=== PATIENT | male | born 1930 | race Caucasian/White ===

== ENCOUNTER 2016-12-27 21:26 | Emergency (ER) | payer OTHER, MEDICARE ==
[~2016-12-27] VITALS: Ht 165.1 cm; Wt 70.8 kg
[~2016-12-27 21:26] MED LIST: AMLODIPINE BESYL5 M1 PO; CLOPIDOGREL75 M1 PO; EXELON1 EAC1 TOP; FUROSEMIDE20 M1 PO; IBUPROFEN400 M1 PO; METOPROLOL SUC100 M2 PO; NAMENDA10 M2 PO; PRAVASTATIN SOD40 M2 PO; RIVASTIGMINE3 MG PO
[2016-12-27 21:39] VITALS: BP 150/77
--- NOTE | 2016-12-27 21:48 | ED MVC/FALL/TRAUMA COMPLAINT ---
History of Present Illness General Chief Complaint: Fall Stated Complaint: PT FELL AND HIT HIS HEAD Source: patient, family, old records Exam Limitations: no limitations Vital Signs & Intake/Output Vital Signs & Intake/Output Vital Signs Date Time Temp Pulse Resp B/P Pulse O2 O2 Flow FiO2 Ox Delivery Rate 12/27 2217 Room Air 12/27 2138 97.6 65 18 150/77 96 Room Air ED Intake and Output 12/28 0000 12/27 1200 Intake Total 0 Output Total Balance 0 Intake, Oral 0 Patient 156 lb Weight Allergies Coded Allergies: NO KNOWN ALLERGIES (03/17/16) Reconcile Medications Amlodipine Besylate 5 MG TABLET 1 TAB PO DAILY HEART (Reported) Clopidogrel Bisulfate (Clopidogrel) 75 MG TABLET 1 TAB PO DAILY BLOOD THINNER (Reported) Furosemide 20 MG TABLET 1 TAB PO DAILY WATER PILL (Reported) Ibuprofen 400 MG TABLET 1 TAB PO BID PRN PAIN Memantine HCl (Namenda) 10 MG TABLET 1 TAB PO BID DEMENTIA (Reported) Metoprolol Succinate 100 MG TAB.ER.24H 1 TAB PO DAILY HEART (Reported) Pravastatin Sodium 40 MG TABLET 1 TAB PO QPM CHOLESTEROL (Reported) Rivastigmine (Exelon) 9.5 MG/Patch PAT 1 PAT TOP DAILY DEMENTIA (Reported) Rivastigmine Tartrate (Rivastigmine) 3 MG CAPSULE 1 CAP PO BID DEMENTIA ( Reported) Triage Note: PT TO TRIAGE S/P FELL OFF HIS WHEELCHAIR AND HIT HIS HEAD ON TABLE, BUMP TO R SIDE OF HEAD NOTED. -LOS, -LAC, PT TAKES ASPIRIN 81MG. PT DENIES ANY PAIN. HX OF DEMENTIA,HTN,HIGH CHOL,PACEMAKER. Triage Nurses Notes Reviewed? yes Onset: Abrupt Duration: hour(s): (1), better, constant Timing: recent history Severity: mild Severity Numbers: 1 Injuries/Fall Location: head Method of Injury: fall Loss of Consciousness: no loss of consciousness No Modifying Factors: none Associated Symptoms: denies HPI: 86-year-old male with history of dementia coronary artery disease on Plavix aspirin presents with his family for evaluation after he had a witnessed fall when he attempted to sit back in his wheelchair which was not locked. The wheelchair went backwards causing the patient to strike his head against the table sustaining a bump to the right side of his head. The fall was witnessed by his and son there is no loss of consciousness. They state he is been acting his normal baseline mental status-strickland since the fall there is no nausea no vomiting. On arrival the patient is without any complaints he denies any nausea vomiting headache vision changes neck or back pain no extremity injury chest pain abdominal pain no numbness or tingling. He is not taken anything for his symptoms there no modifying factors or associated symptoms otherwise. (JACKSON LEARY) Past History Travel History Traveled to [place] past 21 day No Medical History Any Pertinent Medical History? see below for history Neurological: dementia Cardiovascular: hypertension, hyperlipidemia, myocardial infarction, PACEMAKER Endocrine: diabetes Surgical History Surgical History: PPM Psychosocial History What is your primary language Korean Tobacco Use: Never used Family History Hx Contributory? No (JACKSON LEARY) Review of Systems Review of Systems Constitutional: Reports: see HPI. All Other Systems: Reviewed and Negative Comments Review of systems: See HPI, All other systems negative. Constitutional, no chills no fever, no malaise HEENT: No visual changes no sore throat no congestion, Cardiovascular: No chest pain , no palpitation , Skin, no jaundice no rashes, no change in skin Respiratory: No dyspnea no cough no sputum GI: No nausea no vomiting, : No dysuria Muscle skeletal: No joint pain, no joint swelling, no back pain, no neck pain, Neurologic: No numbness no confusion, no headache Psych: No stress Heme/endocrine: No bruising no bleeding Immunology: No lymphadenopathy (JACKSON LEARY) Physical Exam Physical Exam General Appearance: well developed/nourished, no apparent distress, alert, awake Comments: Well-developed well-nourished person in no acute distress HEENT: Normal EENT exam; PERRL, EOMI, no nystagmus. HEAD is atraumatic. moist mucous membranes. No hemotympanum no raccoon eyes or yoon signs there is a small 2 cm hematoma to the right parietal scalp nontender no obvious deformity Neck: Supple, no midline or paracervical tenderness no signs of trauma, normal range of motion without pain or tenderness Back: Nontender, Full range of motion Cardiovascular: Regular rate and rhythms no murmurs rubs Respiratory: Chest nontender.There were no bony deformities, no asymmetry. No respiratory distress. Patient speaking in full complete sentences Abdomen: Soft, nontender Extremity: No edema, full range of motion of extremities, normal and equal pulses bilaterally, 5 out of 5 strength noted to bilateral upper and lower extremities Neuro: Alert oriented x3, motor sensory normal, cranial nerves II through XII grossly intact. There were no obvious focal neurologic abnormalities. Skin: No appreciable rash on exposed skin, skin is warm and dry. Psych: Mood and affect is normal, memory and judgment is normal. Core Measures ACS in differential dx? No Severe Sepsis Present: No Septic Shock Present: No (JACKSON LEARY) Progress Differential Diagnosis: ext injury, ICH, pelvis injury, spinal cord injury Plan of Care: Orders Procedure Date/time Status CT HEAD WO IV CONTRAST 12/27 2152 Active CAT scan ordered patient resting in no apparent distress denies any complaints at this time case was discussed with Dr. Long. I discussed the patient and his family his CAT scan results need for close follow up with his primary care physician supportive care Tylenol Motrin if needed they feel comfortable with plan cleared for discharge (JACKSON LEARY) Diagnostic Imaging: Viewed by Me: CT Scan. Discussed w/RAD: CT Scan. Radiology Impression: PATIENT: TYSON NOONAN PRESENT AGE: 86 PATIENT ACCOUNT NO: [id number] : 30 LOCATION: [facility] ORDERING PHYSICIAN: JACKSON LIM SERVICE DATE: 12/27/16 EXAM TYPE: CAT - CT HEAD WO IV CONTRAST EXAMINATION: CT HEAD WITHOUT CONTRAST CLINICAL INFORMATION: Fall. Dementia. COMPARISON: None TECHNIQUE: Contiguous axial imaging was performed from the skull base to vertex without intravenous administration of contrast. Coronal reformatted images performed at CT scanner. DLP: 600.71 mGy-cm FINDINGS: There is no evidence of acute intracranial hemorrhage or territorial infarction. No abnormal mass effect or midline shift is seen. Green to white matter differentiation is well preserved. No extra-axial fluid collections are identified. There is atrophy with prominence of the ventricles and the sulci and hypodensity of the periventricular white matter due to chronic small vessel ischemic disease. There is vascular calcifications of the internal carotid arteries and the vertebral arteries bilaterally. The osseous structures and soft tissues are normal. The mastoid air cells and visualized portions of the paranasal sinuses are well aerated. IMPRESSION: No acute intracranial pathology. DICTATED BY: CLAUDY SOMERS MD DATE/TIME DICTATED:12/27/162305 TOE POUNDER :MALINDA DATE/TIME TRANSCRIBED:03/19/17 / 2306 CONFIDENTIAL, DO NOT COPY WITHOUT APPROPRIATE AUTHORIZATION. <Electronically signed in Other Vendor System> SIGNED BY: CLAUDY SOMERS MD 12/27/162310 (JACKSON LEARY) Departure Departure Time of Disposition: 2318 Disposition: HOME OR SELF CARE Condition: Stable Clinical Impression Primary Impression: Minor head injury without loss of consciousness Secondary Impressions: Scalp hematoma Referrals: SASKIA PATTERSON,DEIRDRE Coronado (PCP/Family) Additional Instructions: Follow up with his primary care physician this week return to emergency room anytime sooner with any concerns Departure Forms: Customer Survey General Discharge Information (JACKSON LEARY) PA/TMD TEACHER Co-Sign Statement Statement: ED Attending supervision documentation- [] I saw and evaluated the patient. I have also reviewed all the pertinent lab results and diagnostic results. I agree with the findings and the plan of care as documented in the PA's/TMD TEACHER's documentation. x] I have reviewed the ED Record and agree with the PA's/TMD TEACHER's documentation. [] Additions or exceptions (if any) to the PAs/TMD TEACHER's note and plan are summarized below: [] (GABBIE PATTERSON,DEWAYNE Xiao)
--- NOTE | 2016-12-27 23:11 | CT SCAN REPORT ---
EXAMINATION: CT HEAD WITHOUT CONTRAST CLINICAL INFORMATION: Fall. Dementia. COMPARISON: None TECHNIQUE: Contiguous axial imaging was performed from the skull base to vertex without intravenous administration of contrast. Coronal reformatted images performed at CT scanner. DLP: 600.71 mGy-cm FINDINGS: There is no evidence of acute intracranial hemorrhage or territorial infarction. No abnormal mass effect or midline shift is seen. Green to white matter differentiation is well preserved. No extra-axial fluid collections are identified. There is atrophy with prominence of the ventricles and the sulci and hypodensity of the periventricular white matter due to chronic small vessel ischemic disease. There is vascular calcifications of the internal carotid arteries and the vertebral arteries bilaterally. The osseous structures and soft tissues are normal. The mastoid air cells and visualized portions of the paranasal sinuses are well aerated. IMPRESSION: No acute intracranial pathology.
== END 2016-12-27 23:21 ==
LOC: ERH 21:26
DX: S09.90XA Unspecified injury of head, initial encounter (principal); S00.03XA Contusion of scalp, initial encounter; W05.0XXA Fall from non-moving wheelchair, initial encounter

== ENCOUNTER 2017-03-11 15:47 | Inpatient (IN) | payer OTHER, MEDICARE ==
[~2017-03-11] VITALS: Ht 165.1 cm; Wt 68.0 kg
--- NOTE | 2017-03-11 16:08 | ED GENERAL ADULT ---
History of Present Illness General Chief Complaint: Altered Mental Status Stated Complaint: BIBA FOR AMS Source: family, old records Exam Limitations: dementia Vital Signs & Intake/Output Vital Signs & Intake/Output Vital Signs Date Time Temp Pulse Resp B/P B/P Pulse O2 O2 Flow FiO2 Mean Ox Delivery Rate 03/11 1802 78 20 185/91 98 Room Air 03/11 1550 98.0 78 20 148/80 96 Room Air Allergies Coded Allergies: NO KNOWN ALLERGIES (03/17/16) Reconcile Medications Amlodipine Besylate 5 MG TABLET 1 TAB PO DAILY HEART (Reported) Clopidogrel Bisulfate (Clopidogrel) 75 MG TABLET 1 TAB PO DAILY BLOOD THINNER (Reported) Furosemide 20 MG TABLET 1 TAB PO DAILY WATER PILL (Reported) Ibuprofen 400 MG TABLET 1 TAB PO BID PRN PAIN Memantine HCl (Namenda) 10 MG TABLET 1 TAB PO BID DEMENTIA (Reported) Metoprolol Succinate 100 MG TAB.ER.24H 1 TAB PO DAILY HEART (Reported) Pravastatin Sodium 40 MG TABLET 1 TAB PO QPM CHOLESTEROL (Reported) Rivastigmine (Exelon) 9.5 MG/Patch PAT 1 PAT TOP DAILY DEMENTIA (Reported) Rivastigmine Tartrate (Rivastigmine) 3 MG CAPSULE 1 CAP PO BID DEMENTIA ( Reported) Triage Note: BIBA FROM HOME. PT WITH ADVANCED DEMENTIA. PER EMS AND FAMILY PT WITH DECREASED MOBILITY SINCE WEDNESDAY. Triage Nurses Notes Reviewed? yes HPI: Patient brought in by his family for evaluation of worsening confusion. Patient has Alzheimer's dementia but starting on Wednesday they noticed that his confusion abruptly got worse. They've also noticed that every time the turn him onto his right side he cries out in pain. They're unsure where the pain is in his right side. They state that he usually sleeps on his right side but for the past few days he has been sitting on his back. Patient is unable to provide any history. Past History Travel History Traveled to [place] past 21 day No Medical History Any Pertinent Medical History? see below for history Neurological: dementia Cardiovascular: hypertension, hyperlipidemia, myocardial infarction, PACEMAKER Endocrine: diabetes Surgical History Surgical History: PPM Psychosocial History What is your primary language French Tobacco Use: Cognitive Impairment Family History Hx Contributory? No Review of Systems Review of Systems Constitutional: Reports: see HPI. Physical Exam Physical Exam General Appearance: well developed/nourished, awake, mild distress Head: atraumatic, normal appearance Eyes: Bilateral: PERRL, EOMI. Ears, Nose, Throat: normal pharynx, normal ENT inspection Neck: normal inspection, supple Respiratory: normal breath sounds, chest non-tender, no respiratory distress, lungs clear Cardiovascular: regular rate/rhythm, normal peripheral pulses Gastrointestinal: normal bowel sounds, soft, non-tender Back: normal inspection, normal range of motion Extremities: normal inspection, normal capillary refill, normal range of motion Neurologic/Psych: disoriented x 3 Skin: intact, normal color, warm/dry Lymphatic: no anterior cervical sary Core Measures ACS in differential dx? No CVA/TIA Diagnosis: Yes Dt/Tm Last Known Well: Yes Date Last Known Well: 03/07/17 Neurological S/S of CVA: Acute Confusion Symptom start date: 03/07/17 Reason tPA not ordered: Medical Contraindication Severe Sepsis Present: No Septic Shock Present: No Bedside Swallow Eval Done: Yes Result of Evaluation: Pass Progress Differential Diagnoses I considered the following diagnoses in my evaluation of the patient: [UTI, pneumonia, electrolyte abnormality, CVA] Plan of Care: Orders Procedure Date/time Status Regular Diet 03/12 B Active EKG 03/11 1916 Active URINALYSIS 03/11 1610 Active COMPREHENSIVE METABOLIC PANEL 03/11 1610 Complete CBC WITHOUT DIFFERENTIAL 03/11 1610 Complete Laboratory Tests 03/11/17 1620: Anion Gap 13, Estimated GFR 26 L, BUN/Creatinine Ratio 24.2, Glucose 230 H, Calcium 9.0, Total Bilirubin 0.5, AST 21, ALT 38, Alkaline Phosphatase 58, Total Protein 7.3, Albumin 3.7, Globulin 3.6, Albumin/Globulin Ratio 1.0 L, CBC w Diff NO MAN DIFF REQ, RBC 4.07 L, MCV 89.9, MCH 29.7, RDW 13.5, MPV 8.8, Gran % 73.3, Lymphocytes % 12.7 L, Monocytes % 12.6 H, Eosinophils % 1.2, Basophils % 0.2, Absolute Granulocytes 6.3, Absolute Lymphocytes 1.1 L, Absolute Monocytes 1.1 H, Absolute Eosinophils 0.1, Absolute Basophils 0, PUBS MCHC 33.0 Initial ED EKG: pacemaker rhythm Prior EKG: unchanged Departure Departure Disposition: STILL A PATIENT Condition: Stable Clinical Impression Primary Impression: CVA (cerebral vascular accident) Qualifiers: CVA mechanism: unspecified Qualified Code: I63.9 - Cerebral infarction, unspecified Referrals: SASKIA PATTERSON,DEIRDRE Coronado (PCP/Family) Departure Forms: Customer Survey General Discharge Information Admission Note Spoke With: MATTHEW JONAS MD Documentation of Exam: Documentation of any treatments & extenuating circumstances including Concerns Regarding Discharge (functional status, medication knowledge or non-compliance, living conditions, etc.) that warrant an admission rather than observation: [ Telemetry monitoring, neurology consultation, aspirin, PT evaluation] Critical Care Note Critical Care Note Critical Care Time: non-applicable
[2017-03-11 16:24] LABS: ABSOLUTE BASOPHIL COUNT 0 /CUMM (0.0-0.2); ABSOLUTE EOSINOPHIL COUNT 0.1 /CUMM (0.0-0.7); ABSOLUTE GRANULOCYTE CT 6.3 /CUMM (1.4-6.5); ABSOLUTE LYMPH COUNT 1.1 /CUMM (1.2-3.4); ABSOLUTE MONOCYTE COUNT 1.1 /CUMM (0.10-0.60); BASOPHIL % 0.2 % (0.0-2.0); EOSINOPHIL % 1.2 % (0-5); GRANULOCYTE % 73.3 % (42.2-75.2); HEMATOCRIT 36.6 % (42-52); MEAN CORPUSCULAR HGB 29.7 PG (27.0-31.0); MEAN CORPUSCULAR VOLUME 89.9 FL (80.0-94.0); MEAN PLATELET VOLUME 8.8 FL (7.4-10.4); PLATELET COUNT 168 /CUMM (130-400); RBC DISTRIBUTION WIDTH 13.5 % (11.5-14.5); RED BLOOD CELL CT 4.07 /CUMM (4.70-6.10); WHITE BLOOD CELL COUNT 8.6 /CUMM (4.8-10.8)
--- NOTE | 2017-03-11 17:20 | CT SCAN REPORT ---
EXAMINATION: CT HEAD WITHOUT CONTRAST CLINICAL INFORMATION: Change in mental status. COMPARISON: CT head dated 12/27/2016 TECHNIQUE: Contiguous axial imaging was performed from the skull base to vertex without intravenous administration of contrast. DLP: 614.88 mGy-cm FINDINGS: There is no CT evidence of acute intra-axial or extra-axial hemorrhage. No acute mass effect or midline shift. Subtle loss of cobian-white differentiation noted in the right superior frontoparietal region (series 2 image 50). Findings are suspicious for evolving cortical infarct. There is periventricular and subcortical white matter low-attenuation consistent with microvascular ischemic disease. Stable punctate bilateral basal ganglia calcifications. Atherosclerotic disease with intimal calcification of the distal internal carotid arteries and distal vertebral arteries. The mastoid air cells and visualized portions of the paranasal sinuses are well aerated. IMPRESSION: Subtle loss of cobian-white differentiation right superior frontoparietal junction suspicious for evolving cortical infarct. This represents a new finding. This can be confirmed with MRI head. Critical results discussed with Dr. Parish at 5:15 PM on 03/11/2017.
--- NOTE | 2017-03-11 18:00 | RADIOLOGY REPORT ---
EXAMINATION: XR SHOULDER, RIGHT CLINICAL INFORMATION: Pain. COMPARISON: None TECHNIQUE: Four views of the right shoulder. FINDINGS: No fracture. No dislocation. No focal bone lesion. No soft tissue calcification. The acromioclavicular joint is normal. There is narrowing of the glenohumeral joint with superior subluxation of the humerus consistent with a chronic rotator cuff tendon tear. Pacemaker leads partially visualized in the mediastinum. 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 No acute abnormality of the shoulder.
--- NOTE | 2017-03-11 18:01 | RADIOLOGY REPORT ---
EXAMINATION: XR PELVIS CLINICAL INFORMATION: Pain when patient turns on the right side. COMPARISON: None TECHNIQUE: AP view of the pelvis. FINDINGS: There is osteopenia. No fracture or focal bone lesion. There is mild joint narrowing and spurring of acetabula of the hips bilateral. There is marked degenerative disc disease of lower lumbar spine with vacuum disc phenomenon at L3-L4 and L4-L5. IMPRESSION: No acute abnormality of pelvis. 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
--- NOTE | 2017-03-11 18:03 | RADIOLOGY REPORT ---
EXAMINATION: XR CHEST CLINICAL INFORMATION: Change of mental status COMPARISON: None TECHNIQUE: 2 views of the chest were obtained. FINDINGS: Heart size enlarged. Pacemaker leads in right atrium, right ventricle and coronary sinus. This vascular calcifications of aorta. Asymmetric elevation of right diaphragm compared to left. No significant central pulmonary vascular congestion. No infiltrate. No pleural effusion or pneumothorax. Multilevel endplate degenerative spurring of dorsal spine. IMPRESSION: No acute abnormality of the chest.
[2017-03-11] MEDS ORDERED: ASPIRIN81 M4 PO (21:02)
--- NOTE | 2017-03-11 21:16 | History & Physical ---
ALICIA CLARK 03/11/176: General Information and HPI MD Statement: I have seen and personally examined TYSON ARIAS and documented this H&P. The patient is a 87 year old M who presented with a patient stated chief complaint of altred mental status. Source of Information: family, old records Exam Limitations: unable to give history, not alert/orientated, dementia History of Present Illness: Mr Arias, is an 87 yr old man who was known to be in his usual state of health 5 days ago. He has a PMH of Alzheimers dementia(dx'ed 2012), HTN, HLD, CKD stage 4 , ischemic and/or nonischemic cardiomyopathy (AICD dx'ed 2010). She was brought to [facility] with a chief concern of worsening confusion 5 days. As per the patient's family, last known to be normal was 5 days ago, when he communicated normally and was able to walk independently using a walker. The following day, he was unable to stand or walk, and had increasing confusion. No loss of consciousness, seizures, loss of bladder or bowel function. Family noted facial droop on the right side. As per the patient's family, other review of systems-palpitations, lightheadedness, chest pain, fever, dysuria were absent. Recent hospital admission- [facility] in Sep [address] Zee ( opthalmic tech) and Dr. Arredondo (electophysiologist). Allergies/Medications Allergies: Coded Allergies: NO KNOWN ALLERGIES (03/17/16) Past History Travel History Traveled to [place] past 21 day No Medical History Neurological: dementia Cardiovascular: hypertension, hyperlipidemia, myocardial infarction, PACEMAKER Endocrine: diabetes Isolation History: Standard Surgical History Surgical History: PPM Past Family/Social History Family History Relations & Conditions if any Relation not specified for: *No pertinent family history Functional Ability ADLs Needs Assist: dressing, eating, toileting, bathing. Ambulation: walker IADLs Needs Assist: food prep, transportation. Review of Systems Review of Systems Constitutional: Denies: see HPI, chills, fever. EENTM: Denies: blurred vision. Cardiovascular: Denies: chest pain. Respiratory: Denies: cough, short of breath. GI: Denies: abdominal pain, melena. Genitourinary: Denies: frequency, hematuria. Neurological/Psychological: Denies: anxiety. Hematologic/Endocrine: Denies: bruising. Exam & Diagnostic Data Last 24 Hrs of Vital Signs/I&O Vital Signs Date Time Temp Pulse Resp B/P B/P Pulse O2 O2 Flow FiO2 Mean Ox Delivery Rate 03/12 0239 170/90 03/11 2215 97.0 71 16 142/80 96 Room Air 03/11 2103 76 20 168/79 99 Room Air 03/11 2020 98.0 62 20 169/84 99 Room Air 03/11 1802 78 20 185/91 98 Room Air 03/11 1550 98.0 78 20 148/80 96 Room Air Intake & Output 03/12 0800 06 0000 03/11 1600 Intake Total Output Total Balance Patient 150 lb Weight Weight Reported by Patient Measurement Method Physical Exam General Appearance No Acute Distress, AAOx0 Skin No Rashes, No Breakdown, No Significant Lesion Skin Temp/Moisture Exam: Warm/Dry Sepsis Skin Exam (color): Normal for Ethnicity, Cyanotic, Flushed HEENT Atraumatic, PERRLA, EOMI Neck Supple, No JVD, No thryomegaly Lymphatic Axillary nl, Cervical nl Cardiovascular Regular Rate, Normal S1, Normal S2 Lungs Normal Air Movement Abdomen Normal Bowel Sounds, Soft, No Tenderness Neurological Strength 4/5 right upper and lower extremities Strength 3/5 left upper and lower extremities Babinski negative DTR 1+ Left knee, 2+ Right knee Extremities No Clubbing Vascular Pulses Symmetrical Sepsis Peripheral Pulse Location: Dorsalis Pedis Sepsis Peripheral Pulse Exam: Normal Sepsis Cap Refill Exam: >2 sec Reproductive (MALE) scrotal edema Body Front and Back (Adult) 1) scrotal edema Last 24 Hrs of Labs/Anselmo: Laboratory Tests 03/11/17 1620: Anion Gap 13, Estimated GFR 26 L, BUN/Creatinine Ratio 24.2, Glucose 230 H, Hemoglobin A1c Pending, Calcium 9.0, Total Bilirubin 0.5, AST 21, ALT 38, Alkaline Phosphatase 58, Total Protein 7.3, Albumin 3.7, Globulin 3.6, Albumin/ Globulin Ratio 1.0 L, Vitamin B12 Pending, TSH Pending, CBC w Diff NO MAN DIFF REQ, RBC 4.07 L, MCV 89.9, MCH 29.7, RDW 13.5, MPV 8.8, Gran % 73.3, Lymphocytes % 12.7 L, Monocytes % 12.6 H, Eosinophils % 1.2, Basophils % 0.2, Absolute Granulocytes 6.3, Absolute Lymphocytes 1.1 L, Absolute Monocytes 1.1 H, Absolute Eosinophils 0.1, Absolute Basophils 0, PUBS MCHC 33.0 Diagnostic Data EKG Results Heart rate 74, atrial sensed ventricular paced rhythm. No ST-T wave changes. CXR Results Normal Other Results CT head-subtle loss of cobian-white differentiation with right superior frontal parental junction. Likely evolving cortical infarct. X-ray pelvis-no acute abnormality. Degenerative changes found. X-ray right shoulder-chronic rotator cuff tear. X-ray chest-normal no acute abnormality. Assessment/Plan Assessment: He is an older man with a past history of Alzheimer's dementia, hypertension, cardiomyopathy (AICD) is being evaluated for worsening confusion, likely from CVA or worsening dementia. At the time of admission, vitals-temperature 90.8, pulse rate 78, respiration 20 , blood pressure 148/80, 96% on room air. Lab findings indicated WBC 8.6, hemoglobin 12.1, platelets 168. Normal electrolytes, potassium 5.0 (slightly elevated likely due to acid shift), HCO3 17 (likely from CK D), BUN 58, serum creatinine 2.4, (baseline 2.7), glucose 230. Urinalysis-was not done. Radiological findings-CT head revealed subtle loss of cobian-white differentiation on the right superior frontal parietal junction. As per the radiologist, it was suspicious for evolving cortical infarct. Other radiology-chest x-ray was normal, x-ray pelvis revealed no acute pathology of pelvis but degenerative changes were seen. Right shoulder x-ray revealed chronic rotator cuff tear. Last echocardiogram that was done in 2010 revealed low LVEF. EKG revealed heart rate 74 with atrial sensed ventricular paced rhythm. Differential diagnosis: #1 ischemic infarct/CVA #2 worsening dementia #3 infection Below is the problem list and plan: #1 altered mental status-likely due to ischemic CVA. Reason unclear at this time. Duration of symptoms likely outside the window. Patient was already given aspirin. Continue aspirin. Reason for dual antiplatelet therapy is unclear in this patient. Defer the decision to the opthalmic tech at this time. Continue statin therapy. May benefit from lisinopril. Neuro checks. Fall precautions. Nothing by mouth pending swallow evaluation. Permissive hypertension, likely not useful, however would not hurt in this case. Hold amlodipine, but continue metoprolol. Physical therapy/occupational therapy. Check echocardiogram and carotid Doppler. Neurological evaluation. Consultation request placed. Check lipid panel. #2 ischemic cardiomyopathy-has a history of ischemic and nonischemic cardiomyopathy status post AICD. Check echocardiogram. To be evaluated by the opthalmic tech in the a.m. Continue beta paresh for now. #3 DVT prophylaxis-subcutaneous heparin. #4 Scrotal edema- likely due to low oncotic pressure. Continue to monitor. As Ranked By This Provider Problem List: 1. CVA (cerebral vascular accident) Qualifiers CVA mechanism: unspecified Qualified Code: I63.9 - Cerebral infarction, unspecified Core Measures/Miscellaneous Acute Coronary Syndrome ACS Diagnosis: No Cerebrovascular Accident CVA/TIA Diagnosis: Yes Date Last Known Well: 03/07/17 Neurological S/S of CVA: Acute Confusion Symptom Start Date: 03/07/17 Reason tPA not ordered Medical Contraindication Bedside Swallow Eval Done: Yes Result of Evaluation: Pass Congestive Heart Failure CHF Diagnosis: No Venous Thromboembolism VTE Risk Factors: Age > 40 No [facility] VTE prophylaxis d/t: No contraindications No VTE Pharm Prophylaxis d/t: No contraindications VTE Diagnosis: No VTE Type: NONE VTE Confirmed by (Test): NONE Severe Sepsis Severe Sepsis Present: No Septic Shock Septic Shock Present: No Miscellaneous Documentation Attending Case Discussed With: MATTHEW JONAS MD Primary Care Physician: DEIRDRE KRUGER MD Patient sees these Specialists Dr. Quesada Level of Patient Care: Telemetry MÓNICA PATTERSON,HARRISON 03/11/17 1680: General Information and HPI Allergies/Medications Home Med list Amlodipine Besylate 5 MG TABLET 1 TAB PO DAILY HEART (Reported) Aspirin (Aspirin*) 81 MG TAB.CHEW 1 TAB PO DAILY CVD (Reported) Clopidogrel Bisulfate (Clopidogrel) 75 MG TABLET 1 TAB PO DAILY BLOOD THINNER (Reported) Furosemide 20 MG TABLET 1 TAB PO Q48 WATER PILL (Reported) Ibuprofen 400 MG TABLET 1 TAB PO BID PRN PAIN Memantine HCl (Namenda) 10 MG TABLET 1 TAB PO BID DEMENTIA (Reported) Metoprolol Succinate 100 MG TAB.ER.24H 1 TAB PO DAILY HEART (Reported) Pravastatin Sodium 40 MG TABLET 1 TAB PO QPM CHOLESTEROL (Reported) Rivastigmine (Exelon) 9.5 MG/Patch PAT 1 PAT TOP DAILY DEMENTIA (Reported) Rivastigmine Tartrate (Rivastigmine) 3 MG CAPSULE 1 CAP PO BID DEMENTIA ( Reported) Exam & Diagnostic Data Last 24 Hrs of Vital Signs/I&O Vital Signs Date Time Temp Pulse Resp B/P B/P Pulse O2 O2 Flow FiO2 Mean Ox Delivery Rate 03/12 0239 170/90 03/11 2215 97.0 71 16 142/80 96 Room Air 03/11 2103 76 20 168/79 99 Room Air 03/11 2020 98.0 62 20 169/84 99 Room Air 03/11 1802 78 20 185/91 98 Room Air 03/11 1550 98.0 78 20 148/80 96 Room Air Intake & Output 03/12 0800 03/12 0000 03/11 1600 Intake Total Output Total Balance Patient 140 lb Weight Weight Estimated Measurement Method Core Measures/Miscellaneous Cerebrovascular Accident NIH Stroke Scale: Total 16 Days in Hospital: 2-3 anticipated Antithrombotic: Yes (aspirin given) AFIB: No Anticoagulant: No No Anticoag d/t: Medical Contraindication Evidence of Atherosclerosis: No LDL Assessed Within 24 Hours: Yes Currently on Statin: Yes PT Consult Ordered: Yes Resident Review Statement Resident Statement: examined this patient, discussed with director internal communications, agreed with director internal communications, discussed with family, reviewed EMR data (avail) Other Findings: 87-year-old man with past medical history significant for Alzheimer's disease diagnosed 4 years ago, chronic kidney disease questionable nephrotic syndrome, history of ischemic and nonischemic cardiomyopathy status post AICD placement in 2010, hyperlipidemia, history of diabetes mellitus diet controlled was brought in the emergency department by the family members for change in mental status and unable to move around and lift himself. According to the the patient is incontinent at baseline, uses travel chair around when he goes to mosque, otherwise uses walker at home and leans towards the left side when walking and unsteady on his feet at baseline. Vitals in emergency department patient afebrile, no tachypnea, no tachycardia, systolic blood pressure 140 05/11/1985 and diastolic 80-91, oxygen saturation of 96 or 98% on room air. On examination patient was alert but not oriented to time person and place. Comfortably lying in the bed not in any acute distress. S1 and S2 audible without any murmurs overall clear lungs, benign abdominal examination, mild erythema and swelling of testes, Limited neurological examination, 3/5 strength right side, able to follow some simple commands. Labs show no leukocytosis, chronic anemia, chronic renal insufficiency, BUN 58 and creatinine of 2.4 Chest x-ray was negative for any acute findings, no fracture on pelvis x-ray, chronic rotator cuff tendon tear on shoulder x-ray and degenerative disc disease on pelvic x-ray, head CT showed Subtle loss of cobian-white differentiation right superior frontoparietal junction suspicious for evolving cortical infarct. This represents a new finding. Patient was admitted on telemetry floor for the management of following problems Ischemic CVA Likely ischemic Stroke (Subtle loss of cobian-white differentiation right superior frontoparietal junction suspicious for evolving cortical infarct ) - Admit to Telemetry - Vitals Q Shift - Monitor BP - Keep BP above or equal to 160/90 - Q6 hour Neurochecks - Fall Precautions - ASA 325 MG daily given and patient takes baby aspirin and Plavix on a regular basis - Lipitor 80mg PO daily - Bed Side Swallow Eval passed - PT/OT therapy - Neurology Consult - Consider Echo - Carotid Dopplers - MRI Brain - Check TSH, B12, Folate and Vitamin D Patient passed swallow evaluation in emergency department but will keep the patient nothing by mouth and get a formal swallow evaluation Patient is on pain management pathway Patient is full code Patient is on subcutaneous heparin for DVT prophylaxis MATTHEW JONAS 03/12/17 0210: Attending MD Review Statement Attending Statement Attending MD Statement: examined this patient, discuss w/resident/PA/MACHINE MOLDER, agreed w/resident/PA/MACHINE MOLDER, reviewed EMR data (avail), reviewed images, amended to note Attending Assessment/Plan: Cc: Confusion PMH: CKD (nephrotic syndrome), dementia, Hx SP AICD/pacer Patient was brought in ER for worsening confusion. According to family patient has dementia at baseline but they noticed sudden worsening of confusion 4 days back. Patient had some gait abnormality 5 days back but on Wednesday patient could not stand, could not walk and probably had right sided pain as he was not sleeping on the right side. Family also noticed right-sided facial droop, patient has baseline urinary incontinence. The history is limited given patient' s dementia Vitals: Afebrile, pulse 78, RR 20, blood pressure in acceptable range. Saturating well on room air On exam: Patient was sound asleep, I did not wake him up for complete neuro exam. There is no obvious facial droop. CVS: S1-S2 RRR. RS: Clear to auscultate bilaterally. Abdomen soft nontender bowel sounds present. Labs: CBC unremarkable bicarbonate 17, BUN 58, creatinine 2.4, glucose 230, LFT unremarkable X-ray shoulder, x-ray pelvis, x-ray chest: 1. Evidence of chronic rotator cuff tendon tear. No acute abnormality of the shoulder. 2. No acute abnormality of pelvis. 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 3. No acute abnormality of the chest. CT head Subtle loss of cobian-white differentiation right superior frontoparietal junction suspicious for evolving cortical infarct. This represents a new finding. This can be confirmed with MRI head. A and P 87-year-old male with his severe baseline dementia had acute change in his mental status 4 days back with confusion and inability to walk. On evaluation in ER patient has right sided weakness 3/5, cranial nerves intact. Patient was found to have suspected evolving stroke on the right frontoparietal area Patient passed bedside swallow evaluation. Patient would benefit from MRI but as he has ICD, compatibility should be evaluated. Patient also was noticed to have right- sided pain this may be secondary to chronic rotator cuff tendon tear. Patient is admitted for suspected stroke evaluation + Right frontoparietal CVA + History of CKD (uncertain etiology), dementia, HFrEF SP ICD - Admit to telemetry - Neurochecks every 6 hours - OT PT evaluation - Check compatibility of ICD for MRI and then get MRI brain if possible - Swallow evaluation - Patient received 325 aspirin continue 81 mg aspirin daily, continue Plavix - Lipid profile, carotid Doppler, 2-D echo, hemoglobin A1c , TSH, B12 - Neurologic consult in a.m. - Cardiology consult in a.m. - Hold amlodipine and Lasix for permissive hypertension - Continue metoprolol at lower dose - Continue Namenda and rivastigmine. - DVT prophylaxis with heparin - Adequate pain control.
[2017-03-11 22:15] VITALS: BP 142/80
--- NOTE | 2017-03-12 02:11 | Admission Certification ---
Admission Certification Certification Statement - As attending physician, I certify that at the time of - admission, based on clinical presentation, severity of - symptoms, need for further diagnostic testing and - therapeutic interventions, and risk of adverse outcomes - without in-hospital treatment, in my clinical assessment, - this patient requires an acute hospital stay for a minimum - of two nights or longer. I have also considered psychsocial - factors such as support system, advanced age, financial - issues, cognitive issues, and failed out-patient treatments, - past re-admission history, safety of patient, and lack of - compliance as applicable. Specific rationale supporting this admission is: CVA
[2017-03-12 02:39] VITALS: BP 170/90
--- NOTE | 2017-03-12 07:37 | PN- Housestaff ---
Subjective Follow-up For: CVA Subjective: Seen and examined at bedside. Awaken by verbal stimuli. Not oriented to person or place. No acute o/n event noted by nursing staff. Review of Systems Constitutional: Reports: no symptoms. Objective Last 24 Hrs of Vital Signs/I&O Vital Signs Date Time Temp Pulse Resp B/P B/P Pulse O2 O2 Flow FiO2 Mean Ox Delivery Rate 03/12 1727 97.6 99 16 127/54 95 Room Air 03/12 1440 Room Air 03/12 1020 148/72 03/12 0826 98.9 79 16 145/71 95 Room Air 03/12 0239 170/90 03/11 2230 142/70 03/11 2215 97.0 71 16 142/80 96 Room Air 03/11 2103 76 20 168/79 99 Room Air 03/11 2020 98.0 62 20 169/84 99 Room Air 03/11 1802 78 20 185/91 98 Room Air Intake & Output 03/12 1600 03/12 0800 03/12 0000 Intake Total 240 240 Output Total Balance 240 240 Intake, Oral 240 240 Patient 68.039 kg Weight Weight Reported by Patient Measurement Method Physical Exam General Appearance: Alert, awake and able to follow some verbal commands Neck: Supple, No JVD Lymphatic: Cervical nl Cardiovascular: Normal S1, Normal S2 Neurological: dysarthic speech. Left UE strength 4/5, right intact. Assessment/Plan Assessment: This is a 87-year-old gentleman with a past medical history significant for hypertension, hyperlipidemia, diabetes, atrial fibrillation not on anticoagulation due to high fall risks, on DAPT, presents with an approximate 5 day history of weakness, left-sided hemiparesis and questionable facial droop in the setting of CT findings a right cortical infarct. Patient was not a candidate TPA due to timing, he passed a bedside swallow eval and a formal eval. Assessment and plan #CVA Patient still exhibits left-sided hemiparesis most prominent on the upper extremity. 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 Patient's history of hypertension and hyperlipidemia diabetes with cemented increased risk for CVA events. It is noted that patient had this episode while on dual antiplatelet therapy (aspirin and clopidrogel). For now we'll continue to medically optimize patient with high-dose statin atorvastatin 80 mg, will continue the DAPT, and allow permissive hypertension. Also refrain from using sedating agents. We'll continue to follow any further neurology recommendations. #Carotid stenosis Doppler remarkable for 50-79% stenosis on both right and left ICA. Currently patient is not a candidate for endarterectomy. Will continue with statin and dual platelet therapy. #History of A. fib Confirmed by cardiology that patient does have a history of A. fib and therefore he is at increased risk of a recurrent stroke. Patient does require anticoagulation, and given his high risk of falls and ckd, the NOACs will not be ideal choice. Cardiology recommended pradaxa. However, due to his ischemic MCA stroke, there is always a risk of hemorrhagic transformation in the setting of anticoagulation use. Most data suggest an average of about 7-14 days before starting anticoagulation depending on the volume and size of infarct. Dr. Baig (neurologist) recommendation was sought, and she recommended to wait for 7 days from today before initiating anticoagulation. #History of ischemic cardiomyopathy s/p biventricular AICD Dr. Martinez (cruise staff member), was planning for elecetive generator change of the AICD. however due to this acute event plans will be held. Awaiting [employer] interrogation for any arythmias. #Dementia Patient history of dementia complicates the recovery of his stroke in trying to regain baseline functions. We'll continue reverse segment and avoid any triggers. #History of hypertension Blood pressure medicines restarted however will allow permissive hypertension during the 24-48 hours. However it is possible the patient presented past the 24-48 hours window as symptoms were reported 5 days ago. #History of hyperlipidemia Continue high-dose statin Problem List: 1. CVA (cerebral vascular accident) Pain Ratin Pain Location: none Pain Goal: Remain pain free Pain Plan: per pathway Tomorrow's Labs & Rationales: BEP
[2017-03-12 08:26] VITALS: BP 145/71
--- NOTE | 2017-03-12 09:07 | Cons- Neurology ---
General Information and HPI Consulting Request Date of Consult: 03/12/17 Requested By: ALFREDO ROMERO MD Reason for Consult: stroke Source of Information: EMR Exam Limitations: clinical condition History of Present Illness: 87-year-old right-handed man who reportedly carries a history of dementia and is on rivastigmine & memantine. At baseline he is said to be conversant and ambulatory with a walker. Family brought him in after a 4-5 day history of an inability to stand or ambulate and heightened confusion. There was a question of a right? facial droop. Allergies/Medications Allergies: Coded Allergies: NO KNOWN ALLERGIES (03/17/16) Home Med List: Amlodipine Besylate 5 MG TABLET 1 TAB PO DAILY HEART (Reported) Aspirin (Aspirin*) 81 MG TAB.CHEW 1 TAB PO DAILY CVD (Reported) Clopidogrel Bisulfate (Clopidogrel) 75 MG TABLET 1 TAB PO DAILY BLOOD THINNER (Reported) Furosemide 20 MG TABLET 1 TAB PO Q48 WATER PILL (Reported) Ibuprofen 400 MG TABLET 1 TAB PO BID PRN PAIN Memantine HCl (Namenda) 10 MG TABLET 1 TAB PO BID DEMENTIA (Reported) Metoprolol Succinate 100 MG TAB.ER.24H 1 TAB PO DAILY HEART (Reported) Pravastatin Sodium 40 MG TABLET 1 TAB PO QPM CHOLESTEROL (Reported) Rivastigmine (Exelon) 9.5 MG/Patch PAT 1 PAT TOP DAILY DEMENTIA (Reported) Rivastigmine Tartrate (Rivastigmine) 3 MG CAPSULE 1 CAP PO BID DEMENTIA ( Reported) Current Medications: Current Medications Sig/Courtney Start time Last Medication Dose Route Stop Time Status Admin Acetaminophen 650 MG Q6P PRN 03/11 2245 AC PO Aspirin 81 MG DAILY 03/12 1000 AC PO Aspirin 0 .STK-MED ONE 03/11 1814 DC PO Aspirin 325 MG ONCE ONE 03/11 1745 DC 03/11 PO 03/11 1746 1813 Atorvastatin Calcium 80 MG 1700 03/11 2200 AC 03/12 PO 0015 Clopidogrel Bisulfate 75 MG DAILY 03/12 1000 AC PO Furosemide 20 MG Q48 03/12 1000 AC PO Heparin Sodium 5,000 UNIT Q8 03/12 0600 AC 03/12 (Porcine) SC 0610 Memantine 10 MG BID 03/11 2200 AC 03/12 PO 0015 Metoprolol Succinate 100 MG DAILY 03/11 2154 AC PO Morphine Sulfate 0.5 MG Q6P PRN 03/11 2245 AC IV Oxycodone HCl 5 MG Q6P PRN 03/11 2245 AC PO Rivastigmine 9.5 MG 2200 03/12 2200 AC TOP Rivastigmine 9.5 MG DAILY 03/11 2143 DC 03/12 TOP 0015 Rivastigmine Tartrate 3 MG BID 03/11 2200 DC PO Review of Systems Review of Systems: Systems review notable for apparent arthralgias otherwise as per HPI or unobtainable Past History Travel History Traveled to [place] past 21 day No Medical History Blood Transfusion Hx: No Neurological: dementia Cardiovascular: hypertension, hyperlipidemia, myocardial infarction, PACEMAKER Renal: chronic kidney disease, urinary incontinence Endocrine: diabetes Surgical History Surgical History: PPM Family History Relations & Conditions If Any: Relation not specified for: *No pertinent family history Psychosocial History Where Do You Live? Home Services at Home: None Smoking Status: Never Smoked Functional Ability ADLs Needs Assist: dressing, eating, toileting, bathing. Ambulation: walker IADLs Needs Assist: food prep, transportation. Exam & Diagnostic Data Vital Signs and I&O Vital Signs Date Time Temp Pulse Resp B/P B/P Pulse O2 O2 Flow FiO2 Mean Ox Delivery Rate 03/12 08 98.9 79 16 145/71 95 Room Air 03/12 0239 170/90 03/11 2230 142/70 03/11 2215 97.0 71 16 142/80 96 Room Air 03/11 2103 76 20 168/79 99 Room Air 03/11 2020 98.0 62 20 169/84 99 Room Air 03/11 1802 78 20 185/91 98 Room Air 03/11 1550 98.0 78 20 148/80 96 Room Air Intake & Output 03/12 1600 03/12 0800 03/12 0000 Intake Total 240 240 Output Total Balance 240 240 Intake, Oral 240 240 Patient 150 lb Weight Weight Reported by Patient Measurement Method Physical Exam: Awake alert, smiles responsively Sitting up in bed In no apparent distress Head normocephalic and atraumatic Neck supple with no audible carotid or cranial bruits Heart regular rate and rhythm Abdomen soft Extremities Limited and guarded active range of motion of bilateral shoulder elevation. Arthritic changes with genu varus. Neurologic: Alert, oriented to person and knew he was in a hospital Disoriented to time and situation Stated his age as 30 Speech dysarthric, questionably disfluent Cranial nerves: Visual garcia full to confrontation Uncooperative for funduscopic exam Pupils equal round and reactive to light Extraocular movements full Facial movements symmetric Uvula and palate elevated symmetrically Tongue protruded to midline Shoulder shrug symmetric Grossly intact hearing Motor: Normal muscle bulk. Mildly reduced muscle tone in the left arm and leg compared to the right Moderate bilateral paratonia Not fully cooperative for manual muscle testing, but in general when arms and legs are raised off the bed with this examiner's assistance, there appears to be a left hemiparesis Sensation intact to light touch No limb ataxia Tendon reflexes symmetrically trace to absent Plantar responses flexor on the right equivocal on the left Gait not tested Last 48 Hours of Lab Results: Laboratory Tests 03/12 03/11 0635 1620 Chemistry Sodium (137 - 145 mmol/L) 144 142 Potassium (3.5 - 5.1 mmol/L) 4.8 5.0 Chloride (98 - 107 mmol/L) 114 H 111 H Carbon Dioxide (22 - 30 mmol/L) 20 L 17 L Anion Gap (5 - 16) 10 13 BUN (9 - 20 mg/dL) 58 H 58 H Creatinine (0.7 - 1.2 mg/dL) 2.4 H 2.4 H Estimated GFR (>60 ml/min) 26 L 26 L BUN/Creatinine Ratio (7 - 25 %) 24.2 24.2 Glucose (65 - 99 mg/dL) 230 H Hemoglobin A1c (4.2 - 5.8 %) 7.3 H Calcium (8.4 - 10.2 mg/dL) 9.0 Total Bilirubin (0.2 - 1.3 mg/dL) 0.5 AST (17 - 59 U/L) 21 ALT (21 - 72 U/L) 38 Alkaline Phosphatase (< 127 U/L) 58 Total Protein (6.3 - 8.2 g/dL) 7.3 Albumin (3.5 - 5.0 g/dL) 3.7 Globulin (1.9 - 4.2 gm/dL) 3.6 Albumin/Globulin Ratio (1.1 - 2.2 %) 1.0 L Triglycerides (<150 mg/dL) 205 H Cholesterol (< 200 MG/DL) 207 H LDL Cholesterol, Calc (65 - 129 mg/dL) 127 HDL Cholesterol (40 - 60 mg/dL) 39 L Cholesterol/HDL Ratio (0.00 - 4.88 %) 5 H Vitamin B12 (239 - 931 pg/mL) > 1000 H TSH (0.270 - 4.200 uIU/mL) 3.550 Coagulation PT (9.4 - 12.5 SEC) 12.0 INR (0.90 - 1.17) 1.14 Hematology CBC w Diff NO MAN DIFF REQ WBC (4.8 - 10.8 /CUMM) 8.6 RBC (4.70 - 6.10 /CUMM) 4.07 L Hgb (14.0 - 18.0 G/DL) 12.1 L Hct (42 - 52 %) 36.6 L MCV (80.0 - 94.0 FL) 89.9 MCH (27.0 - 31.0 PG) 29.7 RDW (11.5 - 14.5 %) 13.5 Plt Count (130 - 400 /CUMM) 168 MPV (7.4 - 10.4 FL) 8.8 Gran % (42.2 - 75.2 %) 73.3 Lymphocytes % (20.5 - 51.1 %) 12.7 L Monocytes % (1.7 - 9.3 %) 12.6 H Eosinophils % (0 - 5 %) 1.2 Basophils % (0.0 - 2.0 %) 0.2 Absolute Granulocytes (1.4 - 6.5 /CUMM) 6.3 Absolute Lymphocytes (1.2 - 3.4 /CUMM) 1.1 L Absolute Monocytes (0.10 - 0.60 /CUMM) 1.1 H Absolute Eosinophils (0.0 - 0.7 /CUMM) 0.1 Absolute Basophils (0.0 - 0.2 /CUMM) 0 PUBS MCHC (33.0 - 37.0 G/DL) 33.0 Imaging/Other Studies: Hd CT 03-11-17 FINDINGS: There is no CT evidence of acute intra-axial or extra-axial hemorrhage. No acute mass effect or midline shift. Subtle loss of cobian-white differentiation noted in the right superior frontoparietal region (series 2 image 50). Findings are suspicious for evolving cortical infarct. There is periventricular and subcortical white matter low-attenuation consistent with microvascular ischemic disease. Stable punctate bilateral basal ganglia calcifications. Atherosclerotic disease with intimal calcification of the distal internal carotid arteries and distal vertebral arteries. The mastoid air cells and visualized portions of the paranasal sinuses are well aerated. IMPRESSION: Subtle loss of cobian-white differentiation right superior frontoparietal junction suspicious for evolving cortical infarct. This represents a new finding. This can be confirmed with MRI head. Critical results discussed with Dr. Parish at 5:15 PM on 03/11/2017. 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
--- NOTE | 2017-03-12 11:35 | PN- Att Addend ---
Attending Addendum Attending Brief Note Patient seen and examined, denies any complaints. Still weak on left side. Pt has passed swallow eval and was eating breakfast. Vital Signs Date Time Temp Pulse Resp B/P B/P Pulse O2 O2 Flow FiO2 Mean Ox Delivery Rate 03/12 1020 148/72 03/12 0826 98.9 79 16 145/71 95 Room Air 03/12 0239 170/90 03/11 2230 142/70 06 2215 97.0 71 16 142/80 96 Room Air 03/11 2103 76 20 168/79 99 Room Air 03/11 2020 98.0 62 20 169/84 99 Room Air 03/11 1802 78 20 185/91 98 Room Air 03/11 1550 98.0 78 20 148/80 96 Room Air on exam; awake, nad. Dysarthritic speech. cv; s1,s2, rrr resp; clear abd; soft, nt, bs+ ext; no edema. neuro; stregnth 4/5 on left side. Laboratory Tests 03/12 03/11 0635 1620 Chemistry Sodium (137 - 145 mmol/L) 144 142 Potassium (3.5 - 5.1 mmol/L) 4.8 5.0 Chloride (98 - 107 mmol/L) 114 H 111 H Carbon Dioxide (22 - 30 mmol/L) 20 L 17 L Anion Gap (5 - 16) 10 13 BUN (9 - 20 mg/dL) 58 H 58 H Creatinine (0.7 - 1.2 mg/dL) 2.4 H 2.4 H Estimated GFR (>60 ml/min) 26 L 26 L BUN/Creatinine Ratio (7 - 25 %) 24.2 24.2 Glucose (65 - 99 mg/dL) 230 H Hemoglobin A1c (4.2 - 5.8 %) 7.3 H Calcium (8.4 - 10.2 mg/dL) 9.0 Total Bilirubin (0.2 - 1.3 mg/dL) 0.5 AST (17 - 59 U/L) 21 ALT (21 - 72 U/L) 38 Alkaline Phosphatase (< 127 U/L) 58 Total Protein (6.3 - 8.2 g/dL) 7.3 Albumin (3.5 - 5.0 g/dL) 3.7 Globulin (1.9 - 4.2 gm/dL) 3.6 Albumin/Globulin Ratio (1.1 - 2.2 %) 1.0 L Triglycerides (<150 mg/dL) 205 H Cholesterol (< 200 MG/DL) 207 H LDL Cholesterol, Calc (65 - 129 mg/dL) 127 HDL Cholesterol (40 - 60 mg/dL) 39 L Cholesterol/HDL Ratio (0.00 - 4.88 %) 5 H Vitamin B12 (239 - 931 pg/mL) > 1000 H TSH (0.270 - 4.200 uIU/mL) 3.550 Coagulation PT (9.4 - 12.5 SEC) 12.0 INR (0.90 - 1.17) 1.14 Hematology CBC w Diff NO MAN DIFF REQ WBC (4.8 - 10.8 /CUMM) 8.6 RBC (4.70 - 6.10 /CUMM) 4.07 L Hgb (14.0 - 18.0 G/DL) 12.1 L Hct (42 - 52 %) 36.6 L MCV (80.0 - 94.0 FL) 89.9 MCH (27.0 - 31.0 PG) 29.7 RDW (11.5 - 14.5 %) 13.5 Plt Count (130 - 400 /CUMM) 168 MPV (7.4 - 10.4 FL) 8.8 Gran % (42.2 - 75.2 %) 73.3 Lymphocytes % (20.5 - 51.1 %) 12.7 L Monocytes % (1.7 - 9.3 %) 12.6 H Eosinophils % (0 - 5 %) 1.2 Basophils % (0.0 - 2.0 %) 0.2 Absolute Granulocytes (1.4 - 6.5 /CUMM) 6.3 Absolute Lymphocytes (1.2 - 3.4 /CUMM) 1.1 L Absolute Monocytes (0.10 - 0.60 /CUMM) 1.1 H Absolute Eosinophils (0.0 - 0.7 /CUMM) 0.1 Absolute Basophils (0.0 - 0.2 /CUMM) 0 PUBS MCHC (33.0 - 37.0 G/DL) 33.0 A/P; 87 y/o M with pmh sig for Alzheimers dementia(dx'ed 2012), HTN, HLD, CKD stage 4, ischemic and/or nonischemic cardiomyopathy s/p AICD is admitted with spossible acute CVA. Appreciate Neurology input. Pt is on ASA/Plavix. Will clarify with cardiology why he is on two antiplatelets. But Neuro wants to continue both. Will put him on high dose statin. Pt to get ECHO/ Carotid doppler. Continue current psych medications but will allow some permissive hypertension for the next 24/48 hours. DVt px; Hep sq. Pt needs PT/OT/ST.
--- NOTE | 2017-03-12 12:33 | ULTRASOUND REPORT ---
EXAMINATION: DUPLEX BILATERAL CAROTID ULTRASOUND CLINICAL INFORMATION: Left-sided weakness. Altered mental status. Hyperlipidemia. Question left-sided stroke.. COMPARISON: None. TECHNIQUE: Real-time ultrasound and Doppler techniques (integrating B-mode 2D vascular images, Doppler spectral analysis and color flow Doppler imaging) were utilized to interrogate the extracranial carotid and vertebral arteries bilaterally. The degree of stenosis determined by criteria similar to NASCET. FINDINGS: Right side: 1. Moderate to severe amount of plaque is seen in the ECA/ICA region. 2. The common carotid artery velocity is 143 cm/s. 3. The internal carotid artery velocities are 151 cm/s systolic and 20 cm/s diastolic. 4. The external carotid artery velocity is 245 cm/s. Left side: 1. Moderate to severe amount of plaque is seen in the ECA/ICA region. 2. The common carotid artery velocity is 156 cm/s. 3. The internal carotid artery velocities are 130 cm/s systolic and 15 cm/s diastolic. 4. The external carotid artery velocity is 212 cm/s. ADDITIONAL FINDINGS: 1. The vertebral arteries show antegrade flow. IMPRESSION: 1. RIGHT: Hemodynamically significant stenosis of the proximal right internal carotid artery corresponding to a 50-79% stenosis by velocity criteria. 2. LEFT: Hemodynamically significant stenosis of the proximal left internal carotid artery corresponding to a 50-79% stenosis by velocity criteria. 3. Elevated velocities within the bilateral external carotid artery suggesting moderate stenosis.
--- NOTE | 2017-03-12 14:16 | Discharge Summary ---
See Addendum Visit Information Visit Dates Admission Date: 03/11/17 Discharge Date: 03/14/17 Hospital Course Course Attending Physician: ALFREDO ROMERO MD Primary Care Physician: SASKIA PATTERSON,DEIRDRE Coronado Other Care Providers: Dr. Latham, players club representative Consulting Request: Consulting Specialty: Neurology Consulting Physician: Dr. freed Reason for Consult: stroke Hospital Course: 87-year-old man with past medical history of CKD (nephrotic syndrome), dementia, Hx SP AICD/pacer brought in ER for worsening confusion, gait instability. Family also noticed right-sided facial droop. Vitals: Afebrile, pulse 78, RR 20, blood pressure in acceptable range. Saturating well on room air Physical Exam: Awake alert, smiles responsively Sitting up in bed In no apparent distress Head normocephalic and atraumatic Neck supple with no audible carotid or cranial bruits Heart regular rate and rhythm Abdomen soft Extremities Limited and guarded active range of motion of bilateral shoulder elevation. Arthritic changes with genu varus. Neurologic: Alert, oriented to person and knew he was in a hospital Disoriented to time and situation Stated his age as 30 Speech dysarthric, questionably disfluent Cranial nerves: Visual garcia full to confrontation Uncooperative for funduscopic exam Pupils equal round and reactive to light Extraocular movements full Facial movements symmetric Uvula and palate elevated symmetrically Tongue protruded to midline Shoulder shrug symmetric Grossly intact hearing Motor: Normal muscle bulk. Mildly reduced muscle tone in the left arm and leg compared to the right Moderate bilateral paratonia Not fully cooperative for manual muscle testing, but in general when arms and legs are raised off the bed with this examiner's assistance, there appears to be a left hemiparesis Sensation intact to light touch No limb ataxia Tendon reflexes symmetrically trace to absent Plantar responses flexor on the right equivocal on the left Gait not tested Labs: CBC unremarkable bicarbonate 17, BUN 58, creatinine 2.4, glucose 230, LFT unremarkable, cholesterol 207, triglycerides 205, LDL 127, HDL 39. X-ray shoulder, x-ray pelvis, x-ray chest: 1. Evidence of chronic rotator cuff tendon tear. No acute abnormality of the shoulder. 2. No acute abnormality of pelvis. 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 3. No acute abnormality of the chest. CT head Subtle loss of cobian-white differentiation right superior frontoparietal junction suspicious for evolving cortical infarct. This represents a new finding. This can be confirmed with MRI head. [id number] DOPPLER IMPRESSION: 1. RIGHT: Hemodynamically significant stenosis of the proximal right internal carotid artery corresponding to a 50-79% stenosis by velocity criteria. 2. LEFT: Hemodynamically significant stenosis of the proximal left internal carotid artery corresponding to a 50-79% stenosis by velocity criteria. 3. Elevated velocities within the bilateral external carotid artery suggesting moderate stenosis. Patient was admitted on neuro cardiac floor. He passed bed side swallow and a formal swallow eval with reccomendation to continue regular solids with thin liquids. Patient was seen by neurology, Dr. Freed. According to her there is probable right MCA territory ischemic stroke with left hemiparesis. Patient was already taking aspirin, Plavix and statin at home. He was switched to high intensity statin and aspirin and Plavix were continued. Patient was also seen by physical therapy and occupational therapy. PT recommended STR upon disccharge. He was also seen by players club representative while inpatient. Echocardiogram was done and did not reveal any acute significant finding (please see echo results above). Per cardiology, patient has history of paroxysmal A. fib so plan was to start patient on anticoagulation and stop aspirin and Plavix. On discharge day, cardiology increased his metoprolol xl dose to 125 mg daily. Neurology was consulted regarding starting coagulation in the setting of a CVA episode, They reccomended starting anticoagulation at least 7 days from 03/12. Pt will start Pradaxa 75 mg bid (renally adjusted dose) on 03/19/2017 and ASA and clopidrogel will be stopped prior to initiation of Pradaxa. Regarding neurology follow up during rehab stay, spouse stated that patient was Dr Mcgee's patient, and they will prefer and will contact Dr Mcgee to continue care. Allergies: Coded Allergies: NO KNOWN ALLERGIES (03/17/16) Significant Procedures: ndications: STROKE Rhythm: Technical Quality: Technically difficult study FINDINGS Left Ventricle Left ventricular cavity size normal. Left ventricular wall thickness mildly increased. No obvious regional wall motion abnormalities. Left ventricular ejection fraction is estimated at 55 %. Abnormal relaxation filling pattern of the left ventricle (stage 1 diastolic dysfunction). Right Ventricle Normal right ventricular size and function. Catheter/pacemaker wire in the right ventricular cavity. Right Atrium Normal right atrial size. Left Atrium Normal left atrial size. Mitral Valve Mild mitral annular calcification. No mitral stenosis. Mild mitral regurgitation. Aortic Valve Aortic sclerosis. Tricuspid Valve Tricuspid valve not well visualized, grossly normal. Trace to mild tricuspid regurgitation. Unable to estimate the right ventricular systolic pressure. Pulmonic Valve Pulmonic valve not well visualized, grossly normal. Pericardium No pericardial effusion. Great Vessels Normal size aortic root. CONCLUSIONS Technically difficult study. Left ventricular cavity size normal. Left ventricular wall thickness mildly increased. No obvious regional wall motion abnormalities. Left ventricular ejection fraction is estimated at 55 %. Abnormal relaxation filling pattern of the left ventricle (stage 1 diastolic dysfunction). Normal right ventricular size and function. Catheter/pacemaker wire in the right ventricular cavity. No pericardial effusion. Kehinde Latham M.D. (Electronically Signed) Final Date: 14 March 2017 13:36 MEASUREMENTS (Male / Female) Normal Values 2D ECHO LV Diastolic Diameter PLAX 5.3 cm 4.2 - 5.9 / 3.9 - 5.3 cm LV Systolic Diameter PLAX 3.7 cm 2.1 - 4.0 cm LV Fractional Shortening PLAX 30.2 % 25 - 46 % LV Ejection Fraction 2D Teich 57.1 % IVS Diastolic Thickness 1.2 cm LVPW Diastolic Thickness 1.2 cm LV Relative Wall Thickness 0.5 RV Internal Dim ED PLAX 2.8 cm 1.9 - 3.8 cm LVOT Diameter 2.0 cm Aortic Root Diameter 2.9 cm LA Systolic Diameter LX 3.4 cm 3.0 - 4.0 / 2.7 - 3.8 cm LA Volume 29.0 cm 18 - 58 / 22 - 52 cm Ascending Aorta Diameter 3.1 cm DOPPLER AV Peak Velocity 213.0 cm/s AV Peak Gradient 18.1 mmHg AV Mean Velocity 159.0 cm/s AV Mean Gradient 11.0 mmHg AV Velocity Time Integral 45.0 cm LVOT Peak Velocity 81.0 cm/s LVOT Peak Gradient 2.6 mmHg LVOT Mean Velocity 58.6 cm/s LVOT Mean Gradient 2.0 mmHg LVOT Velocity Time Integral 16.5 cm LVOT Stroke Volume 51.8 cm AV Area Cont Eq vti 1.2 cm AV Area Cont Eq pk 1.2 cm MV Peak Velocity 121.0 cm/s MV Peak Gradient 5.9 mmHg MV Mean Velocity 53.6 cm/s MV Mean Gradient 2.0 mmHg Mitral E Point Velocity 50.8 cm/s Mitral A Point Velocity 108.0 cm/s Mitral E to A Ratio 0.5 MV PHT Velocity 55.5 cm/s MV Deceleration Gilliam 135.0 cm/s MV Pressure Half Time 123.3 ms MV Area PHT 1.8 cm MV Deceleration Time 177.0 ms TR Peak Velocity 259.0 cm/s TR Peak Gradient 26.8 mmHg Right Atrial Pressure 5.0 mmHg Pulmonary Artery Systolic Pressu 31.8 mmHg Right Ventricular Systolic Press 31.8 mmHg PV Peak Velocity 85.5 cm/s PV Peak Gradient 2.9 mmHg PV Mean Velocity 58.5 cm/s PV Mean Gradient 2.0 mmHg PV Velocity Time Integral 19.8 cm LV E' Lateral Velocity 7.8 cm/s Mitral E to LV E' Lateral Ratio 6.5 LV E' Septal Velocity 4.4 cm/s Mitral E to LV E' Septal Ratio 11.6 DICTATED BY: KEHINDE LATHAM MD Disposition Summary Disposition Principal Diagnosis: 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 Please followup with your PCP after discharge 2. please fllowup with your Neuro doctor (dr. Mcgee) after discharge 3. Please followup with your players club representative after discharge Medications at Discharge Discharge Medications: Stop taking the following medications: Clopidogrel Bisulfate (Clopidogrel) 75 MG TABLET ORAL DAILY Qty = 90 Metoprolol Succinate (Metoprolol Succinate) 100 MG TAB.ER.24H ORAL DAILY Qty = 90 Pravastatin Sodium (Pravastatin Sodium) 40 MG TABLET ORAL Every night Qty = 36 Ibuprofen (Ibuprofen) 400 MG TABLET ORAL TWICE DAILY as needed for PAIN Qty = 15 Aspirin (Aspirin*) 81 MG TAB.CHEW ORAL DAILY Continue taking these medications: Amlodipine Besylate (Amlodipine Besylate) 5 MG TABLET 1 Tablet ORAL DAILY Qty = 180 Comments: Last Taken: NOT GIVEN IN HOSPITAL Time: Furosemide (Furosemide) 20 MG TABLET 1 Tablet ORAL EVERY 48 HOURS (Every 2 days) Qty = 45 Comments: Last Taken: 03/14/17 Time: 0900 Memantine HCl (Namenda) 10 MG TABLET 1 Tablet ORAL TWICE DAILY Qty = 120 Comments: Last Taken: 03/14/17 Time: 0900 Rivastigmine Tartrate (Rivastigmine) 3 MG CAPSULE 1 Capsule ORAL TWICE DAILY Qty = 60 Comments: Last Taken: NOT GIVEN IN HOSPITAL Time: Rivastigmine (Exelon) 9.5 MG/Patch PAT 1 Patch On the skin DAILY Qty = 30 Comments: Last Taken: 03/13/17 Time: 2120 Start taking the following new medications: Metoprolol Succ XL (Toprol XL) 25 MG TAB 125 Milligram ORAL DAILY Days = 30 No Refills Instructions: PT NEEDS A DAILY DOSE OF METOPROLOL SUCCINATE 125 MG ONCE DAILY Comments: Last Taken: 03/14/17 Time: 09 (RECEIVED TOPROL XL 100 MG) Insulin Aspart (Novolog) 100 UNIT/ML VIAL 0 Units Inject into fatty tissue 3 TIMES DAILY BEFORE MEALS Days = 30 No Refills Instructions: Less than 80 mg/dl---Initiate hypoglycemic events 80-150 MG/DL -- No change 151-200 MG/DL--2 UNITS 201-250 MG/DL--4 UNITS 251-300 MG/DL--6 UNITS 301-350 MG/DL--8 UNITS 351-400 MG/DL--10 OVER 400 MG/DL--12 UNITS Comments: Last Taken: 03/14/17 Time: 1245 Clopidogrel Bisulfate (Plavix) 75 MG TABLET 75 Milligram ORAL DAILY Qty = 4 No Refills Instructions: TAKE LAST DOSE ON 01/16, THEN STOP Comments: Last Taken: 03/14/17 Time: 0900 Atorvastatin Calcium (Atorvastatin Calcium) 80 MG TABLET 80 Milligram ORAL 5 PM Qty = 30 No Refills Comments: Last Taken: 03/13/17 Time: 1730 Aspirin (Aspirin*) 81 MG TAB.CHEW 81 Milligram ORAL DAILY Qty = 4 No Refills Instructions: PLEASE TAKE LAST DOSE ON 03/18 THEN STOP Comments: Last Taken: 03/14/17 Time: 0900 Sennosides/Docusate Sodium (Senna Plus Tablet) 8.6 MG-50 MG TABLET 1 Tablet ORAL TWICE DAILY as needed for CONSTIPATION Qty = 60 No Refills Comments: Last Taken: NOT GIVEN IN HOSPITAL Time: Dabigatran Etexilate Mesylat (Pradaxa) 75 MG CAPSULE 75 Milligram ORAL TWICE DAILY Qty = 60 No Refills Instructions: PLEASE START PRADAXA ON 03/19, AND ON STOP THE PLAVIX AND ASPIRIN AFTER 03/18 DOSE Copies To: MANFRED PATTERSON,JACKSON Carpio; SASKIA PATTERSON,DEIRDRE Coronado
--- NOTE | 2017-03-12 14:44 | Cons- Cardiology ---
General Information and HPI Consulting Request Date of Consult: 03/12/17 Requested By: HEATHER PATTERSON,ALFREDO Reason for Consult: CVA, atrial fibrillation Source of Information: old records Exam Limitations: unable to give history History of Present Illness: This is an 87-year-old male with a past medical history of paroxysmal atrial fibrillation not on anticoagulation due reported to dementia /fall risk, mixed ischemic / nonischemic cardiomyopathy, prior left bundle branch block, biventricular AICD followed by Dr. Arredondo, systolic CHF, coronary artery disease , CKD, hypertension, and hyperlipidemia. During my interview with the patient he was lethargic/confused and unable to answer questions. The HPI was obtained from his medical record. He was apparently brought to the emergency room by his family who noticed worsening confusion in the last few days. He was also having more difficulty ambulating, normally ambulates independently with a walker. They were also concerned about a facial droop. No reports of a obvious respiratory distress. 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 Of note his device is at elective replacement interval and he was planned for elective generator change next week with Dr. Arredondo. Allergies/Medications Allergies: Coded Allergies: NO KNOWN ALLERGIES (03/17/16) Home Med List: Amlodipine Besylate 5 MG TABLET 1 TAB PO DAILY HEART (Reported) Aspirin (Aspirin*) 81 MG TAB.CHEW 1 TAB PO DAILY CVD (Reported) Clopidogrel Bisulfate (Clopidogrel) 75 MG TABLET 1 TAB PO DAILY BLOOD THINNER (Reported) Furosemide 20 MG TABLET 1 TAB PO Q48 WATER PILL (Reported) Ibuprofen 400 MG TABLET 1 TAB PO BID PRN PAIN Memantine HCl (Namenda) 10 MG TABLET 1 TAB PO BID DEMENTIA (Reported) Metoprolol Succinate 100 MG TAB.ER.24H 1 TAB PO DAILY HEART (Reported) Pravastatin Sodium 40 MG TABLET 1 TAB PO QPM CHOLESTEROL (Reported) Rivastigmine (Exelon) 9.5 MG/Patch PAT 1 PAT TOP DAILY DEMENTIA (Reported) Rivastigmine Tartrate (Rivastigmine) 3 MG CAPSULE 1 CAP PO BID DEMENTIA ( Reported) Current Medications: Current Medications Sig/Courtney Start time Last Medication Dose Route Stop Time Status Admin Acetaminophen 650 MG Q6P PRN 03/11 2245 AC PO Aspirin 81 MG DAILY 03/12 1000 AC 03/12 PO 1020 Aspirin 0 .STK-MED ONE 03/11 1814 DC PO Aspirin 325 MG ONCE ONE 03/11 1745 DC 06/ PO 03/11 1746 1813 Atorvastatin Calcium 80 MG 1700 03/11 2200 AC 03/12 PO 0015 Clopidogrel Bisulfate 75 MG DAILY 03/12 1000 AC 03/12 PO 1020 Furosemide 20 MG Q48 03/12 1000 AC 03/12 PO 1020 Heparin Sodium 5,000 UNIT Q8 03/12 0600 AC 03/12 (Porcine) SC 0610 Memantine 10 MG BID 03/11 2200 AC 03/12 PO 1020 Metoprolol Succinate 100 MG DAILY 03/11 2154 AC 03/12 PO 1020 Morphine Sulfate 0.5 MG Q6P PRN 03/11 2245 AC IV Oxycodone HCl 5 MG Q6P PRN 03/11 2245 AC PO Patient Medication 1 ED .STK-MED ONE 03/12 1424 DC Teaching ED 03/12 1425 Rivastigmine 9.5 MG 2200 03/12 2200 AC TOP Rivastigmine 9.5 MG DAILY 03/11 2143 DC 03/12 TOP 0015 Rivastigmine Tartrate 3 MG BID 03/11 2200 DC PO Review of Systems Review of Systems: Unable to obtain due to the patient's current mental status Past History Travel History Traveled to [place] past 21 day No Medical History Blood Transfusion Hx: No Neurological: dementia Cardiovascular: hypertension, hyperlipidemia, myocardial infarction, PACEMAKER Renal: chronic kidney disease, urinary incontinence Endocrine: diabetes Surgical History Surgical History: PPM Family History Relations & Conditions If Any: Relation not specified for: *No pertinent family history Psychosocial History Where Do You Live? Home Services at Home: None Smoking Status: Never Smoked Functional Ability ADLs Needs Assist: dressing, eating, toileting, bathing. Ambulation: walker IADLs Needs Assist: food prep, transportation. Exam & Diagnostic Data Vital Signs and I&O Vital Signs Date Time Temp Pulse Resp B/P B/P Pulse O2 O2 Flow FiO2 Mean Ox Delivery Rate 03/12 1440 Room Air 03/12 1020 148/72 03/12 0826 98.9 79 16 145/71 95 Room Air 03/12 0239 170/90 03/11 2230 142/70 03/11 2215 97.0 71 16 142/80 96 Room Air 03/11 210 76 20 168/79 99 Room Air 06/01 2020 98.0 62 20 169/84 99 Room Air 03/11 1802 78 20 185/91 98 Room Air 03/11 1550 98.0 78 20 148/80 96 Room Air Intake & Output 03/12 0803/12 0000 03/11 1600 03/11 0803/11 0000 Intake Total 240 240 Output Total Balance 240 240 Intake, Oral 240 240 Patient 150 lb Weight Weight Reported by Patient Measurement Method Physical Exam: General: A+Ox1, no obvious distress Eyes: No obvious scleral icterus. HEENT: No jugular venous distention or abnormal jugular venous pulsations. Cardiovascular: Normal intensity S1/S2. ICD noted. Respiratory: no rales or rhonchi Abdomen: no guarding Musculoskeletal: No clubbing or cyanosis noted, no edema Skin: warm Neurologic: lethargic Labs/Anselmo Results: Laboratory Tests 03/12 03/11 03/11 0635 1620 1610 Chemistry Sodium (137 - 145 mmol/L) 144 142 Potassium (3.5 - 5.1 mmol/L) 4.8 5.0 Chloride (98 - 107 mmol/L) 114 H 111 H Carbon Dioxide (22 - 30 mmol/L) 20 L 17 L Anion Gap (5 - 16) 10 13 BUN (9 - 20 mg/dL) 58 H 58 H Creatinine (0.7 - 1.2 mg/dL) 2.4 H 2.4 H Estimated GFR (>60 ml/min) 26 L 26 L BUN/Creatinine Ratio (7 - 25 %) 24.2 24.2 Glucose (65 - 99 mg/dL) 230 H Hemoglobin A1c (4.2 - 5.8 %) 7.3 H Calcium (8.4 - 10.2 mg/dL) 9.0 Total Bilirubin (0.2 - 1.3 mg/dL) 0.5 AST (17 - 59 U/L) 21 ALT (21 - 72 U/L) 38 Alkaline Phosphatase (< 127 U/L) 58 Total Protein (6.3 - 8.2 g/dL) 7.3 Albumin (3.5 - 5.0 g/dL) 3.7 Globulin (1.9 - 4.2 gm/dL) 3.6 Albumin/Globulin Ratio (1.1 - 2.2 %) 1.0 L Triglycerides (<150 mg/dL) 205 H Cholesterol (< 200 MG/DL) 207 H LDL Cholesterol, Calc (65 - 129 mg/dL) 127 HDL Cholesterol (40 - 60 mg/dL) 39 L Cholesterol/HDL Ratio (0.00 - 4.88 %) 5 H Vitamin B12 (239 - 931 pg/mL) > 1000 H TSH (0.270 - 4.200 uIU/mL) 3.550 Coagulation PT (9.4 - 12.5 SEC) 12.0 INR (0.90 - 1.17) 1.14 Hematology CBC w Diff NO MAN DIFF REQ WBC (4.8 - 10.8 /CUMM) 8.6 RBC (4.70 - 6.10 /CUMM) 4.07 L Hgb (14.0 - 18.0 G/DL) 12.1 L Hct (42 - 52 %) 36.6 L MCV (80.0 - 94.0 FL) 89.9 MCH (27.0 - 31.0 PG) 29.7 RDW (11.5 - 14.5 %) 13.5 Plt Count (130 - 400 /CUMM) 168 MPV (7.4 - 10.4 FL) 8.8 Gran % (42.2 - 75.2 %) 73.3 Lymphocytes % (20.5 - 51.1 %) 12.7 L Monocytes % (1.7 - 9.3 %) 12.6 H Eosinophils % (0 - 5 %) 1.2 Basophils % (0.0 - 2.0 %) 0.2 Absolute Granulocytes (1.4 - 6.5 /CUMM) 6.3 Absolute Lymphocytes (1.2 - 3.4 /CUMM) 1.1 L Absolute Monocytes (0.10 - 0.60 /CUMM) 1.1 H Absolute Eosinophils (0.0 - 0.7 /CUMM) 0.1 Absolute Basophils (0.0 - 0.2 /CUMM) 0 PUBS MCHC (33.0 - 37.0 G/DL) 33.0 Urines Urine Color Cancelled Urine Clarity Cancelled Urine pH Cancelled Ur Specific [place] Cancelled Urine Protein Cancelled Urine Ketones Cancelled Urine Nitrite Cancelled Urine Bilirubin Cancelled Urine Urobilinogen Cancelled Ur Leukocyte Esterase Cancelled Ur Microscopic Cancelled Urine Hemoglobin Cancelled Urine Glucose Cancelled Diagnostic Data EKG Results Tracing was personally reviewed and shows sinus rhythm with ventricular pacing CXR Results IMPRESSION: No acute abnormality of the chest. Other Results telemetry tracings were personally reviewed and showed occasional pacing Head CT IMPRESSION: Subtle loss of cobian-white differentiation right superior frontoparietal junction suspicious for evolving cortical infarct. This represents a new finding. This can be confirmed with MRI head. Assessment/Plan Assessment/Plan 1. Acute CVA 2. History of paroxysmal atrial fibrillation on anticoagulation due reported to dementia /fall risk 3. CAD with Mixed ischemic / nonischemic cardiomyopathy and compensated systolic CHF 4. Biventricular AICD followed by Dr. Arredondo currently at [facility] 5. CKD 6. Hypertension/hyperlipidemia Continue dual anti-platelet therapy and high-dose statin. Does not appear to be in decompensated congestive heart failure. Given his documented history of paroxysmal atrial fibrillation he would be a candidate for potential full anticoagulation after discussing the risks versus benefits with his family (the patient is currently not able to make his own medical decisions). Would need Neurology clearance prior to initiating anticoagulation if the family is agreeable. Will follow up echocardiogram. I will also arrange to have his ICD interrogated to see if there are any recent atrial fibrillation episodes. if we are able to start on anticoagulation therapy we will favor a reversible agent due to his bleeding risk; possibly renally dose Pradaxa. I spoke to Dr. Arredondo and his plan for elective generator change a will be put on hold for the time being. Norbert Latham MD [facility] Consult Acknowledgment - Thank you for your consult request.
[2017-03-12 17:27] VITALS: BP 127/54
[2017-03-12 22:56] VITALS: BP 142/68
[2017-03-13 08:17] LABS: ABSOLUTE BASOPHIL COUNT 0 /CUMM (0.0-0.2); ABSOLUTE EOSINOPHIL COUNT 0.2 /CUMM (0.0-0.7); ABSOLUTE GRANULOCYTE CT 5.4 /CUMM (1.4-6.5); ABSOLUTE LYMPH COUNT 1.4 /CUMM (1.2-3.4); ABSOLUTE MONOCYTE COUNT 1.1 /CUMM (0.10-0.60); BASOPHIL % 0.2 % (0.0-2.0); GRANULOCYTE % 67.6 % (42.2-75.2); MEAN CORPUSCULAR HGB 29.8 PG (27.0-31.0); MEAN CORPUSCULAR HGB CONC 33.1 G/DL (33.0-37.0); MEAN PLATELET VOLUME 9.6 FL (7.4-10.4); PLATELET COUNT 161 /CUMM (130-400); RBC DISTRIBUTION WIDTH 13.7 % (11.5-14.5); RED BLOOD CELL CT 3.66 /CUMM (4.70-6.10)
--- NOTE | 2017-03-13 08:49 | PN- Housestaff ---
JOSIAH PATTERSON,SASCHA 03/13/17 0848: Subjective Follow-up For: CVA Carotid stenosis Tele-Events Since Last Visit: S-pacing, 1 degree AVB, HR 70-90s Sinus beats, BBB, PVCs Subjective: Patient seen and examined this morning. No events reported overnight. Eating in bed with son's help. No acute complaints per both the pt and son. Denies any fever, chills, chest discomfort, dyspnea, abdominal pain, headache, nausea, vomiting. Review of Systems Constitutional: Reports: see HPI. Objective Last 24 Hrs of Vital Signs/I&O Vital Signs Date Time Temp Pulse Resp B/P B/P Pulse O2 O2 Flow FiO2 Mean Ox Delivery Rate 03/13 1013 84 164/70 06 0904 98.6 76 18 164/70 95 Room Air / 2256 100.3 87 18 142/68 94 Room Air 03/12 1727 97.6 99 16 127/54 95 Room Air 03/12 1440 Room Air Intake & Output 03/13 1600 03/13 0800 03/13 0000 Intake Total 100 100 Output Total Balance 100 100 Intake, Oral 100 100 Physical Exam General Appearance: Alert, Oriented X3, Cooperative, No Acute Distress Other Physical Findings: Skin No Rashes, No Breakdown, No Significant Lesion Skin Temp/Moisture Exam: Warm/Dry Sepsis Skin Exam (color): Normal for Ethnicity, Cyanotic, Flushed HEENT Atraumatic, PERRLA, EOMI Neck Supple, No JVD, No thryomegaly Lymphatic Axillary nl, Cervical nl Cardiovascular Regular Rate, Normal S1, Normal S2 Lungs Normal Air Movement Abdomen Normal Bowel Sounds, Soft, No Tenderness Neurological Strength 4/5 right upper and lower extremities Strength 3/5 left upper and lower extremities Babinski negative DTR 1+ Left knee, 2+ Right knee Extremities No Clubbing Vascular Pulses Symmetrical Current Medications: Current Medications Sig/Courtney Start time Last Medication Dose Route Stop Time Status Admin Acetaminophen 650 MG Q6P PRN 03/11 2245 AC PO Aspirin 81 MG DAILY 03/12 1000 AC 03/13 PO 1013 Atorvastatin Calcium 80 MG 1700 03/11 2200 AC 03/12 PO 1608 Clopidogrel Bisulfate 75 MG DAILY 03/12 1000 AC 03/13 PO 1013 Furosemide 20 MG Q48 03/12 1000 AC 03/12 PO 1020 Heparin Sodium 5,000 UNIT Q8 03/12 0600 AC 03/13 (Porcine) SC 0600 Insulin Aspart 0 TIDAC 03/13 1200 AC 03/13 SC 1208 Memantine 10 MG BID 03/11 2200 AC 03/13 PO 1013 Metoprolol Succinate 100 MG DAILY 03/11 2154 AC 03/13 PO 1013 Morphine Sulfate 0.5 MG Q6P PRN 03/11 2245 AC IV Oxycodone HCl 5 MG Q6P PRN 03/11 2245 AC PO Patient Medication 1 ED .STK-MED ONE 03/12 1424 DC Teaching ED 03/12 1425 Rivastigmine 9.5 MG 2200 03/12 220 AC 03/12 TOP 2200 Last 24 Hrs of Lab/Anselmo Results Last 24 Hrs of Labs/Mics: Laboratory Tests 03/13/17 0645: Anion Gap 10, Estimated GFR 23 L, BUN/Creatinine Ratio 27.7 H, Magnesium 2.2, CBC w Diff NO MAN DIFF REQ, RBC 3.66 L, MCV 90.0, MCH 29.8, RDW 13.7, MPV 9.6, Gran % 67.6, Lymphocytes % 16.9 L, Monocytes % 13.3 H, Eosinophils % 2.0, Basophils % 0.2, Absolute Granulocytes 5.4, Absolute Lymphocytes 1.4, Absolute Monocytes 1.1 H, Absolute Eosinophils 0.2, Absolute Basophils 0, PUBS MCHC 33.1 Assessment/Plan Assessment: This is a 87-year-old gentleman with a past medical history significant for hypertension, hyperlipidemia, diabetes, atrial fibrillation not on anticoagulation due to high fall risks, on DAPT, presents with an approximate 5 day history of weakness, left-sided hemiparesis and questionable facial droop 2/ 2 ischemic CVA. #CVA Patient p/w left-sided hemiparesis most prominent on the upper extremity. 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 Patient's history of hypertension and hyperlipidemia diabetes with cemented increased risk for CVA events. It is noted that patient had this episode while on dual antiplatelet therapy (aspirin and clopidrogel). * Continue to medically optimize patient with high-dose statin atorvastatin 80 mg * Continue the DAPT, and allow permissive hypertension. * Avoid using sedating agents. * Continue to follow any further neurology recommendations. * If OK with neuro, start renally dosed Pradaxa as per cardio rec #Carotid stenosis Doppler remarkable for 50-79% stenosis on both right and left ICA. Per vascular surgeon Dr. Felix, there is currently no need for urgent interventions from vascular standpoint. Will continue with statin and dual platelet therapy. #History of A. fib Confirmed by cardiology that patient does have a history of A. fib and therefore he is at increased risk of a recurrent stroke. Patient does require anticoagulation, and given his high risk of falls and ckd, the NOACs will not be ideal choice. Cardiology recommended pradaxa. However, due to his ischemic MCA stroke, there is always a risk of hemorrhagic transformation in the setting of anticoagulation use. Most data suggest an average of about 7-14 days before starting anticoagulation depending on the volume and size of infarct. Dr. Freed (neurologist) recommendation was sought, and she recommended to wait for 7 days from today before initiating anticoagulation. #History of ischemic cardiomyopathy s/p biventricular AICD Dr. Martinez (test baker), was planning for elecetive generator change of the AICD. however due to this acute event plans will be held. Awaiting [employer] interrogation for any arythmias. #Dementia Patient history of dementia complicates the recovery of his stroke in trying to regain baseline functions. We'll continue reverse segment and avoid any triggers. #History of hypertension Blood pressure medicines restarted however will allow permissive hypertension during the 24-48 hours. However it is possible the patient presented past the 24-48 hours window as symptoms were reported 5 days ago. #History of hyperlipidemia Continue high-dose statin Problem List: 1. CVA (cerebral vascular accident) 2. Carotid stenosis Pain Ratin Pain Location: 0 Pain Goal: Remain pain free Pain Plan: Mild path Tomorrow's Labs & Rationales: CBC BEP Consulting Request: Consulting Specialty: Neurology Consulting Physician: Dr. freed Reason for Consult: stroke HEATHER PATTERSON,ALFREDO 03/13/17 1005: Attending MD Review Statement Attending Statement Attending MD Statement: examined this patient, discuss w/resident/PA/IRRIGATION SPECIALIST, agreed w/resident/PA/IRRIGATION SPECIALIST, reviewed EMR data (avail), discussed with nursing, discussed with case mgmt, reviewed images, amended to note Attending Assessment/Plan: Patient seen and examined, not able to medicate felt secondary to having dementia but as such denies any complaints. Patient's son is present at bedside. On Tele there was what seems to be 11 beat run of VT. Vital Signs Date Time Temp Pulse Resp B/P B/P Pulse O2 O2 Flow FiO2 Mean Ox Delivery Rate 03/13 0904 98.6 76 18 164/70 95 Room Air 06/02 2256 100.3 87 18 142/68 94 Room Air / 1727 97.6 99 16 127/54 95 Room Air / 1440 Room Air / 1020 148/72 on exam; awake, confused, nad. cv; s1,s2, rrr resp; clear abd; soft, nt, bs+ ext; no edema neuro; Exam limited 2/2 to pt not able to follow commands. Laboratory Tests 03/13 0645 Chemistry Sodium (137 - 145 mmol/L) 141 Potassium (3.5 - 5.1 mmol/L) 5.0 Chloride (98 - 107 mmol/L) 112 H Carbon Dioxide (22 - 30 mmol/L) 18 L Anion Gap (5 - 16) 10 BUN (9 - 20 mg/dL) 72 H Creatinine (0.7 - 1.2 mg/dL) 2.6 H Estimated GFR (>60 ml/min) 23 L BUN/Creatinine Ratio (7 - 25 %) 27.7 H Magnesium (1.6 - 2.3 mg/dL) 2.2 Hematology CBC w Diff NO MAN DIFF REQ WBC (4.8 - 10.8 /CUMM) 8.0 RBC (4.70 - 6.10 /CUMM) 3.66 L Hgb (14.0 - 18.0 G/DL) 10.9 L Hct (42 - 52 %) 33.0 L MCV (80.0 - 94.0 FL) 90.0 MCH (27.0 - 31.0 PG) 29.8 RDW (11.5 - 14.5 %) 13.7 Plt Count (130 - 400 /CUMM) 161 MPV (7.4 - 10.4 FL) 9.6 Gran % (42.2 - 75.2 %) 67.6 Lymphocytes % (20.5 - 51.1 %) 16.9 L Monocytes % (1.7 - 9.3 %) 13.3 H Eosinophils % (0 - 5 %) 2.0 Basophils % (0.0 - 2.0 %) 0.2 Absolute Granulocytes (1.4 - 6.5 /CUMM) 5.4 Absolute Lymphocytes (1.2 - 3.4 /CUMM) 1.4 Absolute Monocytes (0.10 - 0.60 /CUMM) 1.1 H Absolute Eosinophils (0.0 - 0.7 /CUMM) 0.2 Absolute Basophils (0.0 - 0.2 /CUMM) 0 PUBS MCHC (33.0 - 37.0 G/DL) 33.1 A/P; 87 y/o M with pmh sig for Alzheimers dementia(dx'ed 2013), HTN, HLD, CKD stage 4, ischemic and/or nonischemic cardiomyopathy s/p AICD is admitted with spossible acute CVA. As discussed with patient's family, cardiology and urology yesterday. Secondary to patient's paroxysmal A. fib and now having this acute neurologic event, patient will need to be started on full dose and regulation. As discussed with neurology, this can be started in a week. Further time being, patient will be kept on aspirin and Plavix as well as high- dose statin. Potassium and magnesium are within normal range, please discuss with cardiology about this overnight events on telemetry. Patient already on beta paresh. Continue other current medications. Patient on heparin subcutaneous for DVT px. PT recommends rehabilitation. Possible discharge tomorrow if hemodynamically, cardio vascular status stable and bed available. Discussed with patient's son at bedside.
[2017-03-13 09:04] VITALS: BP 164/70
--- NOTE | 2017-03-13 11:50 | PN- Cardiology ---
Subjective Subjective: Sitting up in his chair. More alert today. Family at the bedside. Objective Vital Signs and I&Os Vital Signs Date Time Temp Pulse Resp B/P B/P Pulse O2 O2 Flow FiO2 Mean Ox Delivery Rate 03/13 1013 84 164/70 03/13 0904 98.6 76 18 164/70 95 Room Air / 2256 100.3 87 18 142/68 94 Room Air 03/12 1727 97.6 99 16 127/54 95 Room Air 03/12 1440 Room Air Intake & Output 03/13 1600 03/13 0800 03/13 0000 03/12 1600 03/12 0800 03/12 0000 Intake Total 100 100 240 240 Output Total Balance 100 100 240 240 Intake, Oral 100 100 240 240 Patient 150 lb Weight Weight Reported by Patient Measurement Method Physical Exam: General: No obvious distress Eyes: No obvious scleral icterus. HEENT: No jugular venous distention or abnormal jugular venous pulsations. Cardiovascular: Normal intensity S1/S2. ICD noted. Respiratory: no rales or rhonchi Abdomen: no guarding Musculoskeletal: No clubbing or cyanosis noted, no edema Skin: warm Current Medications: Current Medications Sig/Courtney Start time Last Medication Dose Route Stop Time Status Admin Acetaminophen 650 MG Q6P PRN 03/11 2245 AC PO Aspirin 81 MG DAILY / 1000 AC 03/13 PO 1013 Atorvastatin Calcium 80 MG 1700 03/11 2200 AC 03/12 PO 1608 Clopidogrel Bisulfate 75 MG DAILY 03/12 1000 AC 03/13 PO 1013 Furosemide 20 MG Q48 /02 1000 AC 03/12 PO 1020 Heparin Sodium 5,000 UNIT Q8 03/12 0600 AC 03/13 (Porcine) SC 0600 Memantine 10 MG BID 03/11 2200 AC 03/13 PO 1013 Metoprolol Succinate 100 MG DAILY 03/11 2154 AC 03/13 PO 1013 Morphine Sulfate 0.5 MG Q6P PRN 03/11 2245 AC IV Oxycodone HCl 5 MG Q6P PRN 03/11 2245 AC PO Patient Medication 1 ED .STK-MED ONE 03/12 1424 OH Teaching ED 03/12 1425 Rivastigmine 9.5 MG 2200 03/12 2200 AC 03/12 TOP 2200 Results Last 48 Hrs of Labs/Mics: Laboratory Tests 03/13/17 0645: Anion Gap 10, Estimated GFR 23 L, BUN/Creatinine Ratio 27.7 H, Magnesium 2.2, CBC w Diff NO MAN DIFF REQ, RBC 3.66 L, MCV 90.0, MCH 29.8, RDW 13.7, MPV 9.6, Gran % 67.6, Lymphocytes % 16.9 L, Monocytes % 13.3 H, Eosinophils % 2.0, Basophils % 0.2, Absolute Granulocytes 5.4, Absolute Lymphocytes 1.4, Absolute Monocytes 1.1 H, Absolute Eosinophils 0.2, Absolute Basophils 0, PUBS MCHC 33.1 03/12/17 0635: Anion Gap 10, Estimated GFR 26 L, BUN/Creatinine Ratio 24.2, Triglycerides 205 H, Cholesterol 207 H, LDL Cholesterol, Calc 127, HDL Cholesterol 39 L, Cholesterol/HDL Ratio 5 H, PT 12.0, INR 1.14 03/11/17 1620: Anion Gap 13, Estimated GFR 26 L, BUN/Creatinine Ratio 24.2, Glucose 230 H, Hemoglobin A1c 7.3 H, Calcium 9.0, Total Bilirubin 0.5, AST 21, ALT 38, Alkaline Phosphatase 58, Total Protein 7.3, Albumin 3.7, Globulin 3.6, Albumin/ Globulin Ratio 1.0 L, Vitamin B12 > 1000 H, TSH 3.550, CBC w Diff NO MAN DIFF REQ, RBC 4.07 L, MCV 89.9, MCH 29.7, RDW 13.5, MPV 8.8, Gran % 73.3, Lymphocytes % 12.7 L, Monocytes % 12.6 H, Eosinophils % 1.2, Basophils % 0.2, Absolute Granulocytes 6.3, Absolute Lymphocytes 1.1 L, Absolute Monocytes 1.1 H, Absolute Eosinophils 0.1, Absolute Basophils 0, PUBS MCHC 33.0 03/11/17 1610: Urine Color Cancelled, Urine Clarity Cancelled, Urine pH Cancelled, Ur Specific [place] Cancelled, Urine Protein Cancelled, Urine Ketones Cancelled, Urine Nitrite Cancelled, Urine Bilirubin Cancelled, Urine Urobilinogen Cancelled, Ur Leukocyte Esterase Cancelled, Ur Microscopic Cancelled, Urine Hemoglobin Cancelled, Urine Glucose Cancelled Recent Imaging Studies: Telemetry tracings personally reviewed; show sinus rhythm with occasional pacing and 11 beat ventricular run Assessment/Plan Assessment/Plan 1. Acute CVA 2. History of paroxysmal atrial fibrillation previously not on anticoagulation due reported to dementia /fall risk 3. CAD with Mixed ischemic / nonischemic cardiomyopathy and compensated systolic CHF 4. Biventricular AICD followed by Dr. Arredondo currently at [facility] 5. CKD 6. Hypertension/hyperlipidemia A little more alert today. No evidence of volume overload. Family has agreed to initiation of anticoagulation when cleared by neurology, plan is to use a reversible agent; renally dosed Pradaxa. Permissive hypertension for now status post CVA. Will eventually need increased beta paresh dose. ICD interrogation did not show evidence of recent atrial fibrillation. Echocardiogram is pending. Norbert Latham MD [facility] Continue telemetry? Yes
[2017-03-13 16:34] VITALS: BP 150/70
[2017-03-14] VITALS: BP 158/80
[2017-03-14 08:24] VITALS: BP 152/66
[2017-03-14 08:28] LABS: ABSOLUTE BASOPHIL COUNT 0 /CUMM (0.0-0.2); ABSOLUTE EOSINOPHIL COUNT 0.2 /CUMM (0.0-0.7); ABSOLUTE GRANULOCYTE CT 6.2 /CUMM (1.4-6.5); ABSOLUTE LYMPH COUNT 1.1 /CUMM (1.2-3.4); ABSOLUTE MONOCYTE COUNT 0.9 /CUMM (0.10-0.60); BASOPHIL % 0.1 % (0.0-2.0); EOSINOPHIL % 1.8 % (0-5); GRANULOCYTE % 73.3 % (42.2-75.2); MEAN CORPUSCULAR HGB 29.8 PG (27.0-31.0); MEAN CORPUSCULAR HGB CONC 33.2 G/DL (33.0-37.0); MEAN CORPUSCULAR VOLUME 89.7 FL (80.0-94.0); MEAN PLATELET VOLUME 9.6 FL (7.4-10.4); PLATELET COUNT 165 /CUMM (130-400); RBC DISTRIBUTION WIDTH 13.8 % (11.5-14.5); RED BLOOD CELL CT 3.79 /CUMM (4.70-6.10); WHITE BLOOD CELL COUNT 8.4 /CUMM (4.8-10.8)
--- NOTE | 2017-03-14 10:00 | PN- Att Addend ---
Attending Addendum Attending Brief Note Patient seen and examined, denies any complaints. Patient has dementia and therefore not able to communicate well. Pt had 11 beat VT the night before. Vital Signs Date Time Temp Pulse Resp B/P B/P Pulse O2 O2 Flow FiO2 Mean Ox Delivery Rate 03/14 0902 152/66 03/14 0824 98.9 72 18 152/66 94 Room Air 03/14 0000 98.7 74 18 158/80 93 Room Air 03/13 1634 98.9 77 18 150/70 94 Room Air 03/13 1013 84 164/70 on exam; aox3, nad. cv; s1,s2, rrr resp; clear. abd; soft, nt, bs+ ext; no edema. Laboratory Tests 03/14 0635 Chemistry Sodium (137 - 145 mmol/L) 143 Potassium (3.5 - 5.1 mmol/L) 4.9 Chloride (98 - 107 mmol/L) 112 H Carbon Dioxide (22 - 30 mmol/L) 20 L Anion Gap (5 - 16) 11 BUN (9 - 20 mg/dL) 69 H Creatinine (0.7 - 1.2 mg/dL) 2.5 H Estimated GFR (>60 ml/min) 25 L BUN/Creatinine Ratio (7 - 25 %) 27.6 H Magnesium (1.6 - 2.3 mg/dL) 2.1 Hematology CBC w Diff NO MAN DIFF REQ WBC (4.8 - 10.8 /CUMM) 8.4 RBC (4.70 - 6.10 /CUMM) 3.79 L Hgb (14.0 - 18.0 G/DL) 11.3 L Hct (42 - 52 %) 34.0 L MCV (80.0 - 94.0 FL) 89.7 MCH (27.0 - 31.0 PG) 29.8 RDW (11.5 - 14.5 %) 13.8 Plt Count (130 - 400 /CUMM) 165 MPV (7.4 - 10.4 FL) 9.6 Gran % (42.2 - 75.2 %) 73.3 Lymphocytes % (20.5 - 51.1 %) 13.5 L Monocytes % (1.7 - 9.3 %) 11.3 H Eosinophils % (0 - 5 %) 1.8 Basophils % (0.0 - 2.0 %) 0.1 Absolute Granulocytes (1.4 - 6.5 /CUMM) 6.2 Absolute Lymphocytes (1.2 - 3.4 /CUMM) 1.1 L Absolute Monocytes (0.10 - 0.60 /CUMM) 0.9 H Absolute Eosinophils (0.0 - 0.7 /CUMM) 0.2 Absolute Basophils (0.0 - 0.2 /CUMM) 0 PUBS MCHC (33.0 - 37.0 G/DL) 33.2 A/P: 87 y/o M with pmh sig for Alzheimers dementia(dx'ed 2012), HTN, HLD, CKD stage 4, ischemic and/or nonischemic cardiomyopathy s/p AICD is admitted with spossible acute CVA. At this point has been kept on asa/plavix. Can start full dose anticogulation in one week. Please discuss with cardiology if beta paresh dose needs to be increased. Continue high-dose statin. DVT prophylaxis: Heparin subcutaneous. If there is a bed available at rehabilitation, patient can be discharged today.
--- NOTE | 2017-03-14 10:20 | PN- Housestaff ---
Subjective Follow-up For: CVA Subjective: Patient is seen and examined bedside. He is alert and awake in by verbal stimuli. However his minimally responsive with verbal commands. Overnight event of 4 beat V. tach run is noted in telemetry report. No other acute overnight event reported by nursing staff. Review of Systems Constitutional: Reports: no symptoms. Objective Last 24 Hrs of Vital Signs/I&O Vital Signs Date Time Temp Pulse Resp B/P B/P Pulse O2 O2 Flow FiO2 Mean Ox Delivery Rate 03/14 1451 98.9 72 18 152/66 06/04 0902 152/66 06/04 0824 98.9 72 18 152/66 94 Room Air 06/04 0000 98.7 74 18 158/80 93 Room Air Intake & Output 03/14 1600 03/14 0800 06 0000 Intake Total 600 50 440 Output Total Balance 600 50 440 Intake, Oral 600 50 440 Number 2 1 Bowel Movements Output, Urine Physical Exam General Appearance: Alert, Oriented X3, Cooperative Other Physical Findings: Skin No Rashes, No Breakdown, No Significant Lesion Skin Temp/Moisture Exam: Warm/Dry Sepsis Skin Exam (color): Normal for Ethnicity, Cyanotic, Flushed HEENT Atraumatic, PERRLA, EOMI Neck Supple, No JVD, No thryomegaly Lymphatic Axillary nl, Cervical nl Cardiovascular Regular Rate, Normal S1, Normal S2 Lungs Normal Air Movement Abdomen Normal Bowel Sounds, Soft, No Tenderness Neurological Strength 4/5 right upper and lower extremities Strength 3/5 left upper and lower extremities Babinski negative DTR 1+ Left knee, 2+ Right knee Extremities No Clubbing Vascular Pulses Symmetrical Current Medications: Current Medications Sig/Courtney Start time Last Medication Dose Route Stop Time Status Admin Acetaminophen 650 MG Q6P PRN 03/11 2245 DCD PO Aspirin 81 MG DAILY 03/12 1000 DCD 06/04 PO 0902 Atorvastatin Calcium 80 MG 1700 03/11 2200 DCD 0603 PO 1727 Clopidogrel Bisulfate 75 MG DAILY 03/12 1000 DCD 06/04 PO 0902 Furosemide 20 MG Q48 / 1000 DCD 06/04 PO 0902 Heparin Sodium 5,000 UNIT Q8 / 0600 DCD 06 (Porcine) SC 1410 Insulin Aspart 0 TIDAC 03/13 1200 DCD 03/14 SC 1245 Memantine 10 MG BID 03/11 2200 DCD 06 PO 0902 Metoprolol Succinate 100 MG DAILY 03/11 215 DCD 03/14 PO 0902 Morphine Sulfate 0.5 MG Q6P PRN 03/11 224 DCD IV Oxycodone HCl 5 MG Q6P PRN 03/11 2245 DCD PO Rivastigmine 9.5 MG 03/12 DCD 03/13 TOP 2121 Senna/Docusate Sodium 1 TAB BID PRN 03/13 1915 DCD PO Last 24 Hrs of Lab/Anselmo Results Last 24 Hrs of Labs/Mics: Laboratory Tests 03/14/17 0635: Anion Gap 11, Estimated GFR 25 L, BUN/Creatinine Ratio 27.6 H, Magnesium 2.1, CBC w Diff NO MAN DIFF REQ, RBC 3.79 L, MCV 89.7, MCH 29.8, RDW 13.8, MPV 9.6, Gran % 73.3, Lymphocytes % 13.5 L, Monocytes % 11.3 H, Eosinophils % 1.8, Basophils % 0.1, Absolute Granulocytes 6.2, Absolute Lymphocytes 1.1 L, Absolute Monocytes 0.9 H, Absolute Eosinophils 0.2, Absolute Basophils 0, PUBS MCHC 33.2 Assessment/Plan Assessment: This is a 87-year-old gentleman with a past medical history significant for hypertension, hyperlipidemia, diabetes, atrial fibrillation not on anticoagulation due to high fall risks, on DAPT, presents with an approximate 5 day history of weakness, left-sided hemiparesis and questionable facial droop 2/ 2 ischemic CVA. #CVA Patient p/w left-sided hemiparesis most prominent on the upper extremity. 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 Patient's history of hypertension and hyperlipidemia diabetes with cemented increased risk for CVA events. It is noted that patient had this episode while on dual antiplatelet therapy (aspirin and clopidrogel). * Continue to medically optimize patient with high-dose statin atorvastatin 80 mg * Continue the DAPT, and allow permissive hypertension. * Avoid using sedating agents. #Carotid stenosis Doppler remarkable for 50-79% stenosis on both right and left ICA. Per vascular surgeon Dr. Felix, there is currently no need for urgent interventions from vascular standpoint. Will continue with statin and dual platelet therapy. #History of A. fib Confirmed by cardiology that patient does have a history of A. fib and therefore he is at increased risk of a recurrent stroke. Patient does require anticoagulation, and given his high risk of falls and ckd, the NOACs will not be ideal choice. Cardiology recommended pradaxa. Per neurology okayed to start anticoagulation on March 19. Patient will start on Pradaxa renally adjusted dose and will interpretive therapy will be stopped simultaneously. Metoprolol xl increased to 125mg. #History of ischemic cardiomyopathy s/p biventricular AICD Dr. Martinez (deicer kit assembler), was planning for elecetive generator change of the AICD. however due to this acute event plans will be held. Awaiting [employer] interrogation for any arythmias. #Dementia Patient history of dementia complicates the recovery of his stroke in trying to regain baseline functions. We'll continue reverse segment and avoid any triggers. #History of hypertension Blood pressure medicines restarted however will allow permissive hypertension during the 24-48 hours. However it is possible the patient presented past the 24-48 hours window as symptoms were reported 5 days ago. #History of hyperlipidemia Continue high-dose statin Problem List: 1. CVA (cerebral vascular accident) Pain Ratin Pain Location: NONE Pain Goal: Remain pain free Pain Plan: PER PAIN PATWAHY Tomorrow's Labs & Rationales: CBC BEP Consulting Request: Consulting Specialty: Neurology Consulting Physician: Dr. freed Reason for Consult: stroke
--- NOTE | 2017-03-14 13:37 | ECHOCARDIOGRAM REPORT ---
TYSON NOONAN Age: 87 : 1930 Gender: M Exam Date: 03/14/2017 09:53 Exam Location: [address] Ht (in): 65 Wt (lb): 150 BSA: 1.78 BP: 158 / 80 Ordering Physician: ALICIA CLARK MD Referring Physician: Jesus Zee MD Technologist: Yoon Gonzalez [facility] Room Number: 179-01 Indications: STROKE Rhythm: Technical Quality: Technically difficult study FINDINGS Left Ventricle Left ventricular cavity size normal. Left ventricular wall thickness mildly increased. No obvious regional wall motion abnormalities. Left ventricular ejection fraction is estimated at 55 %. Abnormal relaxation filling pattern of the left ventricle (stage 1 diastolic dysfunction). Right Ventricle Normal right ventricular size and function. Catheter/pacemaker wire in the right ventricular cavity. Right Atrium Normal right atrial size. Left Atrium Normal left atrial size. Mitral Valve Mild mitral annular calcification. No mitral stenosis. Mild mitral regurgitation. Aortic Valve Aortic sclerosis. Tricuspid Valve Tricuspid valve not well visualized, grossly normal. Trace to mild tricuspid regurgitation. Unable to estimate the right ventricular systolic pressure. Pulmonic Valve Pulmonic valve not well visualized, grossly normal. Pericardium No pericardial effusion. Great Vessels Normal size aortic root. CONCLUSIONS Technically difficult study. Left ventricular cavity size normal. Left ventricular wall thickness mildly increased. No obvious regional wall motion abnormalities. Left ventricular ejection fraction is estimated at 55 %. Abnormal relaxation filling pattern of the left ventricle (stage 1 diastolic dysfunction). Normal right ventricular size and function. Catheter/pacemaker wire in the right ventricular cavity. No pericardial effusion. Kehinde Latham M.D. (Electronically Signed) Final Date: 14 March 2017 13:36 MEASUREMENTS (Male / Female) Normal Values 2D ECHO LV Diastolic Diameter PLAX 5.3 cm 4.2 - 5.9 / 3.9 - 5.3 cm LV Systolic Diameter PLAX 3.7 cm 2.1 - 4.0 cm LV Fractional Shortening PLAX 30.2 % 25 - 46 % LV Ejection Fraction 2D Teich 57.1 % IVS Diastolic Thickness 1.2 cm LVPW Diastolic Thickness 1.2 cm LV Relative Wall Thickness 0.5 RV Internal Dim ED PLAX 2.8 cm 1.9 - 3.8 cm LVOT Diameter 2.0 cm Aortic Root Diameter 2.9 cm LA Systolic Diameter LX 3.4 cm 3.0 - 4.0 / 2.7 - 3.8 cm LA Volume 29.0 cm 18 - 58 / 22 - 52 cm Ascending Aorta Diameter 3.1 cm DOPPLER AV Peak Velocity 213.0 cm/s AV Peak Gradient 18.1 mmHg AV Mean Velocity 159.0 cm/s AV Mean Gradient 11.0 mmHg AV Velocity Time Integral 45.0 cm LVOT Peak Velocity 81.0 cm/s LVOT Peak Gradient 2.6 mmHg LVOT Mean Velocity 58.6 cm/s LVOT Mean Gradient 2.0 mmHg LVOT Velocity Time Integral 16.5 cm LVOT Stroke Volume 51.8 cm AV Area Cont Eq vti 1.2 cm AV Area Cont Eq pk 1.2 cm MV Peak Velocity 121.0 cm/s MV Peak Gradient 5.9 mmHg MV Mean Velocity 53.6 cm/s MV Mean Gradient 2.0 mmHg Mitral E Point Velocity 50.8 cm/s Mitral A Point Velocity 108.0 cm/s Mitral E to A Ratio 0.5 MV PHT Velocity 55.5 cm/s MV Deceleration [place] 135.0 cm/s MV Pressure Half Time 123.3 ms MV Area PHT 1.8 cm MV Deceleration Time 177.0 ms TR Peak Velocity 259.0 cm/s TR Peak Gradient 26.8 mmHg Right Atrial Pressure 5.0 mmHg Pulmonary Artery Systolic Pressu 31.8 mmHg Right Ventricular Systolic Press 31.8 mmHg PV Peak Velocity 85.5 cm/s PV Peak Gradient 2.9 mmHg PV Mean Velocity 58.5 cm/s PV Mean Gradient 2.0 mmHg PV Velocity Time Integral 19.8 cm LV E' Lateral Velocity 7.8 cm/s Mitral E to LV E' Lateral Ratio 6.5 LV E' Septal Velocity 4.4 cm/s Mitral E to LV E' Septal Ratio 11.6
[2017-03-14] MEDS ORDERED: PRADAXA PO (13:38)
[2017-03-14] MEDS ORDERED: TOPROL XL25 M1 PO (14:00)
[2017-03-14] MEDS ORDERED: NOVOLOG100 UNIT/2 SC (14:00)
--- NOTE | 2017-03-14 14:04 | Patient Discharge Instructions ---
Discharge Instructions General Discharge Information You were seen/treated for: CVA Special Instructions: PLEASE FOLLOW UP WITH YOUR PRIMARY CARE WITHIN 1 WEEK PLEASE FOLLOW UP WITH DR BLACKWELL (FURNITURE SHAMPOOER) WITHIN 1 WEEK PLEASE START PRADAXA ON 03/19 PLEASE STOP ASPIRIN AND PLAVIX AFTER March DOSES Acute Coronary Syndrome Inclusion Criteria At DC or during hospital stay patient has or had the following: ACS DIAGNOSIS No Discharge Core Measures Meds if any: Prescribed or Continued at Discharge Meds if any: NOT Prescribed or Continued at Discharge Congestive Heart Failure Inclusion Criteria At DC or during hospital stay patient has or had the following: CHF DIAGNOSIS No Discharge Core Measures Meds if any: Prescribed or Continued at Discharge Meds if any: NOT Prescribed or Continued at Discharge Cerebrovascular accident Inclusion Criteria At DC or during hospital stay patient has or had the following: CVA/TIA Diagnosis Yes Discharge Core Measures Meds if any: Prescribed or Continued at Discharge Meds if any: NOT Prescribed or Continued at Discharge Venous thromboembolism Inclusion Criteria VTE Diagnosis No VTE Type NONE VTE Confirmed by (Test) NONE Discharge Core Measures - Per Current guidelines, there needs to be overlap - treatment for the first 5 days of Warfarin therapy. - If discharged on Warfarin prior to 5 days of - overlap therapy, the patient will need to be - assessed for post discharge needs including - *Post discharge parental anticoagulation - *Warfarin and/or parental anticoagulation education - *Follow up date to check INR post discharge At least 5 days overlap therapy as Inpatient No Meds if any: Prescribed or Continued at Discharge Note: Overlap Therapy is Warfarin and Anticoagulant Meds if any: NOT Prescribed or Continued at Discharge
[2017-03-14] MEDS ORDERED: ATORVASTATIN CA80 M1 PO (14:46)
[2017-03-14] MEDS ORDERED: ASPIRIN81 M4 PO (14:46)
[2017-03-14] MEDS ORDERED: PLAVIX75 M1 PO (14:47)
[2017-03-14 14:51] VITALS: BP 152/66
[2017-03-14] MEDS ORDERED: SENNA PLUS TAB1 EACH PO (15:06)
== END 2017-03-14 16:45 | DRG 65 ==
LOC: ERH 15:47 → 1NO 19:40 → ERHI 19:40 → ENRESERV 20:11 → CANRESERV 20:11 → ENRESERV 20:23 → ENTRNSPT 20:56 → 1NO 21:38 → CMPTRNSPT 22:03 → 1NO 03-12 08:32 → ENPENDDIS 03-14 14:17 → 1NO 03-14 16:45
PROVIDERS: Emergency Medicine; Student in an Organized Health Care Education/Training Program; ADMIT Internal Medicine
DX: I63.8 Other cerebral infarction (principal); G81.94 Hemiplegia, unspecified affecting left nondominant side; N18.4 Chronic kidney disease, stage 4 (severe); I42.9 Cardiomyopathy, unspecified; I48.0 Paroxysmal atrial fibrillation; G30.9 Alzheimer's disease, unspecified; F02.80 Dementia in other diseases classified elsewhere, unspecified severity, without behavioral disturbance, psychotic disturbance, mood disturbance, and anxiety; I12.9 Hypertensive chronic kidney disease with stage 1 through stage 4 chronic kidney disease, or unspecified chronic kidney disease; E78.5 Hyperlipidemia, unspecified; Z95.810 Presence of automatic (implantable) cardiac defibrillator; I25.2 Old myocardial infarction
CPT/HCPCS: 1NSP; 36415; 72170; 73030-RT; 82436; 93005; 93010; 93306; 97110-GO; 97162-GP; 97530-GO; J1644; J3490; J7508

== ENCOUNTER 2017-03-25 15:53 | Inpatient (IN) | payer OTHER, MEDICARE ==
[~2017-03-25] VITALS: Ht 175.3 cm; Wt 77.1 kg
[~2017-03-25 15:53] MED LIST changes: +ASPIRIN81 M4 PO; +ATORVASTATIN CA80 M1 PO; +NOVOLOG100 UNIT/2 SC; +PLAVIX75 M1 PO; +PRADAXA PO; +SENNA PLUS TAB1 EACH PO; +TOPROL XL25 M1 PO
--- NOTE | 2017-03-25 15:59 | ED GENERAL ADULT ---
History of Present Illness General Chief Complaint: Altered Mental Status Stated Complaint: AMS Source: old records, EMS, W10 Exam Limitations: clinical condition Vital Signs & Intake/Output Vital Signs & Intake/Output Vital Signs Date Time Temp Pulse Resp B/P B/P Pulse O2 O2 Flow FiO2 Mean Ox Delivery Rate 03/25 1929 63 15 179/74 96 Room Air 03/25 1751 75 18 179/84 Room Air 03/25 1602 97.4 79 15 157/66 97 Room Air Allergies Coded Allergies: NO KNOWN ALLERGIES (03/17/16) Reconcile Medications Acetaminophen (Acephen) 650 MG SUPP.RECT 1 SUPP MO Q4H PRN PAIN/TEMP>101 ( Reported) Acetaminophen (Acetaminophen ER) 650 MG TABLET.ER 1 TAB PO Q4H PRN PAIN/TEMP/> 101 (Reported) Amlodipine Besylate 5 MG TABLET 1 TAB PO DAILY HEART (Reported) Atorvastatin Calcium 80 MG TABLET 80 MG PO 1700 STROKE Bisacodyl 10 MG SUPP.RECT 1 SUP RC DAILY PRN CONSTIPATION (Reported) Cholecalciferol (Vitamin D3) (Vitamin D) 2,000 UNIT TABLET 1 TAB PO DAILY SUPPLEMENT (Reported) Dabigatran Etexilate Mesylat (Pradaxa) 75 MG CAPSULE 75 MG PO BID AFIB PLEASE START PRADAXA ON 03/19, AND ON STOP THE PLAVIX AND ASPIRIN AFTER 03/18 DOSE Furosemide 20 MG TABLET 1 TAB PO Q48 WATER PILL (Reported) Insulin Aspart (Novolog) 100 UNIT/ML VIAL 0 UNITS SC TIDAC DIABETES Less than 80 mg/dl---Initiate hypoglycemic events 80-150 MG/DL -- No change 151-200 MG/DL--2 UNITS 201-250 MG/DL--4 UNITS 251-300 MG/DL--6 UNITS 301-350 MG/DL--8 UNITS 351-400 MG/DL--10 OVER 400 MG/DL--12 UNITS Magnesium Hydroxide (Milk Of Magnesia) 400 MG/5 ML ORAL.SUSP 30 ML PO DAILY PRN CONSTIPATION (Reported) Melatonin (Melatin) 3 MG TABLET 6 MG PO QHS SUPPLEMENT (Reported) Memantine HCl (Namenda) 10 MG TABLET 1 TAB PO BID DEMENTIA (Reported) Metoprolol Succ XL (Toprol XL) 25 MG TAB 125 MG PO DAILY HEART PT NEEDS A DAILY DOSE OF METOPROLOL SUCCINATE 125 MG ONCE DAILY Multivitamin (Multi-Day Vitamins) 1 EACH TABLET 1 TAB PO DAILY SUPPLEMENT ( Reported) Na Phos,M-B/Na Phos,Di-Ba (Fleet Enema) 19 GRAM-7 GRAM/118 ML ENEMA 1 E RC DAILY PRN CONSTIPATION (Reported) Rivastigmine (Exelon) 9.5 MG/Patch PAT 1 PAT TOP DAILY DEMENTIA (Reported) Rivastigmine Tartrate (Rivastigmine) 3 MG CAPSULE 1 CAP PO BID DEMENTIA ( Reported) Sennosides/Docusate Sodium (Senna Plus Tablet) 8.6 MG-50 MG TABLET 1 TAB PO BID GI (Reported) Triage Nurses Notes Reviewed? yes HPI: Patient sent in from his custodial for evaluation of unresponsiveness. Patient has dementia but is usually conversant. Patient was found unresponsive in his bed at approximately 1 PM. Patient remained unresponsive 3 hours later so he was sent in for evaluation. Patient is on PRADAXA. There is no history of recent trauma. Past History Medical History Any Pertinent Medical History? see below for history Neurological: dementia Cardiovascular: AFIB, hypertension, hyperlipidemia Surgical History Surgical History: non-contributory Psychosocial History Tobacco Use: Cognitive Impairment Family History Hx Contributory? No Review of Systems Review of Systems Constitutional: Reports: see HPI. Neurological/Psychological: Reports: see HPI. Physical Exam Physical Exam General Appearance: MOANS TO PAINFUL STIMULAE Head: atraumatic, normal appearance Eyes: Bilateral: PERRL. Ears, Nose, Throat: normal pharynx, normal ENT inspection Neck: supple, NO JVD Respiratory: normal breath sounds, no respiratory distress, lungs clear Cardiovascular: regular rate/rhythm, normal peripheral pulses Gastrointestinal: normal bowel sounds, soft Extremities: normal inspection, normal capillary refill, no edema, HYPERTONICITY Neurologic/Psych: NO COG WHEEL RIGIDITY, HYPERTONICITY, MOANS TO PAINFUL STIMULAE Core Measures ACS in differential dx? No CVA/TIA Diagnosis: No Severe Sepsis Present: No Septic Shock Present: No Progress Differential Diagnoses I considered the following diagnoses in my evaluation of the patient: [CVA, ICH, ELECTROLYTE ABNORMALITY] Plan of Care: Orders Procedure Date/time Status Place in observation 03/25 193 Active Telemetry/Embedded Software Architect 03/25 160 Active Straight Cath 03/25 1601 Active URINALYSIS 03/25 1601 Complete TROPONIN LEVEL 03/25 1601 Complete PARTIAL THROMBOPLASTIN TIME 03/25 1601 Complete PROTHROMBIN TIME 03/25 1601 Complete COMPREHENSIVE METABOLIC PANEL 03/25 1601 Complete CBC WITHOUT DIFFERENTIAL 03/25 160 Complete EKG 03/25 160 Active Laboratory Tests 03/25/17 1717: Urinalysis MANY H, Urine Color YEL, Urine Clarity CLEAR, Urine pH 6.0, Ur Specific [place] 1.025, Urine Protein 100 H, Urine Ketones NEG, Urine Nitrite NEG, Urine Bilirubin NEG, Urine Urobilinogen 0.2, Ur Leukocyte Esterase NEG, Ur Microscopic SEDIMENT EXAMINED, Urine RBC RARE, Ur Epithelial Cells FEW, Urine Mucus FEW, Urine Hemoglobin NEG, Urine Glucose 100 H 03/25/17 1700: Anion Gap 12, Estimated GFR 25 L, BUN/Creatinine Ratio 28.8 H, Glucose 233 H, Calcium 8.9, Total Bilirubin 0.4, AST 30, ALT 45, Alkaline Phosphatase 61, Troponin I 0.10, Total Protein 6.9, Albumin 3.3 L, Globulin 3.6, Albumin/ Globulin Ratio 0.9 L, PT 15.4 H, INR 1.47 H, APTT 55 H, CBC w Diff NO MAN DIFF REQ, RBC 4.12 L, MCV 90.6, MCH 29.2, RDW 13.5, MPV 8.9, Gran % 84.1 H, Lymphocytes % 7.4 L, Monocytes % 7.1, Eosinophils % 1.2, Basophils % 0.2, Absolute Granulocytes 9.5 H, Absolute Lymphocytes 0.8 L, Absolute Monocytes 0.8 H, Absolute Eosinophils 0.1, Absolute Basophils 0, PUBS MCHC 32.2 L Diagnostic Imaging: Viewed by Me: Radiology Read, CT Scan. Discussed w/RAD: Radiology Read, CT Scan. Radiology Impression: PATIENT: TYSON NOONAN PRESENT AGE: 87 PATIENT ACCOUNT NO: [id number] : 30 LOCATION: [facility] ORDERING PHYSICIAN: CAPO BROWNLEE MD SERVICE DATE: 03/25/17 EXAM TYPE: CAT - CT HEAD WO IV CONTRAST EXAMINATION: CT HEAD WITHOUT CONTRAST CLINICAL INFORMATION: Unresponsive. On Pradaxa. COMPARISON: 03/11/2017 TECHNIQUE: Contiguous axial imaging was performed from the skull base to vertex without intravenous contrast. DLP: 1240 mGy-cm. FINDINGS: There is no evidence of acute intracranial hemorrhage or territorial infarction. No abnormal mass effect or midline shift is seen. Green to white matter differentiation is well preserved. No extra-axial fluid collections are identified. No hydrocephalus. Proportional prominence of the ventricles and sulcal spaces is consistent with mild volume loss. Patchy periventricular and deep white matter hypoattenuation is consistent with moderate small vessel ischemic changes. Chronic lacunar infarcts in the left parietal thomson radiata unchanged. The osseous structures and soft tissues are normal. Mild opacification in the right maxillary sinus. The mastoid air cells and visualized portions of the paranasal sinuses are otherwise well aerated. IMPRESSION: No acute intracranial pathology. Volume loss with small vessel ischemic changes. DICTATED BY: FIDEL PATTERSON,ABHIJIT DATE/TIME DICTATED: 03/25/171628 DOG BEAUTICIAN:MALINDA DATE/TIME TRANSCRIBED:03/25/171628 CONFIDENTIAL, DO NOT COPY WITHOUT APPROPRIATE AUTHORIZATION. <Electronically signed in Other Vendor System> SIGNED BY: FIDEL PATTERSON,ABHIJIT 03/25/17 1637, PATIENT: TYSON NOONAN PRESENT AGE: 87 PATIENT ACCOUNT NO: [id number] : 30 LOCATION: [facility] ORDERING PHYSICIAN: CAPO BROWNLEE MD SERVICE DATE: 03/25/17 EXAM TYPE: CAT - CT ABD & PELVIS W/ O IV CONTRAS; CT CHEST WO IV CONTRAST EXAMINATION: CT CHEST, ABDOMEN AND PELVIS WITHOUT CONTRAST CLINICAL INFORMATION: Sepsis. Pneumonia. COMPARISON: Chest x- ray 03/25/2017. TECHNIQUE: Axial images obtained through chest, abdomen and pelvis without oral or intravenous contrast. Coronal and sagittal reformatted images are performed at CT scanner. DLP: 1064.46 mGy-cm. FINDINGS: CT CHEST: Lungs: The lungs are clear with no evidence of inflammation or nodules. Mediastinum: Pacemaker leads in the heart. There is vascular calcification of coronary arteries. No pericardial effusion. No mass. No lymphadenopathy. Pleura: There is no pleural effusion. No pleural mass or thickening. Axilla: No lymphadenopathy. CT ABDOMEN AND PELVIS: Liver, Gallbladder, And Biliary Tree: The liver is normal in size, shape, and attenuation. No focal hepatic lesion or biliary ductal dilatation is present. The gallbladder is unremarkable with no evidence of radiopaque gallstones, gallbladder wall thickening, or obvious pericholecystic inflammatory changes. Pancreas: There is atrophy of the pancreas. No inflammation or mass. Spleen: Spleen normal in size and contour. No focal lesion. Adrenal Glands: Adrenal glands are normal in size. No focal mass. Kidneys And Ureters: 5 mm stone lower pole of left kidney. Other calcifications in the right and left renal yossi are vascular. There is no hydronephrosis. No ureteral stone. Bladder: Unremarkable. Gastrointestinal Tract: There is a large left-sided inguinal hernia. This extends down into the scrotal sac. This contains the sigmoid bowel loop. It does not cause obstruction of the bowel however. No bowel wall thickening or edema. Moderate to large volume of stool in the colon. There is diverticulosis of sigmoid and left colon but no diverticulitis. The appendix is not seen. Small bowel loops are unremarkable. Mesentery: No focal inflammation. No free fluid. No free air. Abdominal Wall: Large left inguinal hernia containing herniated loops of the sigmoid colon. Lymph Nodes: Normal. Vascular: Atherosclerotic vascular calcifications of aorta and iliac vessels without aneurysm. Pelvic Viscera: Prostate measures 4.3 cm transverse and impresses slightly into the bladder base. Osseous Structures: Degenerative spondylosis of the spine with disc height narrowing, endplate spurring and facet joint arthrosis most significant at the lower lumbar spine. IMPRESSION: No acute abnormality to explain patient's sepsis of the chest, abdomen or pelvis. Large left inguinal hernia containing nonobstructive sigmoid bowel loop. Nonobstructive left renal stone. 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 DICTATED BY: CLAUDY SOMERS MD DATE/TIME DICTATED:03/25/171818 DOG BEAUTICIAN:MALINDA DATE/TIME TRANSCRIBED:03/25/171818 CONFIDENTIAL, DO NOT COPY WITHOUT APPROPRIATE AUTHORIZATION. <Electronically signed in Other Vendor System> SIGNED BY: CLAUDY SOMERS MD 03/25/17 6087 Initial ED EKG: pacemaker rhythm Prior EKG: unchanged Comments: and son are at the bedside. Patient has been at short-term rehabilitation for the past week and a half. Patient is demented however yesterday he is sitting in bed laughing and at his baseline. Today there is no acute change. They have been updated on laboratory data as well as a head CT. CAT scan of the chest and abdomen are pending. Departure Departure Disposition: STILL A PATIENT Condition: Stable Clinical Impression Primary Impression: Acute delirium Departure Forms: Customer Survey General Discharge Information Observation Note Spoke With: MATTHEW JONAS MD Physician Advisor Notified: SUZI PATTERSON,TUCKER Ay[facility] Place Patient In: Non-ED OBS Care Area Rationale for Observation: My rational for observation is as follows [REPEAT LABS IN AM, CLOSE MONITORING, IF NEURO STATUS IMPROVES MAY BE DISCHARGED BACK TO STR, IF IT DOES NOT IMPROVE, WILL NEED FURTHER EVALUATION.]. Critical Care Note Critical Care Note Critical Care Time: non-applicable
--- NOTE | 2017-03-25 16:10 | NUR ---
MACARIO FROM [facility] FOR C/O AMS. STAFF THERE REPORT THEY NOTICED A LEFT SIDED FACIAL DROOP AT 1300 TODAY AND REPORT VIA EMS PT HASN'T BEEN HIMSELF TODAY. HX OF DEMENTIA, UNSURE OF BASELINE. #18L HAND, GLUCOSE 235 IN ROUTE, VSS IN ROUTE
--- NOTE | 2017-03-25 16:16 | NUR ---
PT PLACED ON AIRPLANE PILOT CROP DUSTING UPON ARRIVAL, IN GOWN AND ALL BELONGINGS PLACED IN BAG. PT TO CT AT THIS TIME.
--- NOTE | 2017-03-25 16:24 | NUR ---
PT BACK FROM CT AT THIS TIME, HOOKED BACK UP TO MONITOR.
--- NOTE | 2017-03-25 16:37 | CT SCAN REPORT ---
EXAMINATION: CT HEAD WITHOUT CONTRAST CLINICAL INFORMATION: Unresponsive. On Pradaxa. COMPARISON: 03/11/2017 TECHNIQUE: Contiguous axial imaging was performed from the skull base to vertex without intravenous contrast. DLP: 1240 mGy-cm. FINDINGS: There is no evidence of acute intracranial hemorrhage or territorial infarction. No abnormal mass effect or midline shift is seen. Green to white matter differentiation is well preserved. No extra-axial fluid collections are identified. No hydrocephalus. Proportional prominence of the ventricles and sulcal spaces is consistent with mild volume loss. Patchy periventricular and deep white matter hypoattenuation is consistent with moderate small vessel ischemic changes. Chronic lacunar infarcts in the left parietal thomson radiata unchanged. The osseous structures and soft tissues are normal. Mild opacification in the right maxillary sinus. The mastoid air cells and visualized portions of the paranasal sinuses are otherwise well aerated. IMPRESSION: No acute intracranial pathology. Volume loss with small vessel ischemic changes.
[2017-03-25] MEDS ORDERED: SENNA PLUS TAB1 EACH PO (16:47)
--- NOTE | 2017-03-25 16:47 | RADIOLOGY REPORT ---
EXAMINATION: XR PORTABLE CHEST CLINICAL INFORMATION: Unresponsive. COMPARISON: Chest x-ray 03/11/2017. TECHNIQUE: Portable frontal view of the chest was obtained. FINDINGS: Single AP view of the chest demonstrates pulmonary hypoinflation. There is limited evaluation of the left lung base secondary to partial exclusion of the left costophrenic angle. Cardiomediastinal contours are stable and there is stable prominence of the cardiac silhouette. Redemonstrated is a left chest wall AICD, with leads identified in the region of the right atrium and right ventricle. There are subtle right perihilar airspace opacities, not significantly changed relative to the prior examination dated 03/11/2017. This finding is nonspecific and may reflect prominence of the pulmonary arterial vasculature although edema or infection cannot be excluded. There is subtle prominence of the superior mediastinum, grossly unchanged relative to the prior examination. IMPRESSION: Stable appearance of the chest. Stable prominence of the cardiac silhouette. Subtle airspace opacities within the right hilar region are nonspecific and may reflect prominence of the pulmonary vasculature although superimposed infection or pulmonary edema cannot be excluded in the appropriate clinical setting.
[2017-03-25] MEDS ORDERED: MULTI-DAY VITA1 EACH PO (16:50)
[2017-03-25] MEDS ORDERED: VITAMIN D2000 UNI1 PO (16:50)
[2017-03-25] MEDS ORDERED: MELATIN3 MG PO (16:51)
[2017-03-25] MEDS ORDERED: ACEPHEN650 M1 PR (16:58)
[2017-03-25] MEDS ORDERED: MILK OF MA400 MG/52 PO (17:00)
[2017-03-25] MEDS ORDERED: ACETAMINOPHEN650 M3 PO (17:00)
[2017-03-25] MEDS ORDERED: BISACODYL10 M1 RC (17:01)
[2017-03-25] MEDS ORDERED: FLEET ENEMA133 ML RC (17:01)
[2017-03-25 17:12] LABS: ABSOLUTE BASOPHIL COUNT 0 /CUMM (0.0-0.2); ABSOLUTE EOSINOPHIL COUNT 0.1 /CUMM (0.0-0.7); ABSOLUTE GRANULOCYTE CT 9.5 /CUMM (1.4-6.5); ABSOLUTE LYMPH COUNT 0.8 /CUMM (1.2-3.4); ABSOLUTE MONOCYTE COUNT 0.8 /CUMM (0.10-0.60); BASOPHIL % 0.2 % (0.0-2.0); EOSINOPHIL % 1.2 % (0-5); HEMATOCRIT 37.3 % (42-52); MEAN CORPUSCULAR HGB 29.2 PG (27.0-31.0); MEAN CORPUSCULAR HGB CONC 32.2 G/DL (33.0-37.0); MEAN CORPUSCULAR VOLUME 90.6 FL (80.0-94.0); MEAN PLATELET VOLUME 8.9 FL (7.4-10.4); PLATELET COUNT 209 /CUMM (130-400); RBC DISTRIBUTION WIDTH 13.5 % (11.5-14.5); RED BLOOD CELL CT 4.12 /CUMM (4.70-6.10); WHITE BLOOD CELL COUNT 11.3 /CUMM (4.8-10.8)
--- NOTE | 2017-03-25 17:19 | NUR ---
URINE OBTAINED VIA STRAIGHT CATH PER STERILE PROCEDURE AND URINE SENT TO LAB. NO CHANGE IN NEURO STATUS AT THIS TIME. AND SON AT BEDSIDE AT THIS TIME. WILL CONT TO MONITOR.
[2017-03-25 17:21] LABS: PT 15.4 SEC (9.4-12.5); PTT 55 SEC (25-37)
[2017-03-25 17:39] LABS: GRANULOCYTE % 84.1 % (42.2-75.2)
--- NOTE | 2017-03-25 18:01 | NUR ---
SCROTUM NOTED TO BE ENLARGED AND SKIN TAUT, DR. BROWNLEE NOTIFIED.
--- NOTE | 2017-03-25 18:04 | NUR ---
PT TO CT AT THIS TIME VIA STRETCHER. NO CHANGE IN NEURO STATUS.
--- NOTE | 2017-03-25 18:19 | NUR ---
PT RETURNED FROM CT, HOOKED BACK UP TO MONITORS IN ROOM. DR. BROWNLEE AT BEDSIDE SPEAKING WITH FAMILY AT THIS TIME. NO CHANGE IN PT NEURO STATUS.
--- NOTE | 2017-03-25 18:46 | CT SCAN REPORT ---
EXAMINATION: CT CHEST, ABDOMEN AND PELVIS WITHOUT CONTRAST CLINICAL INFORMATION: Sepsis. Pneumonia. COMPARISON: Chest x-ray 03/25/2017. TECHNIQUE: Axial images obtained through chest, abdomen and pelvis without oral or intravenous contrast. Coronal and sagittal reformatted images are performed at CT scanner. DLP: 1064.46 mGy-cm. FINDINGS: CT CHEST: Lungs: The lungs are clear with no evidence of inflammation or nodules. Mediastinum: Pacemaker leads in the heart. There is vascular calcification of coronary arteries. No pericardial effusion. No mass. No lymphadenopathy. Pleura: There is no pleural effusion. No pleural mass or thickening. Axilla: No lymphadenopathy. CT ABDOMEN AND PELVIS: Liver, Gallbladder, And Biliary Tree: The liver is normal in size, shape, and attenuation. No focal hepatic lesion or biliary ductal dilatation is present. The gallbladder is unremarkable with no evidence of radiopaque gallstones, gallbladder wall thickening, or obvious pericholecystic inflammatory changes. Pancreas: There is atrophy of the pancreas. No inflammation or mass. Spleen: Spleen normal in size and contour. No focal lesion. Adrenal Glands: Adrenal glands are normal in size. No focal mass. Kidneys And Ureters: 5 mm stone lower pole of left kidney. Other calcifications in the right and left renal yossi are vascular. There is no hydronephrosis. No ureteral stone. Bladder: Unremarkable. Gastrointestinal Tract: There is a large left-sided inguinal hernia. This extends down into the scrotal sac. This contains the sigmoid bowel loop. It does not cause obstruction of the bowel however. No bowel wall thickening or edema. Moderate to large volume of stool in the colon. There is diverticulosis of sigmoid and left colon but no diverticulitis. The appendix is not seen. Small bowel loops are unremarkable. Mesentery: No focal inflammation. No free fluid. No free air. Abdominal Wall: Large left inguinal hernia containing herniated loops of the sigmoid colon. Lymph Nodes: Normal. Vascular: Atherosclerotic vascular calcifications of aorta and iliac vessels without aneurysm. Pelvic Viscera: Prostate measures 4.3 cm transverse and impresses slightly into the bladder base. Osseous Structures: Degenerative spondylosis of the spine with disc height narrowing, endplate spurring and facet joint arthrosis most significant at the lower lumbar spine. IMPRESSION: No acute abnormality to explain patient's sepsis of the chest, abdomen or pelvis. Large left inguinal hernia containing nonobstructive sigmoid bowel loop. Nonobstructive left renal stone. 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
--- NOTE | 2017-03-25 19:30 | NUR ---
PT RESTING IN BED, FAMILY REMAINS AT BEDSIDE. VS UPDATED. RESPIRATIONS EVEN AND NONLABORED, EQUAL RISE AND FALL OF THE CHEST. NO CHANGE IN NEURO STATUS, PT REMAINS DROWSY AND RESPONDS TO PAINFUL STIMULI ONLY. AIRWAY INTACT. SKIN WARM, DRY AND INTACT.
--- NOTE | 2017-03-25 20:09 | History & Physical ---
KAYA PATTERSON,ROSCOE 03/25/17 2009: General Information and HPI MD Statement: I have seen and personally examined TYSON NOONAN and documented this H&P. The patient is a 87 year old M who presented with a patient stated chief complaint of [unresponsiveness]. Source of Information: [facility] Exam Limitations: unable to give history, not alert/orientated, dementia History of Present Illness: Patient is a 87 year old male with PMH of dementia, paroxysmal Afib, HTN, HLD, DM, CKD, AICD/pacemaker, recently admitted to [facility] in March 2017 for worsening confusion and gait instability, right sided facial droop, and left hemiparesis, was discharged with the diagnosis of possible right MCA infarct. He was discharged to [facility] for STR, has been there for about 1.5 weeks. Per the nursing staff at the facility, the patient was alert and oriented this morning, had his breakfast and was communicating. Since about noon time to 1 pm he was noticed to be lethargic and not responding, patient reportedly had small amount of vomiting as well. He had no abdominal pain, tenderness in the abdomen per the records and no diarrhea. Vomitus did not contain any undigested food, was mostly the medications he had taken. Per the attending at the facility , he also developed some facial droop, decision was made to bring the patient to the ED for possible stroke/TIA. Patient has not had any coughing, difficulty breathing, changes in the urine ( color or odor) with no urinary incontinence. He has chronic bowel incontinence, but no diarrhea or changes in the stool were noted. Was able to eat and drink well until this afternoon. BS today were 127 and 139 per their records. We also talked to the family ( and son) on the phone; his , Heidi would like to be called at any time in case of any changes. She also stated that the patient is very sensitive to changes in medications and functional status declines with medication changes; recently he has been given melatonin everyday in the facility (and he never took that frequently), also he is started on Pradaxa and metoprolol dose was increased. Per his and son he has not been requiring any pain medications except for occasional Tylenol. They denied patient receiving any opioid analgesics. Blood sugars in the facility have been running high at times (up to 250s). Allergies/Medications Allergies: Coded Allergies: NO KNOWN ALLERGIES (03/17/16) Home Med list Acetaminophen (Acephen) 650 MG SUPP.RECT 1 SUPP IA Q4H PRN PAIN/TEMP>101 ( Reported) Acetaminophen (Acetaminophen ER) 650 MG TABLET.ER 1 TAB PO Q4H PRN PAIN/TEMP/> 101 (Reported) Amlodipine Besylate 5 MG TABLET 1 TAB PO DAILY HEART (Reported) Atorvastatin Calcium 80 MG TABLET 80 MG PO 1700 STROKE Bisacodyl 10 MG SUPP.RECT 1 SUP RC DAILY PRN CONSTIPATION (Reported) Cholecalciferol (Vitamin D3) (Vitamin D) 2,000 UNIT TABLET 1 TAB PO DAILY SUPPLEMENT (Reported) Dabigatran Etexilate Mesylat (Pradaxa) 75 MG CAPSULE 75 MG PO BID AFIB PLEASE START PRADAXA ON 03/19, AND ON STOP THE PLAVIX AND ASPIRIN AFTER 03/18 DOSE Furosemide 20 MG TABLET 1 TAB PO Q48 WATER PILL (Reported) Insulin Aspart (Novolog) 100 UNIT/ML VIAL 0 UNITS SC TIDAC DIABETES Less than 80 mg/dl---Initiate hypoglycemic events 80-150 MG/DL -- No change 151-200 MG/DL--2 UNITS 201-250 MG/DL--4 UNITS 251-300 MG/DL--6 UNITS 301-350 MG/DL--8 UNITS 351-400 MG/DL--10 OVER 400 MG/DL--12 UNITS Magnesium Hydroxide (Milk Of Magnesia) 400 MG/5 ML ORAL.SUSP 30 ML PO DAILY PRN CONSTIPATION (Reported) Melatonin (Melatin) 3 MG TABLET 6 MG PO QHS SUPPLEMENT (Reported) Memantine HCl (Namenda) 10 MG TABLET 1 TAB PO BID DEMENTIA (Reported) Metoprolol Succ XL (Toprol XL) 25 MG TAB 125 MG PO DAILY HEART PT NEEDS A DAILY DOSE OF METOPROLOL SUCCINATE 125 MG ONCE DAILY Multivitamin (Multi-Day Vitamins) 1 EACH TABLET 1 TAB PO DAILY SUPPLEMENT ( Reported) Na Phos,M-B/Na Phos,Di-Ba (Fleet Enema) 19 GRAM-7 GRAM/118 ML ENEMA 1 E RC DAILY PRN CONSTIPATION (Reported) Rivastigmine (Exelon) 9.5 MG/Patch PAT 1 PAT TOP DAILY DEMENTIA (Reported) Rivastigmine Tartrate (Rivastigmine) 3 MG CAPSULE 1 CAP PO BID DEMENTIA ( Reported) Sennosides/Docusate Sodium (Senna Plus Tablet) 8.6 MG-50 MG TABLET 1 TAB PO BID GI (Reported) Past History Travel History Traveled to [place] past 21 day No Medical History Neurological: dementia Cardiovascular: AFIB, hypertension, hyperlipidemia Renal: chronic kidney disease, urinary incontinence Endocrine: diabetes Surgical History Surgical History: non-contributory Past Family/Social History Family History Relations & Conditions if any Relation not specified for: *No pertinent family history Psychosocial History ETOH Use: 6 Illicit Drug Use: UTD Functional Ability ADLs Needs Assist: dressing, eating, toileting, bathing. Review of Systems Review of Systems Constitutional: Reports: weakness. Denies: chills, fever. EENTM: Reports: no symptoms (per the facility and family). Cardiovascular: Reports: no symptoms (nursing reported diaphoresis). Denies: chest pain, palpitations, peripheral edema, syncope. Respiratory: Denies: cough, short of breath, sputum production. GI: Denies: abdominal pain, changes in stool (report incontinence). Genitourinary: Reports: no symptoms. Musculoskeletal: Reports: no symptoms. Skin: Reports: no symptoms. Neurological/Psychological: Reports: confusion, dementia, weakness. Hematologic/Endocrine: Reports: no symptoms. Exam & Diagnostic Data Last 24 Hrs of Vital Signs/I&O Vital Signs Date Time Temp Pulse Resp B/P B/P Pulse O2 O2 Flow FiO2 Mean Ox Delivery Rate 03/25 2212 97.7 60 18 138/72 96 Room Air 03/25 2036 69 16 147/67 100 Room Air 03/25 1929 63 15 179/74 96 Room Air 03/25 1751 75 18 179/84 Room Air 03/25 1602 97.4 79 15 157/66 97 Room Air Physical Exam General Appearance No Acute Distress, not alert or oriented, eyes are closed and does not open with verbal or tactile stimulations, makes sounds with painful stimuli. Does not follow directions. Skin No Significant Lesion Skin Temp/Moisture Exam: Warm/Dry Sepsis Skin Exam (color): Normal for Ethnicity HEENT Atraumatic, EOMI, dry mucous membranes, pupilsd myotic, round and reactive to light, no relative afferent pupillary defect (RAPD) Neck Supple, No JVD Cardiovascular Regular Rate, Normal S1, Normal S2, No Murmurs Lungs Clear to Auscultation, Normal Air Movement Abdomen Soft, No Tenderness Neurological moving all extremities, resisting movement, but not following commands., cranial nerve exam unreliable as the patient does not follow commands , but no facial asymmetry was noticed. Extremities No Edema, Normal Pulses Vascular Normal Pulses Last 24 Hrs of Labs/Anselmo: Laboratory Tests 03/25/172239: Troponin I Pending 03/25/177: Urine Opiates Screen < 100.00, Methadone Screen < 40, Barbiturate Screen < 60, Ur Phencyclidine Scrn < 6.00, Amphetamines Screen < 100, U Benzodiazepines Scrn < 85, Urine Cocaine Screen < 50, Urine Cannabis Screen < 5.00, Urinalysis MANY H, Urine Color YEL, Urine Clarity CLEAR, Urine pH 6.0, Ur Specific [place] 1.025 , Urine Protein 100 H, Urine Ketones NEG, Urine Nitrite NEG, Urine Bilirubin NEG, Urine Urobilinogen 0.2, Ur Leukocyte Esterase NEG, Ur Microscopic SEDIMENT EXAMINED, Urine RBC RARE, Ur Epithelial Cells FEW, Urine Mucus FEW, Urine Hemoglobin NEG, Urine Glucose 100 H 03/25/17 1700: Anion Gap 12, Estimated GFR 25 L, BUN/Creatinine Ratio 28.8 H, Glucose 233 H, Calcium 8.9, Total Bilirubin 0.4, AST 30, ALT 45, Alkaline Phosphatase 61, Troponin I 0.10, Total Protein 6.9, Albumin 3.3 L, Globulin 3.6, Albumin/ Globulin Ratio 0.9 L, PT 15.4 H, INR 1.47 H, APTT 55 H, CBC w Diff NO MAN DIFF REQ, RBC 4.12 L, MCV 90.6, MCH 29.2, RDW 13.5, MPV 8.9, Gran % 84.1 H, Lymphocytes % 7.4 L, Monocytes % 7.1, Eosinophils % 1.2, Basophils % 0.2, Absolute Granulocytes 9.5 H, Absolute Lymphocytes 0.8 L, Absolute Monocytes 0.8 H, Absolute Eosinophils 0.1, Absolute Basophils 0, PUBS MCHC 32.2 L Microbiology 03/25 224 BLOOD: Blood Culture - RECD 03/25 2100 BLOOD: Blood Culture - ORD 03/25 171 URINE ROUT: Urine Culture - RECD Diagnostic Data EKG Results rate 74, atrial sensed and ventricular paced rhythm, t wave flattening in V5, QTc 542. CXR Results SERVICE DATE: 03/25/17 EXAM TYPE: RAD - XRY-PORTABLE CHEST XRAY EXAMINATION: XR PORTABLE CHEST CLINICAL INFORMATION: Unresponsive. COMPARISON: Chest x-ray 03/11/2017. TECHNIQUE: Portable frontal view of the chest was obtained. FINDINGS: Single AP view of the chest demonstrates pulmonary hypoinflation. There is limited evaluation of the left lung base secondary to partial exclusion of the left costophrenic angle. Cardiomediastinal contours are stable and there is stable prominence of the cardiac silhouette. Redemonstrated is a left chest wall AICD, with leads identified in the region of the right atrium and right ventricle. There are subtle right perihilar airspace opacities, not significantly changed relative to the prior examination dated 03/11/2017. This finding is nonspecific and may reflect prominence of the pulmonary arterial vasculature although edema or infection cannot be excluded. There is subtle prominence of the superior mediastinum, grossly unchanged relative to the prior examination. IMPRESSION: Stable appearance of the chest. Stable prominence of the cardiac silhouette. Subtle airspace opacities within the right hilar region are nonspecific and may reflect prominence of the pulmonary vasculature although superimposed infection or pulmonary edema cannot be excluded in the appropriate clinical setting. DICTATED BY: FLORIDALMA DELANEY MD DATE/TIME DICTATED:03/25/171636 PHARMACIST MANAGER:MALINDA DATE/TIME TRANSCRIBED:03/25/171636 Other Results SERVICE DATE: 03/25/17 EXAM TYPE: CAT - CT HEAD WO IV CONTRAST EXAMINATION: CT HEAD WITHOUT CONTRAST CLINICAL INFORMATION: Unresponsive. On Pradaxa. COMPARISON: 03/11/2017 TECHNIQUE: Contiguous axial imaging was performed from the skull base to vertex without intravenous contrast. DLP: 1240 mGy-cm. FINDINGS: There is no evidence of acute intracranial hemorrhage or territorial infarction. No abnormal mass effect or midline shift is seen. Green to white matter differentiation is well preserved. No extra-axial fluid collections are identified. No hydrocephalus. Proportional prominence of the ventricles and sulcal spaces is consistent with mild volume loss. Patchy periventricular and deep white matter hypoattenuation is consistent with moderate small vessel ischemic changes. Chronic lacunar infarcts in the left parietal thomson radiata unchanged. The osseous structures and soft tissues are normal. Mild opacification in the right maxillary sinus. The mastoid air cells and visualized portions of the paranasal sinuses are otherwise well aerated. IMPRESSION: No acute intracranial pathology. Volume loss with small vessel ischemic changes. DICTATED BY: FIDEL PATTERSON,ABHIJIT DATE/TIME DICTATED:03/25/171628 PHARMACIST MANAGER:MALINDA DATE/TIME TRANSCRIBED:03/25/171628 SERVICE DATE: 03/25/171800 EXAM TYPE: CAT - CT ABD & PELVIS W/O IV CONTRAS; CT CHEST WO IV CONTRAST EXAMINATION: CT CHEST, ABDOMEN AND PELVIS WITHOUT CONTRAST CLINICAL INFORMATION: Sepsis. Pneumonia. COMPARISON: Chest x-ray 03/25/2017. TECHNIQUE: Axial images obtained through chest, abdomen and pelvis without oral or intravenous contrast. Coronal and sagittal reformatted images are performed at CT scanner. DLP: 1064.46 mGy-cm. FINDINGS: CT CHEST: Lungs: The lungs are clear with no evidence of inflammation or nodules. Mediastinum: Pacemaker leads in the heart. There is vascular calcification of coronary arteries. No pericardial effusion. No mass. No lymphadenopathy. Pleura: There is no pleural effusion. No pleural mass or thickening. Axilla: No lymphadenopathy. CT ABDOMEN AND PELVIS: Liver, Gallbladder, And Biliary Tree: The liver is normal in size, shape, and attenuation. No focal hepatic lesion or biliary ductal dilatation is present. The gallbladder is unremarkable with no evidence of radiopaque gallstones, gallbladder wall thickening, or obvious pericholecystic inflammatory changes. Pancreas: There is atrophy of the pancreas. No inflammation or mass. Spleen: Spleen normal in size and contour. No focal lesion. Adrenal Glands: Adrenal glands are normal in size. No focal mass. Kidneys And Ureters: 5 mm stone lower pole of left kidney. Other calcifications in the right and left renal yossi are vascular. There is no hydronephrosis. No ureteral stone. Bladder: Unremarkable. Gastrointestinal Tract: There is a large left-sided inguinal hernia. This extends down into the scrotal sac. This contains the sigmoid bowel loop. It does not cause obstruction of the bowel however. No bowel wall thickening or edema. Moderate to large volume of stool in the colon. There is diverticulosis of sigmoid and left colon but no diverticulitis. The appendix is not seen. Small bowel loops are unremarkable. Mesentery: No focal inflammation. No free fluid. No free air. Abdominal Wall: Large left inguinal hernia containing herniated loops of the sigmoid colon. Lymph Nodes: Normal. Vascular: Atherosclerotic vascular calcifications of aorta and iliac vessels without aneurysm. Pelvic Viscera: Prostate measures 4.3 cm transverse and impresses slightly into the bladder base. Osseous Structures: Degenerative spondylosis of the spine with disc height narrowing, endplate spurring and facet joint arthrosis most significant at the lower lumbar spine. IMPRESSION: No acute abnormality to explain patient's sepsis of the chest, abdomen or pelvis. Large left inguinal hernia containing nonobstructive sigmoid bowel loop. Nonobstructive left renal stone. 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 DICTATED BY: CLAUDY SOMERS MD DATE/TIME DICTATED:03/25/171818 PHARMACIST MANAGER:MALINDA DATE/TIME TRANSCRIBED:03/25/171818 Assessment/Plan Assessment: Patient is a 87 year old gentleman with PMH of dementia, paroxysmal Afib, HTN, HLD, DM, CKD, AICD/pacemaker, recently admitted to [facility] in March 2017 for worsening confusion and gait instability, and was discharged to [facility] with the diagnosis of possible right MCA infarct. He was noted to be unresponsive since this afternoon and was sent to the ED. Problem list and plan: 1. Altered mental status with leukocytosis with no obvious source of infection, possible etiologies: hypoactive delirium, or metabolic encephalopathy due to dehydration * observation on telemetry * Will rule out arrhythmias, intoxication, infections, electrolytes abnormalities. * Patient's reported that he is very sensitive to changes in medications and also can not tolerate new medications, reportedly he is given melatonin every day in the facility. * Avoid opiates, DC melatonin * neurology consult * neurochecks every 4 hours * serial troponin and EKG to rule out ACS * blood culture and urine culture * urine toxicology * check lactic acid * check electrolyte and replete accordingly * Gentle IV hydration 2. Paroxysmal Afib on Pradaxa, arrhythmias s/p pacemaker/AICD * resume pradaxa when mentation improves and able to tolerate PO 3. History of a recent stroke with left sided hemiparesis * currently neurologic exam is unremarkable with no new finding, no facial droop noted * CT of head: no acute intracranial pathology * MRI is not feasible due to the pacemaker/AICD device * neurology consult for am 4. History of DM, HTN, HLD, CKD, dementia, AICD/pacer, stroke, HFrEF * accuchecks Q6 while NPO * Novolog Insulin * hold off on antihypertensive amlodipine 5 mf daily, metoprolol 125 mg daily for permissive hypertension in case of underlying ischemic stroke * Held Atorvastatin, NPO for now due AMS NPO due to AMS DVT prophylaxis with SC heparin FC As Ranked By This Provider Problem List: 1. CVA (cerebral vascular accident) Core Measures/Miscellaneous Acute Coronary Syndrome ACS Diagnosis: No Cerebrovascular Accident CVA/TIA Diagnosis: No Congestive Heart Failure CHF Diagnosis: No VTE (View Protocol) VTE Risk Factors: Acute medical illness, Age > 40 No [facility] VTE prophylaxis d/t: VTE low risk, No contraindications No VTE Pharm Prophylaxis d/t: VTE low risk, No contraindications VTE Diagnosis: No VTE Type: NONE VTE Confirmed by (Test): NONE Sepsis (View Protocol) Severe Sepsis Present: No Septic Shock Septic Shock Present: No Miscellaneous Documentation Attending Case Discussed With: MATTHEW JONAS MD Primary Care Physician: DEIRDRE KRUGER MD Patient sees these Specialists Dr. Zee ([employer] flatbed driver) Dr. Arredondo (electophysiologist) Level of Patient Care: Telemetry MATTHEW JONAS 03/26/17 0239: Attending MD Review Statement Attending Statement Attending MD Statement: examined this patient, discuss w/resident/PA/[employer] SERVICE WORKER, agreed w/resident/PA/[employer]ICE WORKER, reviewed EMR data (avail), reviewed images, amended to note Attending Assessment/Plan: CC: AMS PMH: CKD (nephrotic syndrome), dementia, paroxysmal A. fib, Hx SP AICD/pacer, Stroke, HFrEF, CAD Patient was discharged on March 14, was admitted for right MCA territory ischemic stroke. Patient was discharged to rehabilitation and was apparently all right until 1 PM when staff found him very lethargic and tough to arouse. He had one episode of vomiting, mostly medications what he took, nonbloody. No other symptoms were observed, including fever, hypoxia, chills, seizure, new onset cough or falls. Patient remained unresponsive in the facility, was noted to have facial weakness so patient was sent to ER for further evaluation. Of note patient was recently started on Pradaxa, his aspirin and Plavix were discontinued. His dose of metoprolol was also increased. Vitals: Afebrile, pulse in 70s, our are 15, blood pressure 157/66, saturating well on room air. On exam: Patient waking up for verbal stimuli, follows some instructions but difficult to assess neurological function. No acute distress. Abdomen: Soft, NT, bowel sounds present, CVS: S1-S2 RRR. RS: Clear to bases. No edema, no JVD, peripheral pulses perfusion normal, no obvious skin inflammation Labs: WBC 11.3, neutrophils 84% (which is increased from afternoon) , hemoglobin 12.0, hematocrit 37%, sodium 140, potassium 5.2, chloride 109, bicarbonate 19, anion gap 12, BUN 72, creatinine 2.5, glucose 233, calcium 8.9, lactate 1.1 , INR 1.47 UA unremarkable chest x-ray: Stable appearance of the chest. Stable prominence of the cardiac silhouette. Subtle airspace opacities within the right hilar region are nonspecific and may reflect prominence of the pulmonary vasculature although superimposed infection or pulmonary edema cannot be excluded in the appropriate clinical setting. CT chest, abdomen, pelvis, head: 1. No acute abnormality to explain patient's sepsis of the chest, abdomen or pelvis. 2. Large left inguinal hernia containing nonobstructive sigmoid bowel loop. 3. Nonobstructive left renal stone. 4. 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 5. No acute intracranial pathology. Volume loss with small vessel ischemic changes. A and P Patient was brought in ER with acute changes in mentation and unresponsiveness at short-term rehabilitation. He was lethargic and arousable to sternal rub. When he was not improving and some facial drooping was noted at facility, he was sent to ER. Even in ER patient was arousable to sternal rub and was hypertonic overall to evaluate any neurological deficit. CBC showed mild elevation in glucose site with neutrophilia as compared to afternoon labs. BMP remarkable for mild acidosis and CKD. Patient afebrile and hemodynamically stable later on, on medical floor he is waking up to verbal stimuli and follows some instructions, when I saw him. Examination otherwise unremarkable. Unclear cause of acute mental changes at the facility. Probably hypoactive delirium, should rule out any arrhythmias, acute coronary syndrome, infections. He had a recent stroke, and was started on Pradaxa, intracranial hemorrhage was ruled out with CT scan but another small ischemic infarct is less likely to be seen on CT scan. May benefit from MRI, but given his ICD, not sure if we can get one. According to family, he is very sensitive to any changes in his medication, he was started on melatonin recently and metoprolol dose was increased. + Hypoactive delirium + Rule out infections + Rule out ACS + History of CKD, dementia, paroxysmal A. fib, Hx SP AICD/pacer, Stroke, HFrEF, CAD - Place in observation on telemetry floor for telemetry monitoring - Serial EKG, troponin - Blood culture, urine culture - U tox - Neurochecks every 4 hours - Check lactic acid - Nothing by mouth - Sliding scale insulin with Accu-Cheks - Consult neurology in a.m. for further advice regarding MRI - Check magnesium, phosphate - Replace electrolytes - DVT prophylaxis with heparin - Avoid opiates, DC melatonin KRISTI CURTIS 03/27/17 2018: Resident Review Statement Resident Statement: examined this patient, discussed with hospitality intern, agreed with hospitality intern, amended to note Other Findings: 87 year old gentleman with dementia, paroxysmal Afib, HTN, HLD, DM, CKD, AICD/ pacemaker, recently admitted to [facility] in March 2017 for worsening confusion and gait instability, and was discharged to [facility] with the diagnosis of possible right MCA infarct. He was noted to be unresponsive since this afternoon and was sent to the ED. Hypoactive delirium: Panculture, r/o infection. Neuro q4. Repeat Lactate. Neuro consult, confirm if pacemaker/AICD MRI compatible. Avoid benzos and opiates. NPO due to AMS DVT prophylaxis with SC heparin FC
--- NOTE | 2017-03-25 20:29 | NUR ---
BED ASSIGNMENT 189-1
--- NOTE | 2017-03-25 20:43 | NUR ---
REPORT CALLED TO SEEMA RIVERS AND ANSWERED ALL QUESTIONS. TRANSPORT BOOKED.
[2017-03-25 22:12] VITALS: BP 138/72
[2017-03-26 00:21] VITALS: BP 128/67
--- NOTE | 2017-03-26 00:42 | NUR ---
PT ADMITTED TO ROOM 189-1 AT ABOUT 2130 ON 03/25/17. PT IS UNRESPONSIVE. VITALS WNL. PT WILL WAKE TO STIMULATION. PT DID STATE HIS NAME AND STARTED TO GARBLE. I DID NOT UNDERSTAND WHAT HE WAS SAYING. HE HAS SOME RESISTANCE WHEN I PUSH AGAINST HIS EXTREMITIES. EYES WILL OPEN BUT PT GOES BACK INTO A SLEEP SHORTLY AFTER.
--- NOTE | 2017-03-26 07:11 | PN- Housestaff ---
Subjective Follow-up For: Metabolic encephalopathy , unknown cause Complaints: no complaints Tele-Events Since Last Visit: Dual-pacing, 4 beats of V. tach Subjective: Patient is seen and examined at the bedside. He was responding to verbal, by making some words which are not comprehensible. Review of Systems Constitutional: Denies: no symptoms. Comments: Cannot comment because of the patient's clinical status Objective Last 24 Hrs of Vital Signs/I&O Vital Signs Date Time Temp Pulse Resp B/P B/P Pulse O2 O2 Flow FiO2 Mean Ox Delivery Rate 03/26 0824 97.6 65 18 160/82 97 Room Air 03/26 0021 97.8 65 16 128/67 98 03/25 2212 97.7 60 18 138/72 96 Room Air 03/25 2036 69 16 147/67 100 Room Air 03/25 1929 63 15 179/74 96 Room Air 03/25 1751 75 18 179/84 Room Air Intake & Output 03/26 1600 03/26 0800 03/26 0000 Intake Total 0 Output Total 200 Balance 0 -200 Intake, Oral 0 Number 1 Bowel Movements Output, Urine 200 Patient 77.111 kg Weight Weight Estimated Measurement Method Physical Exam General Appearance: No Acute Distress, patient look more somnolent, and confused. He responded to verbal command by putting out some words which are not comprehensible. Cardiovascular: Normal S1, Normal S2 Lungs: Clear to Auscultation, Normal Air Movement Abdomen: Soft, No Tenderness Neurological: all 4 limbs were stiff, there was clasp knife rigidity, both planter were withdrawl, pupils were 3mm and round and reactive Extremities: No Clubbing, No Cyanosis, No Edema Vascular: Normal Pulses, Pulses Symmetrical Current Medications: Current Medications Sig/Courtney Start time Last Medication Dose Route Stop Time Status Admin Acetaminophen 1,000 MG Q6P PRN 03/25 2045 AC IV Atorvastatin Calcium 80 MG 1700 03/26 1700 AC 03/26 PO 1624 Dabigatran 75 MG BID 03/25 2200 AC 03/26 PO 1624 Sodium Chloride 1,000 ML Q13H 03/26 1630 AC 03/26 IV 1624 Sodium Chloride 1,000 ML Q20H 03/26 1530 DC IV Sodium Chloride 1,000 ML SEE RATE 03/25 2045 DC IV 03/27 1004 Last 24 Hrs of Lab/Aneslmo Results Last 24 Hrs of Labs/Mics: Laboratory Tests 03/26/17 1355: pH 7.45, pCO2 28 L, pO2 86, HCO3 19 L, ABG O2 Sat (Measured) 96.0, Carboxyhemoglobin 0.5 L, O2 Concentration % RA, O2 Delivery Method RA, Phlebotomy Draw Site RIGHT RADIAL 03/26/17 0635: Anion Gap 12, Estimated GFR 27 L, BUN/Creatinine Ratio 27.0 H, Phosphorus 4.0, Magnesium 2.1, Troponin I 0.10 03/26/17 0622: CBC w Diff NO MAN DIFF REQ, RBC 3.80 L, MCV 89.9, MCH 29.5, RDW 13.5, MPV 9.5, Gran % 70.6, Lymphocytes % 17.8 L, Monocytes % 9.1, Eosinophils % 2.0, Basophils % 0.5, Absolute Granulocytes 4.9, Absolute Lymphocytes 1.2, Absolute Monocytes 0.6, Absolute Eosinophils 0.1, Absolute Basophils 0, PUBS MCHC 32.8 L 03/25/17 2240: Troponin I 0.11 *H 03/25/17 171: Urine Opiates Screen < 100.00, Methadone Screen < 40, Barbiturate Screen < 60, Ur Phencyclidine Scrn < 6.00, Amphetamines Screen < 100, U Benzodiazepines Scrn < 85, Urine Cocaine Screen < 50, Urine Cannabis Screen < 5.00, Urinalysis MANY H, Urine Color YEL, Urine Clarity CLEAR, Urine pH 6.0, Ur Specific [place] 1.025 , Urine Protein 100 H, Urine Ketones NEG, Urine Nitrite NEG, Urine Bilirubin NEG, Urine Urobilinogen 0.2, Ur Leukocyte Esterase NEG, Ur Microscopic SEDIMENT EXAMINED, Urine RBC RARE, Ur Epithelial Cells FEW, Urine Mucus FEW, Urine Hemoglobin NEG, Urine Glucose 100 H Microbiology 03/25 2250 BLOOD: Blood Culture - RES 03/25 224 BLOOD: Blood Culture - RES 03/25 1717 URINE ROUT: Urine Culture - RES
[2017-03-26 08:07] LABS: ABSOLUTE BASOPHIL COUNT 0 /CUMM (0.0-0.2); ABSOLUTE EOSINOPHIL COUNT 0.1 /CUMM (0.0-0.7); ABSOLUTE GRANULOCYTE CT 4.9 /CUMM (1.4-6.5); ABSOLUTE LYMPH COUNT 1.2 /CUMM (1.2-3.4); ABSOLUTE MONOCYTE COUNT 0.6 /CUMM (0.10-0.60); BASOPHIL % 0.5 % (0.0-2.0); GRANULOCYTE % 70.6 % (42.2-75.2); HEMATOCRIT 34.1 % (42-52); MEAN CORPUSCULAR HGB 29.5 PG (27.0-31.0); MEAN CORPUSCULAR HGB CONC 32.8 G/DL (33.0-37.0); MEAN CORPUSCULAR VOLUME 89.9 FL (80.0-94.0); MEAN PLATELET VOLUME 9.5 FL (7.4-10.4); PLATELET COUNT 196 /CUMM (130-400); RBC DISTRIBUTION WIDTH 13.5 % (11.5-14.5)
[2017-03-26 08:24] VITALS: BP 160/82
--- NOTE | 2017-03-26 15:18 | Cons- Neurology ---
General Information and HPI Consulting Request Date of Consult: 03/26/17 Requested By: ILEANA PATTERSON,SUAD Shine Reason for Consult: Altered mental status and apparent increase in right-sided weakness Source of Information: patient, old records, Resident MD Exam Limitations: unable to give history History of Present Illness: 87-year-old man with known dementia and multiple other medical illnesses was in hospital earlier this month for worsening confusion, gait instability, right facial droop and left hemiparesis and was discharged with possible right MCA infarction. He was discharged to an ECF where he was described as alert and oriented earlier on the morning of admission. Later in the day he was found not communicating, lethargic and displayed some vomiting. It was felt his facial droop was greater and he was transferred to the ER to rule out recurrent stroke. The patient is quite lethargic or somnolent and unable to give any clear history. While briefly awake he denied headache, chest pain or any clear new lateralized weakness. Allergies/Medications Allergies: Coded Allergies: NO KNOWN ALLERGIES (03/17/16) Home Med List: Acetaminophen (Acephen) 650 MG SUPP.RECT 1 SUPP AK Q4H PRN PAIN/TEMP>101 ( Reported) Acetaminophen (Acetaminophen ER) 650 MG TABLET.ER 1 TAB PO Q4H PRN PAIN/TEMP/> 101 (Reported) Amlodipine Besylate 5 MG TABLET 1 TAB PO DAILY HEART (Reported) Atorvastatin Calcium 80 MG TABLET 80 MG PO 1700 STROKE Bisacodyl 10 MG SUPP.RECT 1 SUP RC DAILY PRN CONSTIPATION (Reported) Cholecalciferol (Vitamin D3) (Vitamin D) 2,000 UNIT TABLET 1 TAB PO DAILY SUPPLEMENT (Reported) Dabigatran Etexilate Mesylat (Pradaxa) 75 MG CAPSULE 75 MG PO BID AFIB PLEASE START PRADAXA ON 03/19, AND ON STOP THE PLAVIX AND ASPIRIN AFTER 03/18 DOSE Furosemide 20 MG TABLET 1 TAB PO Q48 WATER PILL (Reported) Insulin Aspart (Novolog) 100 UNIT/ML VIAL 0 UNITS SC TIDAC DIABETES Less than 80 mg/dl---Initiate hypoglycemic events 80-150 MG/DL -- No change 151-200 MG/DL--2 UNITS 201-250 MG/DL--4 UNITS 251-300 MG/DL--6 UNITS 301-350 MG/DL--8 UNITS 351-400 MG/DL--10 OVER 400 MG/DL--12 UNITS Magnesium Hydroxide (Milk Of Magnesia) 400 MG/5 ML ORAL.SUSP 30 ML PO DAILY PRN CONSTIPATION (Reported) Melatonin (Melatin) 3 MG TABLET 6 MG PO QHS SUPPLEMENT (Reported) Memantine HCl (Namenda) 10 MG TABLET 1 TAB PO BID DEMENTIA (Reported) Metoprolol Succ XL (Toprol XL) 25 MG TAB 125 MG PO DAILY HEART PT NEEDS A DAILY DOSE OF METOPROLOL SUCCINATE 125 MG ONCE DAILY Multivitamin (Multi-Day Vitamins) 1 EACH TABLET 1 TAB PO DAILY SUPPLEMENT ( Reported) Na Phos,M-B/Na Phos,Di-Ba (Fleet Enema) 19 GRAM-7 GRAM/118 ML ENEMA 1 E RC DAILY PRN CONSTIPATION (Reported) Rivastigmine (Exelon) 9.5 MG/Patch PAT 1 PAT TOP DAILY DEMENTIA (Reported) Rivastigmine Tartrate (Rivastigmine) 3 MG CAPSULE 1 CAP PO BID DEMENTIA ( Reported) Sennosides/Docusate Sodium (Senna Plus Tablet) 8.6 MG-50 MG TABLET 1 TAB PO BID GI (Reported) Current Medications: Current Medications Sig/Courtney Start time Last Medication Dose Route Stop Time Status Admin Acetaminophen 1,000 MG Q6P PRN 03/25 2045 AC IV Atorvastatin Calcium 80 MG 1700 03/26 1700 AC PO Dabigatran 75 MG BID 03/25 2200 AC PO Sodium Chloride 1,000 ML SEE RATE 03/25 2045 DC IV 03/27 1004 Review of Systems Review of Systems: Limited by the patient's mental status. He denied headache, difficulty seeing, lateralized weakness in the extremities, chest pain or dyspnea. Remaining elements of the complete ROS could not be obtained due to his lethargy Past History Travel History Traveled to [place] past 21 day No Medical History Neurological: dementia Cardiovascular: AFIB, hypertension, hyperlipidemia Renal: chronic kidney disease, urinary incontinence Endocrine: diabetes Cancer(s): NONE Surgical History Surgical History: non-contributory Family History Relations & Conditions If Any: Relation not specified for: *No pertinent family history Psychosocial History Where Do You Live? Extended Care Facility Services at Home: None Smoking Status: Unknown If Ever Smoked ETOH Use: 6 Illicit Drug Use: UTD Functional Ability ADLs Needs Assist: dressing, eating, toileting, bathing. Exam & Diagnostic Data Vital Signs and I&O Vital Signs Date Time Temp Pulse Resp B/P B/P Pulse O2 O2 Flow FiO2 Mean Ox Delivery Rate 03/26 0824 97.6 65 18 160/82 97 Room Air 03/26 0021 97.8 65 16 128/67 98 03/25 2212 97.7 60 18 138/72 96 Room Air 03/25 2036 69 16 147/67 100 Room Air 03/25 1929 63 15 179/74 96 Room Air 03/25 1751 75 18 179/84 Room Air 03/25 1602 97.4 79 15 157/66 97 Room Air Intake & Output 03/26 1600 03/26 0800 03/26 0000 Intake Total 0 Output Total 200 Balance 0 -200 Intake, Oral 0 Number 1 Bowel Movements Output, Urine 200 Patient 170 lb Weight Weight Estimated Measurement Method Physical Exam: On exam he appears in no distress with good skin color, well hydrated. Head atraumatic, neck supple. No carotid bruits. Chest clear, no murmur, heart sounds distant Pulses intact in all 4 extremities To somnolent, up to voice but drifts rapidly back to sleep even while being questioned. Oriented to name only, could not answer to his location or date. Followed commands. Visual garcia full to finger count pupils small but equal and slightly reactive to light line eye movements full on pursuit. No facial asymmetry evident at this time, tongue protrusion midline. Handgrips strong, with arms elevated only minimal drift which was bilateral. Tone is quite increased I lateral strong grasp reflexes. No cogwheeling. Reflexes were symmetric and both plantar responses upgoing. Regan elements of the complete neurologic exam could not be performed due to his mental state Last 48 Hours of Lab Results: Laboratory Tests 03/26 03/26 1355 0635 Blood Gas pH (7.35 - 7.45 PH) 7.45 pCO2 (35 - 45 TORR) 28 L pO2 (80 - 100 TORR) 86 HCO3 (21 - 28 MEQ/L) 19 L ABG O2 Sat (Measured) (>96.0 %) 96.0 Carboxyhemoglobin (1.5 - 5.0 %) 0.5 L O2 Concentration % RA O2 Delivery Method RA Chemistry Sodium (137 - 145 mmol/L) 145 Potassium (3.5 - 5.1 mmol/L) 4.9 Chloride (98 - 107 mmol/L) 112 H Carbon Dioxide (22 - 30 mmol/L) 21 L Anion Gap (5 - 16) 12 BUN (9 - 20 mg/dL) 62 H Creatinine (0.7 - 1.2 mg/dL) 2.3 H Estimated GFR (>60 ml/min) 27 L BUN/Creatinine Ratio (7 - 25 %) 27.0 H Phosphorus (2.5 - 4.5 mg/dL) 4.0 Magnesium (1.6 - 2.3 mg/dL) 2.1 Troponin I (<0.11 ng/ml) 0.10 Miscellaneous Phlebotomy Draw Site RIGHT RADIAL 03/26 03/25 0622 2240 Chemistry Troponin I (<0.11 ng/ml) 0.11 *H Hematology CBC w Diff NO MAN DIFF REQ WBC (4.8 - 10.8 /CUMM) 7.0 RBC (4.70 - 6.10 /CUMM) 3.80 L Hgb (14.0 - 18.0 G/DL) 11.2 L Hct (42 - 52 %) 34.1 L MCV (80.0 - 94.0 FL) 89.9 MCH (27.0 - 31.0 PG) 29.5 RDW (11.5 - 14.5 %) 13.5 Plt Count (130 - 400 /CUMM) 196 MPV (7.4 - 10.4 FL) 9.5 Gran % (42.2 - 75.2 %) 70.6 Lymphocytes % (20.5 - 51.1 %) 17.8 L Monocytes % (1.7 - 9.3 %) 9.1 Eosinophils % (0 - 5 %) 2.0 Basophils % (0.0 - 2.0 %) 0.5 Absolute Granulocytes (1.4 - 6.5 /CUMM) 4.9 Absolute Lymphocytes (1.2 - 3.4 /CUMM) 1.2 Absolute Monocytes (0.10 - 0.60 /CUMM) 0.6 Absolute Eosinophils (0.0 - 0.7 /CUMM) 0.1 Absolute Basophils (0.0 - 0.2 /CUMM) 0 PUBS MCHC (33.0 - 37.0 G/DL) 32.8 L 03/25 03/25 1717 1700 Chemistry Sodium (137 - 145 mmol/L) 140 Potassium (3.5 - 5.1 mmol/L) 5.2 H Chloride (98 - 107 mmol/L) 109 H Carbon Dioxide (22 - 30 mmol/L) 19 L Anion Gap (5 - 16) 12 BUN (9 - 20 mg/dL) 72 H Creatinine (0.7 - 1.2 mg/dL) 2.5 H Estimated GFR (>60 ml/min) 25 L BUN/Creatinine Ratio (7 - 25 %) 28.8 H Glucose (65 - 99 mg/dL) 233 H Lactic Acid (0.7 - 2.1 mmol/L) 1.1 Calcium (8.4 - 10.2 mg/dL) 8.9 Total Bilirubin (0.2 - 1.3 mg/dL) 0.4 AST (17 - 59 U/L) 30 ALT (21 - 72 U/L) 45 Alkaline Phosphatase (< 127 U/L) 61 Troponin I (<0.11 ng/ml) 0.10 Total Protein (6.3 - 8.2 g/dL) 6.9 Albumin (3.5 - 5.0 g/dL) 3.3 L Globulin (1.9 - 4.2 gm/dL) 3.6 Albumin/Globulin Ratio (1.1 - 2.2 %) 0.9 L Coagulation PT (9.4 - 12.5 SEC) 15.4 H INR (0.90 - 1.17) 1.47 H APTT (25 - 37 SEC) 55 H Hematology CBC w Diff NO MAN DIFF REQ WBC (4.8 - 10.8 /CUMM) 11.3 H RBC (4.70 - 6.10 /CUMM) 4.12 L Hgb (14.0 - 18.0 G/DL) 12.0 L Hct (42 - 52 %) 37.3 L MCV (80.0 - 94.0 FL) 90.6 MCH (27.0 - 31.0 PG) 29.2 RDW (11.5 - 14.5 %) 13.5 Plt Count (130 - 400 /CUMM) 209 MPV (7.4 - 10.4 FL) 8.9 Gran % (42.2 - 75.2 %) 84.1 H Lymphocytes % (20.5 - 51.1 %) 7.4 L Monocytes % (1.7 - 9.3 %) 7.1 Eosinophils % (0 - 5 %) 1.2 Basophils % (0.0 - 2.0 %) 0.2 Absolute Granulocytes (1.4 - 6.5 /CUMM) 9.5 H Absolute Lymphocytes (1.2 - 3.4 /CUMM) 0.8 L Absolute Monocytes (0.10 - 0.60 /CUMM) 0.8 H Absolute Eosinophils (0.0 - 0.7 /CUMM) 0.1 Absolute Basophils (0.0 - 0.2 /CUMM) 0 PUBS MCHC (33.0 - 37.0 G/DL) 32.2 L Toxicology Urine Opiates Screen (>2000 NG/ML) < 100.00 Methadone Screen (>300 NG/ML) < 40 Barbiturate Screen (>200 NG/ML) < 60 Ur Phencyclidine Scrn (>25 NG/ML) < 6.00 Amphetamines Screen (>1000 NG/ML) < 100 U Benzodiazepines Scrn (>200 NG/ML) < 85 Urine Cocaine Screen (>300 NG/ML) < 50 Urine Cannabis Screen (>50 NG/ML) < 5.00 Urines Urinalysis MANY H Urine Color (YEL,AMB,STR) YEL Urine Clarity (CLEAR) CLEAR Urine pH (5.0 - 8.0) 6.0 Ur Specific [place] (1.001 - 1.035) 1.025 Urine Protein (NEG,<30 MG/DL) 100 H Urine Ketones (NEG) NEG Urine Nitrite (NEG) NEG Urine Bilirubin (NEG) NEG Urine Urobilinogen (0.1 - 1.0 EU/dl) 0.2 Ur Leukocyte Esterase (NEG) NEG Ur Microscopic SEDIMENT EXAMINED Urine RBC (0 - 5 /HPF) RARE Ur Epithelial Cells (NONE,FEW) FEW Urine Mucus (FEW,NONE) FEW Urine Hemoglobin (NEG) NEG Urine Glucose (N MG/DL) 100 H Imaging/Other Studies: CT head: FINDINGS: There is no evidence of acute intracranial hemorrhage or territorial infarction. No abnormal mass effect or midline shift is seen. Green to white matter differentiation is well preserved. No extra-axial fluid collections are identified. No hydrocephalus. Proportional prominence of the ventricles and sulcal spaces is consistent with mild volume loss. Patchy periventricular and deep white matter hypoattenuation is consistent with moderate small vessel ischemic changes. Chronic lacunar infarcts in the left parietal thomson radiata unchanged. The osseous structures and soft tissues are normal. Mild opacification in the right maxillary sinus. The mastoid air cells and visualized portions of the paranasal sinuses are otherwise well aerated. IMPRESSION: No acute intracranial pathology. Volume loss with small vessel ischemic changes. CT scan chest abdomen and pelvis: No acute abnormality to explain patient's sepsis of the chest, abdomen or pelvis. Large left inguinal hernia containing nonobstructive sigmoid bowel loop. Nonobstructive left renal stone. 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 Assessment/Plan Assessment: Toxic-metabolic encephalopathy pattern with reduced level of consciousness but with out any abnormal brainstem findings of different can't cortical stroke to explain the lowered level of consciousness. A mild increase in pre-existing weakness can be expected rations with prior stroke or vascular disease when an encephalopathy occurs. Potentially important metabolic findings are a rising sodium up to 145, be when of 62 with creatinine 2.3, PCO2 of 28 with bicarbonate low at 19. An initial CB C revealed a leukocytosis but this has resolved on the follow-up test does not indicate urinary tract infection. MRI contraindicated by pacemaker Recommendations: EEG status fails to improve over the next couple of days, he evidence of nonconvulsive seizures due to past strokes or typical patterns of a toxic or metabolic encephalopathy. Cautiously hydrate Further assess respiratory abnormalities Would repeat urinalysis with reflex cultures Follow-up will be provided as needed Consult Acknowledgment - Thank you for your consult request.
--- NOTE | 2017-03-26 16:21 | PN- Att Addend ---
Attending MD Review Statement Attending Statement Attending MD Statement: examined this patient, discuss w/resident/PA/[employer], agreed w/resident/PA/[employer], discussed with family, reviewed EMR data (avail), discussed w/ nursing, discussed w/case mgmt Attending Assessment/Plan: Laboratory Tests 03/26/17 1355: pH 7.45, pCO2 28 L, pO2 86, HCO3 19 L, ABG O2 Sat (Measured) 96.0, Carboxyhemoglobin 0.5 L, O2 Concentration % RA, O2 Delivery Method RA, Phlebotomy Draw Site RIGHT RADIAL 03/26/17 0635: Anion Gap 12, Estimated GFR 27 L, BUN/Creatinine Ratio 27.0 H, Phosphorus 4.0, Magnesium 2.1, Troponin I 0.10 03/26/17 0622: CBC w Diff NO MAN DIFF REQ, RBC 3.80 L, MCV 89.9, MCH 29.5, RDW 13.5, MPV 9.5, Gran % 70.6, Lymphocytes % 17.8 L, Monocytes % 9.1, Eosinophils % 2.0, Basophils % 0.5, Absolute Granulocytes 4.9, Absolute Lymphocytes 1.2, Absolute Monocytes 0.6, Absolute Eosinophils 0.1, Absolute Basophils 0, PUBS MCHC 32.8 L 03/25/17 2240: Troponin I 0.11 *H 03/25/17 1717: Urine Opiates Screen < 100.00, Methadone Screen < 40, Barbiturate Screen < 60, Ur Phencyclidine Scrn < 6.00, Amphetamines Screen < 100, U Benzodiazepines Scrn < 85, Urine Cocaine Screen < 50, Urine Cannabis Screen < 5.00, Urinalysis MANY H, Urine Color YEL, Urine Clarity CLEAR, Urine pH 6.0, Ur Specific [place] 1.025 , Urine Protein 100 H, Urine Ketones NEG, Urine Nitrite NEG, Urine Bilirubin NEG, Urine Urobilinogen 0.2, Ur Leukocyte Esterase NEG, Ur Microscopic SEDIMENT EXAMINED, Urine RBC RARE, Ur Epithelial Cells FEW, Urine Mucus FEW, Urine Hemoglobin NEG, Urine Glucose 100 H 03/25/17 1700: Anion Gap 12, Estimated GFR 25 L, BUN/Creatinine Ratio 28.8 H, Glucose 233 H, Lactic Acid 1.1, Calcium 8.9, Total Bilirubin 0.4, AST 30, ALT 45, Alkaline Phosphatase 61, Troponin I 0.10, Total Protein 6.9, Albumin 3.3 L, Globulin 3.6 , Albumin/Globulin Ratio 0.9 L, PT 15.4 H, INR 1.47 H, APTT 55 H, CBC w Diff NO MAN DIFF REQ, RBC 4.12 L, MCV 90.6, MCH 29.2, RDW 13.5, MPV 8.9, Gran % 84.1 H, Lymphocytes % 7.4 L, Monocytes % 7.1, Eosinophils % 1.2, Basophils % 0.2, Absolute Granulocytes 9.5 H, Absolute Lymphocytes 0.8 L, Absolute Monocytes 0.8 H, Absolute Eosinophils 0.1, Absolute Basophils 0, PUBS MCHC 32.2 L Vital Signs Date Time Temp Pulse Resp B/P B/P Pulse O2 O2 Flow FiO2 Mean Ox Delivery Rate 03/26 0824 97.6 65 18 160/82 97 Room Air 03/26 0021 97.8 65 16 128/67 98 03/25 2212 97.7 60 18 138/72 96 Room Air 03/25 2036 69 16 147/67 100 Room Air 03/25 1929 63 15 179/74 96 Room Air 03/25 1751 75 18 179/84 Room Air d/w pts family at bedside the care panel Metabolic encephalopathy with underlying dementia and recent ? Stroke Will get ABG and ammonia level. Will change iv fluids to 1/2 NS due to sodium of 145 and hyperchloremia. Recheck BEP in am. Also dc melatonin and statins. Pts family says that he does not tolerate high dose statins and was taking pravastain only 3 times a week. Will resume the statins at home dose 3 times a week. Neurology recommended EEG . will f/u on that. Give trazodone prn for insomnia if needed. Cont iv hydration for MARTY on CKD stage 3 with high BUN/ Cr ration. If mental status improves tomorrow , dc back to STR. Will extend observation status till tomorrow for now.
[2017-03-26 16:46] VITALS: BP 138/80
--- NOTE | 2017-03-26 17:15 | PN-Observation ---
Observation Note Observation Note _ I have personally examined TYSON NOONAN. him disposition is uncertain at this time. Before a determination can be made, he requires continued observation for the following reasons [altered mental status with stable vitals]. Assessment/Plan Assessment: 87 year old male with PMH of dementia, paroxysmal Afib, HTN, HLD, DM, CKD, AICD/ pacemaker, right MCA infarct (Mar 2017), BIBA from [facility] for lethargy, episode of vomiting and not responding. Vital signs-temperature 98.4, pulse 67, respiratory rate 20, blood pressure 130/ 80, SPO2 98% on room air Assessment and plan - His bloodwork up is not showing any signs of infection.ABG does not show any signs of acidosis and bicarbonate is 19. Urine was showing protein/glucose. It seems that he has Metabolic encephalopathy, possibly secondary to medication or fluctuating delirium secondary to progressive dementia. In the past. His sugar was high and HbA1c was 7.3. Urinalysis is not showing any significant proteinuria. His encephalopathy can be due to dehydration as this is the summertime and patient had an episode of vomiting and his urea and creatinine is little bit elevated. Metabolic encephalopathy secondary to medication/dehydration or probably delirium progressive dementia - * We'll place a neurology consult and they advised for EEG * We will follow EEG * We will start patient on IV fluids 50 mL per hour * We will regularly measure BUN/Creat * We will hold all sedatives including memantine if needed and we will use tablet trazodone. * Strict intake output charting * Aspiration precaution Borderline diabetes * We will follow fingerstick every 6 hourly and if needed, then NovoLog according to sliding scale Diet -will start him on chopped and liquid diet, advised to take all aspiration precaution DVT prophylaxis -ALP S/heparin Code status - full code Problem List: 1. Metabolic encephalopathy 2. Progressive dementia with uncertain etiology DVT/Prophylaxis: mechanical Subjective Follow-up For: Metabolic encephalopathy Complaints: no complaints Tele-Events Since Last Visit: pacings, 4 beats of VTech Subjective: Patient is seen and examined at the bedtime. He was responding to verbal commands, but the word output was less and non-comprehensible. Review of Systems Constitutional: Denies: no symptoms. Comments: Cannot comment because of the patients clinical status Objective Last 24 Hrs of Vital Signs/I&O Vital Signs Date Time Temp Pulse Resp B/P B/P Pulse O2 O2 Flow FiO2 Mean Ox Delivery Rate 03/26 1646 98.4 67 20 138/80 20 Room Air 03/26 0824 97.6 65 18 160/82 97 Room Air 03/26 0021 97.8 65 16 128/67 98 03/25 2212 97.7 60 18 138/72 96 Room Air 03/25 2036 69 16 147/67 100 Room Air 03/25 1929 63 15 179/74 96 Room Air 03/25 1751 75 18 179/84 Room Air Intake & Output 03/26 1600 03/26 0800 03/26 0000 Intake Total 0 Output Total 200 Balance 0 -200 Intake, Oral 0 Number 1 Bowel Movements Output, Urine 200 Patient 77.111 kg Weight Weight Estimated Measurement Method Physical Exam General Appearance: Cooperative, No Acute Distress Skin: No Rashes, No Breakdown Cardiovascular: Normal S1, Normal S2 Lungs: Clear to Auscultation, Normal Air Movement Abdomen: Soft, No Tenderness Neurological: patient is somnolent, but arousable, he will respond to verbal commands but putting out some words which are not comprehensible. Both plantars were withdrawal. All 4 limbs are having clasp knief rigidity. Extremities: No Clubbing, No Cyanosis, No Edema Vascular: Normal Pulses
--- NOTE | 2017-03-26 17:39 | ELECTROENCEPHALOGRAM REPORT ---
Electroencephalogram Report Electroencephalogram Results Date of service: 03/26/17 Attending MD: SUAD TEJEDA MD Pad Machine Feeder: Modesta Bashir EEG Number: [id number] Test Utilizes: 10-20 system, 21 lead 18 channel digital recording Pertinent Hx/Physical/Neuro Findings/Clin Diagnosis: altered mental statu Inpatient Medications: Current Medications Sig/Courtney Start time Last Medication Dose Route Stop Time Status Admin Acetaminophen 1,000 MG Q6P PRN 03/25 2045 AC IV Atorvastatin Calcium 80 MG 1700 03/26 1700 AC 03/26 PO 1624 Dabigatran 75 MG BID 03/25 2200 AC 03/26 PO 1624 Sodium Chloride 1,000 ML Q13H 03/26 1630 AC 03/26 IV 1624 Sodium Chloride 1,000 ML Q20H 03/26 1530 DC IV Sodium Chloride 1,000 ML SEE RATE 03/25 2045 DC IV 03/27 1004 Interpretation: the background is general and composed primarily of 4-5 Hz theta frequency activity, central and posterior irregular alpha activity and some low amplitude beta. There are no focal, lateralized or epileptiform abnormalities. Hyperventilation could not be performed, photic stimulation was done and adds no further information. Impression: Abnormal due to mild to moderate generalized slowing of the background rhythms most consistent with a toxic or metabolic encephalopathy. No focal or epileptiform abnormalities detected.
[2017-03-26 22:00] VITALS: BP 140/74
--- NOTE | 2017-03-27 08:28 | PN-Observation ---
GENNARO PATTERSON,[facility] 03/27/17 0828: Observation Note Observation Note _ I have personally examined TYSON NOONAN. him disposition is uncertain at this time. Before a determination can be made, he requires continued observation for the following reasons altered mental status Assessment/Plan Assessment: 87 year old male with PMH of dementia, paroxysmal Afib, HTN, HLD, DM, CKD, AICD/ pacemaker, right MCA infarct (Mar 2017), BIBA from [facility] for lethargy, episode of vomiting and not responding. Vital signs-temperature 98.4, pulse 67, respiratory rate 20, blood pressure 130/ 80, SPO2 98% on room air Assessment and plan - His bloodwork up is not showing any signs of infection.ABG does not show any signs of acidosis and bicarbonate is 19. Urine was showing protein/glucose. It seems that he has Metabolic encephalopathy, possibly secondary to medication or fluctuating delirium secondary to progressive dementia. In the past. His sugar was high and HbA1c was 7.3. Urinalysis is not showing any significant proteinuria. His encephalopathy can be due to dehydration as this is the summertime and patient had an episode of vomiting and his urea and creatinine is little bit elevated. Metabolic encephalopathy secondary to medication/dehydration or probably delirium progressive dementia - * Neurology on board, recommended EEG * We will follow EEG, which showed I&D is consistent with toxic or metabolic encephalopathy * Hold off all sedatives, if needed patient can be given trazodone * Aspiration precaution Borderline diabetes * We will follow fingerstick every 6 hourly and if needed, then NovoLog according to sliding scale Diet -will start him on chopped and liquid diet, advised to take all aspiration precaution DVT prophylaxis -ALP S/heparin Code status - full code Problem List: 1. Progressive dementia with uncertain etiology 2. Metabolic encephalopathy Subjective Follow-up For: Metabolic encephalopathy Tele-Events Since Last Visit: Sinus paced, Heart rate between 78-92 Subjective: Patient seen and examined, in no acute distress, white is within normal limits, hemodynamic is stable. Review of Systems Constitutional: Reports: see HPI. Objective Last 24 Hrs of Vital Signs/I&O Vital Signs Date Time Temp Pulse Resp B/P B/P Pulse O2 O2 Flow FiO2 Mean Ox Delivery Rate 03/27 0909 98.2 102 18 138/94 96 Room Air 03/26 2200 98.0 982 20 140/74 95 Room Air 03/26 1646 98.4 67 20 138/80 20 Room Air Intake & Output 03/27 1600 03/27 0800 03/27 0000 Intake Total 700 810 Output Total 300 Balance 700 510 Intake, IV 600 450 Intake, Oral 100 360 Output, Urine 300 Physical Exam General Appearance: No Acute Distress Cardiovascular: Regular Rate, Normal S1, Normal S2, No Murmurs Lungs: Clear to Auscultation, Normal Air Movement Abdomen: Normal Bowel Sounds, Soft Neurological: patient somnolent, but arousable speech not compensable Extremities: No Clubbing, No Cyanosis, No Edema Vascular: Pulses Symmetrical CHICO RONQUILLO MD 03/27/17 1343: Addendum Note Addendum Patient seen and examined. No events overnight on telemetry. He however remains confused. He is not in any acute distress. He denies any pain. Denies shortness of breath. EEG was done yesterday and showed mild to moderate generalized slowing of the background rhythms most consistent with toxic or metabolic encephalopathy. No focal or epileptiform abnormalities were detected. He follows simple commands. Lungs are clear bilaterally. Heart sounds are normal. Abdomen is soft and nontender. He has no peripheral edema. Problems: 1. Metabolic encephalopathy in the setting of underlying dementia. 2. Mildly abnormal troponin; now resolved. 3. Chronic kidney disease stage IV 4. Paroxysmal atrial fibrillation on anticoagulation with Pradaxa 5. 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 6. Chronic systolic heart failure 7. Dementia 8. Recent right MCA territory stroke. 9. Hypertension; patient was on metoprolol, amlodipine and Lasix prior. Plan: -There is no obvious acute reversible metabolic pathology at present. He has no obvious infection. Head CT shows no acute stroke. -Continue supportive care. [place] family visits. -Avoid sedatives Including benzodiazepines. -Blood pressure has been stable off all of his antihypertensive medications. Resume his metoprolol. - Discontinue IV fluids and encourage oral intake in view of his underlying cardiomyopathy. May resume Lasix once his oral intake is deemed adequate.
[2017-03-27 09:09] VITALS: BP 138/94
[2017-03-27 15:39] VITALS: BP 108/70
[2017-03-27 23:57] VITALS: BP 130/74
[2017-03-28 08:10] VITALS: BP 146/80
--- NOTE | 2017-03-28 08:53 | PN-Observation ---
CITLALLI PATTERSON,ELIDA 03/28/17 0853: Observation Note Observation Note _ I have personally examined TYSON NOONAN. him disposition is uncertain at this time. Before a determination can be made, he requires continued observation for the following reasons [metabolic encephalopathy under evaluation]. Assessment/Plan Assessment: 87 year old male with PMH of dementia, paroxysmal Afib, HTN, HLD, DM, CKD, AICD/ pacemaker, right MCA infarct (Mar 2017), BIBA from [facility] for lethargy, episode of vomiting and not responding. Vital signs-temperature 100.3, pulse 67, respiratory rate 20, blood pressure 146 /80, SPO2 95% on room air Assessment and plan - His bloodwork up is not showing any signs of infection.ABG does not show any signs of acidosis and bicarbonate is 19. Urine was showing protein/glucose. It seems that he has Metabolic encephalopathy, possibly secondary to medication or fluctuating delirium secondary to progressive dementia. In the past. His sugar was high and HbA1c was 7.3. Urinalysis is not showing any significant proteinuria. His encephalopathy can be due to dehydration as this is the summertime and patient had an episode of vomiting and his urea and creatinine is little bit elevated. His creatinine is getting down to 2.1. Recent urine and blood cultures are not growing any bacteria. He is responding to verbal command, but that is fluctuating. Today he started having fever. we re drawn,The blood culture and will follow the results. It is a possibility that this is summertime and patient had tick bite and that is leading to fluctuating encephalopathy as seen in the borrelia mumoides. Metabolic encephalopathy secondary to medication/dehydration or probably delirium progressive dementia - * Neurology on board, we will discuss about the further imaging including MRI * Follow-up EEG showed generalized slowing of background rhythm consistent with toxic or metabolic encephalopathy. * Hold off all sedatives, if needed patient can be given trazodone * Aspiration precaution Borderline diabetes * We will follow fingerstick every 6 hourly and if needed, then NovoLog according to sliding scale * Today sugars are liitle bit higher side. Diet -will start him on chopped and liquid diet, advised to take all aspiration precaution DVT prophylaxis -ALP S/heparin Code status - full code Problem List: 1. Metabolic encephalopathy DVT/Prophylaxis: mechanical, pharmacological Subjective Follow-up For: Metabolic encephalopathy under evaluation Complaints: no complaints Tele-Events Since Last Visit: No any overnight events Subjective: Patient is seen and examined at the bedside. He does respond to verbal command.he is able to make the complete sentences, but sometimes they are not comprehensible. He is able to move all his limbs. Today on examination there was no any rigidity. Review of Systems Constitutional: Denies: no symptoms. Comments: Cannot comment because of the patients clinical status Objective Last 24 Hrs of Vital Signs/I&O Vital Signs Date Time Temp Pulse Resp B/P B/P Pulse O2 O2 Flow FiO2 Mean Ox Delivery Rate 03/28 1552 97.5 74 16 128/68 96 Room Air 03/28 1130 100.3 03/28 0850 90 146/80 03/28 0810 97.8 90 20 146/80 95 Room Air 03/27 2357 96.8 63 20 130/74 94 Room Air Intake & Output 03/28 1600 03/28 0800 03/28 0000 Intake Total 400 600 850 Output Total Balance 400 600 850 Intake, IV 600 700 Intake, Oral 400 0 150 Number 1 1 Bowel Movements Physical Exam General Appearance: No Acute Distress Cardiovascular: Normal S1, Normal S2 Lungs: Clear to Auscultation, Normal Air Movement Abdomen: Soft, No Tenderness Neurological: somnolent but arousable. respond to verbal, command and able to produce speech, but it was non-comprehensible. Extremities: No Clubbing, No Cyanosis, No Edema Vascular: Normal Pulses CHICO RONQUILLO MD 03/28/17 1230: Addendum Note Addendum Patient seen and examined. He had occasional PVCs on telemetry monitoring overnight. He is alert however is confused as well. He does not move his extremities to, and and does not respond to simple questioning. He does not appear to be in any acute distress. He is afebrile. Laboratory data does not show any significant electrolyte abnormality. Creatinine level is chronically elevated and not significantly changed from baseline. Nursing staff did report that he tolerated his meal when feed this morning. Blood urine cultures are negative. Problems: 1. Metabolic encephalopathy in the setting of underlying dementia. 2. Mildly abnormal troponin; now resolved. 3. Chronic kidney disease stage IV 4. Paroxysmal atrial fibrillation on anticoagulation with Pradaxa 5. 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 6. Chronic systolic heart failure 7. Dementia 8. Recent right MCA territory stroke. Plan: -Patient has had no significant improvement of his acute encephalopathy which is likely metabolic. -Continue supportive care. -Follow-up with the neurology service regarding the need for any further imaging such as an MRI. -His disposition remains indeterminate due to his current mental status. We'll continue to monitor for improvement.
--- NOTE | 2017-03-28 12:56 | Discharge Summary ---
Visit Information Visit Dates Admission Date: 03/29/17 Discharge Date: 03/30/17 Hospital Course Course Attending Physician: SOPHIA PATTERSON,MÓNICA Primary Care Physician: SSAKIA PATTERSON,DEIRDRE Coronado Hospital Course: Patient is a 87-year-old gentleman with past medical history significant for dementia, paroxysmal Afib, HTN, HLD, DM, CKD, AICD/pacemaker, recently admitted to [facility] in March 2017 for worsening confusion and gait instability, right sided facial droop, and left hemiparesis(possible right MCA infarct), discharged to [facility] presented to the ED for the evaluation of altered mental status. ED course: Patient was afebrile on admission, pulse in 70s respiratory rate 15 blood pressure 157/66 saturating more than 96% on room air. Pertinent labs on admission leukocytosis 11.3 with neutrophil count 84%. H&H stable at 12/37 normal sodium and potassium levels, elevated BUN/creatinine 72/ 2.5, elevated serum glucose levels 233 normal lactate levels urinalysis was unremarkable Chest x-ray did not show any acute cardiopulmonary pathology. CT head ruled out any underlying intracranial bleed CT chest abdomen pelvis ruled out any acute pathology except for large left inguinal hernia containing nonobstructive sigmoid bowel loop. Patient was on telemetry floor for the following reasons: 1. Altered mental status(metabolic encephalopathy secondary to drug toxicity/ dehydration)/delirium with progressive dementia: Patient was admitted to telemetry floor. His blood work did not show any evidence of infection. He was kept nothing by mouth initially due to decreased level of consciousness IV fluids were continued. Kidney functions improved. Patient was reassessed by speech therapist started him on chopped and regular than diet. ABG were done that ruled out any respiratory acidosis(respiratory depression). Ammonia levels were normal. Neurology consult was obtained as per recommendations patient had a EEG done that showed to mild to moderate generalized slowing of the background rhythms most consistent with a toxic or metabolic encephalopathy. MRI could not be done as his pacemaker was not compatible. As per neurology recommendations Namenda, rivastigmine melatonin was discontinued. Patient's clinical condition and mental status improved during the course of stay in the hospital. Once stable he was discharged to [facility]. 2.Borderline diabetes: Sugar levels were controlled with NovoLog sliding scale Accu-Cheks were done. Speech evaluation: Patient was evaluated by speech therapist recommended chopped liquid thin diet . DVT prophylaxis -ALP S/heparin Code status - full code Allergies: Coded Allergies: NO KNOWN ALLERGIES (03/17/16) Significant Procedures: XAM TYPE: CAT - CT ABD & PELVIS W/O IV CONTRAS; CT CHEST WO IV CONTRAST EXAMINATION: CT CHEST, ABDOMEN AND PELVIS WITHOUT CONTRAST CLINICAL INFORMATION: Sepsis. Pneumonia. COMPARISON: Chest x-ray 03/25/2017. TECHNIQUE: Axial images obtained through chest, abdomen and pelvis without oral or intravenous contrast. Coronal and sagittal reformatted images are performed at CT scanner. DLP: 1064.46 mGy-cm. FINDINGS: CT CHEST: Lungs: The lungs are clear with no evidence of inflammation or nodules. Mediastinum: Pacemaker leads in the heart. There is vascular calcification of coronary arteries. No pericardial effusion. No mass. No lymphadenopathy. Pleura: There is no pleural effusion. No pleural mass or thickening. Axilla: No lymphadenopathy. CT ABDOMEN AND PELVIS: Liver, Gallbladder, And Biliary Tree: The liver is normal in size, shape, and attenuation. No focal hepatic lesion or biliary ductal dilatation is present. The gallbladder is unremarkable with no evidence of radiopaque gallstones, gallbladder wall thickening, or obvious pericholecystic inflammatory changes. Pancreas: There is atrophy of the pancreas. No inflammation or mass. Spleen: Spleen normal in size and contour. No focal lesion. Adrenal Glands: Adrenal glands are normal in size. No focal mass. Kidneys And Ureters: 5 mm stone lower pole of left kidney. Other calcifications in the right and left renal yossi are vascular. There is no hydronephrosis. No ureteral stone. Bladder: Unremarkable. Gastrointestinal Tract: There is a large left-sided inguinal hernia. This extends down into the scrotal sac. This contains the sigmoid bowel loop. It does not cause obstruction of the bowel however. No bowel wall thickening or edema. Moderate to large volume of stool in the colon. There is diverticulosis of sigmoid and left colon but no diverticulitis. The appendix is not seen. Small bowel loops are unremarkable. Mesentery: No focal inflammation. No free fluid. No free air. Abdominal Wall: Large left inguinal hernia containing herniated loops of the sigmoid colon. Lymph Nodes: Normal. Vascular: Atherosclerotic vascular calcifications of aorta and iliac vessels without aneurysm. Pelvic Viscera: Prostate measures 4.3 cm transverse and impresses slightly into the bladder base. Osseous Structures: Degenerative spondylosis of the spine with disc height narrowing, endplate spurring and facet joint arthrosis most significant at the lower lumbar spine. IMPRESSION: No acute abnormality to explain patient's sepsis of the chest, abdomen or pelvis. Large left inguinal hernia containing nonobstructive sigmoid bowel loop. Nonobstructive left renal stone. 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 DICTATED BY: CLAUDY SOMERS MD DATE/TIME DICTATED:03/25/171818 LASER BEAM CUTTER:MALINDA DATE/TIME TRANSCRIBED:03/25/171818 CONFIDENTIAL, DO NOT COPY WITHOUT APPROPRIATE AUTHORIZATION. <Electronically signed in Other Vendor System> SIGNED BY: CLAUDY SOMERS MD 03/25/17 1846 PATIENT: TYSON NOONAN PRESENT AGE: 87 PATIENT ACCOUNT NO: [id number] : 30 LOCATION: [facility] ORDERING PHYSICIAN: CAPO BROWNLEE MD SERVICE DATE: 03/25/17-1601 EXAM TYPE: CAT - CT HEAD WO IV CONTRAST EXAMINATION: CT HEAD WITHOUT CONTRAST CLINICAL INFORMATION: Unresponsive. On Pradaxa. COMPARISON: 03/11/2017 TECHNIQUE: Contiguous axial imaging was performed from the skull base to vertex without intravenous contrast. DLP: 1240 mGy-cm. FINDINGS: There is no evidence of acute intracranial hemorrhage or territorial infarction. No abnormal mass effect or midline shift is seen. Green to white matter differentiation is well preserved. No extra-axial fluid collections are identified. No hydrocephalus. Proportional prominence of the ventricles and sulcal spaces is consistent with mild volume loss. Patchy periventricular and deep white matter hypoattenuation is consistent with moderate small vessel ischemic changes. Chronic lacunar infarcts in the left parietal thomson radiata unchanged. The osseous structures and soft tissues are normal. Mild opacification in the right maxillary sinus. The mastoid air cells and visualized portions of the paranasal sinuses are otherwise well aerated. IMPRESSION: No acute intracranial pathology. Volume loss with small vessel ischemic changes. DICTATED BY: ABHIJIT PARRA MD DATE/TIME DICTATED:03/25/171628 LASER BEAM CUTTER:MALINDA DATE/TIME TRANSCRIBED:03/25/171628 CONFIDENTIAL, DO NOT COPY WITHOUT APPROPRIATE AUTHORIZATION. <Electronically signed in Other Vendor System> SIGNED BY: ABHIJIT PARRA MD 03/25 1637 Disposition Summary Disposition Principal Diagnosis: Altered mental status(metabolic encephalopathy secondary to drug toxicity/ dehydration)/delirium with progressive dementia: Additional Diagnosis: borderline diabetes Discharge Disposition: SNF Discharge Instructions General Discharge Information Code Status: Full Code Patient's Diet: chopped and regular thin diet Patient's Activity: as tolerated Follow-Up Instructions/Appts: Please follow-up with your motor vehicle technician within a week of discharge Please follow-up with your neurologist within a week of discharge Please take the medication as advised We stopped Namenda,Rivastigmine after discussing with Dr Mcgee. Medications at Discharge Discharge Medications: Stop taking the following medications: Memantine HCl (Namenda) 10 MG TABLET ORAL TWICE DAILY Qty = 120 Rivastigmine Tartrate (Rivastigmine) 3 MG CAPSULE ORAL TWICE DAILY Qty = 60 Rivastigmine (Exelon) 9.5 MG/Patch PAT On the skin DAILY Qty = 30 Melatonin (Melatin) 3 MG TABLET ORAL TAKE AT BEDTIME Continue taking these medications: Amlodipine Besylate (Amlodipine Besylate) 5 MG TABLET 1 Tablet ORAL DAILY Qty = 180 Comments: Last Taken: NOT GIVEN IN HOSPITAL Time: Furosemide (Furosemide) 20 MG TABLET 1 Tablet ORAL EVERY 48 HOURS (Every 2 days) Qty = 45 Comments: NOT GIVEN IN HOSPITAL Metoprolol Succ XL (Toprol XL) 25 MG TAB 125 Milligram ORAL DAILY Days = 30 Instructions: PT NEEDS A DAILY DOSE OF METOPROLOL SUCCINATE 125 MG ONCE DAILY Comments: Last Taken: 03/30/17 Time: 0900 (RECEIVED TOPROL XL 100 MG) Insulin Aspart (Novolog) 100 UNIT/ML VIAL 0 Units Inject into fatty tissue 3 TIMES DAILY BEFORE MEALS Days = 30 Instructions: Less than 80 mg/dl---Initiate hypoglycemic events 80-150 MG/DL -- No change 151-200 MG/DL--2 UNITS 201-250 MG/DL--4 UNITS 251-300 MG/DL--6 UNITS 301-350 MG/DL--8 UNITS 351-400 MG/DL--10 OVER 400 MG/DL--12 UNITS Comments: NOT GIVEN IN HOSPITAL Atorvastatin Calcium (Atorvastatin Calcium) 80 MG TABLET 80 Milligram ORAL 5 PM Qty = 30 Comments: Last Taken: 03/29/17 Time: 5PM Dabigatran Etexilate Mesylat (Pradaxa) 75 MG CAPSULE 75 Milligram ORAL TWICE DAILY Qty = 60 Instructions: PLEASE START PRADAXA ON 03/19, AND ON STOP THE PLAVIX AND ASPIRIN AFTER 03/18 DOSE Comments: Last Taken: 03/30/17 Time: 9AM Sennosides/Docusate Sodium (Senna Plus Tablet) 8.6 MG-50 MG TABLET 1 Tablet ORAL TWICE DAILY Comments: NOT GIVEN IN HOSPITAL Cholecalciferol (Vitamin D3) (Vitamin D) 2,000 UNIT TABLET 1 Tablet ORAL DAILY Comments: NOT GIVEN IN HOSPITAL Multivitamin (Multi-Day Vitamins) 1 EACH TABLET 1 Tablet ORAL DAILY Comments: NOT GIVEN IN HOSPITAL Acetaminophen (Acephen) 650 MG SUPP.RECT 1 SUPPOSITORY RECTALLY Q4H as needed for PAIN/TEMP>101 Comments: NOT GIVEN IN HOSPITAL Acetaminophen (Acetaminophen ER) 650 MG TABLET.ER 1 Tablet ORAL Q4H as needed for PAIN/TEMP/>101 Comments: NOT GIVEN IN HOSPITAL Magnesium Hydroxide (Milk Of Magnesia) 400 MG/5 ML ORAL.SUSP 30 Milliliters ORAL DAILY as needed for CONSTIPATION Comments: NOT GIVEN IN HOSPITAL Na Phos,M-B/Na Phos,Di-Ba (Fleet Enema) 19 GRAM-7 GRAM/118 ML ENEMA 1 Enema RECTAL DAILY as needed for CONSTIPATION Comments: NOT GIVEN IN HOSPITAL Bisacodyl (Bisacodyl) 10 MG SUPP.RECT 1 Suppository RECTAL DAILY as needed for CONSTIPATION Comments: NOT GIVEN IN HOSPITAL Copies To: SASKIA PATTERSON,DEIRDRE Coronado
[2017-03-28 15:52] VITALS: BP 128/68
[2017-03-29 00:05] VITALS: BP 152/60
[2017-03-29 08:00] VITALS: BP 152/78
--- NOTE | 2017-03-29 08:25 | PN- Housestaff ---
Assessment/Plan Assessment: 87 year old male with PMH of dementia, paroxysmal Afib, HTN, HLD, DM, CKD, AICD/ pacemaker, right MCA infarct (Mar 2017), BIBA from [facility] for lethargy, episode of vomiting and not responding. Vital signs-temperature 100.3, pulse 67, respiratory rate 20, blood pressure 146 /80, SPO2 95% on room air Assessment and plan - His bloodwork up is not showing any signs of infection.ABG does not show any signs of acidosis and bicarbonate is 19. Urine was showing protein/glucose. It seems that he has Metabolic encephalopathy, possibly secondary to medication or fluctuating delirium secondary to progressive dementia. In the past. His sugar was high and HbA1c was 7.3. Urinalysis is not showing any significant proteinuria. His encephalopathy can be due to dehydration as this is the summertime and patient had an episode of vomiting and his urea and creatinine is little bit elevated. His creatinine is getting down to 2.1. Recent urine and blood cultures are not growing any bacteria. He is responding to verbal command, but that is fluctuating. Today he started having fever. we re drawn,The blood culture and will follow the results. It is a possibility that this is summertime and patient had tick bite and that is leading to fluctuating encephalopathy as seen in the borrelia mumoides. Metabolic encephalopathy secondary to medication/dehydration or probably delirium progressive dementia - * Neurology on board, we will discuss about the further imaging including MRI * Follow-up EEG showed generalized slowing of background rhythm consistent with toxic or metabolic encephalopathy. * Hold off all sedatives, if needed patient can be given trazodone * Aspiration precaution Borderline diabetes * We will follow fingerstick every 6 hourly and if needed, then NovoLog according to sliding scale * Today sugars are liitle bit higher side. Diet -will start him on chopped and liquid diet, advised to take all aspiration precaution DVT prophylaxis -ALP S/heparin Code status - full code
--- NOTE | 2017-03-29 14:05 | PN- Att Addend ---
Attending Addendum Attending Brief Note Patient seen and examined. Plan of care discussed with the medical team and the patient. Available lab work and radiology test reports were reviewed. Patient confused and drowsy. His lying in bed with eyes closed and does not answer any questions. Therefore history was difficult to obtain. Vital Signs Date Time Temp Pulse Resp B/P B/P Pulse O2 O2 Flow FiO2 Mean Ox Delivery Rate 03/29 0841 72 152/78 03/29 0800 98.9 72 18 152/78 95 Room Air 03/29 0005 98.9 83 18 152/60 94 03/28 1552 97.5 74 16 128/68 96 Room Air Intake & Output 03/29 1600 03/29 0800 03/29 0000 Intake Total 120 350 Output Total Balance 120 350 Intake, Oral 120 350 Number 3 2 Bowel Movements Exam: General: Patient laying in bed with eyes closed. He appears drowsy and confused. He does not follow commands CVS: S1 plus S2 without any murmur or gallops Chest: Few scattered crepitation without any wheeze. There is no respiratory distress. 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 Resists eye opening; difficult to assess for focal neurological signs because of lack of cooperation Extremities: No edema; no clubbing or cyanosis noted Microbiology Date/Time Procedure - Status Source Growth 03/28 1425 Blood Culture - RECD BLOOD 03/28 1420 Blood Culture - RECD BLOOD Assessment * Acute metabolic encephalopathy with unclear etiology * History of dementia * Paroxysmal atrial fibrillation * Chronic renal failure * Status post AICD * Hyperlipidemia * History of hypertension Plan * Continue supportive measures; frequent reorientation * Can discontinue telemetry * Continue current medications
--- NOTE | 2017-03-29 14:10 | Patient Discharge Instructions ---
Discharge Instructions General Discharge Information You were seen/treated for: Metabolic encephalopathy, probably secondary to medication Special Instructions: Please follow-up with your bead cutter within a week of discharge Please follow-up with your neurologist within a week of discharge Please take the medication as advised We stopped Namenda,Rivastigmine after discussing with Dr Mcgee. Diet Continue normal diet: No Recommended Diet: Heart Healthy Activity Full Activity/No Limits: No (as tolerated) Acute Coronary Syndrome Inclusion Criteria At DC or during hospital stay patient has or had the following: ACS DIAGNOSIS No Discharge Core Measures Meds if any: Prescribed or Continued at Discharge Meds if any: NOT Prescribed or Continued at Discharge Congestive Heart Failure Inclusion Criteria At DC or during hospital stay patient has or had the following: CHF DIAGNOSIS No Discharge Core Measures Meds if any: Prescribed or Continued at Discharge Meds if any: NOT Prescribed or Continued at Discharge Cerebrovascular accident Inclusion Criteria At DC or during hospital stay patient has or had the following: CVA/TIA Diagnosis No Discharge Core Measures Meds if any: Prescribed or Continued at Discharge Meds if any: NOT Prescribed or Continued at Discharge Venous thromboembolism Inclusion Criteria VTE Diagnosis No VTE Type NONE VTE Confirmed by (Test) NONE Discharge Core Measures - Per Current guidelines, there needs to be overlap - treatment for the first 5 days of Warfarin therapy. - If discharged on Warfarin prior to 5 days of - overlap therapy, the patient will need to be - assessed for post discharge needs including - *Post discharge parental anticoagulation - *Warfarin and/or parental anticoagulation education - *Follow up date to check INR post discharge At least 5 days overlap therapy as Inpatient No Meds if any: Prescribed or Continued at Discharge Warfarin No Note: Overlap Therapy is Warfarin and Anticoagulant Meds if any: NOT Prescribed or Continued at Discharge
--- NOTE | 2017-03-29 14:59 | PN- Housestaff ---
Subjective Follow-up For: Metabolic encephalopathy Fluctuating level of consciousness Complaints: no complaints Tele-Events Since Last Visit: No any overnight events Subjective: Patient is seen and examined at the bedside. He responds to verbal command. His speech is partially comprehensible. Review of Systems Constitutional: Denies: no symptoms. Comments: Cannot comment because of the patient's clinical condition. Objective Last 24 Hrs of Vital Signs/I&O Vital Signs Date Time Temp Pulse Resp B/P B/P Pulse O2 O2 Flow FiO2 Mean Ox Delivery Rate 03/29 0841 72 152/78 03/29 0800 98.9 72 18 152/78 95 Room Air 03/29 0005 98.9 83 18 152/60 94 03/28 1552 97.5 74 16 128/68 96 Room Air Intake & Output 03/29 1600 03/29 0800 03/29 0000 Intake Total 120 350 Output Total Balance 120 350 Intake, Oral 120 350 Number 3 2 Bowel Movements Physical Exam General Appearance: No Acute Distress Cardiovascular: Normal S1, Normal S2, No Murmurs Lungs: Clear to Auscultation, Normal Air Movement Abdomen: Soft, No Tenderness Neurological: respond to verbal command Extremities: No Clubbing, No Cyanosis, No Edema Vascular: Normal Pulses, Pulses Symmetrical Current Medications: Current Medications Sig/Courtney Start time Last Medication Dose Route Stop Time Status Admin Acetaminophen 1,000 MG Q6P PRN 03/25 2045 AC IV Atorvastatin Calcium 80 MG 1700 03/26 1700 AC 03/28 PO 1734 Dabigatran 75 MG BID 03/25 2200 AC 03/29 PO 0840 Erythromycin 1 JAYSHREE 4 TIMES/DAY 03/29 0754 AC OPH Metoprolol Succinate 125 MG DAILY 03/28 1000 AC 03/29 PO 0841 Trazodone HCl 25 MG AT BEDTIME PRN 03/26 1915 AC PO Assessment/Plan Assessment: 87 year old male with PMH of dementia, paroxysmal Afib, HTN, HLD, DM, CKD, AICD/ pacemaker, right MCA infarct (Mar 2017), BIBA from [facility] for lethargy, episode of vomiting and not responding. Vital signs-temperature 98.7, pulse 60, respiratory rate 14, blood pressure 148/ 78, SPO2 96% on room air Assessment and plan - His bloodwork up is not showing any signs of infection.ABG does not show any signs of acidosis and bicarbonate is 19. Urine was showing protein/glucose. It seems that he has Metabolic encephalopathy, possibly secondary to medication or fluctuating delirium secondary to progressive dementia. In the past. His sugar was high and HbA1c was 7.3. Urinalysis is not showing any significant proteinuria. His encephalopathy can be due to dehydration as this is the summertime and patient had an episode of vomiting and his urea and creatinine is little bit elevated. His creatinine is getting down to 2.1. Recent urine and blood cultures are not growing any bacteria. He is responding to verbal command, but that is fluctuating. Today he started having fever. we re drawn,The blood culture and will follow the results. It is a possibility that this is summertime and patient had tick bite and that is leading to fluctuating encephalopathy as seen in the borrelia mumoides. Discussed with Dr. Mcgee over the phone and he advised, we can stop memantine and rivastigmine. It may cause neurological deterioration/metabolic encephalopathy. Metabolic encephalopathy secondary to medication/dehydration or probably delirium progressive dementia - * We will follow neurologist recommendation * Follow-up EEG showed generalized slowing of background rhythm consistent with toxic or metabolic encephalopathy. * We will hold Memantine and Rivastigmine * Hold off all sedatives, if needed patient can be given trazodone * Aspiration precaution Borderline diabetes * We will follow fingerstick every 6 hourly and if needed, then NovoLog according to sliding scale * Today sugars are little bit higher side. Diet -will start him on chopped and liquid diet, consistent carbohydrate 2 diet advised to take all aspiration precaution DVT prophylaxis -ALP S/heparin Code status - full code Problem List: 1. Progressive dementia with uncertain etiology 2. Metabolic encephalopathy 3. CVA (cerebral vascular accident) Pain Ratin Pain Location: Not applicable Pain Goal: Remain pain free Pain Plan: [id number], avoid NSAIDs Tomorrow's Labs & Rationales: CBC,BEP for f/u DVT/Prophylaxis: mechanical, pharmacological
[2017-03-29 15:40] VITALS: BP 148/78
--- NOTE | 2017-03-29 21:50 | NUR ---
APPROX 1830 PT HAD 19 COUNT RUN OF VTACH ASYMPTOMATIC, NO DISTRESS NOTED. HR 64, BP 130/80, 98% ROOM AIR DR SIMMONS NOTIFIED, NO NEW ORDERS AT THIS TIME.
--- NOTE | 2017-03-30 08:10 | PN- Housestaff ---
Subjective Follow-up For: Metabolic encephalopathy, probably secondary to dehydration and medication Complaints: no complaints Tele-Events Since Last Visit: Off telemetry Subjective: Patient is seen and examined at the bedside. He answered a little bit to the verbal command. Review of Systems Constitutional: Denies: no symptoms. Comments: Cannot comment because of the patients clinical status Objective Last 24 Hrs of Vital Signs/I&O Vital Signs Date Time Temp Pulse Resp B/P B/P Pulse O2 O2 Flow FiO2 Mean Ox Delivery Rate 03/30 1215 98.6 70 18 178/90 03/30 0901 70 178/90 03/30 0822 98.6 70 18 178/90 95 Room Air 03/30 0800 Room Air 03/29 1540 98.7 60 14 148/78 96 Room Air Intake & Output 03/30 1600 03/30 0800 03/30 0000 Intake Total Output Total Balance Number 1 Bowel Movements Physical Exam General Appearance: Cooperative, No Acute Distress Cardiovascular: Normal S1, Normal S2, right upper chest pacemaker Lungs: Clear to Auscultation, Normal Air Movement Abdomen: Soft, No Tenderness Neurological: somnolent,responds to vebal command and making sentences, able to move limbs. Extremities: No Clubbing, No Cyanosis, No Edema Current Medications: Current Medications Sig/Courtney Start time Last Medication Dose Route Stop Time Status Admin Acetaminophen 1,000 MG Q6P PRN 03/25 2045 AC IV Atorvastatin Calcium 80 MG 1700 03/26 1700 AC 03/29 PO 1608 Dabigatran 75 MG BID 03/25 2200 AC 03/30 PO 0901 Erythromycin 1 JAYSHREE 4 TIMES/DAY 03/29 0754 AC 03/30 OPH 0901 Metoprolol Succinate 125 MG DAILY 03/28 1000 AC 03/30 PO 0901 Trazodone HCl 25 MG AT BEDTIME PRN 03/26 1915 AC PO Assessment/Plan Assessment: 87 year old male with PMH of dementia, paroxysmal Afib, HTN, HLD, DM, CKD, AICD/ pacemaker, right MCA infarct (Mar 2017), BIBA from [facility] for lethargy, episode of vomiting and not responding. Vital signs-temperature 98.6, pulse 70, respiratory rate 18, blood pressure 170/ 90, SPO2 95% on room air. Assessment and plan - His bloodwork up is not showing any signs of infection.ABG does not show any signs of acidosis and bicarbonate is 19. Urine was showing protein/glucose. It seems that he has Metabolic encephalopathy, possibly secondary to medication or fluctuating delirium secondary to progressive dementia. In the past. His sugar was high and HbA1c was 7.3. Urinalysis is not showing any significant proteinuria. His encephalopathy can be due to dehydration as this is the summertime and patient had an episode of vomiting and his urea and creatinine is little bit elevated. His creatinine is getting down to 2.1. Recent urine and blood cultures are not growing any bacteria. He is responding to verbal command, but that is fluctuating. Today he started having fever. we re drawn,The blood culture and will follow the results. It is a possibility that this is summertime and patient had tick bite and that is leading to fluctuating encephalopathy as seen in the borrelia mumoides. Discussed with Dr. Mcgee over the phone and he advised, we can stop memantine and rivastigmine. It may cause neurological deterioration/metabolic encephalopathy. Family was very about the Lyme disease as had hx of lyme. She wanted that patient should be evaluated for underlying. I ordered Lyme titer as an add-on. I advised them to follow up with PCP to know the result of Lyme titer. Metabolic encephalopathy secondary to medication/dehydration or probably delirium progressive dementia - * Advised to follow-up with neurologist as an outpatient within a week of discharge. * Advised to follow-up with cardiothoracic anesthesia technician as an outpatient within a week of discharge * We will hold Memantine and Rivastigmine * Hold off all sedatives, if needed patient can be given trazodone * Aspiration precaution Borderline diabetes * We will follow fingerstick every 6 hourly and if needed, then NovoLog according to sliding scale * Today sugars are little bit higher side. * The advised to continue the sliding scale of insulin as before. Diet -advised to keep on chopped and liquid diet, consistent carbohydrate 2 diet advised to take all aspiration precaution DVT prophylaxis -Pradaxa and mobilization Code status - full code Problem List: 1. Progressive dementia with uncertain etiology 2. Metabolic encephalopathy 3. CVA (cerebral vascular accident) 4. Carotid stenosis Pain Ratin Pain Location: Not applicable Pain Goal: Remain pain free Pain Plan: Mild to moderate Tomorrow's Labs & Rationales: Not required as patient is leaving DVT/Prophylaxis: mechanical, pharmacological
[2017-03-30 08:22] VITALS: BP 178/90
--- NOTE | 2017-03-30 10:40 | PN- Att Addend ---
Attending Addendum Attending Brief Note Patient seen and examined. Plan of care discussed with the medical team and the patient. Available lab work and radiology test reports were reviewed. Patient is more awake however he remains confused and disoriented. He follows simple command and is able to answer yes and no. Vital Signs Date Time Temp Pulse Resp B/P B/P Pulse O2 O2 Flow FiO2 Mean Ox Delivery Rate 03/30 0901 70 178/90 03/30 0822 98.6 70 18 178/90 95 Room Air 03/30 0800 Room Air 03/29 1540 98.7 60 14 148/78 96 Room Air Intake & Output 03/30 1600 03/30 0800 03/30 0000 Intake Total Output Total Balance Number 1 Bowel Movements Exam: General: Patient laying in bed with eyes open. He appears more alert today but remains confused. He is able to follow simple commands CVS: S1 plus S2 without any murmur or gallops Chest: Few scattered crepitation without any wheeze. There is no respiratory distress. 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 Otherwise exam is nonfocal Extremities: No edema; no clubbing or cyanosis noted Labs done today Assessment * Acute metabolic encephalopathy with unclear etiology- as per yesterday patient is approaching his baseline mental status. * History of dementia * Paroxysmal atrial fibrillation * Chronic renal failure * Status post AICD * Hyperlipidemia * History of hypertension Plan * Continue supportive measures; frequent reorientation * Continue current medications * Plan for discharge back to [facility] today
[2017-03-30 12:15] VITALS: BP 178/90
== END 2017-03-30 14:00 | DRG 71 ==
LOC: ERH → ERHI 19:39 → 1NO 19:39 → ENRESERV 20:09 → CANRESERV 20:09 → ENRESERV 20:22 → ENTRNSPT 20:45 → 1NO 20:59 → CMPTRNSPT 21:12 → 1NO 03-26 07:48
PROVIDERS: Emergency Medicine; Internal Medicine Hematology & Oncology; ADMIT Internal Medicine
DX: G93.41 Metabolic encephalopathy (principal); F05 Delirium due to known physiological condition; N18.4 Chronic kidney disease, stage 4 (severe); I42.9 Cardiomyopathy, unspecified; I13.0 Hypertensive heart and chronic kidney disease with heart failure and stage 1 through stage 4 chronic kidney disease, or unspecified chronic kidney disease; I50.22 Chronic systolic (congestive) heart failure; I48.0 Paroxysmal atrial fibrillation; E86.0 Dehydration; E11.22 Type 2 diabetes mellitus with diabetic chronic kidney disease; I69.354 Hemiplegia and hemiparesis following cerebral infarction affecting left non-dominant side; E78.5 Hyperlipidemia, unspecified; F03.91 Unspecified dementia, unspecified severity, with behavioral disturbance; Z79.01 Long term (current) use of anticoagulants; Z95.810 Presence of automatic (implantable) cardiac defibrillator; Z79.4 Long term (current) use of insulin; R15.9 Full incontinence of feces; R32 Unspecified urinary incontinence
CPT/HCPCS: 1NSP; 86618; 36415; 74176; 80307; 81001; 82436; 87040; 87086; 92610-GN; 93005; 93010; 95816; 97110-GP; 97161-GP; G8981-GP; G8982-GP; G8996-GN; G8997-GN; J0131; J7508

== ENCOUNTER 2017-04-07 15:32 | Inpatient (IN) | payer OTHER, MEDICARE ==
[~2017-04-07] VITALS: Ht 152.4 cm; Wt 68.0 kg
[~2017-04-07 15:32] MED LIST changes: +ACEPHEN650 M1 PR; +ACETAMINOPHEN650 M3 PO; +BISACODYL10 M1 RC; +FLEET ENEMA133 ML RC; +MELATIN3 MG PO; +MILK OF MA400 MG/52 PO; +MULTI-DAY VITA1 EACH PO; +VITAMIN D2000 UNI1 PO
--- NOTE | 2017-04-07 15:40 | ED AMS/SEIZURE/WEAK/DIZZY ---
History of Present Illness General Chief Complaint: Altered Mental Status Stated Complaint: AMS Source: family, old records, EMS Exam Limitations: clinical condition Vital Signs & Intake/Output Vital Signs & Intake/Output Vital Signs Date Time Temp Pulse Resp B/P B/P Pulse O2 O2 Flow FiO2 Mean Ox Delivery Rate 04/08 0039 Room Air 04/07 2155 97.9 90 20 138/70 99 04/07 2109 66 22 148/82 97 Room Air 04/07 1945 98.1 75 18 136/100 99 Room Air 04/07 1820 Room Air 04/07 1742 97.7 67 20 155/79 96 Room Air 04/07 1533 98.1 74 20 142/60 96 Room Air ED Intake and Output 04/08 0000 04/07 1200 Intake Total 500 Output Total 200 Balance 300 Intake, IV 500 Output, Urine 200 Patient 150 lb Weight Weight Estimated Measurement Method Allergies Coded Allergies: NO KNOWN ALLERGIES (03/17/16) Reconcile Medications Acetaminophen (Acephen) 650 MG SUPP.RECT 1 SUPP OK Q4H PRN PAIN/TEMP>101 ( Reported) Acetaminophen (Acetaminophen ER) 650 MG TABLET.ER 1 TAB PO Q4H PRN PAIN/TEMP/> 101 (Reported) Amlodipine Besylate 5 MG TABLET 1 TAB PO DAILY HEART (Reported) Atorvastatin Calcium 80 MG TABLET 80 MG PO 1700 STROKE Bisacodyl 10 MG SUPP.RECT 1 SUP RC DAILY PRN CONSTIPATION (Reported) Cholecalciferol (Vitamin D3) (Vitamin D) 2,000 UNIT TABLET 1 TAB PO DAILY SUPPLEMENT (Reported) Dabigatran Etexilate Mesylat (Pradaxa) 75 MG CAPSULE 75 MG PO BID AFIB PLEASE START PRADAXA ON 03/19, AND ON STOP THE PLAVIX AND ASPIRIN AFTER 03/18 DOSE Furosemide 20 MG TABLET 1 TAB PO Q48 WATER PILL (Reported) Insulin Aspart (Novolog) 100 UNIT/ML VIAL 0 UNITS SC TIDAC DIABETES Less than 80 mg/dl---Initiate hypoglycemic events 80-150 MG/DL -- No change 151-200 MG/DL--2 UNITS 201-250 MG/DL--4 UNITS 251-300 MG/DL--6 UNITS 301-350 MG/DL--8 UNITS 351-400 MG/DL--10 OVER 400 MG/DL--12 UNITS Magnesium Hydroxide (Milk Of Magnesia) 400 MG/5 ML ORAL.SUSP 30 ML PO DAILY PRN CONSTIPATION (Reported) Metoprolol Succ XL (Toprol XL) 25 MG TAB 125 MG PO DAILY HEART PT NEEDS A DAILY DOSE OF METOPROLOL SUCCINATE 125 MG ONCE DAILY Multivitamin (Multi-Day Vitamins) 1 EACH TABLET 1 TAB PO DAILY SUPPLEMENT ( Reported) Na Phos,M-B/Na Phos,Di-Ba (Fleet Enema) 19 GRAM-7 GRAM/118 ML ENEMA 1 E RC DAILY PRN CONSTIPATION (Reported) Sennosides/Docusate Sodium (Senna Plus Tablet) 8.6 MG-50 MG TABLET 1 TAB PO BID GI (Reported) Triage Nurses Notes Reviewed? yes Onset: Gradual Duration: week(s): (few), waxing and waning, worse persistent since (today) Timing: recent history Injury Environment: [facility] Severity: moderate, severe No Modifying Factors: none Associated Symptoms: INCREASED LETHARGY HPI: 87 YEAR OLD male presents to the ER via ambulance from Dr. Zee's office for lethargy. The PA who evaluated the patient called Dr. Mcgee who adivsed them to bring the patient to the ED for further evaluation. The patient was admitted to the hospital last week for change in mental status and was diagnosed with toxic metabolic encephalopathy. THey adjusted his medications and sent him back to the senior care. Family reports he has better days than others but states that his mental status has abruptly changed in the last 3-4 weeks. Past History Medical History Any Pertinent Medical History? see below for history Neurological: dementia Cardiovascular: AFIB, hypertension, hyperlipidemia, PPM Renal: chronic kidney disease, urinary incontinence Endocrine: diabetes Cancer(s): NONE History of MRSA: No History of VRE: No History of CDIFF: No Surgical History Surgical History: non-contributory Psychosocial History Who do you live with Spouse Services at Home None What is your primary language Sinhala Family History Family History, If Any: Relation not specified for: *No pertinent family history Hx Contributory? No Review of Systems Review of Systems Constitutional: Reports: see HPI (UNABLE TO OBTAIN FROM PATIENT). Neurological/Psychological: Reports: see HPI (LETHARGY PER FAMILY). Physical Exam Physical Exam General Appearance: well developed/nourished, lethargic, mild distress, moderate distress Head: atraumatic, normal appearance Eyes: Bilateral: PERRL. Ears, Nose, Throat: normal pharynx Neck: normal inspection, supple, full range of motion Respiratory: normal breath sounds, chest non-tender, no respiratory distress Cardiovascular: regular rate/rhythm Peripheral Pulses: 2+ radial (R), 2+ radial (L) Gastrointestinal: soft, non-tender Extremities: LEFT SIDED WEAKNESS Neurologic/Psych: LETHARGIC, AROUSABLE Skin: intact, normal color Core Measures ACS in differential dx? Yes CVA/TIA Diagnosis: No Severe Sepsis Present: No Septic Shock Present: No Progress Differential Diagnosis: arrythmia, anemia, CVA/stroke, hypoglycemia, hypoxia Plan of Care: Orders Procedure Date/time Status Nothing by Mouth 04/08 B Active CBC WITHOUT DIFFERENTIAL 04/08 06 Active BASIC ELECTROLYTES PLUS BUN&CR 04/08 0600 Active TROPONIN LEVEL 04/08 0400 Active EKG 04/08 0400 Active Code Status 04/08 0015 Active SWALLOW EVALUATION 04/[address] HEAD WO IV CONTRAST 04/08 UNK Active Vital Signs 04/07 2212 Active Teach/Educate 04/07 2212 Active Pain Treatment and Response 04/07 221 Active Nutritional Intake, Monitor 04/07 2212 Active Isolation 04/07 2212 Active Intake & Output 04/07 221 Active Patient Care Conference 04/07 2212 Active Activity/Ambulation 04/07 2212 Active TROPONIN LEVEL 04/07 2200 Complete EKG 04/07 2200 Active FingerStick- Glucose 04/07 2155 Active ARTERIAL BLOOD GAS (GEN) 04/07 2016 Active AMMONIA LEVEL 04/07 2015 Complete CULTURE,URINE 04/07 2007 Active LOWER RESPIRATORY CULTURE 04/07 2007 Active BLOOD CULTURE 04/07 2007 Active Patient Data 04/07 1950 Active LACTIC ACID 04/07 1858 Complete ED Holding Orders 04/07 1841 Active Admit to inpatient 04/07 1841 Active Vital Signs 04/07 1841 Active VDRL 04/07 1634 Active Add-on Test (ER Only) 04/07 1613 Active Telemetry/Civil Rights Attorney 04/07 1558 Active Intake & Output 04/07 1558 Active URINALYSIS 04/07 1558 Complete THYROID STIMULATING HORMONE 04/07 1558 Complete TROPONIN LEVEL 04/07 1558 Complete PARTIAL THROMBOPLASTIN TIME 04/07 1558 Complete PROTHROMBIN TIME 04/07 1558 Complete LACTIC ACID 04/07 1558 Complete FREE T4 04/07 1558 Complete COMPREHENSIVE METABOLIC PANEL 04/07 1558 Complete CBC WITHOUT DIFFERENTIAL 04/07 1558 Complete EKG 04/07 1558 Active Current Medications Sig/Courtney Start time Last Medication Dose Stop Time Status Admin Sodium Chloride 1,000 ML Q13H 04/08 0030 AC (Normal Saline 0.9%) Laboratory Tests 04/07/17 2220: Troponin I 0.11 *H 04/07/17 2110: pH 7.44, pCO2 29 L, pO2 81, HCO3 19.1 L, ABG O2 Sat (Measured) 96.0, Carboxyhemoglobin 0.3 L, O2 Concentration % RA, O2 Delivery Method RA, Phlebotomy Draw Site LEFT RADIAL 04/07/17 2100: Ammonia < 9 L 04/07/17 1906: Lactic Acid 1.2 04/07/17 1818: Urinalysis LIGHT H, Urine Color YEL, Urine Clarity CLEAR, Urine pH 6.0, Ur Specific [place] 1.025, Urine Protein 100 H, Urine Ketones NEG, Urine Nitrite NEG, Urine Bilirubin NEG, Urine Urobilinogen 0.2, Ur Leukocyte Esterase NEG, Ur Microscopic SEDIMENT EXAMINED, Urine RBC 3-5, Urine WBC 1-3 H, Ur Epithelial Cells OCCAS, Urine Bacteria MANY H, Hyaline Casts 5-10 H, Granular Casts 3-5 H, Urine Mucus FEW, Urine Hemoglobin SMALL H, Urine Glucose NEG 04/07/17 1634: Anion Gap 11, Estimated GFR 25 L, BUN/Creatinine Ratio 24.0, Glucose 162 H, Lactic Acid 1.8, Calcium 9.4, Total Bilirubin 0.4, AST 26, ALT 53, Alkaline Phosphatase 57, Troponin I 0.12 *H, Total Protein 7.3, Albumin 3.4 L, Globulin 3.9, Albumin/Globulin Ratio 0.9 L, TSH 2.530, Free T4 1.22, PT 14.2 H, INR 1.36 H, APTT 46 H, CBC w Diff NO MAN DIFF REQ, RBC 3.84 L, MCV 88.7, MCH 28.8 , RDW 13.6, MPV 8.7, Gran % 68.2, Lymphocytes % 16.6 L, Monocytes % 12.5 H, Eosinophils % 2.3, Basophils % 0.4, Absolute Granulocytes 5.1, Absolute Lymphocytes 1.2, Absolute Monocytes 0.9 H, Absolute Eosinophils 0.2, Absolute Basophils 0, PUBS MCHC 32.4 L, RPR Titer/FTA Pending 04/07/17 1616: RPR Titer/FTA Cancelled 04/07/17 1559: TSH Cancelled, Free T4 Cancelled Microbiology 04/07 2100 BLOOD: Blood Culture - RECD 04/07 2045 BLOOD: Blood Culture - RECD 04/07 2007 URINE ROUT: Urine Culture - COLB 04/07 2007 LOWER RESP: Respiratory Culture - COLB 04/07 2007 LOWER RESP: Gram Stain - COLB D/W DR YEH REGARDING LYME TITER AND WESTERN BLOT. ADVISES WORK UP FOR OTHER CAUSES. IF PATIENT IS NOT DETERMINED TO HAVE ANOTHER CAUSE ADVISES POSSIBLE IR TAP FOR FLUID ANALYSIS, LYME PCR. DISCUSSED PLAN WITH FAMILY AT BEDSIDE. (LINDA PATTERSON,APOLONIA) Diagnostic Imaging: Viewed by Me: Radiology Read. Discussed w/RAD: Radiology Read. CXR Impression: PATIENT: TYSON NOONAN PRESENT AGE: 87 PATIENT ACCOUNT NO: [id number] : 30 LOCATION: [facility] ORDERING PHYSICIAN: APOLONIA MCKEON MD SERVICE DATE: 04/07/17 EXAM TYPE: RAD - XRY-PORTABLE CHEST XRAY EXAMINATION: XR PORTABLE CHEST CLINICAL INFORMATION: Altered mental status. COMPARISON: Chest x-ray 03/25/2017 TECHNIQUE: Portable frontal view of the chest was obtained. 4:51 PM FINDINGS: Pacemaker leads unchanged position in right atrium, right ventricle and coronary sinus. Asymmetric elevation of left diaphragm compared to right. Lungs are clear. No pulmonary vascular congestion. No pleural effusion. Degenerative spur of the right and left humeral head. Superior subluxation of the left humeral head impacting the acromion consistent with a chronic rotator cuff tendon tear. IMPRESSION: No acute abnormality the chest. DICTATED BY: CLAUDY SOMERS MD DATE/TIME DICTATED:04/07/171711 PROFESSOR OF ANTHROPOLOGY:MALINDA DATE/TIME TRANSCRIBED:04/07/171711 CONFIDENTIAL, DO NOT COPY WITHOUT APPROPRIATE AUTHORIZATION. <Electronically signed in Other Vendor System> SIGNED BY: CLAUDY SOMERS MD 04/07/171716 Initial ED EKG: pacemaker rhythm Prior EKG: unchanged Departure Departure Time of Disposition: 1843 Disposition: STILL A PATIENT Condition: Stable Clinical Impression Primary Impression: Altered mental status Secondary Impressions: Elevated troponin Referrals: SASKIA PATTERSON,DEIRDRE Coronado (PCP/Family) Departure Forms: Customer Survey General Discharge Information Admission Note Spoke With: MATTHEW JONAS MD Documentation of Exam: Documentation of any treatments & extenuating circumstances including Concerns Regarding Discharge (functional status, medication knowledge or non-compliance, living conditions, etc.) that warrant an admission rather than observation: [ TELE MONITOR, SERIAL TROPONIN, NEURO CHECKS, NEURO CONSULT, IR FOR LP AND NEURO LYME WORKUP]
[2017-04-07 16:47] LABS: ABSOLUTE BASOPHIL COUNT 0 /CUMM (0.0-0.2); ABSOLUTE EOSINOPHIL COUNT 0.2 /CUMM (0.0-0.7); ABSOLUTE GRANULOCYTE CT 5.1 /CUMM (1.4-6.5); ABSOLUTE LYMPH COUNT 1.2 /CUMM (1.2-3.4); ABSOLUTE MONOCYTE COUNT 0.9 /CUMM (0.10-0.60); BASOPHIL % 0.4 % (0.0-2.0); EOSINOPHIL % 2.3 % (0-5); GRANULOCYTE % 68.2 % (42.2-75.2); MEAN CORPUSCULAR HGB 28.8 PG (27.0-31.0); MEAN CORPUSCULAR HGB CONC 32.4 G/DL (33.0-37.0); MEAN CORPUSCULAR VOLUME 88.7 FL (80.0-94.0); MEAN PLATELET VOLUME 8.7 FL (7.4-10.4); PLATELET COUNT 260 /CUMM (130-400); RBC DISTRIBUTION WIDTH 13.6 % (11.5-14.5); RED BLOOD CELL CT 3.84 /CUMM (4.70-6.10); WHITE BLOOD CELL COUNT 7.5 /CUMM (4.8-10.8)
[2017-04-07 16:55] LABS: PT 14.2 SEC (9.4-12.5); PTT 46 SEC (25-37)
--- NOTE | 2017-04-07 17:17 | RADIOLOGY REPORT ---
EXAMINATION: XR PORTABLE CHEST CLINICAL INFORMATION: Altered mental status. COMPARISON: Chest x-ray 03/25/2017 TECHNIQUE: Portable frontal view of the chest was obtained. 4:51 PM FINDINGS: Pacemaker leads unchanged position in right atrium, right ventricle and coronary sinus. Asymmetric elevation of left diaphragm compared to right. Lungs are clear. No pulmonary vascular congestion. No pleural effusion. Degenerative spur of the right and left humeral head. Superior subluxation of the left humeral head impacting the acromion consistent with a chronic rotator cuff tendon tear. IMPRESSION: No acute abnormality the chest.
--- NOTE | 2017-04-07 21:44 | History & Physical ---
ALICIA CLARK 04/07/17 2143: General Information and HPI MD Statement: I have seen and personally examined TYSON ARIAS and documented this H&P. The patient is a 87 year old M who presented with a patient stated chief complaint of altered mental status Source of Information: family, old records, W10 Exam Limitations: unable to give history History of Present Illness: Mr. Arias is an 87-year-old man who was known to be in his usual state of health until this a.m. He is a past medical history of paroxysmal atrial fibrillation, dementia, CKG stage IV, hypertension, diabetes, biventricular pacemaker/AICD ( nonischemic cardiomyopathy-left bundle branch block), previous CVA (MCA), recent admission to [facility] 2 in the last 1 month. He was brought to [facility] with a chief concern of altered mental status, as noticed by the physician library clerical assistant at his quality control assessor's office this a.m. Patient resides at [place], the [facility] facility. Since the patient was not alert, the history was obtained from the patient's over the telephone. As per the patient's , he was lost known to be normal was 1 day ago. He converses single sentences at baseline, and follows commands. Last night, he did not have his dinner, and was awake all night. Reported to have decreased by mouth intake in the last few days. He was also reported to have been more combative while he was undergoing physical therapy. Did not have any fever, chest pain, shortness of breath, cough, abdominal discomfort. He reported to have waxing and waning of mentation changes in the last few days. Recent admission to [facility] with similar complaints, when he was diagnosed as having metabolic encephalopathy. During the last hospital admission, patient was found to have elevated Lyme disease antibody, with predominance of immunoglobin G more than IgM, as confirmed by Western blotting also. Allergies/Medications Allergies: Coded Allergies: NO KNOWN ALLERGIES (03/17/16) Home Med list Acetaminophen (Acephen) 650 MG SUPP.RECT 1 SUPP NH Q4H PRN PAIN/TEMP>101 ( Reported) Acetaminophen (Acetaminophen ER) 650 MG TABLET.ER 1 TAB PO Q4H PRN PAIN/TEMP/> 101 (Reported) Amlodipine Besylate 5 MG TABLET 1 TAB PO DAILY HEART (Reported) Atorvastatin Calcium 80 MG TABLET 80 MG PO 1700 STROKE Bisacodyl 10 MG SUPP.RECT 1 SUP RC DAILY PRN CONSTIPATION (Reported) Cholecalciferol (Vitamin D3) (Vitamin D) 2,000 UNIT TABLET 1 TAB PO DAILY SUPPLEMENT (Reported) Dabigatran Etexilate Mesylat (Pradaxa) 75 MG CAPSULE 75 MG PO BID AFIB PLEASE START PRADAXA ON 03/19, AND ON STOP THE PLAVIX AND ASPIRIN AFTER 03/18 DOSE Furosemide 20 MG TABLET 1 TAB PO Q48 WATER PILL (Reported) Insulin Aspart (Novolog) 100 UNIT/ML VIAL 0 UNITS SC TIDAC DIABETES Less than 80 mg/dl---Initiate hypoglycemic events 80-150 MG/DL -- No change 151-200 MG/DL--2 UNITS 201-250 MG/DL--4 UNITS 251-300 MG/DL--6 UNITS 301-350 MG/DL--8 UNITS 351-400 MG/DL--10 OVER 400 MG/DL--12 UNITS Magnesium Hydroxide (Milk Of Magnesia) 400 MG/5 ML ORAL.SUSP 30 ML PO DAILY PRN CONSTIPATION (Reported) Metoprolol Succ XL (Toprol XL) 25 MG TAB 125 MG PO DAILY HEART PT NEEDS A DAILY DOSE OF METOPROLOL SUCCINATE 125 MG ONCE DAILY Multivitamin (Multi-Day Vitamins) 1 EACH TABLET 1 TAB PO DAILY SUPPLEMENT ( Reported) Na Phos,M-B/Na Phos,Di-Ba (Fleet Enema) 19 GRAM-7 GRAM/118 ML ENEMA 1 E RC DAILY PRN CONSTIPATION (Reported) Sennosides/Docusate Sodium (Senna Plus Tablet) 8.6 MG-50 MG TABLET 1 TAB PO BID GI (Reported) Past History Travel History Traveled to [place] past 21 day No Medical History Neurological: dementia Cardiovascular: AFIB, hypertension, hyperlipidemia, PPM Renal: chronic kidney disease, urinary incontinence Endocrine: diabetes Cancer(s): NONE History of MRSA: No History of VRE: No History of CDIFF: No Surgical History Surgical History: non-contributory Past Family/Social History Family History Relations & Conditions if any Relation not specified for: *No pertinent family history Psychosocial History Services at Home: None ETOH Use: denies use Illicit Drug Use: denies illicit drug use Functional Ability ADLs Needs Assist: dressing, eating, toileting, bathing. Ambulation: walker IADLs Needs Assist: food prep, transportation. Review of Systems Review of Systems Constitutional: Reports: see HPI. Denies: chills, fever. Cardiovascular: Denies: edema, peripheral edema, syncope. Respiratory: Denies: cough. GI: Denies: diarrhea, vomiting. Genitourinary: Denies: hematuria. Musculoskeletal: Denies: back pain. Skin: Denies: change in skin color. Neurological/Psychological: Denies: tonic-clonic seizures. Exam & Diagnostic Data Last 24 Hrs of Vital Signs/I&O Vital Signs Date Time Temp Pulse Resp B/P B/P Pulse O2 O2 Flow FiO2 Mean Ox Delivery Rate 04/08 0039 Room Air 04/07 2155 97.9 90 20 138/70 99 04/07 2109 66 22 148/82 97 Room Air 04/07 1945 98.1 75 18 136/100 99 Room Air 04/07 1820 Room Air 04/07 1742 97.7 67 20 155/79 96 Room Air 04/07 1533 98.1 74 20 142/60 96 Room Air Intake & Output 04/08 0800 04/08 0000 04/07 1600 Intake Total 500 Output Total 200 Balance 300 Intake, IV 500 Output, Urine 200 Patient 150 lb 150 lb Weight Weight Estimated Estimated Measurement Method Physical Exam General Appearance No Acute Distress, Not alert or oriented to time, place or person Skin No Rashes, No Breakdown, No Significant Lesion Skin Temp/Moisture Exam: Warm/Dry Sepsis Skin Exam (color): Normal for Ethnicity HEENT Atraumatic, PERRLA, dry mucous membranes Neck Supple, No JVD, No thryomegaly Lymphatic Cervical nl Cardiovascular Regular Rate, Normal S1, Normal S2 Lungs Normal Air Movement Abdomen Soft Neurological Normal Tone, Reflexes 2+, strength 3/5 b/l, limited examination Extremities No Cyanosis, No Edema Vascular Pulses Symmetrical Sepsis Peripheral Pulse Location: Dorsalis Pedis Last 24 Hrs of Labs/Anselmo: Laboratory Tests 04/07/172219: Troponin I 0.11 *H 04/07/172109: pH 7.44, pCO2 29 L, pO2 81, HCO3 19.1 L, ABG O2 Sat (Measured) 96.0, Carboxyhemoglobin 0.3 L, O2 Concentration % RA, O2 Delivery Method RA, Phlebotomy Draw Site LEFT RADIAL 04/07/17 2100: Ammonia < 9 L 04/07/171905: Lactic Acid 1.2 04/07/17 1818: Urinalysis LIGHT H, Urine Color YEL, Urine Clarity CLEAR, Urine pH 6.0, Ur Specific Hopkins 1.025, Urine Protein 100 H, Urine Ketones NEG, Urine Nitrite NEG, Urine Bilirubin NEG, Urine Urobilinogen 0.2, Ur Leukocyte Esterase NEG, Ur Microscopic SEDIMENT EXAMINED, Urine RBC 3-5, Urine WBC 1-3 H, Ur Epithelial Cells OCCAS, Urine Bacteria MANY H, Hyaline Casts 5-10 H, Granular Casts 3-5 H, Urine Mucus FEW, Urine Hemoglobin SMALL H, Urine Glucose NEG 04/07/17 1634: Anion Gap 11, Estimated GFR 25 L, BUN/Creatinine Ratio 24.0, Glucose 162 H, Lactic Acid 1.8, Calcium 9.4, Total Bilirubin 0.4, AST 26, ALT 53, Alkaline Phosphatase 57, Troponin I 0.12 *H, Total Protein 7.3, Albumin 3.4 L, Globulin 3.9, Albumin/Globulin Ratio 0.9 L, TSH 2.530, Free T4 1.22, PT 14.2 H, INR 1.36 H, APTT 46 H, CBC w Diff NO MAN DIFF REQ, RBC 3.84 L, MCV 88.7, MCH 28.8 , RDW 13.6, MPV 8.7, Gran % 68.2, Lymphocytes % 16.6 L, Monocytes % 12.5 H, Eosinophils % 2.3, Basophils % 0.4, Absolute Granulocytes 5.1, Absolute Lymphocytes 1.2, Absolute Monocytes 0.9 H, Absolute Eosinophils 0.2, Absolute Basophils 0, PUBS MCHC 32.4 L, RPR Titer/FTA Pending 04/07/17 1616: RPR Titer/FTA Cancelled 04/07/17 1559: TSH Cancelled, Free T4 Cancelled Microbiology 04/07 2100 BLOOD: Blood Culture - RECD 04/07 2045 BLOOD: Blood Culture - RECD 04/07 2007 URINE ROUT: Urine Culture - COLB 04/07 2007 LOWER RESP: Respiratory Culture - COLB 04/07 2007 LOWER RESP: Gram Stain - COLB Diagnostic Data EKG Results Ventricular paced rhythm, no ST-T wave changes, heart rate 70. CXR Results No acute changes Other Results No acute intracranial hemorrhage. There are numerous nonspecific changes primarily involving the periventricular white matter that most likely represent a chronic manifestation of small vessel ischemia. Assessment/Plan Assessment: He is an older man with a past history of dementia, paroxysmal A. fib, hypertension, CK and a stage IV, biventricular pacemaker/AICD, CVA, multiple hospital admissions for metabolic encephalopathy is being evaluated for acute changes in mentation last 1 week. At the time of admission, vitals-temperature 98.1, pulse rate 74, respiration 20 , blood pressure 142/60, pulse ox 96% on room air. Lab findings indicated no leukocytosis W BC 7.5, anemia-H&H 11.0 (baseline 11.2), platelets 260. Sodium 147 (likely dehydration), potassium 4.0, bicarbonate 22, abnormal renal function BUN 60, serum creatinine 2.5) baseline 2.1). Troponin-0.12, 0.11. Lactic acid 1.8, 1.2. Urinalysis did not reveal any bacteriuria, but revealed increased protein likely from C daily. Liver function-within normal limits. Lyme titer 2017 revealed positivity, and was confirmed by Western blot to have reactivity to elevated immunoglobin G more than immunoglobin M. (History indicate tic bite one year ago). Differential diagnosis: #1 metabolic encephalopathy #2 advanced dementia #3 TIA Below is the problem list and plan: #1 altered mental status-likely because of dehydration/metabolic encephalopathy. Exact cause remains unknown at this time. Could likely be due to recent medication adjustment. Reassess the need for all the medications, and avoid polypharmacy. CAT scan did not reveal any acute finding. If the patient continues to deteriorate, may get an MRI. Neuro checks. Neurology consult in the a.m. #2 elevated troponin-likely due to acute kidney injury. No EKG changes were found. Monitor the patient on telemetry. Serial cardiac enzymes and electrocautery grams to be obtained. Cardiology consult in the a.m. #3 abnormal opaqzlzcific-[id number]-qqvomh due to dehydration. Since the patient has dehydration, would have to start with replenishing with normal saline. If he continues to be hyponatremic, switch to D5 water. Recheck sodium and serum electrolytes in a.m. #3 neurological weakness-inability to exactly assess the neuro deficits. Nothing by mouth pending swallow evaluation. Aspirin was given in the ED. The patient is more awake in a.m., please administer statin. Abnormal Lyme titer. As per Dr. Olmstead, who spoke to Payam Darden MD-plan is to get an IR guided lumbar puncture and test for Lyme PCR. #4 atrial fibrillation-discontinue Pradaxa at this time, the patient had any ischemic neurological event. Reassess the need for anticoagulation in the a.m. Discussed with the quality control assessor and or neurologist. #5 DVT prophylaxis-mechanical at this time. As Ranked By This Provider Problem List: 1. Elevated troponin 2. Altered mental status 3. Progressive dementia with uncertain etiology 4. Metabolic encephalopathy Core Measures/Miscellaneous Acute Coronary Syndrome ACS Diagnosis: No Cerebrovascular Accident CVA/TIA Diagnosis: Yes Date Last Known Well: 04/07/17 Time Last Known Well: 0800 Neurological S/S of CVA: Acute Confusion Symptom Start Date: 04/07/17 Symptom Start Time: 0800 Bedside Swallow Eval Done: No (unable to follow commands) Result of Evaluation: Fail (not done) Antithrombotic: No AFIB: Atrial Fibrillation Aflutter: No Anticoagulant: No LDL Assessed Within 24 Hours: Yes Currently on Statin: Yes Congestive Heart Failure CHF Diagnosis: No VTE (View Protocol) VTE Risk Factors: Acute medical illness, Age > 40 No [facility] VTE prophylaxis d/t: No contraindications No VTE Pharm Prophylaxis d/t: No contraindications VTE Diagnosis: No VTE Type: NONE VTE Confirmed by (Test): NONE Sepsis (View Protocol) Severe Sepsis Present: No Septic Shock Septic Shock Present: No Miscellaneous Documentation Attending Case Discussed With: MATTHEW JONAS MD Primary Care Physician: DEIRDRE KRUGER MD Patient sees these Specialists unknown Level of Patient Care: Telemetry SPEEDY ISBELL 04/08/17 0219: Resident Review Statement Resident Statement: examined this patient, agreed with international project manager, discussed with family Other Findings: Patient is 87 year old male with PMH of dementia, paroxysmal Afib, HTN, HLD, DM, CKD, AICD/pacemaker, CVA recently admitted to [facility] in March 2017 for acute metabolic encephalopathy with unclear etiology and discharged to rehab when patient returned his baseline status. Patient was brought to ER after he was seen by his quality control assessor (Dr. Bain) today and found to have AMS and a brief episode of non responsiveness. Patient was non communicative at the time of admission so most of the info was obtained by calling the family. Per , patient was doing well untill this morning when he became very confused and combatitive. he had garbled speech and was disoriented. Of note, patient has been having poor oral intake ( solids and liquids) since past few days. In ER, Patient had a positive set of troponins and was given baby aspirin. Labs and Vitals as above CXR No acute abnormality the chest. CT head w/o IV contrast pending Assessment and plan Will admit patient to telemetry floor, Serial troponins and EKG, cardio consult in am. CT head pending, to evaluate any hemorragic transformation of old CVA Will make patient NPO pending swallow eval in am Patient has MARTY on CKD, will give 1 L IV NS and recheck BEP in am Patient has positive Lyme IgG, please consider ID conult in am with regards to need for lumbar tap (to check lyme PCR) and initiating antibiotic treatment Will hold pradexa untillhead CT is clear of any hemorragic CVA, Please confirm last dose of pradexa from [facility] DVT ppx ALPS till hemorrage is ruled out Patient is Full code per who is also the POA. MATTHEW JONAS 04/08/17 0318: Attending MD Review Statement Attending Statement Attending MD Statement: examined this patient, discuss w/resident/PA/METAL DRILL OPERATOR, agreed w/resident/PA/METAL DRILL OPERATOR, discussed with family, reviewed EMR data (avail), reviewed images, amended to note Attending Assessment/Plan: CC: AMS PMH: CKD (nephrotic syndrome), dementia, paroxysmal A. fib, Hx SP AICD/pacer, Stroke, HFrEF, CAD Patient was discharged on March 30, was admitted for AMS : found to have metabolic encephalopathy, occasions were titrated and patient was discharged to rehabilitation. Patient was taken to cardiology office for a follow-up, where he was found to be lethargic. Neurology was called from cardiology office and patient was transferred to ER. Family reports he on and off his sensorium since last discharge, sometimes aggressive, did not get sleep last night. Some days he is very lethargic, and today was the worse. Patient grimaces when pressed various joints but No other symptoms were observed, including fever, hypoxia, chills, seizure, new onset cough or falls. is concerned about patient having Lyme disease. She is also concerned that his blood sugar is remaining high at rehabilitation. Vitals: Afebrile, pulse in 70s, RR 20, blood pressure 140/60, saturating well on room air. On exam: Patient waking up for verbal stimuli, follows some instructions but difficult to assess neurological function. No acute distress. He grimaces with deep pain. Abdomen: Soft, NT, bowel sounds present, CVS: S1-S2 RRR. RS: Clear to bases. No edema, no JVD, peripheral pulses perfusion normal, no obvious skin inflammation Labs: WBC 7.5, hemoglobin 11.0, hematocrit 34.0, platelet 260, sodium 147, potassium 5.0, chloride 114, bicarbonate 22, BUN 60, creatinine 2.5, glucose 162 , calcium 9.4, lactate 1.8, AST 26, ALT 53, alkaline phosphatase 57, troponin 0.12, albumin 3.4, INR 1.36 UA: Unremarkable AB.44/29/81/19 on room air CXR: No acute abnormality A and P Patient was brought in ER with acute changes in mentation and unresponsiveness. Patient was seen at quality control assessor office today, PA found to lethargy and mental status changes who called neurologist who suggested evaluation in ER. Patient had been getting on and off mental changes according to . He was lethargic and arousable to sternal rub. Patient was admitted and evaluated for similar reasons recently, found to have toxic/metabolic encephalopathy, medications were titrated and patient was discharged home. No new cough, grimacing, moaning, complaints, neurological weakness, fever was observed. CBC, BMP, LFT, UA remarkable except mild acidosis and CKD. Ammonia and ABG unremarkable. Patient afebrile and hemodynamically stable. Patient grimaces on deep pain, Examination otherwise unremarkable. Unclear cause of acute mental changes. is concerned about Lyme disease, she says that she had Lyme in the past and was difficult to diagnose at that time. Patient may have had tick bite within last 1 year. Lyme titer sent in previous hospitalization positive for IgG bands, this was discussed by Dr. Olmstead with Payam Darden MD, who suggested lumbar puncture, PCR. Does Lyme should be ruled out, other probabilities include hypoactive delirium, worsening dementia. Patient has mildly elevated troponin, ACS should be ruled out. In view of his recent stroke, and restarting Pradaxa intracranial hemorrhage should be ruled out. According to family, he is very sensitive to any changes in his medication. + Encephalopathy + Rule out ACS + History of CKD, dementia, paroxysmal A. fib, Hx SP AICD/pacer, Stroke, HFrEF, CAD -Admit to telemetry - Continuous telemetry monitoring - Serial EKG, troponin - Blood culture, urine culture - CT head - U tox - Neurochecks every 4 hours - Check lactic acid - Nothing by mouth - Sliding scale insulin with Accu-Cheks - Consult neurology in a.m. for encephalopathy - ID consult - IR consult for lumbar puncture - Send CSF for protein, glucose, cytology, cell differential, Lyme PCR (check with ID before sending patient to IR) - Check magnesium, phosphate - Replace electrolytes - Consult quality control assessor for elevated troponin - Gentle hydration normal saline at 75 mL per hour for 1 L - DVT prophylaxis with heparin - Avoid opiates, DC melatonin
[2017-04-07 21:55] VITALS: BP 138/70
--- NOTE | 2017-04-08 03:08 | CT SCAN REPORT ---
EXAMINATION: CT HEAD WITHOUT CONTRAST CLINICAL INFORMATION: Possible cerebrovascular accident. COMPARISON: CT head 03/25/2017. TECHNIQUE: Contiguous axial imaging was performed from the skull base to vertex without intravenous administration of contrast. DLP: 557.07 mGy-cm FINDINGS: There is no acute intracranial hemorrhage or abnormal extra axial collection. No intracranial mass effect are midline shift. Lateral and third ventricles are proportionate to the subarachnoid spaces. No hydrocephalus. Ill-defined foci of hypoattenuation are visualized within the periventricular white matter that most likely represent a chronic manifestation of small vessel ischemia. Grossly no evidence of acute territorial infarct. The calvarium and skull base are intact. Mastoid air cells and middle ear cavities are well aerated. Visualized paranasal sinuses are well-aerated. 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 IMPRESSION: No acute intracranial hemorrhage. There are numerous nonspecific changes primarily involving the periventricular white matter that most likely represent a chronic manifestation of small vessel ischemia.
--- NOTE | 2017-04-08 03:20 | Admission Certification ---
Admission Certification Certification Statement - As attending physician, I certify that at the time of - admission, based on clinical presentation, severity of - symptoms, need for further diagnostic testing and - therapeutic interventions, and risk of adverse outcomes - without in-hospital treatment, in my clinical assessment, - this patient requires an acute hospital stay for a minimum - of two nights or longer. I have also considered psychsocial - factors such as support system, advanced age, financial - issues, cognitive issues, and failed out-patient treatments, - past re-admission history, safety of patient, and lack of - compliance as applicable. Specific rationale supporting this admission is: Encephalopathy
[2017-04-08 05:24] LABS: ABSOLUTE BASOPHIL COUNT 0 /CUMM (0.0-0.2); ABSOLUTE EOSINOPHIL COUNT 0.2 /CUMM (0.0-0.7); ABSOLUTE LYMPH COUNT 1.4 /CUMM (1.2-3.4); ABSOLUTE MONOCYTE COUNT 0.8 /CUMM (0.10-0.60); BASOPHIL % 0.4 % (0.0-2.0); EOSINOPHIL % 2.9 % (0-5); GRANULOCYTE % 61.9 % (42.2-75.2); HEMATOCRIT 31.7 % (42-52); MEAN CORPUSCULAR HGB 28.8 PG (27.0-31.0); MEAN CORPUSCULAR HGB CONC 32.6 G/DL (33.0-37.0); MEAN CORPUSCULAR VOLUME 88.3 FL (80.0-94.0); MEAN PLATELET VOLUME 8.8 FL (7.4-10.4); PLATELET COUNT 222 /CUMM (130-400); RBC DISTRIBUTION WIDTH 13.3 % (11.5-14.5); RED BLOOD CELL CT 3.59 /CUMM (4.70-6.10); WHITE BLOOD CELL COUNT 6.4 /CUMM (4.8-10.8)
[2017-04-08 07:49] VITALS: BP 142/78
--- NOTE | 2017-04-08 08:51 | Cons- Cardiology ---
General Information and HPI Consulting Request Date of Consult: 04/08/17 Requested By: MATTHEW JONAS MD Reason for Consult: Known cardiac patient. Abnormal troponins Source of Information: old records Exam Limitations: unable to give history, dementia History of Present Illness: Mr. Arias is an 87-year-old man who was known to be in his usual state of health until this a.m. He is a past medical history of paroxysmal atrial fibrillation, dementia, CKG stage IV, hypertension, diabetes, biventricular pacemaker/AICD ( nonischemic cardiomyopathy-left bundle branch block), previous CVA (MCA), recent admission to [facility] 2 in the last 1 month. 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 Patient resides at [place], the [facility] facility. Since the patient was not alert, the history was obtained from the patient's over the telephone. As per the patient's , he was lost known to be normal was 1 day ago. He converses single sentences at baseline, and follows commands. Last night, he did not have his dinner, and was awake all night. Reported to have decreased by mouth intake in the last few days. He was also reported to have been more combative while he was undergoing physical therapy. Did not have any fever, chest pain, shortness of breath, cough, abdominal discomfort. He reported to have waxing and waning of mentation changes in the last few days. Recent admission to [facility] with similar complaints, when he was diagnosed as having metabolic encephalopathy. During the last hospital admission, patient was found to have elevated Lyme disease antibody, with predominance of immunoglobin G more than IgM, as confirmed by Western blotting also. The patient has significant underlying dementia. However it was observed that his mental status had changed and he was barely responsive when he presented to the office. Onrotation after in discussion with neurology decided to send him to the hospital for further evaluation. No history can be obtained by the patient. Allergies/Medications Allergies: Coded Allergies: NO KNOWN ALLERGIES (03/17/16) Home Med List: Acetaminophen (Acephen) 650 MG SUPP.RECT 1 SUPP NM Q4H PRN PAIN/TEMP>101 ( Reported) Acetaminophen (Acetaminophen ER) 650 MG TABLET.ER 1 TAB PO Q4H PRN PAIN/TEMP/> 101 (Reported) Amlodipine Besylate 5 MG TABLET 1 TAB PO DAILY HEART (Reported) Atorvastatin Calcium 80 MG TABLET 80 MG PO 1700 STROKE Bisacodyl 10 MG SUPP.RECT 1 SUP RC DAILY PRN CONSTIPATION (Reported) Cholecalciferol (Vitamin D3) (Vitamin D) 2,000 UNIT TABLET 1 TAB PO DAILY SUPPLEMENT (Reported) Dabigatran Etexilate Mesylat (Pradaxa) 75 MG CAPSULE 75 MG PO BID AFIB PLEASE START PRADAXA ON 03/19, AND ON STOP THE PLAVIX AND ASPIRIN AFTER 03/18 DOSE Furosemide 20 MG TABLET 1 TAB PO Q48 WATER PILL (Reported) Insulin Aspart (Novolog) 100 UNIT/ML VIAL 0 UNITS SC TIDAC DIABETES Less than 80 mg/dl---Initiate hypoglycemic events 80-150 MG/DL -- No change 151-200 MG/DL--2 UNITS 201-250 MG/DL--4 UNITS 251-300 MG/DL--6 UNITS 301-350 MG/DL--8 UNITS 351-400 MG/DL--10 OVER 400 MG/DL--12 UNITS Magnesium Hydroxide (Milk Of Magnesia) 400 MG/5 ML ORAL.SUSP 30 ML PO DAILY PRN CONSTIPATION (Reported) Metoprolol Succ XL (Toprol XL) 25 MG TAB 125 MG PO DAILY HEART PT NEEDS A DAILY DOSE OF METOPROLOL SUCCINATE 125 MG ONCE DAILY Multivitamin (Multi-Day Vitamins) 1 EACH TABLET 1 TAB PO DAILY SUPPLEMENT ( Reported) Na Phos,M-B/Na Phos,Di-Ba (Fleet Enema) 19 GRAM-7 GRAM/118 ML ENEMA 1 E RC DAILY PRN CONSTIPATION (Reported) Sennosides/Docusate Sodium (Senna Plus Tablet) 8.6 MG-50 MG TABLET 1 TAB PO BID GI (Reported) Current Medications: Current Medications Sig/Courtney Start time Last Medication Dose Route Stop Time Status Admin Amlodipine Besylate 5 MG DAILY 04/08 1000 AC PO Aspirin 0 .STK-MED ONE 04/07 1755 DC PO Aspirin 81 MG ONCE ONE 04/07 1745 DC 04/07 PO 04/07 1746 1821 Atorvastatin Calcium 80 MG 1700 04/08 1700 AC PO Ceftriaxone Sodium 1,000 MG DAILY 04/08 1000 AC IV Insulin Aspart 0 TIDAC 04/08 0800 AC SC Metoprolol Succinate 125 MG DAILY 04/08 1000 AC PO Sodium Chloride 1,000 ML Q13H 04/08 0030 AC 04/08 IV 0208 Sodium Chloride 500 ML BOLUS ONE 04/07 1745 DC 04/07 IV 04/07 1844 1821 Past History Travel History Traveled to [place] past 21 day No Medical History Neurological: dementia Cardiovascular: AFIB, hypertension, hyperlipidemia, PPM Renal: chronic kidney disease, urinary incontinence Endocrine: diabetes Cancer(s): NONE Surgical History Surgical History: non-contributory Family History Relations & Conditions If Any: Relation not specified for: *No pertinent family history Psychosocial History Where Do You Live? Extended Care Facility Services at Home: None Smoking Status: Unknown If Ever Smoked ETOH Use: denies use Illicit Drug Use: denies illicit drug use Functional Ability ADLs Needs Assist: dressing, eating, toileting, bathing. Ambulation: walker IADLs Needs Assist: food prep, transportation. ECHO Results (as available) EF% 55 Report: Echocardiogram done 03/14/2017 showed normal left radical systolic function at 55% normal) systolic function no significant valvular abnormalities Exam & Diagnostic Data Vital Signs and I&O Vital Signs Date Time Temp Pulse Resp B/P B/P Pulse O2 O2 Flow FiO2 Mean Ox Delivery Rate 04/08 0749 98.4 63 20 142/78 96 Room Air 04/08 0039 Room Air 04/07 2155 97.9 90 20 138/70 99 04/07 2109 66 22 148/82 97 Room Air 04/07 1945 98.1 75 18 136/100 99 Room Air 04/07 1820 Room Air 04/07 1742 97.7 67 20 155/79 96 Room Air 04/07 1533 98.1 74 20 142/60 96 Room Air Intake & Output 04/08 1600 04/08 0800 04/08 0000 04/07 1600 04/07 0800 04/07 0000 Intake Total 225 500 Output Total 200 Balance 225 300 Intake, IV 225 500 Output, Urine 200 Patient 150 lb 150 lb Weight Weight Estimated Estimated Measurement Method Physical Exam: Gen. exam patient is more responsive with mumbling syllables of yes and no but more alert than previously described Head normocephalic atraumatic Eyes sclera anicteric conjunctiva showed no pallor extraocular muscles were normal Neck no jugular venous distention no thyroid masses no palpable nodes Chest lungs were clear bilaterally [place] heart regular rhythm with a 1 to 2/6 systolic murmur Abdomen soft nontender no organomegaly Extremities no clubbing cyanosis or edema And neurological exam no gross motor deficit. Mental status cannot be evaluated. Labs/Anselmo Results: Laboratory Tests 04/08 04/08 04/07 0420 0420 2220 Chemistry Sodium (137 - 145 mmol/L) 147 H Potassium (3.5 - 5.1 mmol/L) 4.7 Chloride (98 - 107 mmol/L) 116 H Carbon Dioxide (22 - 30 mmol/L) 20 L Anion Gap (5 - 16) 10 BUN (9 - 20 mg/dL) 52 H Creatinine (0.7 - 1.2 mg/dL) 2.1 H Estimated GFR (>60 ml/min) 30 L BUN/Creatinine Ratio (7 - 25 %) 24.8 Troponin I (<0.11 ng/ml) 0.11 *H 0.11 *H Hematology CBC w Diff NO MAN DIFF REQ WBC (4.8 - 10.8 /CUMM) 6.4 RBC (4.70 - 6.10 /CUMM) 3.59 L Hgb (14.0 - 18.0 G/DL) 10.3 L Hct (42 - 52 %) 31.7 L MCV (80.0 - 94.0 FL) 88.3 MCH (27.0 - 31.0 PG) 28.8 RDW (11.5 - 14.5 %) 13.3 Plt Count (130 - 400 /CUMM) 222 MPV (7.4 - 10.4 FL) 8.8 Gran % (42.2 - 75.2 %) 61.9 Lymphocytes % (20.5 - 51.1 %) 22.4 Monocytes % (1.7 - 9.3 %) 12.4 H Eosinophils % (0 - 5 %) 2.9 Basophils % (0.0 - 2.0 %) 0.4 Absolute Granulocytes (1.4 - 6.5 /CUMM) 4.0 Absolute Lymphocytes (1.2 - 3.4 /CUMM) 1.4 Absolute Monocytes (0.10 - 0.60 /CUMM) 0.8 H Absolute Eosinophils (0.0 - 0.7 /CUMM) 0.2 Absolute Basophils (0.0 - 0.2 /CUMM) 0 PUBS MCHC (33.0 - 37.0 G/DL) 32.6 L 04/07 04/07 04/07 2110 2100 1906 Blood Gas pH (7.35 - 7.45 PH) 7.44 pCO2 (35 - 45 TORR) 29 L pO2 (80 - 100 TORR) 81 HCO3 (21 - 28 MEQ/L) 19.1 L ABG O2 Sat (Measured) (>96.0 %) 96.0 Carboxyhemoglobin (1.5 - 5.0 %) 0.3 L O2 Concentration % RA O2 Delivery Method RA Chemistry Lactic Acid (0.7 - 2.1 mmol/L) 1.2 Ammonia (9 - 30 umol/L) < 9 L Miscellaneous Phlebotomy Draw Site LEFT RADIAL 04/07 04/07 1818 1634 Chemistry Sodium (137 - 145 mmol/L) 147 H Potassium (3.5 - 5.1 mmol/L) 5.0 Chloride (98 - 107 mmol/L) 114 H Carbon Dioxide (22 - 30 mmol/L) 22 Anion Gap (5 - 16) 11 BUN (9 - 20 mg/dL) 60 H Creatinine (0.7 - 1.2 mg/dL) 2.5 H Estimated GFR (>60 ml/min) 25 L BUN/Creatinine Ratio (7 - 25 %) 24.0 Glucose (65 - 99 mg/dL) 162 H Lactic Acid (0.7 - 2.1 mmol/L) 1.8 Calcium (8.4 - 10.2 mg/dL) 9.4 Total Bilirubin (0.2 - 1.3 mg/dL) 0.4 AST (17 - 59 U/L) 26 ALT (21 - 72 U/L) 53 Alkaline Phosphatase (< 127 U/L) 57 Troponin I (<0.11 ng/ml) 0.12 *H Total Protein (6.3 - 8.2 g/dL) 7.3 Albumin (3.5 - 5.0 g/dL) 3.4 L Globulin (1.9 - 4.2 gm/dL) 3.9 Albumin/Globulin Ratio (1.1 - 2.2 %) 0.9 L TSH (0.270 - 4.200 uIU/mL) 2.530 Free T4 (0.85 - 1.93 ng/dL) 1.22 Coagulation PT (9.4 - 12.5 SEC) 14.2 H INR (0.90 - 1.17) 1.36 H APTT (25 - 37 SEC) 46 H Hematology CBC w Diff NO MAN DIFF REQ WBC (4.8 - 10.8 /CUMM) 7.5 RBC (4.70 - 6.10 /CUMM) 3.84 L Hgb (14.0 - 18.0 G/DL) 11.0 L Hct (42 - 52 %) 34.0 L MCV (80.0 - 94.0 FL) 88.7 MCH (27.0 - 31.0 PG) 28.8 RDW (11.5 - 14.5 %) 13.6 Plt Count (130 - 400 /CUMM) 260 MPV (7.4 - 10.4 FL) 8.7 Gran % (42.2 - 75.2 %) 68.2 Lymphocytes % (20.5 - 51.1 %) 16.6 L Monocytes % (1.7 - 9.3 %) 12.5 H Eosinophils % (0 - 5 %) 2.3 Basophils % (0.0 - 2.0 %) 0.4 Absolute Granulocytes (1.4 - 6.5 /CUMM) 5.1 Absolute Lymphocytes (1.2 - 3.4 /CUMM) 1.2 Absolute Monocytes (0.10 - 0.60 /CUMM) 0.9 H Absolute Eosinophils (0.0 - 0.7 /CUMM) 0.2 Absolute Basophils (0.0 - 0.2 /CUMM) 0 PUBS MCHC (33.0 - 37.0 G/DL) 32.4 L Serology RPR Titer/FTA Pending Urines Urinalysis LIGHT H Urine Color (YEL,AMB,STR) YEL Urine Clarity (CLEAR) CLEAR Urine pH (5.0 - 8.0) 6.0 Ur Specific [place] (1.001 - 1.035) 1.025 Urine Protein (NEG,<30 MG/DL) 100 H Urine Ketones (NEG) NEG Urine Nitrite (NEG) NEG Urine Bilirubin (NEG) NEG Urine Urobilinogen (0.1 - 1.0 EU/dl) 0.2 Ur Leukocyte Esterase (NEG) NEG Ur Microscopic SEDIMENT EXAMINED Urine RBC (0 - 5 /HPF) 3-5 Urine WBC (0 - 2 /HPF) 1-3 H Ur Epithelial Cells (NONE,FEW) OCCAS Urine Bacteria (NEG/NONE) MANY H Hyaline Casts (0/LPF) 5-10 H Granular Casts (NONE /LPF) 3-5 H Urine Mucus (FEW,NONE) FEW Urine Hemoglobin (NEG) SMALL H Urine Glucose (N MG/DL) NEG 04/07 04/07 1616 1559 Chemistry TSH Cancelled Free T4 Cancelled Serology RPR Titer/FTA Cancelled Diagnostic Data EKG Results 100% pacing in dual-chamber mode CXR Results No acute abnormality Other Results CT scan of the chest of the head revealed some microvascular ischemic changes Assessment/Plan Assessment/Plan In summary this 87-year-old gentleman has been admitted with #1 Altered mental status. Workup so far shows no evidence of sepsis or respiratory issues. He has significant underlying dementia neurology evaluation is pending at the moment. #2. History of permanent pacemaker AICD. #3. Positive troponin. Review of past records show earlier this month when he was admitted he also had positive troponin. Therefore he carries a nonspecific elevation of troponin is probably related to renal insufficiency. Certainly there is no EKG issues to suggest acute myocardial ischemia or infarction. At most this could be related to supply demand mismatch but I suspect this is nonspecific elevated finding related to renal insufficiency. In the future if similar levels of troponin are elevated the should be reviewed in context of previous elevation of troponin. #4 paroxysmal atrial fibrillation. Patient wasn't Pradaxa 75 mg by mouth twice a day probably because it has a reversal agent and in line with renal parameters. The issue if this novel anticoagulants should be continued. Unless this patient is deemed [facility] hospice care, I would probably continue anticoagulation after any procedure-related cessation is over. This is because he does have high chadsvasc score and he is at the moment living in a shelter facility so the issue of fall risk does not play a major role. If there is significant bleeding issues anticoagulants can be reconsidered. With his mental status at baseline altered due to dementia they could be further alterations based on cardioembolic issues which will bring this patient back into the hospital. Probably to limit such readmissions, after planned procedural issues are completed and upon discharge he may be restarted on his anticoagulant. #5. High Lyme titers. Lyme encephalopathy being considered. Spinal tap procedure being considered. #6 chronic renal insufficiency #7 hypertension #8 renal insufficiency #9. History of coronary artery disease managed medically. Cardiac catheterization done in 2010. Left ventricular ejection fraction prior was depressed at 20% now has recovered to 55% on medications. Thank you for allowing me the opportunity of participating in his care. Consult Acknowledgment - Thank you for your consult request.
--- NOTE | 2017-04-08 10:19 | Cons- Infect Disease ---
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 On admission he was afebrile. Laboratory data revealed a white blood cell count of 7.5, BUN/creatinine 60 and 2.5, sodium 147, troponin 0.12, INR 1.36, PTT 46, ABG 7.44/29/81 on room air. Urinalysis 3-5 RBC/1-3 WBCs. Chest x -ray was negative. CT of the head no acute process. He has remained afebrile overnight. He is unable to provide any history at this time but denies any complaints. He was apparently begun on Ceftriaxone this morning. Allergies/Medications Allergies: Coded Allergies: NO KNOWN ALLERGIES (03/17/16) Home Med List: Acetaminophen (Acephen) 650 MG SUPP.RECT 1 SUPP [place] Q4H PRN PAIN/TEMP>101 ( Reported) Acetaminophen (Acetaminophen ER) 650 MG TABLET.ER 1 TAB PO Q4H PRN PAIN/TEMP/> 101 (Reported) Amlodipine Besylate 5 MG TABLET 1 TAB PO DAILY HEART (Reported) Atorvastatin Calcium 80 MG TABLET 80 MG PO 1700 STROKE Bisacodyl 10 MG SUPP.RECT 1 SUP RC DAILY PRN CONSTIPATION (Reported) Cholecalciferol (Vitamin D3) (Vitamin D) 2,000 UNIT TABLET 1 TAB PO DAILY SUPPLEMENT (Reported) Dabigatran Etexilate Mesylat (Pradaxa) 75 MG CAPSULE 75 MG PO BID AFIB PLEASE START PRADAXA ON 03/19, AND ON STOP THE PLAVIX AND ASPIRIN AFTER 03/18 DOSE Furosemide 20 MG TABLET 1 TAB PO Q48 WATER PILL (Reported) Insulin Aspart (Novolog) 100 UNIT/ML VIAL 0 UNITS SC TIDAC DIABETES Less than 80 mg/dl---Initiate hypoglycemic events 80-150 MG/DL -- No change 151-200 MG/DL--2 UNITS 201-250 MG/DL--4 UNITS 251-300 MG/DL--6 UNITS 301-350 MG/DL--8 UNITS 351-400 MG/DL--10 OVER 400 MG/DL--12 UNITS Magnesium Hydroxide (Milk Of Magnesia) 400 MG/5 ML ORAL.SUSP 30 ML PO DAILY PRN CONSTIPATION (Reported) Metoprolol Succ XL (Toprol XL) 25 MG TAB 125 MG PO DAILY HEART PT NEEDS A DAILY DOSE OF METOPROLOL SUCCINATE 125 MG ONCE DAILY Multivitamin (Multi-Day Vitamins) 1 EACH TABLET 1 TAB PO DAILY SUPPLEMENT ( Reported) Na Phos,M-B/Na Phos,Di-Ba (Fleet Enema) 19 GRAM-7 GRAM/118 ML ENEMA 1 E RC DAILY PRN CONSTIPATION (Reported) Sennosides/Docusate Sodium (Senna Plus Tablet) 8.6 MG-50 MG TABLET 1 TAB PO BID GI (Reported) Past History Travel History Traveled to [place] past 21 day No Medical History Neurological: dementia Cardiovascular: AFIB, hypertension, hyperlipidemia Renal: chronic kidney disease, urinary incontinence Endocrine: diabetes Cancer(s): NONE History of MRSA: No History of VRE: No History of CDIFF: No Isolation History: Standard Surgical History Surgical History: s/p pacemaker/AICD Family History Relations & Conditions If Any: Relation not specified for: *No pertinent family history Psychosocial History Where Do You Live? Extended Care Facility Services at Home: None Smoking Status: Unknown If Ever Smoked ETOH Use: denies use Illicit Drug Use: denies illicit drug use Functional Ability ADLs Needs Assist: dressing, eating, toileting, bathing. Ambulation: walker IADLs Needs Assist: food prep, transportation. ECHO Results (as available) EF% 55 Review of Systems Comments Unobtainable Exam & Diagnostic Data Last 24 Hrs of Vital Signs/I&O Vital Signs Date Time Temp Pulse Resp B/P B/P Pulse O2 O2 Flow FiO2 Mean Ox Delivery Rate 04/08 0928 63 142/78 04/08 0855 Room Air Room Air 04/08 0749 98.4 63 20 142/78 96 Room Air 04/08 0039 Room Air 04/07 2155 97.9 90 20 138/70 99 04/07 2109 66 22 148/82 97 Room Air 04/07 1945 98.1 75 18 136/100 99 Room Air 04/07 1820 Room Air 04/07 1742 97.7 67 20 155/79 96 Room Air 04/07 1533 98.1 74 20 142/60 96 Room Air Intake & Output 04/08 1600 04/08 0800 04/08 0000 Intake Total 225 500 Output Total 200 Balance 225 300 Intake, IV 225 500 Output, Urine 200 Patient 150 lb Weight Weight Estimated Measurement Method Physical Exam Other Physical Findings: He is awake and alert in no acute distress. He is afebrile. Skin reveals no rash. HEENT exam is negative. Neck is supple with no adenopathy. Lungs are clear. Heart regular rhythm with no murmur. Abdomen is soft, nontender with positive bowel sounds. Back no CVA tenderness. Extremities no cyanosis, clubbing or edema. Neuro myoclonic jerks all extremities; left sided weakness compared to the right. Last 24 Hours of Lab Results: Laboratory Tests 04/08 04/08 04/07 0420 0420 2220 Chemistry Sodium (137 - 145 mmol/L) 147 H Potassium (3.5 - 5.1 mmol/L) 4.7 Chloride (98 - 107 mmol/L) 116 H Carbon Dioxide (22 - 30 mmol/L) 20 L Anion Gap (5 - 16) 10 BUN (9 - 20 mg/dL) 52 H Creatinine (0.7 - 1.2 mg/dL) 2.1 H Estimated GFR (>60 ml/min) 30 L BUN/Creatinine Ratio (7 - 25 %) 24.8 Troponin I (<0.11 ng/ml) 0.11 *H 0.11 *H Hematology CBC w Diff NO MAN DIFF REQ WBC (4.8 - 10.8 /CUMM) 6.4 RBC (4.70 - 6.10 /CUMM) 3.59 L Hgb (14.0 - 18.0 G/DL) 10.3 L Hct (42 - 52 %) 31.7 L MCV (80.0 - 94.0 FL) 88.3 MCH (27.0 - 31.0 PG) 28.8 RDW (11.5 - 14.5 %) 13.3 Plt Count (130 - 400 /CUMM) 222 MPV (7.4 - 10.4 FL) 8.8 Gran % (42.2 - 75.2 %) 61.9 Lymphocytes % (20.5 - 51.1 %) 22.4 Monocytes % (1.7 - 9.3 %) 12.4 H Eosinophils % (0 - 5 %) 2.9 Basophils % (0.0 - 2.0 %) 0.4 Absolute Granulocytes (1.4 - 6.5 /CUMM) 4.0 Absolute Lymphocytes (1.2 - 3.4 /CUMM) 1.4 Absolute Monocytes (0.10 - 0.60 /CUMM) 0.8 H Absolute Eosinophils (0.0 - 0.7 /CUMM) 0.2 Absolute Basophils (0.0 - 0.2 /CUMM) 0 PUBS MCHC (33.0 - 37.0 G/DL) 32.6 L 04/07 04/07 04/07 2110 2100 1906 Blood Gas pH (7.35 - 7.45 PH) 7.44 pCO2 (35 - 45 TORR) 29 L pO2 (80 - 100 TORR) 81 HCO3 (21 - 28 MEQ/L) 19.1 L ABG O2 Sat (Measured) (>96.0 %) 96.0 Carboxyhemoglobin (1.5 - 5.0 %) 0.3 L O2 Concentration % RA O2 Delivery Method RA Chemistry Lactic Acid (0.7 - 2.1 mmol/L) 1.2 Ammonia (9 - 30 umol/L) < 9 L Miscellaneous Phlebotomy Draw Site LEFT RADIAL 04/07 04/07 1818 1634 Chemistry Sodium (137 - 145 mmol/L) 147 H Potassium (3.5 - 5.1 mmol/L) 5.0 Chloride (98 - 107 mmol/L) 114 H Carbon Dioxide (22 - 30 mmol/L) 22 Anion Gap (5 - 16) 11 BUN (9 - 20 mg/dL) 60 H Creatinine (0.7 - 1.2 mg/dL) 2.5 H Estimated GFR (>60 ml/min) 25 L BUN/Creatinine Ratio (7 - 25 %) 24.0 Glucose (65 - 99 mg/dL) 162 H Lactic Acid (0.7 - 2.1 mmol/L) 1.8 Calcium (8.4 - 10.2 mg/dL) 9.4 Total Bilirubin (0.2 - 1.3 mg/dL) 0.4 AST (17 - 59 U/L) 26 ALT (21 - 72 U/L) 53 Alkaline Phosphatase (< 127 U/L) 57 Troponin I (<0.11 ng/ml) 0.12 *H Total Protein (6.3 - 8.2 g/dL) 7.3 Albumin (3.5 - 5.0 g/dL) 3.4 L Globulin (1.9 - 4.2 gm/dL) 3.9 Albumin/Globulin Ratio (1.1 - 2.2 %) 0.9 L TSH (0.270 - 4.200 uIU/mL) 2.530 Free T4 (0.85 - 1.93 ng/dL) 1.22 Coagulation PT (9.4 - 12.5 SEC) 14.2 H INR (0.90 - 1.17) 1.36 H APTT (25 - 37 SEC) 46 H Hematology CBC w Diff NO MAN DIFF REQ WBC (4.8 - 10.8 /CUMM) 7.5 RBC (4.70 - 6.10 /CUMM) 3.84 L Hgb (14.0 - 18.0 G/DL) 11.0 L Hct (42 - 52 %) 34.0 L MCV (80.0 - 94.0 FL) 88.7 MCH (27.0 - 31.0 PG) 28.8 RDW (11.5 - 14.5 %) 13.6 Plt Count (130 - 400 /CUMM) 260 MPV (7.4 - 10.4 FL) 8.7 Gran % (42.2 - 75.2 %) 68.2 Lymphocytes % (20.5 - 51.1 %) 16.6 L Monocytes % (1.7 - 9.3 %) 12.5 H Eosinophils % (0 - 5 %) 2.3 Basophils % (0.0 - 2.0 %) 0.4 Absolute Granulocytes (1.4 - 6.5 /CUMM) 5.1 Absolute Lymphocytes (1.2 - 3.4 /CUMM) 1.2 Absolute Monocytes (0.10 - 0.60 /CUMM) 0.9 H Absolute Eosinophils (0.0 - 0.7 /CUMM) 0.2 Absolute Basophils (0.0 - 0.2 /CUMM) 0 PUBS MCHC (33.0 - 37.0 G/DL) 32.4 L Serology RPR Titer/FTA Pending Urines Urinalysis LIGHT H Urine Color (YEL,AMB,STR) YEL Urine Clarity (CLEAR) CLEAR Urine pH (5.0 - 8.0) 6.0 Ur Specific [place] (1.001 - 1.035) 1.025 Urine Protein (NEG,<30 MG/DL) 100 H Urine Ketones (NEG) NEG Urine Nitrite (NEG) NEG Urine Bilirubin (NEG) NEG Urine Urobilinogen (0.1 - 1.0 EU/dl) 0.2 Ur Leukocyte Esterase (NEG) NEG Ur Microscopic SEDIMENT EXAMINED Urine RBC (0 - 5 /HPF) 3-5 Urine WBC (0 - 2 /HPF) 1-3 H Ur Epithelial Cells (NONE,FEW) OCCAS Urine Bacteria (NEG/NONE) MANY H Hyaline Casts (0/LPF) 5-10 H Granular Casts (NONE /LPF) 3-5 H Urine Mucus (FEW,NONE) FEW Urine Hemoglobin (NEG) SMALL H Urine Glucose (N MG/DL) NEG 04/07 04/07 1616 1559 Chemistry TSH Cancelled Free T4 Cancelled Serology RPR Titer/FTA Cancelled Last 24 Hours of Anselmo Results: Blood cultures 2 April 07 negative Diagnostic Data Recent Imaging Findings: Chest x-ray April 07 negative for any acute process CT of the head April 07 negative for any acute process Assessment/Plan Assessment/Plan Impression: This is an 87-year-old man with a history of diabetes, hypertension, atrial fibrillation, status post CVA one month prior to admission, hospitalized 2 weeks prior to admission with "toxic metabolic encephalopathy", at which time his Lyme titer was found to be positive, admitted on April 07 with an altered mental status with temperatures and white blood cell count normal and with no abnormalities in his laboratory data or x-rays. The significance of the positive Lyme titer is unclear. His Western blot IgG is positive suggesting prior exposure, but it is not clear that this is related in any way to his current condition. Lyme disease can rarely cause an encephalomyelitis or encephalopathy, but further evaluation would be necessary, including an MRI, which apparently cannot be done because of his pacemaker, and a lumbar puncture prior to making these diagnoses. I suspect that his encephalopathy is related to other processes given his recent presentation and apparent recovery without any specific treatment. Suggestion: 1. Would pursue a lumbar puncture and send CSF for the usual studies as well as a PCR for Lyme 2. Discontinue Ceftriaxone and follow off antibiotics pending above Consult Acknowledgment - Thank you for your consult request.
--- NOTE | 2017-04-08 10:35 | PN- Housestaff ---
Subjective Follow-up For: Follow-up metabolic encephalopathy Complaints: pt unable to provide hx Tele-Events Since Last Visit: No any overnight events Subjective: Patient is seen and examined at the bedside. He was not responding to verbal, and also he was moving all his limbs. Discussed with the , Danni Gordon over the phone, about the lumbar puncture.she consented for the it. As the patient had last dose of Pradaxa, on 04/07/2017 at 9 a.m.. We will plan to do lumbar puncture on Wednesday or Wednesday. Review of Systems Constitutional: Denies: no symptoms. Comments: Cannot comment because of patient clinical condition Objective Last 24 Hrs of Vital Signs/I&O Vital Signs Date Time Temp Pulse Resp B/P B/P Pulse O2 O2 Flow FiO2 Mean Ox Delivery Rate 04/08 0928 63 142/78 04/08 0855 Room Air Room Air 04/08 0800 96 Room Air 04/08 0749 98.4 63 20 142/78 96 Room Air 04/08 0039 Room Air 04/07 2155 97.9 90 20 138/70 99 04/07 2109 66 22 148/82 97 Room Air 04/07 1945 98.1 75 18 136/100 99 Room Air 04/07 1820 Room Air 04/07 1742 97.7 67 20 155/79 96 Room Air 04/07 1533 98.1 74 20 142/60 96 Room Air Intake & Output 04/08 1600 04/08 0800 04/08 0000 Intake Total 225 500 Output Total 200 Balance 225 300 Intake, IV 225 500 Output, Urine 200 Patient 68.039 kg Weight Weight Estimated Measurement Method Physical Exam General Appearance: No Acute Distress Cardiovascular: Normal S1, Normal S2, murmur present Lungs: Clear to Auscultation, Normal Air Movement Abdomen: Soft, No Tenderness Neurological: Normal Speech Extremities: No Clubbing, No Cyanosis, No Edema Current Medications: Current Medications Sig/Courtney Start time Last Medication Dose Route Stop Time Status Admin Amlodipine Besylate 5 MG DAILY 04/08 1000 AC PO Aspirin 0 .STK-MED ONE 04/07 1755 DC PO Aspirin 81 MG ONCE ONE 04/07 1745 DC 04/07 PO 04/07 1746 1821 Atorvastatin Calcium 80 MG 1700 04/08 1700 AC PO Ceftriaxone Sodium 1,000 MG DAILY 04/08 1000 DC 04/08 IV 0922 Dextrose/Sodium 1,000 ML Q13H 04/08 1100 AC 04/08 Chloride IV 1117 Insulin Aspart 0 TIDAC 04/08 0800 AC SC Metoprolol Succinate 125 MG DAILY 04/08 1000 AC PO Sodium Chloride 1,000 ML Q13H 04/08 0030 DC 04/08 IV 0208 Sodium Chloride 500 ML BOLUS ONE 04/07 1745 DC 04/07 IV 04/07 1844 1821 Last 24 Hrs of Lab/Anselmo Results Last 24 Hrs of Labs/Mics: Laboratory Tests 04/08/17 0420: Troponin I 0.11 *H 04/08/17 0420: Anion Gap 10, Estimated GFR 30 L, BUN/Creatinine Ratio 24.8, CBC w Diff NO MAN DIFF REQ, RBC 3.59 L, MCV 88.3, MCH 28.8, RDW 13.3, MPV 8.8, Gran % 61.9, Lymphocytes % 22.4, Monocytes % 12.4 H, Eosinophils % 2.9, Basophils % 0.4, Absolute Granulocytes 4.0, Absolute Lymphocytes 1.4, Absolute Monocytes 0.8 H, Absolute Eosinophils 0.2, Absolute Basophils 0, PUBS MCHC 32.6 L 04/07/170: Troponin I 0.11 *H 04/07/172109: pH 7.44, pCO2 29 L, pO2 81, HCO3 19.1 L, ABG O2 Sat (Measured) 96.0, Carboxyhemoglobin 0.3 L, O2 Concentration % RA, O2 Delivery Method RA, Phlebotomy Draw Site LEFT RADIAL 04/07/17 2100: Ammonia < 9 L 04/07/17 1906: Lactic Acid 1.2 04/07/17 1818: Urinalysis LIGHT H, Urine Color YEL, Urine Clarity CLEAR, Urine pH 6.0, Ur Specific [place] 1.025, Urine Protein 100 H, Urine Ketones NEG, Urine Nitrite NEG, Urine Bilirubin NEG, Urine Urobilinogen 0.2, Ur Leukocyte Esterase NEG, Ur Microscopic SEDIMENT EXAMINED, Urine RBC 3-5, Urine WBC 1-3 H, Ur Epithelial Cells OCCAS, Urine Bacteria MANY H, Hyaline Casts 5-10 H, Granular Casts 3-5 H, Urine Mucus FEW, Urine Hemoglobin SMALL H, Urine Glucose NEG 04/07/17 1634: Anion Gap 11, Estimated GFR 25 L, BUN/Creatinine Ratio 24.0, Glucose 162 H, Lactic Acid 1.8, Calcium 9.4, Total Bilirubin 0.4, AST 26, ALT 53, Alkaline Phosphatase 57, Troponin I 0.12 *H, Total Protein 7.3, Albumin 3.4 L, Globulin 3.9, Albumin/Globulin Ratio 0.9 L, TSH 2.530, Free T4 1.22, PT 14.2 H, INR 1.36 H, APTT 46 H, CBC w Diff NO MAN DIFF REQ, RBC 3.84 L, MCV 88.7, MCH 28.8 , RDW 13.6, MPV 8.7, Gran % 68.2, Lymphocytes % 16.6 L, Monocytes % 12.5 H, Eosinophils % 2.3, Basophils % 0.4, Absolute Granulocytes 5.1, Absolute Lymphocytes 1.2, Absolute Monocytes 0.9 H, Absolute Eosinophils 0.2, Absolute Basophils 0, PUBS MCHC 32.4 L, RPR Titer/FTA NONREACTIVE 04/07/17 1616: RPR Titer/FTA Cancelled 04/07/17 1559: TSH Cancelled, Free T4 Cancelled Microbiology 04/07 2100 BLOOD: Blood Culture - RECD 04/07 2045 BLOOD: Blood Culture - RECD 04/07 2007 URINE ROUT: Urine Culture - COLB 04/07 2007 LOWER RESP: Respiratory Culture - COLB 04/07 2007 LOWER RESP: Gram Stain - COLB Assessment/Plan Assessment: Patient is a 87-year-old male with significant past medical history of paroxysmal atrial fibrillation, dementia, CKG stage IV, hypertension, diabetes, biventricular pacemaker/AICD (nonischemic cardiomyopathy-left bundle branch block), History of CVA (MCA), recently admitted to [facility] for metabolic encephalopathy, BIBA from [facility] to [facility] with history of altered mental status. Plan - Hypernatremia, metabolic encephalopathy -probably secondary to dehydration * CT scan of the head does not show any infarction or hemorrhage. Chest x-ray showed no any signs of aspiration or infection. * We will give D5 half normal saline at the rate of 75 mL per hour * We will repeat BEP in evening * strict intake output charting Positive Lyme titer and [place] bloat, IgG, for Lyme - * Discussed with Dr. Darden over the phone, he thinks it can be due to past infection. * We will do lumbar puncture and send the CSF for usual studies as well as PCR for Lyme.If PCR for Lyme is positive, then we will treat it. * Plan to do lumbar puncture on Wednesday-04/10/2017. * We will hold Pradaxa for it. We will check coagulation profile on Wednesday. Nonspecific elevation of troponins secondary to renal insufficiency - * Patient does not have any EKG changes Type 2 diabetes * We will continue D5 half normal saline at the rate of 75 mL per hour * NovoLog according to the sliding scale Diet-NPO pending swallow evaluation DVT prophylaxis-ALP S/heparin, please stop the heparin on Wednesday Problem List: 1. Elevated troponin 2. Altered mental status 3. Metabolic encephalopathy 4. Progressive dementia with uncertain etiology Pain Ratin Pain Location: Not applicable Pain Goal: Remain pain free Pain Plan: Pain medication according to pain scale Tomorrow's Labs & Rationales: BEP at 6 o'clock in evening for follow-up with hypernatremia CBC, BEP for follow-up in coming on DVT/Prophylaxis: mechanical, pharmacological
--- NOTE | 2017-04-08 11:56 | PN- Att Addend ---
Attending MD Review Statement Attending Statement Attending MD Statement: examined this patient, discuss w/resident/PA/SERVICE PERSON, agreed w/resident/PA/SERVICE PERSON, reviewed EMR data (avail), discussed w/nursing, discussed w/ case mgmt Attending Assessment/Plan: Laboratory Tests 04/08/17 0420: Troponin I 0.11 *H 04/08/17 0420: Anion Gap 10, Estimated GFR 30 L, BUN/Creatinine Ratio 24.8, CBC w Diff NO MAN DIFF REQ, RBC 3.59 L, MCV 88.3, MCH 28.8, RDW 13.3, MPV 8.8, Gran % 61.9, Lymphocytes % 22.4, Monocytes % 12.4 H, Eosinophils % 2.9, Basophils % 0.4, Absolute Granulocytes 4.0, Absolute Lymphocytes 1.4, Absolute Monocytes 0.8 H, Absolute Eosinophils 0.2, Absolute Basophils 0, PUBS MCHC 32.6 L 04/07/17 2220: Troponin I 0.11 *H 04/07/170: pH 7.44, pCO2 29 L, pO2 81, HCO3 19.1 L, ABG O2 Sat (Measured) 96.0, Carboxyhemoglobin 0.3 L, O2 Concentration % RA, O2 Delivery Method RA, Phlebotomy Draw Site LEFT RADIAL 04/07/17 2100: Ammonia < 9 L 04/07/17 1906: Lactic Acid 1.2 04/07/17 1818: Urinalysis LIGHT H, Urine Color YEL, Urine Clarity CLEAR, Urine pH 6.0, Ur Specific [place] 1.025, Urine Protein 100 H, Urine Ketones NEG, Urine Nitrite NEG, Urine Bilirubin NEG, Urine Urobilinogen 0.2, Ur Leukocyte Esterase NEG, Ur Microscopic SEDIMENT EXAMINED, Urine RBC 3-5, Urine WBC 1-3 H, Ur Epithelial Cells OCCAS, Urine Bacteria MANY H, Hyaline Casts 5-10 H, Granular Casts 3-5 H, Urine Mucus FEW, Urine Hemoglobin SMALL H, Urine Glucose NEG 04/07/17 1634: Anion Gap 11, Estimated GFR 25 L, BUN/Creatinine Ratio 24.0, Glucose 162 H, Lactic Acid 1.8, Calcium 9.4, Total Bilirubin 0.4, AST 26, ALT 53, Alkaline Phosphatase 57, Troponin I 0.12 *H, Total Protein 7.3, Albumin 3.4 L, Globulin 3.9, Albumin/Globulin Ratio 0.9 L, TSH 2.530, Free T4 1.22, PT 14.2 H, INR 1.36 H, APTT 46 H, CBC w Diff NO MAN DIFF REQ, RBC 3.84 L, MCV 88.7, MCH 28.8 , RDW 13.6, MPV 8.7, Gran % 68.2, Lymphocytes % 16.6 L, Monocytes % 12.5 H, Eosinophils % 2.3, Basophils % 0.4, Absolute Granulocytes 5.1, Absolute Lymphocytes 1.2, Absolute Monocytes 0.9 H, Absolute Eosinophils 0.2, Absolute Basophils 0, PUBS MCHC 32.4 L, RPR Titer/FTA NONREACTIVE 04/07/17 1616: RPR Titer/FTA Cancelled 04/07/17 1559: TSH Cancelled, Free T4 Cancelled Vital Signs Date Time Temp Pulse Resp B/P B/P Pulse O2 O2 Flow FiO2 Mean Ox Delivery Rate 04/08 0928 63 142/78 04/08 0855 Room Air Room Air 04/08 0800 96 Room Air 04/08 0749 98.4 63 20 142/78 96 Room Air 04/08 0039 Room Air 04/07 2155 97.9 90 20 138/70 99 04/07 2109 66 22 148/82 97 Room Air 04/07 1945 98.1 75 18 136/100 99 Room Air 04/07 1820 Room Air 04/07 1742 97.7 67 20 155/79 96 Room Air 04/07 1533 98.1 74 20 142/60 96 Room Air 87 yr old male from [facility] on pradaxa, ckd -4, dementia, htn, DM, PPM/ AICD, CVA with last discharge on 03/30(metabolic encephalopahty) admitted with AMS secondary to encephalopathy . Pt having poor intakes last few days and found to have hypernatremia of [address] head negative for ICH. LYME western blot positive . RPR pending. Will d/w ID about starting abx. Change iv fluids to D5 1/2 NS and repeat BEP this evening.
--- NOTE | 2017-04-08 13:21 | Discharge Summary ---
Visit Information Visit Dates Admission Date: 04/07/17 Discharge Date: 04/09/2017 Hospital Course Course Attending Physician: ILEANA PATTERSON,SUAD Shine Primary Care Physician: DEIRDRE KRUGER MD Hospital Course: Patient is a 87-year-old gentleman with past medical history significant for dementia, paroxysmal Afib, HTN, HLD, DM, CKD, AICD/pacemaker, recently admitted to [facility] in March 2017 for worsening confusion and gait instability, right sided facial droop, and left hemiparesis(possible right MCA infarct), recently admitted to [facility] for altered mental status (metabolic/toxic encephalopathy) presented again for the evaluation of similar complaints. Vitals on admission temperature 98.1, pulse rate 74, respiration 20, blood pressure 142/60, pulse ox 96% on room air. Pertinent labs on admission: No evidence of leukocytosis W BC 7.5, anemia-H&H 11.0 (baseline 11.2), platelets 260. Sodium 147 (likely dehydration), potassium 4.0, bicarbonate 22, abnormal renal function BUN 60, serum creatinine 2.5( baseline 2.1). Troponin-0.12, 0.11. Lactic acid 1.8, 1.2. Urinalysis did not reveal any bacteriuria, but revealed increased protein likely from C daily. Liver function-within normal limits. Lyme titer 2017 revealed positivity, and was confirmed by Western blot to have reactivity to elevated immunoglobin G more than immunoglobin M. (History of tick bites). Head CT scan did not show any acute intracranial hemorrhage. There are numerous nonspecific changes primarily involving the periventricular white matter that most likely represent a chronic manifestation of small vessel ischemia. Following problems were addressed while patient was on telemetry floor 1. Metabolic encephalopathy (Altered mental status) Patient was admitted for the similar complaints during his last admission. EEG was done during the last admission that confirmed toxic/metabolic encephalopathy. Lyme's titers with Western block that were done during the last admission were positive. Vit D level- normal. Previous b12 has always been high -unclear etiology. ID consult Payam Darden MD was obtained. The significance of the positive Lyme titer was unclear. Lyme disease can rarely cause an encephalomyelitis or encephalopathy, but further evaluation was necessary. Patient was kept off antibiotics MRI couldn't be done because of the pacemaker. Plan was to do a lumbar puncture. Patient's clinical and mental condition improved miraculously with IV fluids , so lumbar puncture was not pursued. lso doing a lumbar puncture meant discontinuation of the Pradaxa which would increase the risk of stroke, therefore the procedure was deferred. His EEG was abnormal due to diffuse cerebral slowing that is more prominent within the right hemisphere and in that may be suggestive of an underlying structural abnormality. No seizure activity is noted. A Patient was watched off antibiotics with return of his mental status to baseline. Patient needs to have at least 1.5 L of fluid everyday to keep him hydrated and prevent similar episodes of confusion/ delurium. 2. Minimally elevated troponins( likely in the setting of chronic kidney disease ): 3 sets of troponins plateaued out with EKG did not show any evidence of STT changes. ACS was ruled out as there was no evidence of active chest pain/active signs of ischemia. 3. H/O Parkinsons/dementia- Patient was on Namenda and Rivastigmine which were stopped due to his mental status. It was restarted/at a low-dose lower on 04/10, and increased to 9.5mg. Namenda was held in the hospital. 4. Borderline diabetes: Sugar levels were controlled with NovoLog sliding scale Accu-Cheks were done. Patient was maintained on carbohydrate consistent diet 5. Speech evaluation: Patient was initially kept nothing by mouth due to risk of aspiration .He was evaluated by speech therapist who recommended mechanical soft regular diet. 6. History of chronic kidney disease stage IV: Creatinine on admission 2.5(close to baseline), that improved with IV hydration in the hospital. 7. History of paroxysmal atrial fibrillation(on Pradaxa): Pradaxa was held initially in anticipation for lumbar puncture, later on resumed. Carbohydrate consistent diet( mechanical soft ground with thin liquids) DVT prophylaxis -ALPS/Pradaxa Code status - full code Allergies: Coded Allergies: NO KNOWN ALLERGIES (03/17/16) Disposition Summary Disposition Principal Diagnosis: Metabolic encephalopathy Additional Diagnosis: Parkinson's/dementia Discharge Disposition: SNF Discharge Instructions General Discharge Information Code Status: Full Code Patient's Diet: Mechanical soft/ground with thin liquids Patient's Activity: As tolerated Follow-Up Instructions/Appts: Please follow-up with your PCP within 1 week of discharge. Please follow-up with job lithographer Trudi within 1 week of discharge. Medications at Discharge Discharge Medications: Continue taking these medications: Amlodipine Besylate (Amlodipine Besylate) 5 MG TABLET 1 Tablet ORAL DAILY Qty = 180 Comments: Last Taken: 04/14/17 Time: 1000 Furosemide (Furosemide) 20 MG TABLET 1 Tablet ORAL EVERY 48 HOURS (Every 2 days) Qty = 45 Comments: NOT GIVEN IN HOSPITAL Metoprolol Succ XL (Toprol XL) 25 MG TAB 125 Milligram ORAL DAILY Days = 30 Instructions: PT NEEDS A DAILY DOSE OF METOPROLOL SUCCINATE 125 MG ONCE DAILY Comments: Last Taken: 04/14/17 Time: 10 AM Insulin Aspart (Novolog) 100 UNIT/ML VIAL 0 Units Inject into fatty tissue 3 TIMES DAILY BEFORE MEALS Days = 30 Instructions: Less than 80 mg/dl---Initiate hypoglycemic events 80-150 MG/DL -- No change 151-200 MG/DL--2 UNITS 201-250 MG/DL--4 UNITS 251-300 MG/DL--6 UNITS 301-350 MG/DL--8 UNITS 351-400 MG/DL--10 OVER 400 MG/DL--12 UNITS Comments: Last Taken: 04/14/17 Time: 1 PM 1 UNIT GIVEN Atorvastatin Calcium (Atorvastatin Calcium) 80 MG TABLET 80 Milligram ORAL 5 PM Qty = 30 Comments: NOT GIVEN IN THE HOSPITAL PRAVASTATIN GIVEN Dabigatran Etexilate Mesylat (Pradaxa) 75 MG CAPSULE 75 Milligram ORAL TWICE DAILY Qty = 60 Instructions: PLEASE START PRADAXA ON 03/19, AND ON STOP THE PLAVIX AND ASPIRIN AFTER 06/08 DOSE Comments: Last Taken: 04/14/17 Time: 5 AM Sennosides/Docusate Sodium (Senna Plus Tablet) 8.6 MG-50 MG TABLET 1 Tablet ORAL TWICE DAILY Comments: NOT GIVEN IN HOSPITAL Cholecalciferol (Vitamin D3) (Vitamin D) 2,000 UNIT TABLET 1 Tablet ORAL DAILY Comments: NOT GIVEN IN HOSPITAL Multivitamin (Multi-Day Vitamins) 1 EACH TABLET 1 Tablet ORAL DAILY Comments: NOT GIVEN IN HOSPITAL Acetaminophen (Acephen) 650 MG SUPP.RECT 1 SUPPOSITORY RECTALLY Q4H as needed for PAIN/TEMP>101 Comments: NOT GIVEN IN HOSPITAL Acetaminophen (Acetaminophen ER) 650 MG TABLET.ER 1 Tablet ORAL Q4H as needed for PAIN/TEMP/>101 Comments: Last Taken: 04/11/17 Time: 1342 Magnesium Hydroxide (Milk Of Magnesia) 400 MG/5 ML ORAL.SUSP 30 Milliliters ORAL DAILY as needed for CONSTIPATION Comments: NOT GIVEN IN HOSPITAL Na Phos,M-B/Na Phos,Di-Ba (Fleet Enema) 19 GRAM-7 GRAM/118 ML ENEMA 1 Enema RECTAL DAILY as needed for CONSTIPATION Comments: NOT GIVEN IN HOSPITAL Bisacodyl (Bisacodyl) 10 MG SUPP.RECT 1 Suppository RECTAL DAILY as needed for CONSTIPATION Comments: NOT GIVEN IN HOSPITAL Start taking the following new medications: Rivastigmine (Exelon) 9.5 MG/Patch PAT 1 Patch On the skin DAILY Qty = 30 No Refills Comments: Last Taken: 04/14/17 Time: 10 AM Copies To: MANFRED PATTERSON,JACKSON Carpio; RISHI PATTERSON,AMANDO Miguel; SASKIA PATTERSON,DEIRDRE Coronado; RAO PATTERSON, PAYAM Byers Attending MD Review Statement Documenting Attending: EULOGIO GUO MD Other Findings: The patient was seen and agree with the plan of care upon discharge as outlined.
--- NOTE | 2017-04-08 14:53 | Cons- Neurology ---
General Information and HPI Consulting Request Date of Consult: 04/08/17 Requested By: SUAD TEJEDA MD Reason for Consult: encephalopathy Source of Information: family, old records Exam Limitations: no limitations History of Present Illness: 87-year-old male who carries a history of dementia approximately for 5 years course had a number of admissions over the past month to this hospital Earlier in the month he had a cerebrovascular accident with left-sided weakness He was placed in convalescent home and apparently was doing relatively well He had a subsequent admission for mental status change to [facility], he was then transferred back to the [facility] He is now admitted again with mental status change. He stopped eating, was somewhat combative, and became difficult to arouse. Per patient's , he has remained for the entire day extremely difficult to arouse. Previously while at home she had to assist with all activities of daily living. He however was able to walk on his own until the recent cerebrovascular accident. There was no history of head trauma and there was no observation of seizure. He apparently does not offer any complaints Allergies/Medications Allergies: Coded Allergies: NO KNOWN ALLERGIES (03/17/16) Home Med List: Acetaminophen (Acephen) 650 MG SUPP.RECT 1 SUPP MO Q4H PRN PAIN/TEMP>101 ( Reported) Acetaminophen (Acetaminophen ER) 650 MG TABLET.ER 1 TAB PO Q4H PRN PAIN/TEMP/> 101 (Reported) Amlodipine Besylate 5 MG TABLET 1 TAB PO DAILY HEART (Reported) Atorvastatin Calcium 80 MG TABLET 80 MG PO 1700 STROKE Bisacodyl 10 MG SUPP.RECT 1 SUP RC DAILY PRN CONSTIPATION (Reported) Cholecalciferol (Vitamin D3) (Vitamin D) 2,000 UNIT TABLET 1 TAB PO DAILY SUPPLEMENT (Reported) Dabigatran Etexilate Mesylat (Pradaxa) 75 MG CAPSULE 75 MG PO BID AFIB PLEASE START PRADAXA ON 03/19, AND ON STOP THE PLAVIX AND ASPIRIN AFTER 03/18 DOSE Furosemide 20 MG TABLET 1 TAB PO Q48 WATER PILL (Reported) Insulin Aspart (Novolog) 100 UNIT/ML VIAL 0 UNITS SC TIDAC DIABETES Less than 80 mg/dl---Initiate hypoglycemic events 80-150 MG/DL -- No change 151-200 MG/DL--2 UNITS 201-250 MG/DL--4 UNITS 251-300 MG/DL--6 UNITS 301-350 MG/DL--8 UNITS 351-400 MG/DL--10 OVER 400 MG/DL--12 UNITS Magnesium Hydroxide (Milk Of Magnesia) 400 MG/5 ML ORAL.SUSP 30 ML PO DAILY PRN CONSTIPATION (Reported) Metoprolol Succ XL (Toprol XL) 25 MG TAB 125 MG PO DAILY HEART PT NEEDS A DAILY DOSE OF METOPROLOL SUCCINATE 125 MG ONCE DAILY Multivitamin (Multi-Day Vitamins) 1 EACH TABLET 1 TAB PO DAILY SUPPLEMENT ( Reported) Na Phos,M-B/Na Phos,Di-Ba (Fleet Enema) 19 GRAM-7 GRAM/118 ML ENEMA 1 E RC DAILY PRN CONSTIPATION (Reported) Sennosides/Docusate Sodium (Senna Plus Tablet) 8.6 MG-50 MG TABLET 1 TAB PO BID GI (Reported) Current Medications: Current Medications Sig/Courtney Start time Last Medication Dose Route Stop Time Status Admin Amlodipine Besylate 5 MG DAILY 04/08 1000 AC PO Aspirin 0 .STK-MED ONE 04/07 1755 DC PO Aspirin 81 MG ONCE ONE 04/07 1745 DC 04/07 PO 04/07 1746 1821 Atorvastatin Calcium 80 MG 1700 04/08 1700 AC PO Ceftriaxone Sodium 1,000 MG DAILY 04/08 1000 DC 04/08 IV 0922 Dextrose/Sodium 1,000 ML Q13H 04/08 1100 AC 04/08 Chloride IV 1117 Insulin Aspart 0 TIDAC 04/08 0800 AC SC Metoprolol Succinate 125 MG DAILY 04/08 1000 AC PO Sodium Chloride 1,000 ML Q13H 04/08 0030 DC 04/08 IV 0208 Sodium Chloride 500 ML BOLUS ONE 04/07 1745 DC 04/07 IV 04/07 1844 1821 Review of Systems Review of Systems: Per patient's , there was no complaint of headache, breathing difficulty, chest pain, history of recent falls or head trauma, fever He has been incontinent. There is no significant swelling of extremities. Other systems unable to obtain Past History Travel History Traveled to [place] past 21 day No Medical History Neurological: dementia Cardiovascular: AFIB, hypertension, hyperlipidemia Renal: chronic kidney disease, urinary incontinence Endocrine: diabetes Cancer(s): NONE Surgical History Surgical History: s/p pacemaker/AICD Family History Relations & Conditions If Any: Relation not specified for: *No pertinent family history Psychosocial History Where Do You Live? Extended Care Facility Services at Home: None Smoking Status: Never Smoked ETOH Use: denies use Illicit Drug Use: denies illicit drug use Functional Ability ADLs Needs Assist: dressing, eating, toileting, bathing. Ambulation: walker IADLs Needs Assist: food prep, transportation. ECHO Results (as available) EF% 55 Exam & Diagnostic Data Vital Signs and I&O Vital Signs Date Time Temp Pulse Resp B/P B/P Pulse O2 O2 Flow FiO2 Mean Ox Delivery Rate 04/08 0928 63 142/78 04/08 0855 Room Air Room Air 04/08 0800 96 Room Air 04/08 0749 98.4 63 20 142/78 96 Room Air 04/08 0039 Room Air 04/07 2155 97.9 90 20 138/70 99 04/07 2109 66 22 148/82 97 Room Air 04/07 1945 98.1 75 18 136/100 99 Room Air 04/07 1820 Room Air 04/07 1742 97.7 67 20 155/79 96 Room Air 04/07 1533 98.1 74 20 142/60 96 Room Air Intake & Output 04/08 1600 04/08 0800 04/08 0000 Intake Total 600 225 500 Output Total 200 Balance 600 225 300 Intake, IV 600 225 500 Intake, Oral 0 Number 1 Bowel Movements Output, Urine 200 Patient 150 lb Weight Weight Estimated Measurement Method Physical Exam: Extremely somnolent and difficult to arouse Not following commands Heart sounds normal, no carotid bruits, distal pulses intact Extraocular movements full, pupils equal and reactive Fundi cannot adequately be visualized, visual garcia cannot be assessed, there is no obvious facial weakness, palate tongue and shoulders cannot adequately assessed Diffuse rigidity in upper and lower extremities, gross motor strength cannot be assessed Withdraws to noxious stimuli bilaterally Deep tendon reflexes 1+ bilateral, plantar response upgoing Coordinative to functions cannot be assessed due to extreme somnolence states that his mother had dementia Last 48 Hours of Lab Results: Laboratory Tests 04/08 04/08 04/07 0420 0420 2220 Chemistry Sodium (137 - 145 mmol/L) 147 H Potassium (3.5 - 5.1 mmol/L) 4.7 Chloride (98 - 107 mmol/L) 116 H Carbon Dioxide (22 - 30 mmol/L) 20 L Anion Gap (5 - 16) 10 BUN (9 - 20 mg/dL) 52 H Creatinine (0.7 - 1.2 mg/dL) 2.1 H Estimated GFR (>60 ml/min) 30 L BUN/Creatinine Ratio (7 - 25 %) 24.8 Troponin I (<0.11 ng/ml) 0.11 *H 0.11 *H Hematology CBC w Diff NO MAN DIFF REQ WBC (4.8 - 10.8 /CUMM) 6.4 RBC (4.70 - 6.10 /CUMM) 3.59 L Hgb (14.0 - 18.0 G/DL) 10.3 L Hct (42 - 52 %) 31.7 L MCV (80.0 - 94.0 FL) 88.3 MCH (27.0 - 31.0 PG) 28.8 RDW (11.5 - 14.5 %) 13.3 Plt Count (130 - 400 /CUMM) 222 MPV (7.4 - 10.4 FL) 8.8 Gran % (42.2 - 75.2 %) 61.9 Lymphocytes % (20.5 - 51.1 %) 22.4 Monocytes % (1.7 - 9.3 %) 12.4 H Eosinophils % (0 - 5 %) 2.9 Basophils % (0.0 - 2.0 %) 0.4 Absolute Granulocytes (1.4 - 6.5 /CUMM) 4.0 Absolute Lymphocytes (1.2 - 3.4 /CUMM) 1.4 Absolute Monocytes (0.10 - 0.60 /CUMM) 0.8 H Absolute Eosinophils (0.0 - 0.7 /CUMM) 0.2 Absolute Basophils (0.0 - 0.2 /CUMM) 0 PUBS MCHC (33.0 - 37.0 G/DL) 32.6 L 04/07 04/07 04/07 2110 2100 1906 Blood Gas pH (7.35 - 7.45 PH) 7.44 pCO2 (35 - 45 TORR) 29 L pO2 (80 - 100 TORR) 81 HCO3 (21 - 28 MEQ/L) 19.1 L ABG O2 Sat (Measured) (>96.0 %) 96.0 Carboxyhemoglobin (1.5 - 5.0 %) 0.3 L O2 Concentration % RA O2 Delivery Method RA Chemistry Lactic Acid (0.7 - 2.1 mmol/L) 1.2 Ammonia (9 - 30 umol/L) < 9 L Miscellaneous Phlebotomy Draw Site LEFT RADIAL 04/07 04/07 1818 1634 Chemistry Sodium (137 - 145 mmol/L) 147 H Potassium (3.5 - 5.1 mmol/L) 5.0 Chloride (98 - 107 mmol/L) 114 H Carbon Dioxide (22 - 30 mmol/L) 22 Anion Gap (5 - 16) 11 BUN (9 - 20 mg/dL) 60 H Creatinine (0.7 - 1.2 mg/dL) 2.5 H Estimated GFR (>60 ml/min) 25 L BUN/Creatinine Ratio (7 - 25 %) 24.0 Glucose (65 - 99 mg/dL) 162 H Lactic Acid (0.7 - 2.1 mmol/L) 1.8 Calcium (8.4 - 10.2 mg/dL) 9.4 Total Bilirubin (0.2 - 1.3 mg/dL) 0.4 AST (17 - 59 U/L) 26 ALT (21 - 72 U/L) 53 Alkaline Phosphatase (< 127 U/L) 57 Troponin I (<0.11 ng/ml) 0.12 *H Total Protein (6.3 - 8.2 g/dL) 7.3 Albumin (3.5 - 5.0 g/dL) 3.4 L Globulin (1.9 - 4.2 gm/dL) 3.9 Albumin/Globulin Ratio (1.1 - 2.2 %) 0.9 L TSH (0.270 - 4.200 uIU/mL) 2.530 Free T4 (0.85 - 1.93 ng/dL) 1.22 Coagulation PT (9.4 - 12.5 SEC) 14.2 H INR (0.90 - 1.17) 1.36 H APTT (25 - 37 SEC) 46 H Hematology CBC w Diff NO MAN DIFF REQ WBC (4.8 - 10.8 /CUMM) 7.5 RBC (4.70 - 6.10 /CUMM) 3.84 L Hgb (14.0 - 18.0 G/DL) 11.0 L Hct (42 - 52 %) 34.0 L MCV (80.0 - 94.0 FL) 88.7 MCH (27.0 - 31.0 PG) 28.8 RDW (11.5 - 14.5 %) 13.6 Plt Count (130 - 400 /CUMM) 260 MPV (7.4 - 10.4 FL) 8.7 Gran % (42.2 - 75.2 %) 68.2 Lymphocytes % (20.5 - 51.1 %) 16.6 L Monocytes % (1.7 - 9.3 %) 12.5 H Eosinophils % (0 - 5 %) 2.3 Basophils % (0.0 - 2.0 %) 0.4 Absolute Granulocytes (1.4 - 6.5 /CUMM) 5.1 Absolute Lymphocytes (1.2 - 3.4 /CUMM) 1.2 Absolute Monocytes (0.10 - 0.60 /CUMM) 0.9 H Absolute Eosinophils (0.0 - 0.7 /CUMM) 0.2 Absolute Basophils (0.0 - 0.2 /CUMM) 0 PUBS MCHC (33.0 - 37.0 G/DL) 32.4 L Serology RPR Titer/FTA (NONREACTIVE) NONREACTIVE Urines Urinalysis LIGHT H Urine Color (YEL,AMB,STR) YEL Urine Clarity (CLEAR) CLEAR Urine pH (5.0 - 8.0) 6.0 Ur Specific [place] (1.001 - 1.035) 1.025 Urine Protein (NEG,<30 MG/DL) 100 H Urine Ketones (NEG) NEG Urine Nitrite (NEG) NEG Urine Bilirubin (NEG) NEG Urine Urobilinogen (0.1 - 1.0 EU/dl) 0.2 Ur Leukocyte Esterase (NEG) NEG Ur Microscopic SEDIMENT EXAMINED Urine RBC (0 - 5 /HPF) 3-5 Urine WBC (0 - 2 /HPF) 1-3 H Ur Epithelial Cells (NONE,FEW) OCCAS Urine Bacteria (NEG/NONE) MANY H Hyaline Casts (0/LPF) 5-10 H Granular Casts (NONE /LPF) 3-5 H Urine Mucus (FEW,NONE) FEW Urine Hemoglobin (NEG) SMALL H Urine Glucose (N MG/DL) NEG 04/07 04/07 1616 1559 Chemistry TSH Cancelled Free T4 Cancelled Serology RPR Titer/FTA Cancelled Imaging/Other Studies: CT brain MPRESSION: No acute intracranial hemorrhage. There are numerous nonspecific changes primarily involving the periventricular white matter that most likely represent a chronic manifestation of small vessel ischemia. Assessment/Plan Assessment: History of dementia, progressive, now with hypersomnolence Dementia may be secondary to Alzheimer disease. Hypersomnolence often reported in Lewy body disease Records indicate that recent Lyme titer was positive including the Western blot Recommendations: to decide if she wants to pursue with lumbar puncture looking for any evidence of [employer] Lyme disease; if patient remains on pradaxa that will likely have to be withdrawn about 48 hours prior to lumbar puncture. Would check time preference with cardiology Electroencephalogram for possible nonconvulsive seizure Further decisions from may include level of care Consult Acknowledgment - Thank you for your consult request.
[2017-04-08 15:20] VITALS: BP 134/72
[2017-04-08 22:48] VITALS: BP 128/74
[2017-04-09 07:16] VITALS: BP 140/74
--- NOTE | 2017-04-09 07:16 | PN- Housestaff ---
Subjective Follow-up For: Follow-up metabolic encephalopathy Complaints: no complaints Tele-Events Since Last Visit: Single pacing, heart rate between 60-88, no any overnight events Subjective: Patient is seen and examined at the bedside. He was much more awake and alert than yesterday. He was responding to all verbal commands. We did bedside swallow evaluation and he is able to swallow liquids. Review of Systems Constitutional: Denies: no symptoms. Objective Last 24 Hrs of Vital Signs/I&O Vital Signs Date Time Temp Pulse Resp B/P B/P Pulse O2 O2 Flow FiO2 Mean Ox Delivery Rate 04/09 1447 97.8 85 20 140/78 97 Room Air 04/09 1250 Room Air Room Air 04/09 1245 Room Air Room Air 04/09 1028 98.4 111 140/74 04/09 1028 98.4 111 20 140/74 04/09 0716 98.4 58 20 140/74 95 Room Air 04/08 2248 97.8 76 22 128/74 95 Room Air Intake & Output 04/09 1600 04/09 0800 04/09 0000 Intake Total 840 800 600 Output Total Balance 840 800 600 Intake, IV 600 800 600 Intake, Oral 240 0 0 Patient 68.039 kg Weight Physical Exam General Appearance: Alert, Cooperative, No Acute Distress Cardiovascular: Normal S1, Normal S2 Lungs: Clear to Auscultation, Normal Air Movement Abdomen: Soft, No Tenderness Neurological: he was alert but not oriented and was able to make complete sentences which are comprehensible Extremities: No Clubbing, No Cyanosis, No Edema Vascular: Normal Pulses, Pulses Symmetrical Current Medications: Current Medications Sig/Courtney Start time Last Medication Dose Route Stop Time Status Admin Amlodipine Besylate 5 MG DAILY 04/08 1000 AC 04/09 PO 1028 Atorvastatin Calcium 80 MG 04/08 1700 DC PO Dabigatran 75 MG BID 04/09 1149 AC 04/09 PO 1622 Dextrose/Sodium 1,000 ML Q13H 04/08 1100 AC 04/09 Chloride IV 1503 Insulin Aspart 0 TIDAC 04/08 0800 AC SC Metoprolol Succinate 125 MG DAILY 04/08 1000 AC 04/09 PO 1028 Patient Medication 1 ED .STK-MED ONE 04/09 1403 DC Teaching ED 04/09 1404 Pravastatin Sodium 40 MG 1700 04/09 1700 AC 04/09 PO 1622 Last 24 Hrs of Lab/Anselmo Results Last 24 Hrs of Labs/Mics: Laboratory Tests 04/09/17 0618: Anion Gap 10, Estimated GFR 34 L, BUN/Creatinine Ratio 20.5, Creatine Kinase 270 H, 25-OH Vitamin D Total 34.1, CBC w Diff NO MAN DIFF REQ, RBC 3.68 L, MCV 88.4, MCH 28.7, RDW 13.3, MPV 9.3, Gran % 69.3, Lymphocytes % 16.1 L, Monocytes % 11.3 H, Eosinophils % 2.8, Basophils % 0.5, Absolute Granulocytes 5.4, Absolute Lymphocytes 1.3, Absolute Monocytes 0.9 H, Absolute Eosinophils 0.2, Absolute Basophils 0, PUBS MCHC 32.5 L 04/08/172039: Lactic Acid Cancelled 04/08/172039: Anion Gap 9, Estimated GFR 32 L, BUN/Creatinine Ratio 23.0, Lactic Acid 0.8 Assessment/Plan Assessment: Patient is a 87-year-old male with significant past medical history of paroxysmal atrial fibrillation, dementia, CKG stage IV, hypertension, diabetes, biventricular pacemaker/AICD (nonischemic cardiomyopathy-left bundle branch block), History of CVA (MCA), recently admitted to [facility] for metabolic encephalopathy, BIBA from [facility] facility to [facility] with history of altered mental status. Plan - Hypernatremia, metabolic encephalopathy -probably secondary to dehydration. His serum sodium is now 144. * CT scan of the head does not show any infarction or hemorrhage. Chest x-ray showed no any signs of aspiration or infection. * We will continue D5 half normal saline at the rate of 75 mL per hour * strict intake output charting Positive Lyme titer and Silver bloat, IgG, for Lyme - * Discussed with Dr. Darden over the phone, he thinks it can be due to past infection. Because patient responded well to conservative management and his mental status has been improved, we deferred lumbar puncture. * We started patient on tab Pradaxa 75 milligrams BID Nonspecific elevation of troponins secondary to renal insufficiency - * Patient does not have any EKG changes Type 2 diabetes * We will continue D5 half normal saline at the rate of 75 mL per hour * NovoLog according to the sliding scale Diet-He passed swallow evaluation, advised for carbohydrate type 2, mechanical soft and regular, thin diet. DVT prophylaxis-ALP S/heparin, please stop the heparin on Wednesday Problem List: 1. Elevated troponin 2. Hypernatremia 3. Altered mental status Pain Ratin Pain Location: Not applicable Pain Goal: Remain pain free Pain Plan: Avoid NSAIDs Tomorrow's Labs & Rationales: BEP for follow-up with hypernatremia DVT/Prophylaxis: pharmacological
[2017-04-09 08:26] LABS: ABSOLUTE BASOPHIL COUNT 0 /CUMM (0.0-0.2); ABSOLUTE EOSINOPHIL COUNT 0.2 /CUMM (0.0-0.7); ABSOLUTE GRANULOCYTE CT 5.4 /CUMM (1.4-6.5); ABSOLUTE LYMPH COUNT 1.3 /CUMM (1.2-3.4); ABSOLUTE MONOCYTE COUNT 0.9 /CUMM (0.10-0.60); BASOPHIL % 0.5 % (0.0-2.0); EOSINOPHIL % 2.8 % (0-5); GRANULOCYTE % 69.3 % (42.2-75.2); HEMATOCRIT 32.5 % (42-52); MEAN CORPUSCULAR HGB 28.7 PG (27.0-31.0); MEAN CORPUSCULAR HGB CONC 32.5 G/DL (33.0-37.0); MEAN CORPUSCULAR VOLUME 88.4 FL (80.0-94.0); MEAN PLATELET VOLUME 9.3 FL (7.4-10.4); PLATELET COUNT 228 /CUMM (130-400); RBC DISTRIBUTION WIDTH 13.3 % (11.5-14.5); RED BLOOD CELL CT 3.68 /CUMM (4.70-6.10); WHITE BLOOD CELL COUNT 7.8 /CUMM (4.8-10.8)
--- NOTE | 2017-04-09 10:50 | PN- Infect Dx ---
Subjective Subjective: Afebrile without complaints Objective Last 24 Hrs of Vital Signs/I&O Vital Signs Date Time Temp Pulse Resp B/P B/P Pulse O2 O2 Flow FiO2 Mean Ox Delivery Rate 04/09 1028 98.4 111 140/74 04/09 1028 98.4 111 20 140/74 04/09 0716 98.4 58 20 140/74 95 Room Air 04/08 2248 97.8 76 22 128/74 95 Room Air 04/08 1520 97.1 74 20 134/72 97 Room Air Intake & Output 04/09 1600 04/09 0800 04/09 0000 Intake Total 800 600 Output Total Balance 800 600 Intake, IV 800 600 Intake, Oral 0 0 Physical Exam Other Physical Findings: He is awake and alert but appears confused with garbled speech Neck resistant to flexion Lungs are clear Heart regular rhythm with no murmur Neuro left-sided weakness Results Last 24 Hours of Lab Results: Laboratory Tests 04/09 04/08 04/08 0618 2039 2039 Chemistry Sodium (137 - 145 mmol/L) 144 143 Potassium (3.5 - 5.1 mmol/L) 4.1 4.2 Chloride (98 - 107 mmol/L) 114 H 115 H Carbon Dioxide (22 - 30 mmol/L) 20 L 19 L Anion Gap (5 - 16) 10 9 BUN (9 - 20 mg/dL) 39 H 46 H Creatinine (0.7 - 1.2 mg/dL) 1.9 H 2.0 H Estimated GFR (>60 ml/min) 34 L 32 L BUN/Creatinine Ratio (7 - 25 %) 20.5 23.0 Lactic Acid (0.7 - 2.1 mmol/L) Cancelled 0.8 25-OH Vitamin D Total (30 - 100 ng/ml) 34.1 Hematology CBC w Diff NO MAN DIFF REQ WBC (4.8 - 10.8 /CUMM) 7.8 RBC (4.70 - 6.10 /CUMM) 3.68 L Hgb (14.0 - 18.0 G/DL) 10.6 L Hct (42 - 52 %) 32.5 L MCV (80.0 - 94.0 FL) 88.4 MCH (27.0 - 31.0 PG) 28.7 RDW (11.5 - 14.5 %) 13.3 Plt Count (130 - 400 /CUMM) 228 MPV (7.4 - 10.4 FL) 9.3 Gran % (42.2 - 75.2 %) 69.3 Lymphocytes % (20.5 - 51.1 %) 16.1 L Monocytes % (1.7 - 9.3 %) 11.3 H Eosinophils % (0 - 5 %) 2.8 Basophils % (0.0 - 2.0 %) 0.5 Absolute Granulocytes (1.4 - 6.5 /CUMM) 5.4 Absolute Lymphocytes (1.2 - 3.4 /CUMM) 1.3 Absolute Monocytes (0.10 - 0.60 /CUMM) 0.9 H Absolute Eosinophils (0.0 - 0.7 /CUMM) 0.2 Absolute Basophils (0.0 - 0.2 /CUMM) 0 PUBS MCHC (33.0 - 37.0 G/DL) 32.5 L Last 24 Hours of Anselmo Results: Blood cultures 2 April 07 negative Urine culture April 07 negative Assessment/Plan Impression: Encephalopathy of unclear etiology and, at this point, he may be back to his baseline. The positive Lyme titer is of unclear significance and the likelihood of him having a Lyme encephalopathy or encephalomyelitis is quite low, particularly as his initial presentation 1 month ago was with an acute infarct; therefore feel that further evaluation for neuroborreliosis, for example with a lumbar puncture, could be deferred, particularly as this would require temporary discontinuation of the Pradaxa, which would put him at increased risk for another infarct. This has been discussed with Cardiology. Suggestion: 1. Would defer on lumbar puncture given the above concerns 2. Continue to follow off antibiotics
--- NOTE | 2017-04-09 11:23 | PN- Cardiology ---
See Addendum Subjective Subjective: Patient remains confused but appears comfortable. Family at bedside. Objective Vital Signs and I&Os Vital Signs Date Time Temp Pulse Resp B/P B/P Pulse O2 O2 Flow FiO2 Mean Ox Delivery Rate 04/09 1028 98.4 111 140/74 04/09 1028 98.4 111 20 140/74 04/09 0716 98.4 58 20 140/74 95 Room Air 04/08 2248 97.8 76 22 128/74 95 Room Air 04/08 1520 97.1 74 20 134/72 97 Room Air Intake & Output 04/09 1600 04/09 0800 04/09 0000 04/08 1600 04/08 0800 04/08 0000 Intake Total 800 600 600 225 500 Output Total 200 Balance 800 600 600 225 300 Intake, IV 800 600 600 225 500 Intake, Oral 0 0 0 Number 1 Bowel Movements Output, Urine 200 Patient 150 lb Weight Weight Estimated Measurement Method Physical Exam: General: No obvious distress, confused Eyes: No obvious scleral icterus. HEENT: No jugular venous distention or abnormal jugular venous pulsations. Cardiovascular: Normal intensity S1/S2. ICD noted. Respiratory: no rales or rhonchi Abdomen: no guarding Musculoskeletal: No clubbing or cyanosis noted, no edema Skin: warm Current Medications: Current Medications Sig/Courtney Start time Last Medication Dose Route Stop Time Status Admin Amlodipine Besylate 5 MG DAILY 04/08 1000 AC 04/09 PO 1028 Atorvastatin Calcium 80 MG 1700 04/08 1700 AC PO Dextrose/Sodium 1,000 ML Q13H 04/08 1100 AC 04/09 Chloride IV 0054 Insulin Aspart 0 TIDAC 04/08 0800 AC SC Metoprolol Succinate 125 MG DAILY 04/08 1000 AC 04/09 PO 1028 Results Last 48 Hrs of Labs/Mics: Laboratory Tests 04/09/17 0618: Anion Gap 10, Estimated GFR 34 L, BUN/Creatinine Ratio 20.5, 25-OH Vitamin D Total 34.1, CBC w Diff NO MAN DIFF REQ, RBC 3.68 L, MCV 88.4, MCH 28.7, RDW 13.3, MPV 9.3, Gran % 69.3, Lymphocytes % 16.1 L, Monocytes % 11.3 H, Eosinophils % 2.8, Basophils % 0.5, Absolute Granulocytes 5.4, Absolute Lymphocytes 1.3, Absolute Monocytes 0.9 H, Absolute Eosinophils 0.2, Absolute Basophils 0, PUBS MCHC 32.5 L 04/08/172039: Lactic Acid Cancelled 04/08/172039: Anion Gap 9, Estimated GFR 32 L, BUN/Creatinine Ratio 23.0, Lactic Acid 0.8 04/08/17 0420: Troponin I 0.11 *H 04/08/17419: Anion Gap 10, Estimated GFR 30 L, BUN/Creatinine Ratio 24.8, CBC w Diff NO MAN DIFF REQ, RBC 3.59 L, MCV 88.3, MCH 28.8, RDW 13.3, MPV 8.8, Gran % 61.9, Lymphocytes % 22.4, Monocytes % 12.4 H, Eosinophils % 2.9, Basophils % 0.4, Absolute Granulocytes 4.0, Absolute Lymphocytes 1.4, Absolute Monocytes 0.8 H, Absolute Eosinophils 0.2, Absolute Basophils 0, PUBS MCHC 32.6 L 04/07/172219: Troponin I 0.11 *H 04/07/172109: pH 7.44, pCO2 29 L, pO2 81, HCO3 19.1 L, ABG O2 Sat (Measured) 96.0, Carboxyhemoglobin 0.3 L, O2 Concentration % RA, O2 Delivery Method RA, Phlebotomy Draw Site LEFT RADIAL 04/07/17 2100: Ammonia < 9 L 04/07/17 1906: Lactic Acid 1.2 04/07/17 1818: Urinalysis LIGHT H, Urine Color YEL, Urine Clarity CLEAR, Urine pH 6.0, Ur Specific [place] 1.025, Urine Protein 100 H, Urine Ketones NEG, Urine Nitrite NEG, Urine Bilirubin NEG, Urine Urobilinogen 0.2, Ur Leukocyte Esterase NEG, Ur Microscopic SEDIMENT EXAMINED, Urine RBC 3-5, Urine WBC 1-3 H, Ur Epithelial Cells OCCAS, Urine Bacteria MANY H, Hyaline Casts 5-10 H, Granular Casts 3-5 H, Urine Mucus FEW, Urine Hemoglobin SMALL H, Urine Glucose NEG 04/07/17 1634: Anion Gap 11, Estimated GFR 25 L, BUN/Creatinine Ratio 24.0, Glucose 162 H, Lactic Acid 1.8, Calcium 9.4, Total Bilirubin 0.4, AST 26, ALT 53, Alkaline Phosphatase 57, Troponin I 0.12 *H, Total Protein 7.3, Albumin 3.4 L, Globulin 3.9, Albumin/Globulin Ratio 0.9 L, TSH 2.530, Free T4 1.22, PT 14.2 H, INR 1.36 H, APTT 46 H, CBC w Diff NO MAN DIFF REQ, RBC 3.84 L, MCV 88.7, MCH 28.8 , RDW 13.6, MPV 8.7, Gran % 68.2, Lymphocytes % 16.6 L, Monocytes % 12.5 H, Eosinophils % 2.3, Basophils % 0.4, Absolute Granulocytes 5.1, Absolute Lymphocytes 1.2, Absolute Monocytes 0.9 H, Absolute Eosinophils 0.2, Absolute Basophils 0, PUBS MCHC 32.4 L, RPR Titer/FTA NONREACTIVE 04/07/17 1616: RPR Titer/FTA Cancelled 04/07/17 1559: TSH Cancelled, Free T4 Cancelled Recent Imaging Studies: Telemetry tracings were personally reviewed and showed a paced rhythm, ventricular triplet noted Assessment/Plan Assessment/Plan 1. Altered mental status with dementia and a recent CVA 2. History of paroxysmal atrial fibrillation recently initiated on oral anticoagulation 3. 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 Biventricular AICD followed by Dr. Arredondo currently at [facility] 5. CKD 6. Hypertension/hyperlipidemia 7. Nonspecific minimal troponin elevation Case discussed extensively with ID and the patient's family. The patient would be at significant risk of recurrent CVA with holding anticoagulation in the setting of his atrial fibrillation and recent CVA. As the diagnosis of Lyme encephalopathy is low on the differential the risks of holding anticoagulation for spinal tap likely outweigh the benefits at this time. Recommend resuming the anticoagulation. Follow-up EEG/neurology recommendations. The patient is planned for elective generator change with Dr. Arredondo the future. Norbert Latham MD [facility] Continue telemetry? No
--- NOTE | 2017-04-09 11:29 | PN- Att Addend ---
Attending MD Review Statement Attending Statement Attending MD Statement: examined this patient, discuss w/resident/PA/ELECTRIC BLANKET PACKER, agreed w/resident/PA/ELECTRIC BLANKET PACKER, reviewed EMR data (avail), discussed w/nursing, discussed w/ case mgmt Attending Assessment/Plan: Laboratory Tests 04/09/17 0618: Anion Gap 10, Estimated GFR 34 L, BUN/Creatinine Ratio 20.5, 25-OH Vitamin D Total 34.1, CBC w Diff NO MAN DIFF REQ, RBC 3.68 L, MCV 88.4, MCH 28.7, RDW 13.3, MPV 9.3, Gran % 69.3, Lymphocytes % 16.1 L, Monocytes % 11.3 H, Eosinophils % 2.8, Basophils % 0.5, Absolute Granulocytes 5.4, Absolute Lymphocytes 1.3, Absolute Monocytes 0.9 H, Absolute Eosinophils 0.2, Absolute Basophils 0, PUBS MCHC 32.5 L 04/08/172039: Lactic Acid Cancelled 04/08/172039: Anion Gap 9, Estimated GFR 32 L, BUN/Creatinine Ratio 23.0, Lactic Acid 0.8 Vital Signs Date Time Temp Pulse Resp B/P B/P Pulse O2 O2 Flow FiO2 Mean Ox Delivery Rate 04/09 1028 98.4 111 140/74 04/09 1028 98.4 111 20 140/74 04/09 0716 98.4 58 20 140/74 95 Room Air 04/08 2248 97.8 76 22 128/74 95 Room Air 04/08 1520 97.1 74 20 134/72 97 Room Air 87 yr old male from [facility] on pradaxa, ckd -4, dementia, htn, DM, PPM/ AICD, CVA with last discharge on 03/30(metabolic encephalopahty) admitted with AMS secondary to encephalopathy . Pt having poor intakes last few days and found to have hypernatremia of [address] head negative for ICH. LYME western blot positive for IgG. RPR negative. D/w ID - no need to treat for lyme. Cont to watch off abx. mental status little better . Metabolic encephalopathy- improving slightly. Will f/u on vit D level. Previous b12 has always been high-unclear etiology. Will ask pts family if he was getting b12 supplements. Hypernatremia- pt sodium is better at 144. cont to monitor closely. On iv fluids. Dvt proph- was holding pradaxa due to possibility of Lumbar puncture. Will restart pradaxa today on 04/09 as pt not going to have LP.
[2017-04-09 14:47] VITALS: BP 140/78
--- NOTE | 2017-04-09 17:27 | Patient Discharge Instructions ---
Discharge Instructions General Discharge Information You were seen/treated for: Altered mental status, probably secondary to dehydration Special Instructions: Please follow-up with your PCP within a week of discharge Please f/u with AXLE INSPECTOR (referral provided) within 1 week of discharge. Please follow-up with your neurologist Please follow-up with your industrial property appraiser. You need to fix an appointment for elective generator change with Dr. Arredondo in the future Please take the medication as advised Diet Continue normal diet: No Recommended Diet: Diabetic, Heart Healthy Activity Full Activity/No Limits: No (as tolerated) Acute Coronary Syndrome Inclusion Criteria At DC or during hospital stay patient has or had the following: ACS DIAGNOSIS No Discharge Core Measures Meds if any: Prescribed or Continued at Discharge Meds if any: NOT Prescribed or Continued at Discharge Congestive Heart Failure Inclusion Criteria At DC or during hospital stay patient has or had the following: CHF DIAGNOSIS No Discharge Core Measures Meds if any: Prescribed or Continued at Discharge Meds if any: NOT Prescribed or Continued at Discharge Cerebrovascular accident Inclusion Criteria At DC or during hospital stay patient has or had the following: CVA/TIA Diagnosis No Discharge Core Measures Meds if any: Prescribed or Continued at Discharge Meds if any: NOT Prescribed or Continued at Discharge Venous thromboembolism Inclusion Criteria VTE Diagnosis No VTE Type NONE VTE Confirmed by (Test) NONE Discharge Core Measures - Per Current guidelines, there needs to be overlap - treatment for the first 5 days of Warfarin therapy. - If discharged on Warfarin prior to 5 days of - overlap therapy, the patient will need to be - assessed for post discharge needs including - *Post discharge parental anticoagulation - *Warfarin and/or parental anticoagulation education - *Follow up date to check INR post discharge At least 5 days overlap therapy as Inpatient No Meds if any: Prescribed or Continued at Discharge Note: Overlap Therapy is Warfarin and Anticoagulant Meds if any: NOT Prescribed or Continued at Discharge
[2017-04-09 22:53] VITALS: BP 130/58
[2017-04-10 06:52] VITALS: BP 128/76
--- NOTE | 2017-04-10 13:59 | PN- Housestaff ---
ROMY PATTERSON,RAJ 04/10/17 1327: Subjective Follow-up For: -AMS DUE TO METABOLIC ENCEPHALOPATHY -CAD -DM Complaints: no complaints Tele-Events Since Last Visit: 60-75 nsr WITH 3 BEATS OF VTACH AT 5:45 AM. SINGLE PACING. Subjective: PATIENT WAS SEEN AN EXAMINED BEDSIDE. NO OVERNIGHT COMPLAINTS. IS AWAKE AND ALERT. Review of Systems Constitutional: Denies: no symptoms, chills, diaphoresis, fever, malaise, weakness. EENTM: Denies: no symptoms. Cardiovascular: Denies: no symptoms. Respiratory: Denies: no symptoms. Gastrointestinal: Denies: no symptoms, abdominal pain, constipation, diarrhea, nausea, vomiting. Genitourinary: Denies: no symptoms. Musculoskeletal: Denies: no symptoms. Skin: Denies: no symptoms. Neurological/Psychological: Denies: no symptoms. Hematologic/Endocrine: Denies: no symptoms. Immunologic/Allergic: Denies: no symptoms. Objective Last 24 Hrs of Vital Signs/I&O Vital Signs Date Time Temp Pulse Resp B/P B/P Pulse O2 O2 Flow FiO2 Mean Ox Delivery Rate 04/10 0835 67 128/76 04/10 0835 67 128/76 04/10 0652 99.2 67 22 128/76 98 Room Air 04/09 2253 98.6 81 22 130/58 95 Room Air 04/09 1904 100.1 04/09 1447 97.8 85 20 140/78 97 Room Air Intake & Output 04/10 1600 04/10 0800 07 0000 Intake Total 650 1550 Output Total Balance 650 1550 Intake, IV 600 900 Intake, Oral 50 650 Number 1 0 Bowel Movements Physical Exam General Appearance: Alert, Cooperative, No Acute Distress Skin: No Rashes Skin Temp/Moisture Exam: Warm/Dry Sepsis Skin Exam (color): Normal for Ethnicity HEENT: Atraumatic Neck: Supple Cardiovascular: Regular Rate, Normal S1, Normal S2, No Murmurs, Gallops, Rubs Lungs: Clear to Auscultation, Normal Air Movement Abdomen: Normal Bowel Sounds, Soft, No Tenderness Extremities: No Clubbing, No Cyanosis, No Edema, Normal Pulses, No Tenderness/ Swelling Vascular: Normal Pulses Sepsis Peripheral Pulse Location: Radial Current Medications: Current Medications Sig/Courtney Start time Last Medication Dose Route Stop Time Status Admin Amlodipine Besylate 5 MG DAILY 04/08 1000 AC 04/10 PO 0835 Dabigatran 75 MG 0600,1800 04/10 0600 AC 04/10 PO 0615 Dabigatran 75 MG BID 04/09 1149 DC 04/09 PO 1622 Dextrose/Sodium 1,000 ML Q13H 04/08 1100 AC 04/10 Chloride IV 0342 Insulin Aspart 0 TIDAC 04/08 0800 AC 04/10 SC 1210 Metoprolol Succinate 125 MG DAILY 04/08 1000 AC 04/10 PO 0835 Pravastatin Sodium 40 MG 1700 04/09 1700 AC 04/09 PO 1622 Rivastigmine 4.6 MG DAILY 04/10 1015 AC 04/10 TOP 1125 Last 24 Hrs of Lab/Anselmo Results Last 24 Hrs of Labs/Mics: Laboratory Tests 04/10/17 0610: Anion Gap 9, Estimated GFR 34 L, BUN/Creatinine Ratio 18.9 Assessment/Plan Assessment: Patient is a 87-year-old man with a PMH significant paroxysmal atrial fibrillation, dementia, CKG stage IV, hypertension, diabetes, biventricular pacemaker/AICD (nonischemic cardiomyopathy-left bundle branch block), History of CVA ([facility]), recently admitted to [facility] for metabolic encephalopathy, this time BIBA from [facility] to [facility] with AMS. -AMS 2/2 METABOLIC ENCEPHALOPATHY -troponin elevation due to questionable ACS vs renal insuffiency -parkinsonism -positive lyme titers -paroxysmal afib on pradaxa -type 2 dm Plan - Hypernatremia, metabolic encephalopathy -probably secondary to dehydration. His serum sodium was 147 now is 140. * CT scan of the head does not show any infarction or hemorrhage. Chest x-ray showed no any signs of aspiration or infection. * We will continue D5 half normal saline at the rate of 75 mL per hour * strict intake output charting * no LP for AMS as per ID since mentation has gotten better. * continue fluids, off antibiotics * patient has been admitted for similar complaints before. Family does not want him discharged yet. Nonspecific elevation of troponins secondary to renal insufficiency - * Patient does not have any EKG changes Parkinsonism * restarted rivastigmine patch Positive Lyme titer and Silver bloat, IgG, for Lyme * positive igG= old infection * Discussed with Dr. Darden over the phone, he thinks it can be due to past infection. Because patient responded well to conservative management and we do not want a pause in his pradaxa, and his mental status has since improved, we deferred lumbar puncture. Paroxysmal afib and history CVA: * continue pradaxa Type 2 diabetes * We will continue D5 half normal saline at the rate of 75 mL per hour * NovoLog according to the sliding scale Diet-He passed swallow evaluation, advised for carbohydrate type 2, mechanical soft and regular, thin diet. DVT prophylaxis-ALP S/heparin CODE STATUS FULL Problem List: 1. Metabolic encephalopathy Pain Ratin Pain Location: NA Pain Goal: Remain pain free Pain Plan: NA Tomorrow's Labs & Rationales: NA
--- NOTE | 2017-04-10 14:33 | PN- Att Addend ---
Attending MD Review Statement Attending Statement Attending MD Statement: examined this patient, discuss w/resident/PA/AIRCRAFT MOTOR MECHANIC, agreed w/resident/PA/AIRCRAFT MOTOR MECHANIC, reviewed EMR data (avail), discussed w/nursing Attending Assessment/Plan: Laboratory Tests 04/10/17 0610: Anion Gap 9, Estimated GFR 34 L, BUN/Creatinine Ratio 18.9 Vital Signs Date Time Temp Pulse Resp B/P B/P Pulse O2 O2 Flow FiO2 Mean Ox Delivery Rate 04/10 0835 67 128/76 04/10 0835 67 128/76 04/10 0652 99.2 67 22 128/76 98 Room Air 04/09 2253 98.6 81 22 130/58 95 Room Air 04/09 1904 100.1 04/09 1447 97.8 85 20 140/78 97 Room Air 87 yr old male from [facility], afib on pradaxa, ckd -4, dementia, parkinson ds, htn, DM, PPM/AICD, CVA with last discharge on 03/30(metabolic encephalopahty) admitted with AMS secondary to encephalopathy . Pt having poor intakes last few days and found to have hypernatremia of [address] head negative for ICH. LYME western blot positive for IgG. RPR negative. D/w ID - no need to treat for lyme. Cont to watch off abx. mental status little better . Metabolic encephalopathy- improving slightly. vit D level- normal. Previous b12 has always been high-unclear etiology. Hypernatremia- pt sodium is better at 140. cont to monitor closely. On iv fluids. Dvt proph- on pradaxa. Afib- on pradaxa. dc tele as no events on tele monitor. parkinsons- restarted on rivastigmine lower dose today on 04/10, will go up as tolerated. introduced hospice to pts family , they are going to think about it.
[2017-04-10 15:30] VITALS: BP 120/82
[2017-04-10 21:43] VITALS: BP 152/64
[2017-04-11 06:00] VITALS: BP 140/76
--- NOTE | 2017-04-11 10:11 | PN- Housestaff ---
Subjective Follow-up For: -AMS due to metabolic encephalopathy -CAD -DM -Parkinsonism Complaints: no complaints Tele-Events Since Last Visit: Off tele as of yesterday. Stable. Subjective: Patient was seen and examined bedside. No events overnight/complaints although patient's baseline dementia makes it slightly difficult to verbalize complaints. Patient had a mild fever yesterday 100.1 rectally, 100.6 orally at 19:00. Temperature has since decreased to 98.9. Review of Systems Constitutional: Reports: no symptoms. Cardiovascular: Reports: edema (edema of right hand). Denies: palpitations. Respiratory: Denies: cough, short of breath. Gastrointestinal: Denies: constipation, diarrhea, nausea, vomiting. Objective Last 24 Hrs of Vital Signs/I&O Vital Signs Date Time Temp Pulse Resp B/P B/P Pulse O2 O2 Flow FiO2 Mean Ox Delivery Rate 04/11 0839 70 140/76 04/11 0839 70 140/76 04/11 0600 98.9 70 20 140/76 96 Room Air 04/10 2143 99.1 66 22 152/64 96 Room Air 04/10 1530 98.9 71 20 120/82 95 Room Air Intake & Output 04/11 1600 / 0800 04/11 0000 Intake Total 720 840 Output Total 300 Balance 720 540 Intake, IV 600 600 Intake, Oral 120 240 Number 1 Bowel Movements Output, Urine 300 Physical Exam General Appearance: Alert, No Acute Distress Skin: No Rashes, No Breakdown, No Significant Lesion Skin Temp/Moisture Exam: Warm/Dry Sepsis Skin Exam (color): Normal for Ethnicity HEENT: Atraumatic, Mucous Membr. moist/pink Neck: Supple, No JVD Cardiovascular: Regular Rate, Normal S1, Normal S2, No Murmurs, Gallops, Rubs Lungs: Normal Air Movement Abdomen: Normal Bowel Sounds, Soft, No Tenderness Neurological: patient was alert but unable to communicate 100% clearly Extremities: non pitting edema from right forearm to hand Vascular: Normal Pulses, Pulses Symmetrical Sepsis Peripheral Pulse Location: Dorsalis Pedis Sepsis Peripheral Pulse Exam: Normal Current Medications: Current Medications Sig/Courtney Start time Last Medication Dose Route Stop Time Status Admin Amlodipine Besylate 5 MG DAILY 04/08 1000 AC 04/11 PO 0839 Dabigatran 75 MG 0600,1800 04/10 0600 AC 04/11 PO 0525 Dextrose/Sodium 1,000 ML Q13H 04/08 1100 AC 04/11 Chloride IV 0525 Insulin Aspart 0 TIDAC 04/08 0800 AC 04/11 SC 0832 Metoprolol Succinate 125 MG DAILY 04/08 1000 AC 04/11 PO 0839 Pravastatin Sodium 40 MG 1700 04/09 1700 AC 04/10 PO 1708 Rivastigmine 4.6 MG DAILY 04/10 1015 AC 04/11 TOP 0858 Last 24 Hrs of Lab/Anselmo Results Last 24 Hrs of Labs/Mics: Laboratory Tests 04/11/17 0706: Anion Gap 7, Estimated GFR 34 L, BUN/Creatinine Ratio 15.8 04/10/17 1800: Urinalysis LIGHT H, Urine Color YEL, Urine Clarity CLEAR, Urine pH 6.0, Ur Specific [place] 1.025, Urine Protein 100 H, Urine Ketones NEG, Urine Nitrite NEG, Urine Bilirubin NEG, Urine Urobilinogen 0.2, Ur Leukocyte Esterase NEG, Ur Microscopic SEDIMENT EXAMINED, Urine RBC 3-5, Urine WBC 1-3 H, Ur Epithelial Cells RARE, Hyaline Casts RARE H, Granular Casts RARE H, Urine Mucus RARE, Urine Hemoglobin SMALL H, Urine Glucose 100 H Microbiology 04/10 1808 BLOOD: Blood Culture - RECD 04/10 1555 BLOOD: Blood Culture - RECD Orders Radiology Findings: from 04/08/17: CT HEAD IMPRESSION: No acute intracranial hemorrhage. There are numerous nonspecific changes primarily involving the periventricular white matter that most likely represent a chronic manifestation of small vessel ischemia. Assessment/Plan Assessment: Patient is a 87-year-old man with a PMH significant paroxysmal atrial fibrillation, dementia, CKD stage IV, hypertension, diabetes, biventricular pacemaker/AICD (nonischemic cardiomyopathy-left bundle branch block), History of CVA ([facility]), recently admitted to [facility] for metabolic encephalopathy 2 in the last 1 month, this time BIBA from [facility] to [facility] with AMS. -temperature 100.6 on 04/10 -AMS 2/2 METABOLIC ENCEPHALOPATHY -troponin elevation due to questionable ACS vs renal insuffiency -parkinsonism -positive lyme titers -paroxysmal afib on pradaxa -type 2 dm -care measures Plan - Temperature: By mouth 100.6, rectally 100.1. Infectious source? * UA, UCx taken 04/10. UA wnl, no signs of infection except for protein 100. UCx pending. * BCx pending * CXR deferred, no symptoms or signs infection * Do CBC Hypernatremia, metabolic encephalopathy -probably secondary to dehydration. His serum sodium was 147 now is 139 * CT scan of the head does not show any infarction or hemorrhage. Chest x-ray showed no signs of aspiration or infection. * We will continue D5 half normal saline at the rate of 75 mL per hour * strict intake output charting * no LP for AMS as per ID since mentation has gotten better. * continue fluids, off antibiotics (was given 1g ceftriaxone in ED) * patient has been admitted for similar complaints before. Family does not want him discharged yet. Nonspecific elevation of troponins secondary to renal insufficiency - * Patient does not have any EKG changes, chest pain, or any other signs or symptoms of ACS Parkinsonism * restarted rivastigmine patch at a lower dose 4.6 mg patch, will increase as tolerated. Positive Lyme titer and Western Blot, IgG, for Lyme, RPR negative - * positive igG= old infection * Discussed with Dr. Darden over the phone, he thinks it can be due to past infection. Because patient responded well to conservative management and we do not want a pause in his pradaxa, and his mental status has since improved, we deferred lumbar puncture. Paroxysmal afib and history CVA: * continue pradaxa 75 mg bid Type 2 diabetes * We will continue D5 half normal saline at the rate of 75 mL per hour * NovoLog according to the sliding scale Code Status: * As patient has presented with similar issues in the past, hospice introduced to family, they will consider Diet-He passed swallow evaluation, advised for carbohydrate type 2, mechanical soft and regular, thin diet. DVT prophylaxis-ALP S/heparin CODE STATUS FULL Problem List: 1. Elevated troponin 2. Altered mental status 3. Metabolic encephalopathy 4. Progressive dementia with uncertain etiology Pain Ratin Pain Location: NA Pain Goal: Remain pain free Pain Plan: NA Tomorrow's Labs & Rationales: Follow temps and blood and urine cultures, BEP, CBC, I/O's DVT/Prophylaxis: mechanical, pharmacological Patient's Concerns: Family concerned about further care
--- NOTE | 2017-04-11 11:41 | PN- Att Addend ---
Attending MD Review Statement Attending Statement Attending MD Statement: examined this patient, discuss w/resident/PA/HEALTH CLINICIAN, agreed w/resident/PA/HEALTH CLINICIAN, reviewed EMR data (avail), discussed w/nursing Attending Assessment/Plan: Laboratory Tests 04/11/17 1115: CBC w Diff Pending, WBC Pending, RBC Pending, Hgb Pending, Hct Pending, MCV Pending, MCH Pending, RDW Pending, Plt Count Pending, MPV Pending, PUBS MCHC Pending 04/11/17 0706: Anion Gap 7, Estimated GFR 34 L, BUN/Creatinine Ratio 15.8 04/10/17 1800: Urinalysis LIGHT H, Urine Color YEL, Urine Clarity CLEAR, Urine pH 6.0, Ur Specific [place] 1.025, Urine Protein 100 H, Urine Ketones NEG, Urine Nitrite NEG, Urine Bilirubin NEG, Urine Urobilinogen 0.2, Ur Leukocyte Esterase NEG, Ur Microscopic SEDIMENT EXAMINED, Urine RBC 3-5, Urine WBC 1-3 H, Ur Epithelial Cells RARE, Hyaline Casts RARE H, Granular Casts RARE H, Urine Mucus RARE, Urine Hemoglobin SMALL H, Urine Glucose 100 H Vital Signs Date Time Temp Pulse Resp B/P B/P Pulse O2 O2 Flow FiO2 Mean Ox Delivery Rate 04/11 0839 70 140/76 07/ 0839 70 140/76 04/11 0600 98.9 70 20 140/76 96 Room Air / 2143 99.1 66 22 152/64 96 Room Air 04/10 1530 98.9 71 20 120/82 95 Room Air 87 [address] [facility] male from [facility] on pradaxa, ckd -4, dementia, parkinson ds, htn, DM, PPM/AICD, CVA with last discharge on 03/30(metabolic encephalopahty) admitted with AMS secondary to encephalopathy . Pt having poor intakes last few days and found to have hypernatremia of [address] head negative for ICH. LYME western blot positive for IgG. RPR negative. D/w ID - no need to treat for lyme. Cont to watch off abx. mental status little better . Metabolic encephalopathy- improving slightly. vit D level- normal. Previous b12 has always been high-unclear etiology. Had low grade fever yesterday. Blood cultures sent - will f/u on that. Hypernatremia- pt sodium is better at 139. cont to monitor closely. On iv fluids. Dvt proph- on pradaxa. Afib- on pradaxa. dc tele as no events on tele monitor. parkinsons- restarted on rivastigmine lower dose today on 04/10, will go up on the prior home dose tomorrow on 04/12. introduced hospice to pts family , they are going to think about it.
[2017-04-11 11:43] LABS: ABSOLUTE BASOPHIL COUNT 0 /CUMM (0.0-0.2); ABSOLUTE EOSINOPHIL COUNT 0.2 /CUMM (0.0-0.7); ABSOLUTE GRANULOCYTE CT 6.2 /CUMM (1.4-6.5); ABSOLUTE LYMPH COUNT 1.3 /CUMM (1.2-3.4); ABSOLUTE MONOCYTE COUNT 1.2 /CUMM (0.10-0.60); BASOPHIL % 0.2 % (0.0-2.0); EOSINOPHIL % 1.8 % (0-5); GRANULOCYTE % 69.9 % (42.2-75.2); MEAN CORPUSCULAR HGB 28.6 PG (27.0-31.0); MEAN CORPUSCULAR VOLUME 86.9 FL (80.0-94.0); MEAN PLATELET VOLUME 8.7 FL (7.4-10.4); PLATELET COUNT 185 /CUMM (130-400); RBC DISTRIBUTION WIDTH 13.4 % (11.5-14.5); RED BLOOD CELL CT 3.13 /CUMM (4.70-6.10); WHITE BLOOD CELL COUNT 8.9 /CUMM (4.8-10.8)
[2017-04-11 12:07] LABS: HEMATOCRIT 27.2 % (42-52)
[2017-04-11] MEDS ORDERED: EXELON1 EACH TOP (12:44)
--- NOTE | 2017-04-11 14:00 | RADIOLOGY REPORT ---
EXAMINATION: PORTABLE CHEST 1 VIEW CLINICAL INFORMATION: Low-grade fever. COMPARISON: 04/07/2017. TECHNIQUE: Portable frontal view of the chest was obtained. FINDINGS: Lungs are hypoexpanded with basilar markings more suggestive of atelectasis. I cannot exclude a tiny layering left effusion, similar to the prior study. Mild central vascular prominence but no overt edema or pneumothorax. Biventricular pacemaker/AICD is noted with lead tips overlying the right atrium, right ventricle, and coronary sinus. IMPRESSION: Hypoexpanded with probable tiny left-sided effusion and associated left basilar consolidation/atelectasis, similar to the prior study
[2017-04-11 15:08] VITALS: BP 132/64
[2017-04-11 23:06] VITALS: BP 144/80
[2017-04-12 07:20] VITALS: BP 154/78
--- NOTE | 2017-04-12 08:27 | PN- Housestaff ---
RAJ STANTON MD 04/12/17 0753: Subjective Follow-up For: AMS due to metabolic encephalopathy CAD DM Parkinsonism (possible LBD) Complaints: no complaints Tele-Events Since Last Visit: Off tele monitoring as of 04/12. Stable. Subjective: Patient was seen and examined at the bedside. No events overnight and no complaints although patient is not AAOx3 and does not answer questions appropriately if at all. Review of Systems Constitutional: Reports: no symptoms (verbalization difficult). EENTM: Reports: no symptoms. Cardiovascular: Reports: no symptoms. Respiratory: Reports: no symptoms. Gastrointestinal: Reports: no symptoms. Genitourinary: Reports: no symptoms. Musculoskeletal: Reports: no symptoms. Skin: Reports: no symptoms. Neurological/Psychological: Reports: no symptoms. Hematologic/Endocrine: Reports: no symptoms. Immunologic/Allergic: Reports: no symptoms. Comments: Patient's baseline dementia makes it difficult to verbalize complaints, difficult to assess understanding. Objective Last 24 Hrs of Vital Signs/I&O Vital Signs Date Time Temp Pulse Resp B/P B/P Pulse O2 O2 Flow FiO2 Mean Ox Delivery Rate 04/12 0720 98.5 70 18 154/78 97 Room Air 04/12 0000 96 Room Air 04/11 2306 97.5 68 16 144/80 96 Room Air 04/11 1508 99.4 68 20 132/64 96 Room Air 04/11 1441 99.4 / 1342 100.3 / 0839 70 140/76 04/11 0839 70 140/76 Intake & Output 04/12 1600 / 0800 04/12 0000 Intake Total 60 650 Output Total 600 Balance -540 650 Intake, IV 600 Intake, Oral 60 50 Number 0 Bowel Movements Output, Urine 600 Physical Exam General Appearance: Cooperative, No Acute Distress Skin: No Rashes, No Breakdown, No Significant Lesion Skin Temp/Moisture Exam: Warm/Dry Sepsis Skin Exam (color): Normal for Ethnicity HEENT: Atraumatic, EOMI, Mucous Membr. moist/pink Neck: Supple, No JVD, No thryomegaly Cardiovascular: Regular Rate, Normal S1, Normal S2, No Murmurs, Gallops, Rubs Lungs: Clear to Auscultation, Normal Air Movement Abdomen: Normal Bowel Sounds, Soft, No Tenderness Neurological: strength at 2/5 for both hands. Extremities: No Cyanosis, Normal Pulses, right forearm and hand edema- IV changed yesterday (04/11), no pain in the area. Vascular: Normal Pulses, Pulses Symmetrical Sepsis Peripheral Pulse Location: Dorsalis Pedis Sepsis Peripheral Pulse Exam: Normal Current Medications: Current Medications Sig/Courtney Start time Last Medication Dose Route Stop Time Status Admin Acetaminophen 650 MG Q6-PRN PRN 04/11 1345 AC 04/11 PO 1342 Acetaminophen 500 MG Q6P PRN 04/11 1330 DC PO Amlodipine Besylate 5 MG DAILY 04/08 1000 AC 04/11 PO 0839 Dabigatran 75 MG 0600,1800 04/10 0600 AC 04/12 PO 0608 Dextrose/Sodium 1,000 ML Q13H 04/08 1100 AC 04/12 Chloride IV 0608 Insulin Aspart 0 TIDAC 04/08 0800 AC 04/12 SC 0749 Metoprolol Succinate 125 MG DAILY 04/08 1000 AC 04/11 PO 0839 Pravastatin Sodium 40 MG 1700 04/09 1700 AC 04/11 PO 1621 Rivastigmine 4.6 MG DAILY 04/10 1015 AC 04/11 TOP 0858 Last 24 Hrs of Lab/Anselmo Results Last 24 Hrs of Labs/Mics: Laboratory Tests 04/11/17 1115: CBC w Diff NO MAN DIFF REQ, RBC 3.13 L, MCV 86.9, MCH 28.6, RDW 13.4, MPV 8.7, Gran % 69.9, Lymphocytes % 14.8 L, Monocytes % 13.3 H, Eosinophils % 1.8, Basophils % 0.2, Absolute Granulocytes 6.2, Absolute Lymphocytes 1.3, Absolute Monocytes 1.2 H, Absolute Eosinophils 0.2, Absolute Basophils 0, PUBS MCHC 33.0 Orders Radiology Findings: from 04/08/17: CT HEAD IMPRESSION: No acute intracranial hemorrhage. There are numerous nonspecific changes primarily involving the periventricular white matter that most likely represent a chronic manifestation of small vessel ischemia Lines/Diet/Fluids Fluids/Infusions: d5 1/2 NS Q13H IV Catheters/Tubes: none Lines: peripheral lines Assessment/Plan Assessment: Patient is a 87-year-old man with a PMH significant paroxysmal atrial fibrillation, dementia, CKD stage IV, hypertension, diabetes, biventricular pacemaker/AICD (nonischemic cardiomyopathy-left bundle branch block), History of CVA (MCA), recently admitted to [facility] for metabolic encephalopathy 2 in the last 1 month, this time [facility] from [place] facility to [facility] with AMS. -temperature 100.6 on 04/10 -low H&H (11.0 on admission 04/07, now 8.9) -AMS 2/2 METABOLIC ENCEPHALOPATHY -troponin elevation due to questionable ACS vs renal insuffiency -parkinsonism -positive lyme titers -paroxysmal afib on pradaxa -type 2 dm -care measures Plan - Temperature: By mouth 100.6, rectally 100.1. Infectious source? * UA, UCx taken 04/10. UA wnl, no signs of infection except for protein 100. UCx pending, no growth after 2 days. * BCx pending, no growth after 2 days * CXR deferred, no symptoms or signs infection * CBC shows no signs of active infection (WBC stable at 8.9) Low H/H: blood loss vs dilutional? * guaic stool for potential GI bleed. * Maintain above 8.0 and assess for signs and symptoms of anemia (weakness, lightheadedness, increased HR/palpitations, pallor, shortness of breath). Hypernatremia, metabolic encephalopathy -probably secondary to dehydration. His serum sodium was 147 now is 139 * CT scan of the head does not show any infarction or hemorrhage. Chest x-ray showed no signs of aspiration or infection. * We will continue D5 half normal saline at the rate of 75 mL per hour * strict intake output charting * no LP for AMS as per ID since mentation has gotten better. * continue fluids, off antibiotics (was given 1g ceftriaxone in ED) * patient has been admitted for similar reasons before - currently question of hospice care. Nonspecific elevation of troponins secondary to renal insufficiency - * Patient does not have any EKG changes, chest pain, or any other signs or symptoms of ACS, currently off tele monitoring. Parkinsonism * restarted rivastigmine patch at a lower dose 4.6 mg patch. Positive Lyme titer and Western Blot, IgG, for Lyme, RPR negative - * positive igG= old infection * Discussed with Dr. Darden over the phone, he thinks it can be due to past infection. Because patient responded well to conservative management and we do not want a pause in his pradaxa, and his mental status has since improved, we deferred lumbar puncture. Paroxysmal afib and history CVA: * continue pradaxa 75 mg bid Type 2 diabetes * We will continue D5 half normal saline at the rate of 75 mL per hour * NovoLog according to the sliding scale Code Status: * As patient has presented with similar issues in the past, hospice introduced to family, they will consider Diet-Carbohydrate type 2, mechanical soft and regular, thin diet. DVT prophylaxis-ALPS/heparin CODE STATUS FULL Problem List: 1. Altered mental status 2. Metabolic encephalopathy 3. Elevated troponin 4. Progressive dementia with uncertain etiology 5. Parkinsonism 6. Paroxysmal a-fib 7. Type 2 diabetes mellitus 8. Low hemoglobin Pain Ratin Pain Location: NA Pain Goal: Remain pain free Pain Plan: NA Tomorrow's Labs & Rationales: Follow up on urine and blood cultures, guaic stool, cbc to assess H&H DVT/Prophylaxis: mechanical, pharmacological Discharge Plan Discharge Disposition: STR/OH EULOGIO GUO MD 04/12/17 3086: Attending MD Review Statement Attending Statement Attending MD Statement: examined this patient, discuss w/resident/PA/STEAM TABLE WORKER, agreed w/resident/PA/STEAM TABLE WORKER, discussed with family, reviewed EMR data (avail), discussed with nursing, discussed with case mgmt, amended to note Attending Assessment/Plan: The patient was seen and discussed with house staff. Agree with plan of care as outlined. Will need STR. Continue care as outlined.
--- NOTE | 2017-04-12 10:43 | PN- Cardiology ---
Subjective Subjective: Confused but appears comfortable. No longer on telemetry. Objective Vital Signs and I&Os Vital Signs Date Time Temp Pulse Resp B/P B/P Pulse O2 O2 Flow FiO2 Mean Ox Delivery Rate 04/12 0958 70 154/78 04/12 0958 154/78 04/12 0720 98.5 70 18 154/78 97 Room Air / 0000 96 Room Air 04/11 2306 97.5 68 16 144/80 96 Room Air 04/11 1508 99.4 68 20 132/64 96 Room Air 04/11 1441 99.4 04/11 1342 100.3 Intake & Output 04/12 1600 04/12 0800 / 0000 04/11 1600 04/11 0800 04/11 0000 Intake Total 60 650 1050 720 840 Output Total 600 300 Balance -487 700 2263 720 540 Intake, IV 600 600 600 600 Intake, Oral 60 50 450 120 240 Number 0 1 1 Bowel Movements Output, Urine 600 300 Physical Exam: General: No obvious distress, confused Eyes: No obvious scleral icterus. HEENT: No jugular venous distention or abnormal jugular venous pulsations. Cardiovascular: Normal intensity S1/S2. ICD noted. Respiratory: no rales or rhonchi, mildly decreased air entry Abdomen: no guarding Musculoskeletal: No clubbing or cyanosis noted, no edema Skin: warm Current Medications: Current Medications Sig/Courtney Start time Last Medication Dose Route Stop Time Status Admin Acetaminophen 650 MG Q6-PRN PRN 04/11 1345 AC 04/11 PO 1342 Acetaminophen 500 MG Q6P PRN 04/11 1330 DC PO Amlodipine Besylate 5 MG DAILY 04/08 1000 AC 04/12 PO 0958 Dabigatran 75 MG 0600,1800 04/10 0600 AC 04/12 PO 0608 Dextrose/Sodium 1,000 ML Q13H 04/08 1100 AC 04/12 Chloride IV 0608 Insulin Aspart 0 TIDAC 04/08 0800 AC 04/12 SC 0749 Metoprolol Succinate 125 MG DAILY 04/08 1000 AC 04/12 PO 0958 Pravastatin Sodium 40 MG 1700 04/09 1700 AC 04/11 PO 1621 Rivastigmine 4.6 MG DAILY 04/10 1015 AC 04/12 TOP 0959 Results Last 48 Hrs of Labs/Mics: Laboratory Tests 04/11/17 1115: CBC w Diff NO MAN DIFF REQ, RBC 3.13 L, MCV 86.9, MCH 28.6, RDW 13.4, MPV 8.7, Gran % 69.9, Lymphocytes % 14.8 L, Monocytes % 13.3 H, Eosinophils % 1.8, Basophils % 0.2, Absolute Granulocytes 6.2, Absolute Lymphocytes 1.3, Absolute Monocytes 1.2 H, Absolute Eosinophils 0.2, Absolute Basophils 0, PUBS MCHC 33.0 04/11/17 0706: Anion Gap 7, Estimated GFR 34 L, BUN/Creatinine Ratio 15.8 04/10/17 1800: Urinalysis LIGHT H, Urine Color YEL, Urine Clarity CLEAR, Urine pH 6.0, Ur Specific [place] 1.025, Urine Protein 100 H, Urine Ketones NEG, Urine Nitrite NEG, Urine Bilirubin NEG, Urine Urobilinogen 0.2, Ur Leukocyte Esterase NEG, Ur Microscopic SEDIMENT EXAMINED, Urine RBC 3-5, Urine WBC 1-3 H, Ur Epithelial Cells RARE, Hyaline Casts RARE H, Granular Casts RARE H, Urine Mucus RARE, Urine Hemoglobin SMALL H, Urine Glucose 100 H Recent Imaging Studies: CXR: IMPRESSION: Hypoexpanded with probable tiny left-sided effusion and associated left basilar consolidation/atelectasis, similar to the prior study Assessment/Plan Assessment/Plan 1. Altered mental status with dementia and a recent CVA 2. History of paroxysmal atrial fibrillation recently initiated on oral anticoagulation 3. 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 Biventricular AICD followed by Dr. Arredondo currently at [facility] 5. CKD 6. Hypertension/hyperlipidemia 7. Nonspecific minimal troponin elevation Hemodynamically stable. No longer on telemetry. Is back on oral Pradaxa. EEG pending. The patient is scheduled for elective generator change with Dr. Arredondo in the future although we may need to rediscuss this if goals of care change. Norbert Latham MD [facility] Continue telemetry? Not applicable
[2017-04-12 14:33] VITALS: BP 132/70
--- NOTE | 2017-04-12 17:54 | ELECTROENCEPHALOGRAM REPORT ---
Electroencephalogram Report Electroencephalogram Results Date of service: 04/09/17 Attending MD: ILEANA PATTERSON,SUAD [employer]ine Aircraft Structure Mechanic: Joesy Rose EEG Number: [id number] Test Utilizes: 10-20 system, 21 lead 18 channel digital recording Pertinent Hx/Physical/Neuro Findings/Clin Diagnosis: AMs Inpatient Medications: Current Medications Sig/Courtney Start time Last Medication Dose Route Stop Time Status Admin Acetaminophen 650 MG Q6-PRN PRN 04/11 1345 AC 04/11 PO 1342 Amlodipine Besylate 5 MG DAILY 04/08 1000 AC 04/12 PO 0958 Dabigatran 75 MG 0600,1800 04/10 0600 AC 04/12 PO 1712 Dextrose/Sodium 1,000 ML Q13H 04/08 1100 AC 04/12 Chloride IV 0608 Insulin Aspart 0 TIDAC 04/08 0800 AC 04/12 SC 1712 Metoprolol Succinate 125 MG DAILY 04/08 1000 AC 04/12 PO 0958 Pravastatin Sodium 40 MG 1700 04/09 1700 AC 04/12 PO 1712 Rivastigmine 4.6 MG DAILY 04/10 1015 AC 04/12 TOP 0959 Interpretation: The recording reveals a loss of the normal electrographic architecture due to diffuse slowing. This slowing is more prominent within the right hemisphere, although at times both hemispheres reveal diffuse slowing to theta rhythms. At other times faster rhythms are seen within the left fronttempora regions. No paroxysmal sharps or spikes are noted. The posterior dominant rhythm is indiscernible. Impression: Abonrmal EEG due to diffuse cerebral slowing that is more prominent within the right hemisphere and in that may be suggestive of an underlying structural abnormality. No seizure activity is noted.
[2017-04-12 23:00] VITALS: BP 160/72
[2017-04-12 23:48] VITALS: BP 150/70
[2017-04-13 06:40] VITALS: BP 160/80
[2017-04-13 08:05] LABS: ABSOLUTE BASOPHIL COUNT 0 /CUMM (0.0-0.2); ABSOLUTE EOSINOPHIL COUNT 0.2 /CUMM (0.0-0.7); ABSOLUTE GRANULOCYTE CT 4.6 /CUMM (1.4-6.5); ABSOLUTE LYMPH COUNT 1.2 /CUMM (1.2-3.4); ABSOLUTE MONOCYTE COUNT 0.9 /CUMM (0.10-0.60); BASOPHIL % 0.4 % (0.0-2.0); GRANULOCYTE % 66.9 % (42.2-75.2); HEMATOCRIT 28.8 % (42-52); MEAN CORPUSCULAR HGB 28.6 PG (27.0-31.0); MEAN CORPUSCULAR HGB CONC 32.7 G/DL (33.0-37.0); MEAN CORPUSCULAR VOLUME 87.7 FL (80.0-94.0); MEAN PLATELET VOLUME 8.7 FL (7.4-10.4); PLATELET COUNT 201 /CUMM (130-400); RBC DISTRIBUTION WIDTH 13.7 % (11.5-14.5); RED BLOOD CELL CT 3.28 /CUMM (4.70-6.10); WHITE BLOOD CELL COUNT 6.9 /CUMM (4.8-10.8)
--- NOTE | 2017-04-13 12:31 | PN- Housestaff ---
Subjective Follow-up For: AMS DUE TO METABOLIC ENCEPHALOPATHY CAD DM PARKINSONISM Complaints: no complaints Tele-Events Since Last Visit: OFF TELE Subjective: Patient was seen and examined at the bedside. No events overnight and no complaints although patient is not AAOx3 and does not answer questions appropriately if at all. Review of Systems Constitutional: Reports: no symptoms. EENTM: Reports: no symptoms. Cardiovascular: Reports: no symptoms. Respiratory: Reports: no symptoms. Gastrointestinal: Reports: no symptoms. Genitourinary: Reports: no symptoms. Musculoskeletal: Reports: no symptoms. Skin: Reports: no symptoms. Neurological/Psychological: Reports: no symptoms. Hematologic/Endocrine: Reports: no symptoms. Immunologic/Allergic: Reports: no symptoms. Objective Last 24 Hrs of Vital Signs/I&O Vital Signs Date Time Temp Pulse Resp B/P B/P Pulse O2 O2 Flow FiO2 Mean Ox Delivery Rate 04/13 0836 76 160/80 04/13 0835 76 160/80 04/13 0640 99.0 76 20 160/80 95 Room Air 04/12 2348 150/70 04/12 2300 98.7 83 16 160/72 94 Room Air 04/12 1553 Room Air Room Air 04/12 1433 98.7 72 20 132/70 99 Room Air Intake & Output 04/13 1600 04 0800 04/13 0000 Intake Total 120 720 Output Total Balance 120 720 Intake, IV 600 Intake, Oral 120 120 Number 1 Bowel Movements Physical Exam General Appearance: Alert, Cooperative, No Acute Distress Skin: No Rashes, No Breakdown, No Significant Lesion Skin Temp/Moisture Exam: Warm/Dry Sepsis Skin Exam (color): Normal for Ethnicity HEENT: Atraumatic, PERRLA, EOMI, Mucous Membr. moist/pink Neck: Supple Cardiovascular: Regular Rate, Normal S1, Normal S2, No Murmurs, Gallops, Rubs Lungs: Clear to Auscultation, Normal Air Movement Abdomen: Normal Bowel Sounds, Soft, No Tenderness, No Hepatospenomegaly, No Masses Neurological: RIGIDITY ARMS, STRENGTH 2/5 ON FINGER SQUEEZE Extremities: No Clubbing, No Cyanosis, No Edema, Normal Pulses, No Tenderness/ Swelling Vascular: Normal Pulses, Pulses Symmetrical Sepsis Peripheral Pulse Location: Radial Sepsis Peripheral Pulse Exam: Normal Orders Stool Guaiac Testing: ORDERED YESTERDAY FOR LOW HB TRENDING DOWN. TODAY HB IS UP TO 9. Miscellaneous Findings: EEG RESULTS BACK- SHOWS R STRUCTURAL ABNORMALITY NO EVIDENCE OF SEIZURE Lines/Diet/Fluids Lines: peripheral lines Assessment/Plan Assessment: Patient is a 87-year-old man with a PMH significant paroxysmal atrial fibrillation, dementia, CKD stage IV, hypertension, diabetes, biventricular pacemaker/AICD (nonischemic cardiomyopathy-left bundle branch block), History of CVA (MCA), recently admitted to [facility] for metabolic encephalopathy 2 in the last 1 month, this time BIBA from [place] facility to [facility] with AMS. -temperature 100.6 on 04/10 -low H&H (11.0 on admission 04/07, THEN 8.9 NOW 9.4 -AMS 2/2 METABOLIC ENCEPHALOPATHY -troponin elevation due to questionable ACS vs renal insuffiency -parkinsonism -positive lyme titers -paroxysmal afib on pradaxa -type 2 dm -care measures Plan - Temperature: By mouth 100.6, rectally 100.1. Infectious source? * UA, UCx taken 04/10. UA wnl, no signs of infection except for protein 100. UCx NO GROWTH * BCx NO GROWTH * CXR deferred, no symptoms or signs infection * CBC shows no signs of active infection Low H/H: blood loss vs dilutional? * guaic stool for potential GI bleed. * Maintain above 8.0 and assess for signs and symptoms of anemia (weakness, lightheadedness, increased HR/palpitations, pallor, shortness of breath). Hypernatremia, metabolic encephalopathy -probably secondary to dehydration. His serum sodium was 147 now is 139 * eeg back and shows no evidence of seizure but right sided structural abnormality * CT scan of the head does not show any infarction or hemorrhage. Chest x-ray showed no signs of aspiration or infection. * We will continue D5 half normal saline at the rate of 75 mL per hour * strict intake output charting * no LP for AMS as per ID since mentation has gotten better. * continue fluids, off antibiotics (was given 1g ceftriaxone in ED) * patient has been admitted for similar reasons before - currently question of hospice care. Nonspecific elevation of troponins secondary to renal insufficiency - * Patient does not have any EKG changes, chest pain, or any other signs or symptoms of ACS, currently off tele monitoring. Parkinsonism * restarted rivastigmine patch at a lower dose 4.6 mg patch. patient still has rigidity, increase patch to 9.2. Positive Lyme titer and Western Blot, IgG, for Lyme, RPR negative - * positive igG= old infection * Discussed with Dr. Darden over the phone, he thinks it can be due to past infection. Because patient responded well to conservative management and we do not want a pause in his pradaxa, and his mental status has since improved, we deferred lumbar puncture. Paroxysmal afib and history CVA: * continue pradaxa 75 mg bid Type 2 diabetes * We will continue D5 half normal saline at the rate of 75 mL per hour * NovoLog according to the sliding scale Code Status: * As patient has presented with similar issues in the past, hospice introduced to family, they will consider Diet-Carbohydrate type 2, mechanical soft and regular, thin diet. DVT prophylaxis-ALPS/heparin CODE STATUS FULL Problem List: 1. Parkinsonism 2. Paroxysmal a-fib 3. Low hemoglobin 4. Altered mental status 5. Progressive dementia with uncertain etiology 6. Metabolic encephalopathy Pain Ratin Pain Location: NA Pain Goal: Remain pain free Pain Plan: NA Tomorrow's Labs & Rationales: NOT REQUIRED PT IS STABLE
--- NOTE | 2017-04-13 13:47 | PN- Att Addend ---
Attending MD Review Statement Attending Statement Attending MD Statement: examined this patient, discuss w/resident/PA/LANDSCAPER HELPER, agreed w/resident/PA/LANDSCAPER HELPER, reviewed EMR data (avail), discussed w/nursing Attending Assessment/Plan: Laboratory Tests 04/13/17 1205: Anion Gap 9, Estimated GFR 38 L, BUN/Creatinine Ratio 14.1 04/13/17 1036: CBC w Diff Cancelled, WBC Cancelled, RBC Cancelled, Hgb Cancelled, Hct Cancelled , MCV Cancelled, MCH Cancelled, RDW Cancelled, Plt Count Cancelled, MPV Cancelled, PUBS MCHC Cancelled 04/13/17 0715: CBC w Diff NO MAN DIFF REQ, RBC 3.28 L, MCV 87.7, MCH 28.6, RDW 13.7, MPV 8.7, Gran % 66.9, Lymphocytes % 17.3 L, Monocytes % 12.4 H, Eosinophils % 3.0, Basophils % 0.4, Absolute Granulocytes 4.6, Absolute Lymphocytes 1.2, Absolute Monocytes 0.9 H, Absolute Eosinophils 0.2, Absolute Basophils 0, PUBS MCHC 32.7 L Vital Signs Date Time Temp Pulse Resp B/P B/P Pulse O2 O2 Flow FiO2 Mean Ox Delivery Rate 04/13 1258 Room Air / 0836 76 160/80 07/ 0835 76 160/80 07/04 0640 99.0 76 20 160/80 95 Room Air 07/03 2348 150/70 07/ 2300 98.7 83 16 160/72 94 Room Air 04/12 1553 Room Air Room Air 04/12 1433 98.7 72 20 132/70 99 Room Air 87 yr old male from [facility] on pradaxa, ckd -4, dementia, parkinson ds, htn, DM, PPM/AICD, CVA with last discharge on 03/30(metabolic encephalopahty) admitted with AMS secondary to encephalopathy . Pt having poor intakes last few days and found to have hypernatremia of [address] head negative for ICH. LYME western blot positive for IgG. RPR negative. D/w ID - no need to treat for lyme. Cont to watch off abx. mental status little better . Metabolic encephalopathy- improving slightly. vit D level- normal. Previous b12 has always been high-unclear etiology. Hypernatremia- pt sodium is better at 138 on 04/13. cont to monitor closely. dc iv fluids and see how his sodium does without Iv fluids. Will need to discuss with family about considering PEG tube placement for hydration as pt will get MARTY again due to poor po intake of fluids. Dvt proph- on pradaxa. Afib- on pradaxa. dc tele as no events on tele monitor. parkinsons- restarted on rivastigmine lower dose on 04/10, will go up to the prior home dose today on 04/13.
[2017-04-13 15:41] VITALS: BP 136/70
[2017-04-13 22:00] VITALS: BP 112/70; BP 140/78
[2017-04-14 07:28] VITALS: BP 132/76
--- NOTE | 2017-04-14 10:06 | PN- Housestaff ---
See Addendum Subjective Follow-up For: AMS DUE TO METABOLIC ENCEPHALOPATHY CAD DM PARKINSONISM AFIB Complaints: no complaints Tele-Events Since Last Visit: OFF TELE Subjective: Patient was seen and examined at the bedside. No events overnight and no complaints although patient is not AAOx3 and does not answer questions appropriately if at all. Review of Systems Constitutional: Reports: no symptoms. EENTM: Reports: no symptoms. Cardiovascular: Reports: no symptoms. Respiratory: Reports: no symptoms. Gastrointestinal: Reports: no symptoms. Genitourinary: Reports: no symptoms. Musculoskeletal: Reports: no symptoms. Skin: Reports: no symptoms. Comments: Patient does not clearly and concisely answer all questions on symptoms due to underlying dementia Objective Last 24 Hrs of Vital Signs/I&O Vital Signs Date Time Temp Pulse Resp B/P B/P Pulse O2 O2 Flow FiO2 Mean Ox Delivery Rate 04/14 1009 76 132/76 07/ 1009 76 132/76 07/ 0728 97.3 76 20 132/76 92 Room Air 04/14 0000 Room Air 04/13 2200 98.4 79 20 140/78 96 Room Air 04/13 1541 98.6 73 20 136/70 97 Room Air Intake & Output 04/14 1600 07/05 0800 07/05 0000 Intake Total 150 290 Output Total Balance 150 290 Intake, Oral 150 290 Physical Exam General Appearance: Alert, Cooperative, No Acute Distress Skin: No Rashes, No Breakdown, No Significant Lesion Skin Temp/Moisture Exam: Warm/Dry Sepsis Skin Exam (color): Normal for Ethnicity HEENT: Atraumatic, PERRLA, EOMI, Mucous Membr. moist/pink Neck: Supple Cardiovascular: Regular Rate, Normal S1, Normal S2, No Murmurs, Gallops, Rubs Lungs: Clear to Auscultation Abdomen: Normal Bowel Sounds, Soft, No Tenderness Extremities: No Clubbing, No Cyanosis, No Edema Vascular: Normal Pulses Sepsis Peripheral Pulse Location: Radial Sepsis Peripheral Pulse Exam: Normal Current Medications: Current Medications Sig/Courtney Start time Last Medication Dose Route Stop Time Status Admin Acetaminophen 650 MG Q6-PRN PRN 04/11 1345 AC 04/11 PO 1342 Amlodipine Besylate 5 MG DAILY 04/08 1000 AC 04/14 PO 1009 Dabigatran 75 MG 0600,1800 04/10 0600 AC 04/14 PO 0544 Insulin Aspart 0 TIDAC 06/29 0800 AC 04/14 SC 1259 Metoprolol Succinate 125 MG DAILY 04/08 1000 AC 04/14 PO 1009 Pravastatin Sodium 40 MG 1700 04/09 1700 AC 04/13 PO 1736 Rivastigmine 9.5 MG DAILY 04/14 1000 AC 04/14 TOP 1009 Last 24 Hrs of Lab/Anselmo Results Last 24 Hrs of Labs/Mics: Laboratory Tests 04/14/17 0712: Anion Gap 9, Estimated GFR 34 L, BUN/Creatinine Ratio 13.2 Orders Stool Guaiac Testing: none Lines/Diet/Fluids Fluids/Infusions: none Assessment/Plan Assessment: Patient is a 87-year-old man with a PMH significant for paroxysmal atrial fibrillation, dementia, CKD stage IV, hypertension, diabetes, biventricular pacemaker/AICD (nonischemic cardiomyopathy-left bundle branch block), History of CVA (MCA), recently admitted to [facility] for metabolic encephalopathy 2 in the last 1 month, this time BIBA from [place] facility to [facility] with AMS 2/2 infection vs metabolic encephalopathy vs dehydration vs ckd -AMS 2/2 METABOLIC ENCEPHALOPATHY vs dehydration vs ckd -low H&H - 11.0 on admission 04/07, THEN 8.9 NOW 9.4 -troponin elevation due to questionable ACS vs renal insuffiency -parkinsonism -positive lyme titers igG -paroxysmal afib on pradaxa -type 2 dm Plan - Low H/H: blood loss vs dilutional? * guaic stool for potential GI bleed. * Maintain above 8.0 and assess for signs and symptoms of anemia (weakness, lightheadedness, increased HR/palpitations, pallor, shortness of breath). Hypernatremia, metabolic encephalopathy -probably secondary to dehydration. His serum sodium was 147 now is 141. Patient has dementia and has currently returned to his baseline. * Fluids have been stopped as he is pending discharge to [facility]. Watch how his sodium does without IV fluids. * EEG back 04/12 and shows no evidence of seizure but right sided structural abnormality * CT scan of the head did not show any infarction or hemorrhage. Chest x-ray showed no signs of aspiration or infection. * strict intake output charting and ADEQUATE HYDRATION IS STRESSED AT [facility] FAMILY HAS NOTED A REPEATED PROBLEM WITH HYDRATION THERE. Possible PEG tube placement for hydration in future if problem arises again. * Vit D level normal, current and previous b12 are high, unclear etiology. Nonspecific elevation of troponins secondary to renal insufficiency - * Patient does not have any EKG changes, chest pain, or any other signs or symptoms of ACS, currently off tele monitoring. Parkinsonism * restarted rivastigmine patch at a lower dose 4.6 mg patch. patient still has rigidity, increased patch to 9.2 7/4. Positive Lyme titer and Western Blot, IgG, for Lyme, RPR negative - * positive igG= old infection * Discussed with Dr. Darden over the phone, he thinks it can be due to past infection. Because patient responded well to conservative management and we do not want a pause in his pradaxa, and his mental status has since improved, we deferred lumbar puncture. Paroxysmal afib and history CVA: * continue pradaxa 75 mg bid * biventricular AICD followed by Dr. Arredondo - scheduled for elective generator change in the future although we may need to rediscuss this if goals of care change. Type 2 diabetes * Switch to home meds on discharge Code Status: * As patient has presented with similar issues in the past, hospice introduced to family, they will consider CURRENT Diet-Carbohydrate type 2, mechanical soft and regular, thin diet. DVT prophylaxis-ALPS/heparin CODE STATUS FULL Problem List: 1. Metabolic encephalopathy 2. Progressive dementia with uncertain etiology 3. Elevated troponin 4. Hypernatremia 5. Parkinsonism 6. Paroxysmal a-fib 7. Type 2 diabetes mellitus 8. Low hemoglobin Pain Ratin Pain Location: NA Pain Goal: Remain pain free Pain Plan: NA Tomorrow's Labs & Rationales: NONE DVT/Prophylaxis: mechanical, pharmacological
[2017-04-14] MEDS ORDERED: EXELON1 EAC1 TOP (11:28)
--- NOTE | 2017-04-14 11:50 | PN- Cardiology ---
Subjective Subjective: Resting comfortably. Mental status appears grossly unchanged. Objective Vital Signs and I&Os Vital Signs Date Time Temp Pulse Resp B/P B/P Pulse O2 O2 Flow FiO2 Mean Ox Delivery Rate 04/14 1009 76 132/76 04/14 1009 76 132/76 04/14 0728 97.3 76 20 132/76 92 Room Air 04/14 0000 Room Air 04/13 2200 98.4 79 20 140/78 96 Room Air 04/13 1541 98.6 73 20 136/70 97 Room Air 04/13 1258 Room Air Intake & Output 04/14 1600 04/14 0800 04/14 0000 04/13 1600 04/13 0800 04/13 0000 Intake Total 150 290 765 120 720 Output Total Balance 150 290 765 120 720 Intake, IV 525 600 Intake, Oral 150 290 240 120 120 Number 2 Bowel Movements Physical Exam: General: No obvious distress, confused Eyes: No obvious scleral icterus. HEENT: No jugular venous distention or abnormal jugular venous pulsations. Cardiovascular: Normal intensity S1/S2. ICD noted. Respiratory: no rales or rhonchi, mildly decreased air entry Abdomen: no guarding Musculoskeletal: No clubbing or cyanosis noted, no edema Skin: warm Current Medications: Current Medications Sig/Courtney Start time Last Medication Dose Route Stop Time Status Admin Acetaminophen 650 MG Q6-PRN PRN 04/11 1345 AC 04/11 PO 1342 Amlodipine Besylate 5 MG DAILY 04/08 1000 AC 04/14 PO 1009 Dabigatran 75 MG 0600,1800 07 0600 AC 04/14 PO 0544 Insulin Aspart 0 TIDAC 04/08 0800 AC 04/14 SC 1010 Metoprolol Succinate 125 MG DAILY 04/08 1000 AC 04/14 PO 1009 Pravastatin Sodium 40 MG 1700 04/09 1700 AC 04/13 PO 1736 Rivastigmine 9.5 MG DAILY 04/14 1000 AC 04/14 TOP 1009 Results Last 48 Hrs of Labs/Mics: Laboratory Tests 04/14/17 0712: Anion Gap 9, Estimated GFR 34 L, BUN/Creatinine Ratio 13.2 04/13/17 1205: Anion Gap 9, Estimated GFR 38 L, BUN/Creatinine Ratio 14.1 04/13/17 1036: CBC w Diff Cancelled, WBC Cancelled, RBC Cancelled, Hgb Cancelled, Hct Cancelled , MCV Cancelled, MCH Cancelled, RDW Cancelled, Plt Count Cancelled, MPV Cancelled, PUBS MCHC Cancelled 04/13/17 0715: CBC w Diff NO MAN DIFF REQ, RBC 3.28 L, MCV 87.7, MCH 28.6, RDW 13.7, MPV 8.7, Gran % 66.9, Lymphocytes % 17.3 L, Monocytes % 12.4 H, Eosinophils % 3.0, Basophils % 0.4, Absolute Granulocytes 4.6, Absolute Lymphocytes 1.2, Absolute Monocytes 0.9 H, Absolute Eosinophils 0.2, Absolute Basophils 0, PUBS MCHC 32.7 L Recent Imaging Studies: EEG: Abonrmal EEG due to diffuse cerebral slowing that is more prominent within the right hemisphere and in that may be suggestive of an underlying structural abnormality. No seizure activity is noted. Assessment/Plan Assessment/Plan 1. Altered mental status with dementia and a recent CVA 2. History of paroxysmal atrial fibrillation recently initiated on oral anticoagulation 3. 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 Biventricular AICD followed by Dr. Arredondo currently at [facility] 5. CKD 6. Hypertension/hyperlipidemia 7. Nonspecific minimal troponin elevation Currently afebrile. Remains hemodynamically stable. Follow-up with neurology regarding EEG result. The patient is scheduled for elective generator change with Dr. Arredondo in the future although we may need to rediscuss this if goals of care change. Norbert Latham MD [facility] Continue telemetry? Not applicable
[2017-04-14 15:40] VITALS: BP 130/70
== END 2017-04-14 16:40 | DRG 71 ==
LOC: ERH 15:32 → 1NO 18:41 → ERHI 18:41 → ENRESERV 20:21 → ENTRNSPT 21:11 → EDTRNSPTSTS 21:20 → 1NO 21:39 → CMPTRNSPT 21:57 → 1NO 22:36 → ENPENDDIS 04-14 14:27 → 1NO 04-14 16:40
PROVIDERS: Emergency Medicine; Internal Medicine; Internal Medicine Adolescent Medicine; Student in an Organized Health Care Education/Training Program; ADMIT Internal Medicine
DX: G93.41 Metabolic encephalopathy (principal); I47.2 Ventricular tachycardia; E87.0 Hyperosmolality and hypernatremia; N18.4 Chronic kidney disease, stage 4 (severe); I42.8 Other cardiomyopathies; I48.0 Paroxysmal atrial fibrillation; E86.0 Dehydration; I50.22 Chronic systolic (congestive) heart failure; I13.0 Hypertensive heart and chronic kidney disease with heart failure and stage 1 through stage 4 chronic kidney disease, or unspecified chronic kidney disease; E11.22 Type 2 diabetes mellitus with diabetic chronic kidney disease; G20 Parkinson's disease; I44.7 Left bundle-branch block, unspecified; F02.80 Dementia in other diseases classified elsewhere, unspecified severity, without behavioral disturbance, psychotic disturbance, mood disturbance, and anxiety; Z95.0 Presence of cardiac pacemaker; R76.8 Other specified abnormal immunological findings in serum; E78.5 Hyperlipidemia, unspecified; I25.10 Atherosclerotic heart disease of native coronary artery without angina pectoris; Z86.73 Personal history of transient ischemic attack (TIA), and cerebral infarction without residual deficits; Z79.4 Long term (current) use of insulin
CPT/HCPCS: 1NSP; 36415; 81001; 82436; 87040; 87070; 87086; 93005; 93010; 95816; 96360; 96361; 99291; J0696; J1815; J3490; J7040; J7042; J7508